=== PATIENT | male | born 1970 | race Caucasian/White ===

== ENCOUNTER 2023-07-15 11:29 | Emergency (ER) | payer OTHER, SELFPAY ==
[2023-07-15 12:07] VITALS: BP 130/80; PULSE 68; RESP 18; TEMP 36.4; O2SAT 98
--- NOTE | 2023-07-15 12:24 | ED.SKABFB ---
HPI - Skin/Abscess/Foreign Bdy General Chief complaint: Skin/Abscess/Foreign Body Stated complaint: cyst under lt great toe Time Seen by Provider: 07/15/23 12:20 Source: patient and RN notes reviewed Mode of arrival: ambulatory Limitations: no limitations History of Present Illness HPI narrative: Patient presents today complaining of a sore area underneath his left great toe. States 1 week ago it started out looking like a pimple and was popped by a family member. States he had been improving, but last night he felt it as he was walking and wanted to come in today for evaluation. States it is somewhat sore. Denies stepping on anything that would cause a foreign body. Related Data Allergies Allergy/AdvReac Type Severity Reaction Status Date / Time No Known Allergies Allergy Mild Verified 07/15/23 12:12 Review of Systems Review of Systems: CONSTITUTIONAL: Denies body aches, fever, chills, or sweats. EYES: Denies visual changes, redness, or discharge. ENT: Denies rhinorrhea, congestion, sore throat, or otalgia. CARDIOVASCULAR: Denies chest pain, palpitations, or edema. RESPIRATORY: Denies cough or dyspnea. GASTROINTESTINAL: Denies abdominal pain, nausea, vomiting, or diarrhea. GENITOURINARY: Denies dysuria or hematuria. SKIN: + sore to left foot MUSCULOSKELETAL: Denies back pain, joint pain, or myalgia. NEUROLOGIC: Denies headache, numbness, tingling, or weakness. PSYCH: Denies depression or anxiety. PMFSH Comments At time of signature, I have reviewed and agree with nursing past medical, surgical, social and family history unless otherwise noted. Please see nursing chart for further information. There is no relevant family history pertinent to the presenting complaint Exam Narrative: GENERAL: Well-appearing, well-nourished, and in no acute distress. HEAD: Normocephalic, atraumatic. EYES: EOMI. No redness or drainage. Conjunctivae normal. ENT: Mucous membranes pink and moist. NECK: Normal AROM. CHEST: No respiratory distress. EXTREMITIES: Normal range of motion. No edema. SKIN: Warm, dry, no rash. Capillary refill normal. Normal skin turgor. 3 mm pustule to the plantar surface of the proximal phalanx of the left 1st toe with moderate surrounding erythema. Tender to palpation. NEURO: No focal deficits. Alert and oriented x3. Gait steady. PSYCH: Normal affect. No signs of depression or anxiety. Course Course Level of Care: Express Care Visit Vital Signs Vital signs: Vital Signs Temperature 97.6 F 07/15/23 12:07 Pulse Rate 68 07/15/23 12:07 Respiratory Rate 18 07/15/23 12:07 Blood Pressure 130/80 07/15/23 12:07 Pulse Oximetry 98 07/15/23 12:07 Oxygen Delivery Room Air 07/15/23 12:07 Temperature 97.6 F 07/15/23 12:07 Pulse Rate 68 07/15/23 12:07 Respiratory Rate 18 07/15/23 12:07 Blood Pressure 130/80 07/15/23 12:07 Pulse Oximetry 98 07/15/23 12:07 Oxygen Delivery Room Air 07/15/23 12:07 Reviewed Procedures Abscess I/D foot: Date of Incision: 07/15/23 Time of Incision: 12:30 Side (if applicable): left Sedation/analgesia: none Local Anesthetic: none Technique: other (18g needle tip) Amount of fluid expressed (mL): 0 (scant) Irrigation: No I&D Results: Pus Abcess I&D Additional Comments: dressed with bandaid MDM - Skin/Abscess/Foreign Bdy MDM Narrative Medical decision making narrative: abscess was opened and drained fully. Patient was placed on Keflex for the surrounding cellulitis. Care instructions given. Differential Diagnosis Differential diagnosis: Likely abscess of skin or subcutaneous tissue and cellulitis Critical Care Time Critical Care Time Critical Care Time: No Discharge Plan Discharge Clinical Impression: Abscess of great toe of left foot Patient Disposition: Home, Self-Care Condition: Stable Instructions: Antibiotic Form, Abscess Incision a
== END 2023-07-15 12:40 | disposition home or self-care (01) ==
PROVIDERS: Emergency Provider Nurse Practitioner
DX: L02.612 Cutaneous abscess of left foot (principal)
CPT/HCPCS: 10060; 99213; G0463

== ENCOUNTER 2023-10-10 18:32 | Emergency (ER) | payer OTHER, SELFPAY ==
--- NOTE | 2023-10-10 18:38 | ED.URI ---
HPI - URI/Sore Throat General Chief Complaint: Upper Respiratory Infection Stated Complaint: Sob Time Seen by Provider: 10/10/23 18:38 Source: patient Mode of arrival: ambulatory Limitations: no limitations History of Present Illness HPI Narrative: Jeff is a 56-year-old male patient presenting to the clinic today with complaints of shortness of breath, left-sided chest discomfort, left arm pain, and right-sided jaw pain. He reports he started having cough and congestion today that is what prompted him to the clinic and his other symptoms started around 2 months ago. Pain is worse on exertion MD elicited complaint: sore throat and nasal congestion Related Data Home Medications Medication Instructions Recorded Confirmed No Home Medications 10/10/23 10/10/23 Allergies Allergy/AdvReac Type Severity Reaction Status Date / Time No Known Allergies Allergy Mild Verified 10/10/23 18:56 Review of Systems Review of Systems: Pertinent positives per HPI. Patient denies any fever, chills, rash, headache, visual changes, dizziness, cough, chest pain, palpitations, nausea, vomiting, diarrhea, constipation, abdominal pain, or any urinary issues. PMFSH Comments At the time of my signature, I reviewed and agree with the nursing past medical, surgical, social, and family history. There is no relevant family history pertinent to the patient complaint. Exam Narrative: General: Well-developed, well nourished, in no apparent distress Head: Normocephalic, atraumatic Eyes: Pupils equally round and reactive to light bilaterally, EOM intact, sclera and conjunctive clear, no discharge, lids normal Ears: TMs intact and clear, ear canals clear, no drainage, grossly hearing normal. Nose: Nares patent, clear nasal discharge, no inflammation, no sinus tenderness. Mouth: Oral pharynx without lesions or masses, good dentition, MMM. Neck: Supple, trachea midline, no enlargement of anterior or posterior cervical nodes, no thyroid masses or goiter palpable. Cardio: Regular rate and rhythm, s1 and s2 normal, no murmur appreciated. Resp: Clear to auscultation bilaterally, no rhonchi, rales, wheezing or rubs Course Course Emergency Course: Portions of this record may have been created with voice recognition software. Level of Care: Express Care Visit Vital Signs Vital signs: Vital signs reviewed Transfer Transfered to: [facility] Transportation: Other (Declined EMS) Transfer rationale: Chest pain, shortness of breath, left arm pain, right jaw pain Accepting physician: Dr. Alford Transfer comments: Private car-declined EMS- AMA signed MDM - URI/Sore Throat MDM Narrative Medical decision making narrative: At the time of visit patient is resting comfortably on the exam table. Patient appears to be nontoxic. Plan: EKG shows normal sinus rhythm with heart rate 61 beats per minute. No ST elevation or depression noted. No T-wave inversion. Plan: Recommend transfer to the emergency room for further evaluation. Patient would like to be transfer to [facility]. Patient is declining EMS and AMA was signed. Spoke with Dr. Alford at [facility] and she accepts patient for transfer. Differential Diagnosis Differential diagnosis: Likely upper respiratory infection, otitis media, sinusitis, viral infection, bronchitis, influenza, pharyngitis and other (COVID) ECG Data EKG #1: Attestation: I personally reviewed and interpreted this ECG as follows: ECG completion date: 10/10/23 ECG completion time: 18:56 Prior ECG tracings: not available for review Interpretation: EKG shows normal sinus rhythm with heart rate of 61 beats per minute without ST elevation or depression. No T-wave inversion. [place] interval is 153 milliseconds, QRS durations 94 milliseconds, QT-QTC is 365-369 milliseconds, P-R-T axis 35 6 49 Discharge Plan Discharge Clinical Impression: Shortness of breath, Chest pain, Arm pain, left,
[2023-10-10 18:40] VITALS: BP 144/83; PULSE 69; RESP 20; TEMP 36.7; O2SAT 97
--- NOTE | 2023-10-10 18:47 | ECG_ITS ---
Measurements Intervals [place] Rate: 61 P: 35 TX: 153 QRS: 6 QRSD: 94 T: 49 QT: 365 QTc: 370 Interpretive Statements SINUS RHYTHM MINIMAL Q WAVES- HIGH LATERAL LEADS BORDERLINE ECG NO PREVIOUS ECG AVAILABLE FOR COMPARISON Electronically Signed On 10-11-2023 6:32:53 XRAY TECH by Misael Duarte D.O.
== END 2023-10-10 19:04 | disposition short-term general hospital (02) ==
PROVIDERS: Emergency Provider Nurse Practitioner Family; PCP Physician Assistant
DX: R06.02 Shortness of breath (principal); R07.9 Chest pain, unspecified; M79.602 Pain in left arm; R68.84 Jaw pain
CPT/HCPCS: 93005; 99213; G0463

== ENCOUNTER 2023-10-10 19:17 | Inpatient (IN) | payer OTHER, SELFPAY ==
[2023-10-10] VITALS (25 sets, daily range): BP systolic 125–151; BP diastolic 78–95; PULSE 60–81; RESP 11–20; TEMP 36.6; O2SAT 95–100
--- NOTE | ~2023-10-10 | XR_ITS ---
EXAMINATION: XR chest 2V DATE: 10/10/2023 19:52 INDICATION: Chest pain TECHNIQUE: Frontal and lateral views of the chest are obtained COMPARISON: None available FINDINGS: The lungs are free of acute opacities. No pleural effusion or pneumothorax. The cardiomedia stinal silhouette is normal. There is mild thoracic spondylosis. IMPRESSION: 1. No acute cardiopulmonary abnormality. Reviewed, dictated and finalized at location [facility]
--- NOTE | 2023-10-10 19:32 | ECG_ITS ---
Measurements Intervals [place] Rate: 66 P: 20 FL: 153 QRS: 15 QRSD: 94 T: 51 QT: 365 QTc: 385 Interpretive Statements SINUS RHYTHM MINIMAL Q WAVES- HIGH LATERAL LEADS BASELINE ARTIFACT- I, II, III, AVR, AVL, AVF, V1, V3 BORDERLINE ECG NO PREVIOUS ECG AVAILABLE FOR COMPARISON Electronically Signed On 10-11-2023 6:34:23 EMERGENCY ROOM RN by Misael Duarte D.O.
[2023-10-10 19:52] LABS: Basophils Absolute Auto 0.1 K/mm3 (0.0-0.1); Basophils Percent Auto 0.6 % (0.2-1.2); Eosinophils Absolute Auto 0.3 K/mm3 (0-0.3); Eosinophils Percent Auto 3.2 % (0-4.4); Hemoglobin 14.9 g/dL (14.0-18.0); Immature Granulocyte Absolute 0.03 K/mm3 (0.00-0.031); Immature Granulocyte Percent A 0.4 % (0-0.5); Lymphocytes Absolute Auto 1.68 K/mm3 (0.9-3.2); Lymphocytes Percent Auto 21.6 % (18.3-44.2); Mean Corpuscular HGB Conc 33.1 g/dl (32-36); Mean Corpuscular Hemoglobin 28.3 pg (26-34); Mean Corpuscular Volume 85.6 fl (80-100); Mean Platelet Volume 10.1 fl (7.4-10.4); Monocytes Absolute Auto 0.8 K/mm3 (0.1-0.6); Neutrophils Percent Auto 64.2 % (45.5-73.1); Platelet Count Result 270 k/mm3 (150-375); Red Blood Count 5.26 M/mm3 (4.6-6.20); Red Cell Distribution Width 12.9 % (11.5-14.5); White Blood Count 7.8 K/mm3 (4.5-10.0)
[2023-10-10 20:01] LABS: Prothrombin Time 13.2 Seconds (11.1-14.7)
[2023-10-10 20:02] LABS: Partial Thromboplastin Time 30.3 SECONDS (22.3-36.8)
[2023-10-10 20:03] LABS: Alanine Aminotransferase 22 U/L (6-50); Albumin Level 3.9 g/dL (3.5-5.1); Alkaline Phosphatase 67 U/L (38-126); Anion Gap 6 mmol/L (8-16); Aspartate Amino Transferase 26 U/L (17-59); Bilirubin,Total 0.4 mg/dL (0.2-1.3); Blood Urea Nitrogen 12 mg/dL (9-20); Calcium 8.8 mg/dL (8.4-10.2); Carbon Dioxide 23 mmol/L (22-30); Chloride 108 mmol/L (98-107); Estimated CRCL calculation 73 ml/min; Estimated Glomerular Filt Rate > 60; Glucose 103 mg/dL (65-110); Lipase 182 U/L (23-300); Potassium 3.7 mmol/L (3.4-5.0); Sodium 137 mmol/L (137-145)
[2023-10-10 20:17] LABS: Troponin I 0.094 ng/mL (0.000-0.034)
--- NOTE | 2023-10-10 20:25 | ED.CHESTPAIN ---
HPI - Chest Pain General Chief Complaint: Chest Pain Stated Complaint: chest pain sent from urgent care Time Seen by Provider: 10/10/23 20:24 Source: patient, family () and other (provider report prior to arrival) Mode of arrival: ambulatory Limitations: no limitations History of Present Illness HPI narrative: Received report from Rajesh HALE at [place] prior to patient's arrival, at 18:58, by myself. Patient had presented with complaint of shortness of breath as well as left-sided chest pain on exertion radiating to the right jaw and associated with left arm pain with exertion. The symptoms have been going on for 2 months. He has also recently had cold symptoms. That initially called the urgent care and or advised to present to the emergency department based on all the symptoms but did continue to present to the urgent care instead. An EKG was performed with report of no ST segment elevations or depressions but some possibly peaked T-waves in V4 and V5. Patient declined EMS transport was becoming by private vehicle. Patient confirms the above history upon arrival. Denies lower extremity edema. Denies any past medical history and does not taking medications. No previous cardiac or respiratory diagnoses and has not seen a automation architect or undergone stress testing/cardiac catheterization. Nonsmoker, no previous diagnosis of diabetes mellitus or hypercholesterolemia. Denies a family history of myocardial infarction before the age of 65. Related Data Allergies Allergy/AdvReac Type Severity Reaction Status Date / Time No Known Allergies Allergy Verified 10/10/23 19:40 [facility] Past Medical History Medical History (Updated 10/10/23 @ 22:22 by Martita Alford MD) No significant past medical history Surgical History Surgical History (Updated 10/10/23 @ 22:23 by Martita Alford MD) History of total left knee replacement Social History Social History (Updated 10/10/23 @ 22:28 by Martita Alford MD) Smoking status: Never smoker Living arrangements: with family Additional living arrangements comments: [place] Occupation/Education: occupation Exam Narrative: GENERAL: Well-appearing, well-nourished, and in no acute distress. HEAD: Normocephalic, atraumatic. EYES: Non injected, non icteric ENT: Nares clear, no rhinorrhea or epistaxis. NECK: Supple. CHEST: Clear to auscultation. No respiratory distress. Speaking in full sentences. No wheezes, stridor, crackles. HEART: Regular rate and rhythm. Normal S1 and S2 without murmur. ABDOMEN: Soft, nondistended. EXTREMITIES: Normal range of motion. No bilateral lower extremity edema. SKIN: Warm, dry, no rash. NEURO: No focal deficits. Alert and oriented x3. Ambulates with steady gait. PSYCH: Normal mood and affect. Course Vital Signs Vital signs: Vital Signs Temperature 97.9 F 10/10/23 19:25 Pulse Rate 67 10/10/23 19:25 Respiratory Rate 14 10/10/23 19:25 Blood Pressure 146/87 H 10/10/23 19:25 Pulse Oximetry 97 10/10/23 19:25 Oxygen Delivery Room Air 10/10/23 19:25 Temperature 97.9 F 10/10/23 19:25 Pulse Rate 69 10/10/23 21:13 Respiratory Rate 16 10/10/23 21:13 Blood Pressure 125/85 10/10/23 21:13 Pulse Oximetry 99 10/10/23 21:37 Oxygen Delivery Room Air 10/10/23 21:37 MDM - Chest Pain MDM Narrative Medical decision making narrative: Patient presents to the ED from urgent care because of reported symptoms of chest pain with exertion radiating to jaw and arm as well as shortness of breath of 2 months duration. In the emergency department he is afebrile with vital signs notable for only mild hypertension. Troponin 0.094. HEART score is 3 however even with low HEART score, if troponin is positive, many experts recommend further workup and admission. Patient given aspirin. Discussed with Dr Duarte cardiology who recommends NPO and heparin and plan to cath in the morning. Patient discussed kate
[2023-10-10 20:30] LABS: Influenza A QL RT-PCR Negative (Negative); Influenza B QL RT-PCR Negative (Negative); RSV RNA, RT-PCR Negative (Negative); SARS-CoV-2 RNA PCR Negative (Negative)
[2023-10-10] MEDS: ASPIRIN 81 MG CHEWABLE TABLET 324 MG PO (21:03)
[2023-10-10] MEDS: Please add drug allergy info to patient profile. 1 EACH XX (21:04)
[2023-10-10 21:25] LABS: Basophils Absolute Auto 0.1 K/mm3 (0.0-0.1); Basophils Percent Auto 0.8 % (0.2-1.2); Eosinophils Absolute Auto 0.2 K/mm3 (0-0.3); Eosinophils Percent Auto 3.2 % (0-4.4); Hematocrit 44.5 % (42.0-52.0); Hemoglobin 15.1 g/dL (14.0-18.0); Immature Granulocyte Absolute 0.02 K/mm3 (0.00-0.031); Immature Granulocyte Percent A 0.3 % (0-0.5); Lymphocytes Absolute Auto 1.51 K/mm3 (0.9-3.2); Lymphocytes Percent Auto 21.3 % (18.3-44.2); Mean Corpuscular HGB Conc 33.9 g/dl (32-36); Mean Corpuscular Hemoglobin 28.8 pg (26-34); Mean Corpuscular Volume 84.8 fl (80-100); Mean Platelet Volume 10.3 fl (7.4-10.4); Monocytes Absolute Auto 0.7 K/mm3 (0.1-0.6); Monocytes Percent Auto 9.6 % (2.6-8.5); Neutrophils Absolute Auto 4.6 K/mm3 (1.3-6.7); Neutrophils Percent Auto 64.8 % (45.5-73.1); Platelet Count Result 271 k/mm3 (150-375); Red Blood Count 5.25 M/mm3 (4.6-6.20); White Blood Count 7.1 K/mm3 (4.5-10.0)
[2023-10-10] MEDS: HEPARIN SOD/D5W 100 UNITS/ML 25,000 UNITS/250 ML BAG 10 UNITS IV CONT (21:29)
[2023-10-10] MEDS: HEPARIN SODIUM 5,000 UNITS/ML VIAL 4000 UNITS IV PUSH (21:29)
[2023-10-10 21:31] LABS: Prothrombin Time 13.2 Seconds (11.1-14.7)
[2023-10-10 21:32] LABS: Partial Thromboplastin Time 30.4 SECONDS (22.3-36.8)
--- NOTE | 2023-10-10 22:38 | ECG_ITS ---
Measurements Intervals [place] Rate: 69 P: 42 [place]: 157 QRS: 19 QRSD: 94 T: 57 QT: 366 QTc: 393 Interpretive Statements SINUS RHYTHM MINIMAL Q WAVES- HIGH LATERAL LEADS BASELINE ARTIFACT- I, II, III, AVR, AVL, AVF, V1-V2 BORDERLINE ECG COMPARED TO ECG 10/10/2023 19:36:39 NO SIGNIFICANT CHANGES Electronically Signed On 10-11-2023 6:40:38 IMAGING SPECIALIST by Misael Duarte D.O.
[2023-10-10 23:11] LABS: Troponin I 0.103 ng/mL (0.000-0.034)
[2023-10-10] MEDS: LACTATED RINGERS 1,000 ML 125 ML IV CONT (23:12)
[2023-10-11] VITALS (30 sets, daily range): BP systolic 107–162; BP diastolic 64–94; PULSE 57–80; RESP 12–18; TEMP 36.4–37.3; O2SAT 94–100; BMI 29.2
--- NOTE | 2023-10-11 | ECHO_ITS ---
Patient Info Name: Jeff Mendoza Age: 52 years : 1970 Gender: Male Ht: 71 in Wt: 209 lbs BSA: 2.20 m2 HR: 66 bpm BP: 140 / 77 mmHg Heart Rhythm: Sinus Rhythm Technical Quality: Fair Exam Date: 10/11/2023 10:10 AM Exam Location: Echo Lab Patient Status: Inpatient Admit Date: 10/10/2023 Staff Ordering Physician: Misael Duarte DO Technical Mgr: Romi Chatman RDCS Attending Provider: Vandana Ogden DO Referring Physician: Gerald ADAME; Exam Type: CA echo dop color flow w con Study Info Indications - elevated troponin R07.9 - Chest pain, unspecified Complete two-dimensional, color flow and Doppler transthoracic echocardiogram is performed with contrast to opacify the left ventricle and to improve the deliniation of the left ventricle endocardial borders. Contrast/Agitated Saline Contrast/Ag. Saline: Definity Amount: 2.00 ml Administered By: Romi Chatman RDCS Existing IV Access: Yes IV Access Condition: patent with no signs of infiltration Summary 1. Definity contrast administered improved wall motion interpretation. 2. Left ventricular chamber dimension is normal. 3. Left ventricular systolic function is normal, estimated at 65-70%. 4. The left ventricular diastolic function is normal. 5. E/e' 9 is minimally elevated. 6. There is trace mitral valve regurgitation. 7. No pulmonary hypertension, estimated pulmonary arterial systolic pressure is 17 mmHg. Left Ventricle E/e' 9 is minimally elevated. Definity contrast administered improved wall motion interpretation. Left ventricular chamber dimension is normal. Left ventricular systolic function is normal, estimated at 65-70%. The left ventricular diastolic function is normal. Right Ventricle Right ventricular systolic function is normal and with normal TAPSE 2.2 cm. Right ventricular chamber dimension is normal. Left Atria Left atrial chamber dimension is normal. Right Atria Right atrial chamber dimension is normal. Aortic Valve The aortic valve is trileaflet. There is no aortic valve stenosis. There is no aortic valve regurgitation. Pulmonic Valve There is no pulmonic regurgitation. Mitral Valve There is no mitral valve stenosis. There is trace mitral valve regurgitation. Tricuspid Valve There is no tricuspid valve regurgitation. No pulmonary hypertension, estimated pulmonary arterial systolic pressure is 17 mmHg. Pericardium/Pleural There is no pericardial effusion. Inferior Vena Cava Normal inferior vena cava with >50% collapse upon inspiration consistent with normal right atrial pressure, 5 mmHg. Aorta The aortic root size at the sinus of Valsalva is normal. Left Ventricular Outflow Tract Name Value Normal LVOT 2D LVOT Diameter 2.01 cm LVOT Doppler LVOT Peak Gradient 5 mmHg LVOT Mean Gradient 3 mmHg LVOT VTI 22.72 cm LVOT VTI/AV VTI Ratio 1.05 LVOT Stroke Volume 71.87 ml LVOT CO 4.40 l/min LVOT CI 2.00 L/min/m2 Pulmonic Valve
--- NOTE | 2023-10-11 00:20 | ADMGEN ---
This patient, Jeff Mendoza, was admitted to IMU Room 213-01. Patient/family oriented to hospital policies and general routines including ID bracelet, bed and alarms, visiting hours, pain management, procedures, bathroom and other care routines, personal items, smoking policy, room service/diet, and visiting hours. Information on how to activate the Rapid Response Team has been discussed. Patient/Family are encouraged to report perceived risks to care and to ask questions if they do not understand what they are told or what they should do.
[2023-10-11 03:45] LABS: Basophils Absolute Auto 0.1 K/mm3 (0.0-0.1); Basophils Percent Auto 0.9 % (0.2-1.2); Eosinophils Absolute Auto 0.3 K/mm3 (0-0.3); Eosinophils Percent Auto 4.4 % (0-4.4); Hematocrit 43.2 % (42.0-52.0); Hemoglobin 14.6 g/dL (14.0-18.0); Immature Granulocyte Absolute 0.01 K/mm3 (0.00-0.031); Immature Granulocyte Percent A 0.2 % (0-0.5); Lymphocytes Absolute Auto 1.76 K/mm3 (0.9-3.2); Mean Corpuscular HGB Conc 33.8 g/dl (32-36); Mean Corpuscular Hemoglobin 28.9 pg (26-34); Mean Corpuscular Volume 85.5 fl (80-100); Mean Platelet Volume 10.3 fl (7.4-10.4); Monocytes Absolute Auto 0.6 K/mm3 (0.1-0.6); Monocytes Percent Auto 9.7 % (2.6-8.5); Neutrophils Absolute Auto 3.8 K/mm3 (1.3-6.7); Neutrophils Percent Auto 57.8 % (45.5-73.1); Platelet Count Result 259 k/mm3 (150-375); Red Blood Count 5.05 M/mm3 (4.6-6.20); Red Cell Distribution Width 13.2 % (11.5-14.5); White Blood Count 6.5 K/mm3 (4.5-10.0)
[2023-10-11 03:57] LABS: Partial Thromboplastin Time 69.6 SECONDS (22.3-36.8)
[2023-10-11 04:17] LABS: Troponin I 0.144 ng/mL (0.000-0.034)
--- NOTE | 2023-10-11 05:10 | PM.IMHP ---
H&P: HPI History of Present Illness Date/Time: 10/11/23 00:40 Chief Complaint: Chest pain Narrative: 52-year-old male previously healthy who presents the ER from urgent care with intermittent chest pain, dyspnea on exertion and left arm pain for 2 months. 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 He has been having intermittent left-sided chest pain that radiates to his left arm and lasts for brief time. It is 30 seconds to a couple of minutes and has resolved with rest. The symptoms have been occurring with increasing frequency over the last couple of weeks. They are not accompanied by any diaphoresis, palpitations, nausea or vomiting. However over the last 2 days he has developed upper respiratory symptoms with postnasal drip, nasal congestion and scratchy throat. And he has also had left-sided neck pain today when he had 1 of his episodes of chest discomfort. He states that the pain is aching in nature. Over the last couple of days he is also to develop some cough that is nonproductive and reports that he cannot lay down without being uncomfortable. He does not have a family history of significant heart disease he does not smoke. He denies a history of hyperlipidemia. In the urine the patient's troponins were noted to be elevated. He was started on heparin drip in given a full-dose aspirin. Review of Systems Review of Systems: 12 systems were reviewed with pertinent positives and negatives per HPI. Except as documented in the HPI, all other systems were reviewed and are negative. [facility] Past Medical History Medical History No significant past medical history Surgical History Surgical History (Updated 10/11/23 @ 05:22 by Vandana Ogden DO) History of right knee surgery Right knee reconstruction History of total left knee replacement Family History Family History (Updated 10/11/23 @ 05:25 by Vandana Ogden DO) Father , at 79 Congestive heart failure Mother Liver cancer, Onset Age: 63 Sibling Drug overdose Sibling Healthy adult Social History Social History (Updated 10/11/23 @ 05:26 by Vandana Ogden DO) Social History: Patient lives with his . He is a lifelong nonsmoker and does not have significant alcohol or drug use. 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 No Living arrangements: with family Additional living arrangements comments: [place] Occupation/Education: occupation Spiritual care concerns: No Meds Home Medications and Allergies Home Medications Medication Instructions Recorded Confirmed Type No Home Medications 10/11/23 10/11/23 History Allergies Allergy/AdvReac Type Severity Reaction Status Date / Time No Known Allergies Allergy Verified 10/10/23 19:40 Vital Signs Vital Signs - 24 hr 10/10/23 19:25 10/10/23 21:12 10/10/23 21:13 Temperature 97.9 F Pulse Rate 67 62 69 Respiratory Rate 14 16 Blood Pressure 146/87 H 125/85 Pulse Oximetry 97 99 Oxygen Delivery Room Air 10/10/23 21:37 10/10/23 23:37 10/10/23 20:29 Temperature Pulse Rate 65 67 Respiratory Rate 16 17 Blood Pressure 147/93 H 137/89 Pulse Oximetry 99 97 97 Oxygen Delivery Room Air 10/10/23 20:30 10/10/23 20:31 10/10/23 20:45 Temperature Pulse Rate 70 65 62 Respiratory Rate 16 14 15 Blood Pressure 125/85 Pulse Oximetry 97 96 98 Oxygen Delivery 10/10/23 21:02
[2023-10-11 07:37] LABS: Cholesterol 205 mg/dL (0-200); HDL Direct 54 mg/dL; Triglycerides 284 mg/dL (<150)
[2023-10-11] MEDS: LACTATED RINGERS 1,000 ML 125 ML IV CONT (07:45)
[2023-10-11 07:48] LABS: LDL Cholesterol Direct 131 mg/dL
--- NOTE | 2023-10-11 07:55 | PM.CNCAR ---
Assessment and Plan Assessment and plan (1) Non-ST elevation [place] (NSTEMI): Code(s): I21.4 - Non-ST elevation (NSTEMI) myocardial infarction Status: Acute Assessment and Plan: Troponin trending up at 0.144. EKG without ST changes. On aspirin and heparin drip. Start Atorvastatin 80 mg daily and Metoprolol Succinate 12.5 mg daily. Obtain echo. Risks/benefits/alternative to [facility] discuss with patient and he is agreeable to it[place] [facility] [place] [facility]. (2) Dyslipidemia: Code(s): E78.5 - Hyperlipidemia, unspecified Status: Acute Assessment and Plan: Advise to maintain a low saturated fat diet. History of Present Illness History of Present Illness Consult date/time: 10/11/23 07:55 Reason For Visit: NSTEMI Narrative: 52 yr old man presents to ER with chest pain. He has no cardiac history. Reports in last 2 months he noted exertional left chest ache radiating to left upper extremity associated with sob. It has become more frequent with walking up to 30 yards now. Denies orthopnea, PND, edema, dizziness, palpitations. Review of Systems Review of Systems: All systems reviewed & are unremarkable except as noted in HPI and below Constitutional: Constitutional: Reports as per HPI, Denies chills and Denies fever(s) Cardiovascular: Cardiovascular: Reports as per HPI, Reports chest pain and Denies irregular heart rhythm Respiratory: Respiratory: Reports as per HPI and Reports dyspnea Gastrointestinal: Gastrointestinal: Reports as per HPI and Denies abdominal pain Genitourinary: Genitourinary: Reports as per HPI and Denies dysuria Musculoskeletal: Musculoskeletal: Reports as per HPI Neurologic: Reports as per HPI, Denies dizziness and Denies syncope [facility] Past Medical History Medical History (Updated 10/11/23 @ 07:58 by Misael Duarte DO) No significant past medical history Surgical History Surgical History (Updated 10/11/23 @ 05:22 by Vandana Ogden DO) History of right knee surgery Right knee reconstruction History of total left knee replacement Family History Family History (Updated 10/11/23 @ 05:25 by Vandana Ogden DO) Father , at 79 Congestive heart failure Mother Liver cancer, Onset Age: 63 Sibling Drug overdose Sibling Healthy adult Social History Social History (Updated 10/11/23 @ 05:26 by Vandana Ogden DO) Social History: Patient lives with his . He is a lifelong nonsmoker and does not have significant alcohol or drug use. 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 No Living arrangements: with family Additional living arrangements comments: [place] Occupation/Education: occupation Spiritual care concerns: No Meds Home Medications and Allergies Home Medications Medication Instructions Recorded Confirmed Type No Home Medications 10/11/23 10/11/23 History Allergies Allergy/AdvReac Type Severity Reaction Status Date / Time No Known Allergies Allergy Verified 10/10/23 19:40 Vital Signs Vital Signs - 24 hr 10/10/23 19:25 10/10/23 21:12 10/10/23 21:13 Temperature 97.9 F Pulse Rate 67 62 69 Respiratory Rate 14 16 Blood Pressure 146/87 H 125/85 Pulse Oximetry 97 99 Oxygen Delivery Room Air 10/10/23 21:37 10/10/23 23:37 10/10/23 20:29 Temperature Pulse Rate 65 67 Respiratory Rate 16 17 Blood Pressure 147/93 H 137/89 Pulse Oximetry 99 97 97 Oxygen Delivery Room Air
--- NOTE | 2023-10-11 08:36 | WPDMODSED ---
Moderate Sedation Note-Pt Data Patient Data Diagnosis: Exertional/accelerating angina Present Complaint: Exertional chest pain Procedure to be performed/Plan: Left heart catheterization Allergies Allergy/AdvReac Type Severity Reaction Status Date / Time No Known Allergies Allergy Verified 10/10/23 19:40 Home Medications Medication Instructions Recorded Confirmed Type No Home Medications 10/11/23 10/11/23 History Current Medications: Active Medications Acetaminophen (Acetaminophen 325 Mg Tablet) 650 mg PO Q4H PRN PRN Reason: Mild Pain (1-3) or Fever Aspirin (Aspirin 81 Mg Enteric Tablet) 81 mg PO QAM [facility] Atorvastatin Calcium (Atorvastatin 40 Mg Tablet) 80 mg PO DAILY [facility] Heparin Sodium (Porcine) (Heparin Sodium 5,000 Units/Ml Vial) 4,000 units IV PUSH PRN PRN PRN Reason: aPTT less than 55 seconds Heparin Sodium (Porcine) (Heparin Sodium 5,000 Units/Ml Vial) 3,500 units IV PUSH PRN PRN PRN Reason: aPTT 55 - 70 seconds Heparin Sodium/Dextrose (Heparin Sodium/D5w 100 Units/Ml) 25,000 units in 250 mls @ 10 mls/hr IV CONT .Q24H [facility]; Protocol Last Admin: 10/10/23 21:29 Dose: 1,000 units/hr, 10 mls/hr Lactated Ringer's (Lr - Lactated Ringers Iv) 1,000 mls @ 125 mls/hr IV CONT .Q8H [facility] Last Admin: 10/10/23 23:12 Dose: 125 mls/hr Metoprolol Succinate (Metoprolol Succinate Ext Rel 12.5 Mg Tabcr) 12.5 mg PO QAM [facility] Ondansetron HCl (Ondansetron Inj 4 Mg/2 Ml Vial) 4 mg IV PUSH Q4H PRN PRN Reason: Nausea Perflutren Lipid Microsphere (Perflutren Lipid Microspheres 1.5 Ml Vial Diluted To 10 Ml Total Volume) 0 ml IV PUSH ONCE PRN; Protocol PRN Reason: adequate visualization Stop: 10/13/23 21:24 Sedation/Anesthesia: No previous sedation/anesthesia problems (including family history). [facility] Past Medical History Medical History (Updated 10/11/23 @ 07:58 by Misael Duarte DO) No significant past medical history Surgical History Surgical History (Updated 10/11/23 @ 05:22 by Vandana Ogden DO) History of right knee surgery Right knee reconstruction History of total left knee replacement Family History Family History (Updated 10/11/23 @ 05:25 by Vandana Ogden DO) Father , at 79 Congestive heart failure Mother Liver cancer, Onset Age: 63 Sibling Drug overdose Sibling Healthy adult Social History Social History (Updated 10/11/23 @ 05:26 by Vandana Ogden DO) Social History: Patient lives with his . He is a lifelong nonsmoker and does not have significant alcohol or drug use. 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 No Living arrangements: with family Additional living arrangements comments: [place] Occupation/Education: occupation Spiritual care concerns: No Mod Sed Physical Exam Physical Exam Pre Procedural Exam: Normal: Appearance, Nose, Neck, Throat, Airway, Lungs, Heart Size, Heart Rate, Heart Rhythm, Neuro Exam and Extremities Hours since solid foods: 12 Hours since liquid intake: 12 Mallampati Classification: class II Internal Medicine - PN: Obj Da Vital Signs Vital Signs: Vital Signs - 24 hr 10/10/23 19:25 10/10/23 21:12 10/10/23 21:13 Temperature 36.6 C Pulse Rate 67 62 69 Respiratory Rate 14 16 Blood Pressure 146/87 H 125/85 Pulse Oximetry 97 99 Oxygen Delivery Room Air 10/10/23 21:37 10/10/23 23:37 10/10/23 20:29 Temperature Pulse Rate 65 67 Respiratory Rate 16 17 Blood Pressure 147/93 H 137/89
[2023-10-11] MEDS: ATORVASTATIN 40 MG TABLET 80 MG PO (08:39)
[2023-10-11] MEDS: ASPIRIN 81 MG ENTERIC TABLET PO (08:39)
[2023-10-11] MEDS: METOPROLOL SUCCINATE EXT REL 12.5 MG TABCR PO (08:40)
--- NOTE | 2023-10-11 09:59 | PM.IMPN ---
Progress Note: A&P Assessment and Plan (1) Dyslipidemia: Code(s): E78.5 - Hyperlipidemia, unspecified Status: Acute Assessment and Plan: -patient denies any home medication use (2) Non-ST elevation [place] (NSTEMI): Code(s): I21.4 - Non-ST elevation (NSTEMI) myocardial infarction Status: Acute Assessment and Plan: -continue telemetry monitoring -elevated troponin consistent with NSTEMI -continue 81 mg aspirin every day Plan -patient scheduled for cardiac catheterization today Continue telemetry monitoring -may be able to discharge in the a.m. Subjective Date/time seen: 10/11/23 09:59 Interval history: Chest pain Narrative: 52-year-old male previously healthy who presents the ER from urgent care with intermittent chest pain, dyspnea on exertion and left arm pain for 2 months.? 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 He has been having intermittent left-sided chest pain that radiates to his left arm and lasts for brief time.? It is 30 seconds to a couple of minutes and has resolved with rest.? The symptoms have been occurring with increasing frequency over the last couple of weeks.? They are not accompanied by any diaphoresis, palpitations, nausea or vomiting.? However over the last 2 days he has developed upper respiratory symptoms with postnasal drip, nasal congestion and scratchy throat.? And he has also had left-sided neck pain today when he had 1 of his episodes of chest discomfort.? He states that the pain is aching in nature.? Over the last couple of days he is also to develop some cough that is nonproductive and reports that he cannot lay down without being uncomfortable.? He does not have a family history of significant heart disease he does not smoke.? He denies a history of hyperlipidemia.? In the urine the patient's troponins were noted to be elevated.? He was started on heparin drip in given a full-dose aspirin. Interval Hx: 10/10: Patient seen this morning prior to scheduled cardiac catheterization, he denies any chest pain, shortness a breath nausea vomiting at this time. Plan is to continue monitor patient's s/p: cardiac catheterization, plan for discharge in the a.m. Review of Systems Review of Systems: 12 systems were reviewed with pertinent positives and negatives per HPI. Except as documented in the HPI, all other systems were reviewed and are negative. Objective Data Vital Signs Vital Signs: Vital Signs - 24 hr 10/10/23 19:25 10/10/23 21:12 10/10/23 21:13 Temperature 97.9 F Pulse Rate 67 62 69 Respiratory Rate 14 16 Blood Pressure 146/87 H 125/85 Pulse Oximetry 97 99 Oxygen Delivery Room Air 10/10/23 21:37 10/10/23 23:37 10/10/23 20:29 Temperature Pulse Rate 65 67 Respiratory Rate 16 17 Blood Pressure 147/93 H 137/89 Pulse Oximetry 99 97 97 Oxygen Delivery Room Air 10/10/23 20:30 10/10/23 20:31 10/10/23 20:45 Temperature Pulse Rate 70 65 62 Respiratory Rate 16 14 15 Blood Pressure 125/85 Pulse Oximetry 97 96 98 Oxygen Delivery 10/10/23 21:02 10/10/23 21:15 10/10/23 21:17 Temperature Pulse Rate 63 69 60 Respiratory Rate 14 14 11 L Blood Pressure 151/95 H Pulse Oximetry 99 100 98 Oxygen Delivery 10/10/23 21:30 10/10/23 21:45 10/10/23 22:00 Temperature Pulse Rate 66 63 80 Respiratory Rate 20 15 14 Blood Pressure Pulse Oximetry 98 98 Oxygen Delivery 10/10/23 22:15 10/10/23 22:33 10/10/23 22:41 Temperature Pulse Rate 71 72 69 Respiratory Rate 16 16 17 Blood Pressure 147/88 H Pulse Oximetry 97 96 Oxygen Delivery 10/10/23 22:45 10/10/23 22:46 10/10/23 23:00 Temperature Pulse Rate 76 71 66 Respiratory Rate 15 16 12 Blood Pressure 142/91 H Pulse Oximetry 97 97 98 Oxygen Delivery 10/10/23 23:15 10/10/23 23:30 10/10/23 23:31 Temperature Pulse Rate 73 72 81 Respiratory Rate 14 13 18 Blood Pressure 147/93 H Pulse Oximetry 97 98 95 Oxygen Delivery
[2023-10-11 10:04] LABS: Partial Thromboplastin Time 53.6 SECONDS (22.3-36.8)
[2023-10-11] MEDS: HEPARIN SODIUM 5,000 UNITS/ML VIAL 4000 UNITS IV PUSH (10:15)
[2023-10-11] MEDS: PERFLUTREN LIPID MICROSPHERES 1.5 ML VIAL DILUTED TO 10 ML TOTAL VOLUME IV PUSH (10:33)
--- NOTE | 2023-10-11 12:16 | IVDEFINITY ---
Prior to administration of IV Definity the patient was educated on the risks and benefits of the imaging enhancing agent including potential adverse side effects. The patient verbalized understanding. Allergies were verified. No exclusion criteria were identified and at least one of the following inclusion criteria were met: 1) physician request, 2) patient technically difficult to image (per the [place] [employer]chocardi[employer] guidelines of two or more segments not discernable within the apical view), or 3) questionable left ventricular function. ?
--- NOTE | 2023-10-11 13:49 | ECG_ITS ---
Measurements Intervals [place] Rate: 58 P: 65 IA: 146 QRS: 25 QRSD: 94 T: 2 QT: 386 QTc: 381 Interpretive Statements SINUS BRADYCARDIA HIGH LATERAL ST ELEVATION- CONSIDER ACUTE INFARCT WITH RECIPROCAL ST DEPRESSION IN INFERIOR LEADS BASELINE ARTIFACT- II, III, AVF ABNORMAL ECG COMPARED TO ECG 10/10/2023 22:44:21 SINUS BRADYCARDIA NOW PRESENT ST (T WAVE) DEVIATION NOW PRESENT Electronically Signed On 10-11-2023 15:15:22 RETARDER OPERATOR by Misael Duarte D.O.
--- NOTE | 2023-10-11 13:53 | WPDCARDPROC ---
Cardiac Cath Procedure Note Date of procedure:: 10/11/23 Performing physician:: Marbin Hernandez MD Indication:: new onset exertional angina, acute coronary syndrome Brief clinical history:: this is a 52-year-old man not previously known to have coronary disease who entered the hospital with a 2 month history of exertional chest pain typical of angina. His pain accelerated any presented to the hospital last evening. There has been a very small troponin rise. Electrocardiogram is benign. In this setting angiography has been recommended. Procedure Procedure performed:: Left ventriculogram coronary angiogram PCI(NAVIN) to the proximal LAD Sedation/Medication given:: fentanyl 50 mg Versed 2 mg case start time 1:00 p.m. case end time 1:43 p.m. sedation provided by Jeannette Salcedo RN, trained observer Access site:: right femoral artery Estimated blood loss:: 30 cc Procedure note:: patient was brought to the cardiac catheterization lab in the postabsorptive state where the right femoral triangle was prepared and draped in the usual fashion. Anesthesia was given with 1% lidocaine infiltrated locally. Using the modified Seldinger technique the femoral artery was punctured and a 5 Irish vascular sheath was placed. After this left heart catheterization was carried out. A 5 Irish angled pigtail catheter was used to measure less than hemodynamics and to inject the left ventriculogram in the BAKER projection. After this standard 5 Irish FL4 catheter was used to engage the left coronary artery in multiple projections and then a 5 Irish JR4 catheter to engage and inject the right coronary artery. The cineangiograms were then reviewed and PCI of proximal LAD was recommended and carried out as detailed below. Prior to PCI 5 Irish sheath was exchanged over a guidewire for 6 Irish sheath. The patient received 600 mg of p.o. clopidogrel as a loading dose and was anticoagulated with bolus and infusion bivalirudin. Following completion of intervention is described below the sheath was sutured into position he was taken to the holding area in stable condition there were no signs of groin hematoma at the conclusion of the case. Findings:: Hemodynamics: Central aortic pressure is 1 16 over 66 left ventricle 116/0 end-diastolic 8 there is no gradient on pullback across the aortic valve. Left ventricle: The LV is normal in size all segments contract vigorously the global ejection fraction I visually estimated at 70%. The left main coronary artery is widely patent the left anterior descending is a large caliber artery extending down to the apex. There is a high-grade stenosis of 90-95% in the proximal LAD at the origin of the proximal diagonal branch which is a small to medium-sized vessel that bifurcates. There is JUAN 3 flow in the LAD. The circumflex is a moderate to large caliber vessel giving rise to the marginal branches the circumflex system is smooth and angiographically free of disease. The circumflex is dominant to the posterior wall providing the posterolateral branches and the left PDA the right coronary artery is small and non dominant. It gives rise to 2 right ventricular branches and is angiographically free of disease. Intervention: The left main coronary artery was engaged using a 6 Irish CLS 3.5 guiding catheter. I used a 0.014 BMW coronary guidewire to wire the LAD and easily advanced the wire into the apical, distal portion of the LAD. The lesion was then pre-dilated using a 3.5 x 20 mm Panterra balloon under nominal pressure for 30 seconds. Following this the vessel was widely patent. The target lesion was then stented using a 3.5 x 22 mm Opendisc stent. Following stent deployment at 10 atmospheres there was a small area of under expansion where the original high-grade lesion was. For that reason I post dilated this area with 3.75 x 12 mm noncompliant balloon at 14 atmospheres. Follow
--- NOTE | 2023-10-11 14:00 | SUR.PHASEII ---
Angiomax drip complete at 1403
[2023-10-11] MEDS: MORPHINE SULFATE (*CRX) 2 MG/ML INJ IV PUSH (14:28)
--- NOTE | 2023-10-11 15:26 | SUR.PHASEII ---
stent card given to while in chest pain center. copy placed on chart
[2023-10-11] MEDS: HYDROcodone/acetaminophen (*CRX) 5-325 MG TABLET 1 TAB PO (17:06)
[2023-10-11] MEDS: SODIUM CHLORIDE 0.9% IV 1,000 ML 125 ML IV CONT (17:30)
[2023-10-12] VITALS (8 sets, daily range): BP systolic 136–143; BP diastolic 86–87; PULSE 64–80; RESP 14–16; TEMP 36.4–37; O2SAT 94–98
[2023-10-12] MEDS: HYDROcodone/acetaminophen (*CRX) 5-325 MG TABLET 1 TAB PO (00:23)
--- NOTE | 2023-10-12 05:11 | ECG_ITS ---
Measurements Intervals [place] Rate: 72 P: 52 [place]: 150 QRS: 55 QRSD: 95 T: 58 QT: 357 QTc: 391 Interpretive Statements SINUS RHYTHM HIGH LATERAL INFARCT, AGE INDETERMINATE ABNORMAL ECG COMPARED TO ECG 10/11/2023 14:04:25 SINUS RHYTHM NOW PRESENT Electronically Signed On 10-12-2023 9:09:17 INVENTORY MANAGEMENT SPECIALIST by Misael Duarte D.O.
--- NOTE | 2023-10-12 08:44 | PM.PNCARD ---
Progress Note: A&P Assessment and Plan (1) Non-ST elevation [place] (NSTEMI): Code(s): I21.4 - Non-ST elevation (NSTEMI) myocardial infarction Status: Acute Assessment and Plan: Troponin trending up at 0.144. EKG without ST changes. 10/11/23 Echo: 65-70%, trace MR. 10/11/[address] [facility] [address] Hernandez: 90-95% prox LAD stenosis at origin of 1st Diag. PCI with NAVIN to prox LAD with good results but jailed and occluded small-medium size Diag. On Aspirin, Clopidogrel, Atorvastatin, Metoprolol and Losartan. May D/C home from cardiology standpoint and f/u with me in 1 week. Will discuss returning to work then and start phase II cardiac rehab then. (2) Dyslipidemia: Code(s): E78.5 - Hyperlipidemia, unspecified Status: Acute Assessment and Plan: On Atorvastatin. Advise to maintain a low saturated fat diet. Subjective Date/time seen: 10/12/23 08:44 Interval history: Since stenting has mild 2/10 left sided chest pressure that is improving. Right groin access site without hematoma/tenderness. No sob. Exam Const: General: cooperative, healthy appearing and comfortable Orientation/consciousness: oriented to person, oriented to place and oriented to time Resp: Auscultation: clear to auscultation bilaterally, no crackles, no rales, no rhonchi and no wheezes Cardio: Rate: regular rate Rhythm: regular rhythm Heart sounds: no murmurs Peripheral pulses: dorsalis pedis present Neuro: General: oriented to person, oriented to place and oriented to time Extrem: Right lower extremity: no edema Left lower extremity: no edema Objective Data Vital Signs Vital Signs: Vital Signs - 24 hr 10/11/23 10:00 10/11/23 12:00 10/11/23 12:00 Temperature 99.1 F Pulse Rate 71 70 Respiratory Rate 16 Blood Pressure 124/82 Pulse Oximetry 96 Oxygen Delivery Room Air 10/11/23 14:00 10/11/23 14:15 10/11/23 14:30 Temperature Pulse Rate 72 61 72 Respiratory Rate 12 13 12 Blood Pressure 149/91 H 162/94 H 147/85 H Pulse Oximetry 99 100 99 Oxygen Delivery Room Air Room Air Room Air 10/11/23 14:45 10/11/23 15:00 10/11/23 15:30 Temperature Pulse Rate 57 L 57 L 63 Respiratory Rate 13 13 14 Blood Pressure 138/90 141/79 H 123/81 Pulse Oximetry 97 95 Oxygen Delivery Room Air Room Air Room Air 10/11/23 16:10 10/11/23 16:15 10/11/23 16:38 Temperature Pulse Rate 69 68 65 Respiratory Rate 16 13 12 Blood Pressure 117/64 107/73 132/83 Pulse Oximetry 97 95 98 Oxygen Delivery Room Air Room Air Room Air 10/11/23 16:20 10/11/23 16:25 10/11/23 16:30 Temperature Pulse Rate 59 L 65 60 Respiratory Rate 14 14 17 Blood Pressure 116/84 123/74 123/79 Pulse Oximetry 94 95 94 Oxygen Delivery Room Air Room Air Room Air 10/11/23 16:35 10/11/23 16:45 10/11/23 17:00 Temperature Pulse Rate 66 62 71 Respiratory Rate 14 14 15 Blood Pressure 130/85 139/94 H 140/90 Pulse Oximetry 97 97 96 Oxygen Delivery Room Air Room Air Room Air 10/11/23 17:15 10/11/23 17:32 10/11/23 17:30 Temperature Pulse Rate 67 66 Respiratory Rate 14 16 Blood Pressure 134/90 135/82 Pulse Oximetry 98 98 Oxygen Delivery Room Air Room Air Room Air 10/11/23 18:00 10/11/23 18:00 10/11/23 18:40 Temperature Pulse Rate 64 75 77 Respiratory Rate 15 14 Blood Pressure 132/92 H 132/84 Pulse Oximetry 97 95 Oxygen Delivery 10/11/23 20:00 10/12/23 00:00 10/11/23 20:00 Temperature 98.1 F 97.5 F L Pulse Rate 62 67 67 Respiratory Rate 14 15 15 Blood Pressure 126/79 143/87 H Pulse Oximetry 95 98 98 Oxygen Delivery Room Air 10/12/23 00:00 10/11/23 20:00 10/11/23 22:00 Temperature Pulse Rate 67 69 70 Respiratory Rate 15 Blood Pressure Pulse Oximetry 98 Oxygen Delivery Room Air 10/12/23 00:00 10/12/23 02:00 10/12/23 04:00 Temperature Pulse Rate 65 64 64 Respiratory Rate Blood Pressure Pulse Oximetry Oxygen Delivery 10/12/23 04:00 10/12/23 04:00 10/12/23
--- NOTE | 2023-10-12 09:08 | PM.DS ---
DS: Admitting Diagnosis Discharge Date 10/12/2023 Admitting Diagnosis NSTEMI DS: Discharge Diagnosis Discharge Diagnosis (1) Dyslipidemia: Code(s): E78.5 - Hyperlipidemia, unspecified Status: Acute (2) Non-ST elevation [place] (NSTEMI): Code(s): I21.4 - Non-ST elevation (NSTEMI) myocardial infarction Status: Acute Plan May D/C home from cardiology standpoint and f/u in 1 week. Cardiology will discuss returning to work then and start phase II cardiac rehab then. DS: Summary Hospital Course Reason for hospitalization: 52-year-old male previously healthy who presented the ER from urgent care with intermittent chest pain, dyspnea on exertion and left arm pain for 2 months.? 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 He has been having intermittent left-sided chest pain that radiates to his left arm and lasts for brief time.? It is 30 seconds to a couple of minutes and has resolved with rest.? The symptoms have been occurring with increasing frequency over the last couple of weeks.? They are not accompanied by any diaphoresis, palpitations, nausea or vomiting.? However over the last 2 days he has developed upper respiratory symptoms with postnasal drip, nasal congestion and scratchy throat.? And he has also had left-sided neck pain today when he had 1 of his episodes of chest discomfort.? He states that the pain is aching in nature.? Over the last couple of days he is also to develop some cough that is nonproductive and reports that he cannot lay down without being uncomfortable.? He does not have a family history of significant heart disease he does not smoke.? He denies a history of hyperlipidemia.? In the urine the patient's troponins were noted to be elevated.? He was started on heparin drip in given a full-dose aspirin. Interval Hx: 10/10:??Patient seen this morning prior to scheduled cardiac catheterization, he denies any chest pain, shortness a breath nausea vomiting at this time.? Plan is to continue monitor patient's s/p: cardiac catheterization, plan for discharge in the a.m. 10/11: Patient seen this morning, he is lying in bed, in no acute distress he denies any ongoing chest pain. He reports after his cardiac catheterization he did have some ongoing chest pain and pressure that finally resolved. He denies any SOB, eager for discharge today reports he will follow up with [facility] as directed. Labs were reviewed which are unremarkable at this time. Status at Discharge Functional status at discharge: independent ambulation Overall status at discharge: patient is back to baseline Time Spent with Patient Time attestation: Total time spent providing and/or coordinating discharge services: Time spent: Less than 30 minutes Exam Narrative: General: A well-developed, nontoxic-appearing gentlemen, sitting up in bed. HEENT: PERRL, EOMI. Oral mucosa moist. Neck: Supple. No midline cervical tenderness. Respiratory: Respirations are non- labored and lungs are clear to auscultation bilaterally. Cardiovascular: Regular rate and rhythm with S1-S2. Gastrointestinal: Abdomen is soft, non-tender, and non-distended with positive bowel sounds. Skin: Warm and dry. No rash or lesions on limited exam. Extremities: No cyanosis, clubbing, or edema. Radial and pedal pulses intact. Neurological: Alert and oriented. Cranial nerves 2-12 are grossly intact. No gross focal deficits to casual conversation. Psychiatric: Pleasant and cooperative with normal mood and affect. Judgment and insight intact. DS: Data Data Completed and Pending Completed studies during hospitalization: Patient: Jeff Mendoza : 1970 MR#: [id number] Age: 52 Acct:[id number] Loc: [facility]? ? 213-01 ADM Date: 10/10/23Attending Dr: Vandana Ogden D.O. Ordering Physician: Misael Duarte DO Date of Service: 10/11/23 Procedure(s): CA echo dop color f
[2023-10-12] MEDS: ATORVASTATIN 40 MG TABLET 80 MG PO (09:13)
[2023-10-12] MEDS: CLOPIDOGREL BISULFATE 75 MG TABLET PO (09:14)
[2023-10-12] MEDS: ASPIRIN 81 MG CHEWABLE TABLET PO (09:14)
[2023-10-12] MEDS: LOSARTAN POTASSIUM 25 MG TABLET PO (09:14)
[2023-10-12] MEDS: METOPROLOL SUCCINATE EXT REL 25 MG TABCR PO (09:14)
== END 2023-10-12 11:00 | disposition home or self-care (01) | DRG 322 ==
LOC: ANHED 22:37 → ANHIMU 22:47
PROVIDERS: Emergency Medicine; Specialist; Admitting Provider Internal Medicine; Emergency Provider Student in an Organized Health Care Education/Training Program; PCP Physician Assistant; Visit Provider Nurse Practitioner
PROC: 4A023N7 Measurement of Cardiac Sampling and Pressure, Left Heart, Percutaneous Approach (ICD-10-PCS; CPT 93452; principal; 2023-10-11 13:00)
PROC: 027034Z Dilation of Coronary Artery, One Artery with Drug-eluting Intraluminal Device, Percutaneous Approach (ICD-10-PCS; 2023-10-11 13:00)
DX: I21.4 Non-ST elevation (NSTEMI) myocardial infarction (principal); I25.10 Atherosclerotic heart disease of native coronary artery without angina pectoris; E78.5 Hyperlipidemia, unspecified; Z20.822 Contact with and (suspected) exposure to COVID-19; Z96.652 Presence of left artificial knee joint
CPT/HCPCS: 36415; 71046; 80053; 80061; 83690; 84484; 85025; 85610; 85730; 87637; 93005; 93458; 96361; 96374; 99285; A9270; C1725; C1769; C1874; C1887; C1894; C8929; C9600; G0378; J0461; J0583; J1644; J2250; J2270; J3010; J7030; J7040; J7120; Q9957

== ENCOUNTER 2023-10-27 15:09 | Observation (INO) | payer OTHER, SELFPAY ==
[2023-10-27] VITALS (21 sets, daily range): BP systolic 112–151; BP diastolic 70–86; PULSE 59–80; RESP 13–20; TEMP 36.2; O2SAT 93–100
--- NOTE | ~2023-10-27 | XR_ITS ---
EXAMINATION: XR chest 2V Exam Date/Time: 10/27/2023 15:42 CDT HISTORY: SOB, CHEST PAIN FOR 2 WKS. STENT 2 WKS AGO Comparison: 10/10/2023. RESULT: Lines, tubes, and devices: Coronary stent. Lungs and pleura: Clear. Cardiomediastinal silhouette: Stable. Other: No acute osseous or upper abdominal finding. IMPRESSION: No acute cardiopulmonary process. Reviewed, dictated and finalized at location K.
--- NOTE | 2023-10-27 15:10 | ECG_ITS ---
Measurements Intervals [place] Rate: 70 P: 51 IN: 130 QRS: 61 QRSD: 101 T: 95 QT: 385 QTc: 418 Interpretive Statements SINUS RHYTHM CANNOT RULE OUT SEPTAL INFARCT, AGE INDETERMINATE HIGH LATERAL INFARCT, AGE INDETERMINATE BASELINE ARTIFACT- I, II, AVR, AVL, AVF ABNORMAL ECG COMPARED TO ECG 10/12/2023 08:21:48 NO SIGNIFICANT CHANGES Electronically Signed On 10-27-2023 19:33:14 CDT by Misael Duarte D.O.
[2023-10-27] MEDS: ASPIRIN 81 MG CHEWABLE TABLET 324 MG PO (15:35)
[2023-10-27 15:44] LABS: Basophils Absolute Auto 0.1 K/mm3 (0.0-0.1); Basophils Percent Auto 0.8 % (0.2-1.2); Eosinophils Absolute Auto 0.3 K/mm3 (0-0.3); Eosinophils Percent Auto 3.5 % (0-4.4); Hematocrit 43.3 % (42.0-52.0); Hemoglobin 14.4 g/dL (14.0-18.0); Immature Granulocyte Absolute 0.02 K/mm3 (0.00-0.031); Immature Granulocyte Percent A 0.3 % (0-0.5); Lymphocytes Absolute Auto 1.88 K/mm3 (0.9-3.2); Lymphocytes Percent Auto 23.6 % (18.3-44.2); Mean Corpuscular HGB Conc 33.3 g/dl (32-36); Mean Corpuscular Hemoglobin 28.5 pg (26-34); Mean Corpuscular Volume 85.7 fl (80-100); Monocytes Absolute Auto 0.7 K/mm3 (0.1-0.6); Monocytes Percent Auto 8.6 % (2.6-8.5); Neutrophils Absolute Auto 5.1 K/mm3 (1.3-6.7); Neutrophils Percent Auto 63.2 % (45.5-73.1); Platelet Count Result 316 k/mm3 (150-375); Red Blood Count 5.05 M/mm3 (4.6-6.20); Red Cell Distribution Width 12.7 % (11.5-14.5)
--- NOTE | 2023-10-27 15:50 | ED.CHESTPAIN ---
HPI - Chest Pain General Chief Complaint: Chest Pain Stated Complaint: Chest Pain Time Seen by Provider: 10/27/23 15:24 History of Present Illness HPI narrative: Patient is a 52-year-old male who presents ER with chest pain. Intermittent over the last 5 days. It can be sharp and achy in last couple of seconds. No association with exertion. Is not associated with eating or drinking. No runny nose or sore throat or cough. No difficulty breathing. He reports that he had a cardiac catheterization with this tinnitus LAD, they placed a stent which then occluded a smaller vessel but they felt that no additional intervention should be performed at that time. Patient reports he has had persistent fatigue since discharge. He is following with Dr. Duarte. Related Data Allergies Allergy/AdvReac Type Severity Reaction Status Date / Time No Known Allergies Allergy Verified 10/27/23 15:36 Review of Systems Review of Systems: All systems reviewed & are unremarkable except as noted in HPI and below Constitutional: Constitutional: Reports no additional constitutional complaints ENT: Reports system reviewed and no additional complaints, except as documented Cardiovascular: Cardiovascular: Reports chest pain, Denies rapid heart rate, Denies radiating jaw, neck or arm pain and Denies slow heart rate Respiratory: Respiratory: Reports no additional respiratory complaints Gastrointestinal: Gastrointestinal: Reports no additional gastrointestinal complaints Musculoskeletal: Musculoskeletal: Reports no additional musculoskeletal complaints [facility] Past Medical History Medical History No significant past medical history Surgical History Surgical History History of right knee surgery Right knee reconstruction History of total left knee replacement Family History Family History Father , at 79 Congestive heart failure Mother Liver cancer, Onset Age: 63 Sibling Drug overdose Sibling Healthy adult Social History Social History Social History: Patient lives with his . He is a lifelong nonsmoker and does not have significant alcohol or drug use. 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 No Living arrangements: with family Additional living arrangements comments: , [place] Occupation/Education: occupation Spiritual care concerns: No Exam Narrative: GENERAL: Well-appearing, well-nourished, and in no acute distress. HEAD: Normocephalic, atraumatic. EYES: PERRL and EOMI. ENT: Mucous membranes moist. CHEST: Clear to auscultation. No respiratory distress. HEART: Regular rate and rhythm. Normal peripheral pulses. ABDOMEN: Soft, nontender, nondistended. EXTREMITIES: Normal range of motion. No edema. SKIN: Warm, dry, no rash. NEURO: Alert and oriented x3. PSYCH: Normal mood and affect. Course Course Emergency Course: Discussed case with patient's primary case sealer. Recommends observation. No anticoagulation at this time. Trend troponins. Patient pain free. Vital Signs Vital signs: Vital Signs Temperature 97.2 F L 10/27/23 15:15 Pulse Rate 78 10/27/23 15:15 Respiratory Rate 16 10/27/23 15:15 Blood Pressure 132/78 10/27/23 15:15 Pulse Oximetry 10
[2023-10-27 15:53] LABS: Prothrombin Time 14.1 Seconds (11.1-14.7)
[2023-10-27 15:54] LABS: Partial Thromboplastin Time 32.5 Seconds (22.3-36.8)
[2023-10-27 15:55] LABS: Alanine Aminotransferase 25 U/L (6-50); Albumin Level 4.1 g/dL (3.5-5.1); Alkaline Phosphatase 69 U/L (38-126); Anion Gap 7 mmol/L (8-16); Aspartate Amino Transferase 31 U/L (17-59); Bilirubin,Total 0.7 mg/dL (0.2-1.3); Blood Urea Nitrogen 12 mg/dL (9-20); Calcium 8.8 mg/dL (8.4-10.2); Carbon Dioxide 24 mmol/L (22-30); Chloride 110 mmol/L (98-107); Estimated CRCL calculation 73 ml/min; Estimated Glomerular Filt Rate > 60; Glucose 107 mg/dL (65-110); Lipase 216 U/L (23-300); Potassium 3.5 mmol/L (3.4-5.0); Sodium 141 mmol/L (137-145)
[2023-10-27 16:19] LABS: Troponin I 0.037 ng/mL (0.000-0.034)
--- NOTE | 2023-10-27 17:50 | ECG_ITS ---
Measurements Intervals [place] Rate: 62 P: 3 NM: 165 QRS: -1 QRSD: 101 T: -40 QT: 409 QTc: 416 Interpretive Statements SINUS RHYTHM CANNOT RULE OUT SEPTAL INFARCT, AGE INDETERMINATE INFERIOR INFARCT, AGE INDETERMINATE BASELINE ARTIFACT- AVR ABNORMAL ECG COMPARED TO ECG 10/27/2023 18:30:21 INFERIOR INFARCT, AGE INDETERMINATE NOW PRESENT Electronically Signed On 10-28-2023 6:33:00 CDT by Misael Duarte D.O.
[2023-10-27 19:10] LABS: Troponin I 0.037 ng/mL (0.000-0.034)
--- NOTE | 2023-10-27 19:12 | PC.NURSE ---
Assumed care of pt at this time.
--- NOTE | 2023-10-27 19:24 | PM.CNCAR ---
Assessment and Plan Assessment and plan (1) Chest pain: Code(s): R07.9 - Chest pain, unspecified Status: Acute Assessment and Plan: Very slight elevation and flat Troponin .037 then same 3 hours later. Probably residual from prior NSTEMI 2 weeks ago. Check troponin at 6 hours. Obtain limited echo in AM. (2) CAD (coronary artery disease): Code(s): I25.10 - Atherosclerotic heart disease of [place] coronary artery without angina pectoris Status: Acute Assessment and Plan: On dual antiplatelets, Atorvastatin, Metoprolol and Losartan. (3) Dyslipidemia: Code(s): E78.5 - Hyperlipidemia, unspecified Status: Acute Assessment and Plan: On Atorvastatin. History of Present Illness History of Present Illness Consult date/time: 10/27/23 19:24 Reason For Visit: Chest Pain Narrative: 52 yr old man who is my regular cardiology patient presents to ER with chest pain. He has a history of CAD, dyslipidemia. Reports that in last 2 days he noted resting aching chest pain localized to a spot on his chest lasting 2 seconds. It occurred several times each day. He also reports feeling fatigued since discharge from hospital 2 weeks ago after NSTEMI. States occasionally he feels he has to take a deep breath while at rest. He was hospitalized on 10/11/23 for NSTEMI. Denies orthopnea, PND, edema, dizziness, palpitations. Previously, reports in last 2 months he noted exertional left chest ache radiating to left upper extremity associated with sob. It has become more frequent with walking up to 30 yards now. Cardiovascular Procedures [employer]:: 10/11/[address] [facility] [address] Hernandez: 90-95% prox LAD stenosis at origin of 1st Diag. PCI with NAVIN to prox LAD with good results but jailed and occluded small-medium size Diag. Echo/MUGA:: 10/11/23 Echo: 65-70%, trace MR. Electrophysiology:: 10/11/23 EKG: Sinus rhythm, high lateral STEMI. 10/10/23 EKG: Sinus rhythm. Review of Systems Review of Systems: All systems reviewed & are unremarkable except as noted in HPI and below Constitutional: Constitutional: Reports as per HPI, Denies chills, Reports fatigue and Denies fever(s) Cardiovascular: Cardiovascular: Reports as per HPI, Reports chest pain, Denies irregular heart rhythm and Reports dyspnea Respiratory: Respiratory: Reports as per HPI and Reports dyspnea Gastrointestinal: Gastrointestinal: Reports as per HPI and Denies abdominal pain Genitourinary: Genitourinary: Reports as per HPI and Denies dysuria Musculoskeletal: Musculoskeletal: Reports as per HPI Neurologic: Reports as per HPI, Denies dizziness and Denies syncope [facility] Past Medical History Medical History No significant past medical history Surgical History Surgical History History of right knee surgery Right knee reconstruction History of total left knee replacement Family History Family History Father , at 79 Congestive heart failure Mother Liver cancer, Onset Age: 63 Sibling Drug overdose Sibling Healthy adult Social History Social History Social History: Patient lives with his . He is a lifelong nonsmoker and does not have significant alcohol or drug use. 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
--- NOTE | 2023-10-27 21:24 | PM.IMHP ---
H&P: HPI History of Present Illness Date/Time: 10/27/23 21:24 Chief Complaint: Chest Pain Narrative: 52 y/o M presents here with chest pain with PMH of NSTEMI, CAD, and dyslipidemia. Recent hospitalization on 10/10/2023 and discharged on 10/12/2023 for NSTEMI. Patient initially presented to the urgent care on . Reported that he had been experiencing intermittent left-sided chest pain that radiated to his left arm, lasting 30 seconds, and resolving with rest for approximately the last 2 months. Did have some associated shortness of breath. Symptoms had been increasing and now occurring with walking approximately 30 yd. Initial troponin at that time had been 0.094. Given aspirin and started on heparin gtt with plan for cardiac catheterization in the morning. EKG showed sinus rhythm on . EKG on 10/10 showed Sinus rhythm, high lateral STEMI. Cardiac catheterization done on 10/10 which showed 90-95% prox LAD stenosis at origin of 1st Diag. PCI with NAVIN to prox LAD with good results but jailed and occluded small-medium size Diag. Echo on 10/10 showed 65-70%, trace MR. Patient was started on atorvastatin, Plavix, losartan, aspirin 81, and metoprolol. Patient had follow-up with Gerald RAMÍREZ on 10/21 where he reported the fatigue, but did not report any chest pain. Returns today with chest pain that is left sided, described as aching or sharp, intermittent, and occurring at rest over the last 5 days. Occasionally will have to take a deep breath in order to catch his breath. Continues to have fatigue, but it is unchanged from when he was discharged. Patient reports approximately 4-5 short episodes of chest discomfort since arrival. Sought care because of the increasing frequency that began today. Initial VS at presentation: 97.2 F, HR 78, RR 16, 132/78, 100% on RA. ED workup showed: No leukocytosis or anemia, creatinine 1.1, no other significant electrolyte derangements, initial troponin 0.037. CXR showed no acute cardiopulmonary process. EKG showed sinus rhythm, cannot rule out septal infarct, high lateral infarct, baseline artifact. When compared to prior on 10/12/2023 there are no significant changes. Review of Systems Review of Systems: All systems reviewed & are unremarkable except as noted in HPI and below PENDING SALE TO [facility] Past Medical History Medical History CAD (coronary artery disease) Dyslipidemia Non-ST elevation [place] (NSTEMI) Surgical History Surgical History History of right knee surgery Right knee reconstruction History of total left knee replacement Family History Family History Father , at 79 Congestive heart failure Mother Liver cancer, Onset Age: 63 Sibling Drug overdose Sibling Healthy adult Social History Social History Social History: Patient lives with his . He is a lifelong nonsmoker and does not have significant alcohol or drug use. 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 No Living arrangements: with family Additional living arrangements comments: Re[place] Occupation/Education: occupation Spiritual care concerns: No Meds Home Medications and Allergies Home Medications Medication Instructions Recorded Confirmed Type aspirin 81 mg chewable tablet 81 mg PO
[2023-10-27 22:25] LABS: Troponin I 0.033 ng/mL (0.000-0.034)
[2023-10-28] VITALS (15 sets, daily range): BP systolic 92–123; BP diastolic 59–80; PULSE 51–62; RESP 10–18; TEMP 36.6–36.8; O2SAT 95–99
--- NOTE | 2023-10-28 | ECHO_ITS ---
Patient Info Name: Jeff Mendoza Age: 52 years : 1970 Gender: Male Ht: 71 in Wt: 205 lbs BSA: 2.18 m2 HR: 56 bpm BP: 104 / 67 mmHg Technical Quality: Good Exam Date: 10/28/2023 8:28 AM Exam Location: Echo Lab Patient Status: Outpatient Admit Date: 10/27/2023 Staff Ordering Physician: Misael Duarte DO Prototype Sewer: Attending Provider: Martin John MD Referring Physician: Gerald ADAME; Exam Type: CA echo limited w contrast Study Info Indications R07.9 - Chest pain, unspecified Limited two-dimensional transthoracic echocardiogram is performed with contrast. Contrast/Agitated Saline Contrast/Ag. Saline: Definity Amount: 1.00 ml Existing IV Access: Yes IV Access Condition: patent with no signs of infiltration Summary 1. Limited echocardiogram to assess for wall motion abnormality. 2. Definity contrast administered improved wall motion interpretation. 3. Left ventricular chamber dimension is normal. 4. Left ventricular systolic function is normal, estimated at 65-70%. 5. The left ventricular diastolic function is indeterminate as it was not assessed.. Left Ventricle Left ventricular chamber dimension is normal. Left ventricular systolic function is normal, estimated at 65-70%. The left ventricular diastolic function is indeterminate as it was not assessed.. Limited echocardiogram to assess for wall motion abnormality. Definity contrast administered improved wall motion interpretation. Ventricles Name Value Normal LV Dimensions 2D/MM IVS Diastolic Thickness (2D) 0.9 cm 0.6-1.0 LVID Diastole (2D) 4.2 cm 4.2-5.8 LVIW Diastolic Thickness (2D) 0.8 cm 0.6-1.0 LVID Systole (2D) 2.5 cm 2.5-4.0 LV Mass (2D Cubed) 115.56 g 88.00-224.00 LV Mass Index (2D Cubed) 53 g/m2 49-115 Relative Wall Thickness (2D) 0.40 LV Fractional Shortening/Ejection Fraction 2D/MM LV Fractional Shortening (2D) 40 % 25-43 LV EF (2D Teicholz) 71 % 52-72 LV Diastolic Volume (4C MOD) 49 ml LV EF (4C MOD) 65 % LV Diastolic Volume (2C MOD) 64 ml LV EF (2C MOD) 62 % LV Diastolic Volume (BP MOD) 58 ml 62-150 LV Diastolic Volume Index (BP MOD) 27 ml/m2 34-74 LV Systolic Volume (BP MOD) 20 ml 21-61 LV Systolic Volume Index (BP MOD) 9 ml/m2 11-31 LV EF (BP MOD) 65 % 52-72 LV Diastolic Length (4C) 6.9 cm LV Systolic Length (4C) 6.1 cm LV Stroke Volume (4C MOD) 32 ml Report Signatures
--- NOTE | 2023-10-28 | ECG_ITS ---
Measurements Intervals [place] Rate: 51 P: 36 ID: 170 QRS: 56 QRSD: 98 T: 101 QT: 422 QTc: 390 Interpretive Statements SINUS BRADYCARDIA CANNOT RULE OUT SEPTAL INFARCT, AGE INDETERMINATE HIGH LATERAL INFARCT, AGE INDETERMINATE ABNORMAL ECG COMPARED TO ECG 10/28/2023 01:53:35 NO SIGNIFICANT CHANGES Electronically Signed On 10-28-2023 6:42:37 CDT by Misael Duarte D.O.
[2023-10-28] MEDS: LACTATED RINGERS 1,000 ML 100 ML IV CONT (00:49)
[2023-10-28] MEDS: NITROGLYCERIN OINTMENT 1 INCH DOSE 0.5 INCH TRANSDERM (02:10)
--- NOTE | 2023-10-28 03:42 | PC.NURSE ---
Nitro patch removed at this time due to pts low BP. Pt rates chest pain 0/10. Hospitalist Alin notified.
[2023-10-28 04:55] LABS: Basophils Absolute Auto 0.1 K/mm3 (0.0-0.1); Eosinophils Absolute Auto 0.3 K/mm3 (0-0.3); Eosinophils Percent Auto 4.7 % (0-4.4); Hemoglobin 13.5 g/dL (14.0-18.0); Immature Granulocyte Absolute 0.01 K/mm3 (0.00-0.031); Immature Granulocyte Percent A 0.2 % (0-0.5); Lymphocytes Absolute Auto 1.81 K/mm3 (0.9-3.2); Lymphocytes Percent Auto 30.3 % (18.3-44.2); Mean Corpuscular HGB Conc 32.1 g/dl (32-36); Mean Corpuscular Hemoglobin 28.6 pg (26-34); Mean Platelet Volume 11.1 fl (7.4-10.4); Monocytes Absolute Auto 0.6 K/mm3 (0.1-0.6); Monocytes Percent Auto 9.4 % (2.6-8.5); Neutrophils Absolute Auto 3.3 K/mm3 (1.3-6.7); Neutrophils Percent Auto 54.4 % (45.5-73.1); Platelet Count Result 267 k/mm3 (150-375); Red Blood Count 4.72 M/mm3 (4.6-6.20); Red Cell Distribution Width 12.6 % (11.5-14.5)
--- NOTE | 2023-10-28 05:00 | ECG_ITS ---
Measurements Intervals [place] Rate: 55 P: 45 [place]: 136 QRS: 61 QRSD: 98 T: 101 QT: 412 QTc: 394 Interpretive Statements SINUS BRADYCARDIA CANNOT RULE OUT SEPTAL INFARCT, AGE INDETERMINATE HIGH LATERAL INFARCT, AGE INDETERMINATE ABNORMAL ECG COMPARED TO ECG 10/27/2023 23:12:50 SINUS BRADYCARDIA NOW PRESENT Electronically Signed On 10-28-2023 6:36:32 CDT by Misael Duarte D.O.
[2023-10-28 05:10] LABS: Alanine Aminotransferase 23 U/L (6-50); Albumin Level 3.5 g/dL (3.5-5.1); Alkaline Phosphatase 72 U/L (38-126); Anion Gap 2 mmol/L (8-16); Aspartate Amino Transferase 26 U/L (17-59); Bilirubin,Total 0.5 mg/dL (0.2-1.3); Blood Urea Nitrogen 13 mg/dL (9-20); Calcium 8.3 mg/dL (8.4-10.2); Carbon Dioxide 22 mmol/L (22-30); Chloride 113 mmol/L (98-107); Estimated CRCL calculation 89 ml/min; Estimated Glomerular Filt Rate > 60; Glucose 101 mg/dL (65-110); Potassium 3.9 mmol/L (3.4-5.0); Sodium 137 mmol/L (137-145)
--- NOTE | 2023-10-28 07:45 | PM.PNCARD ---
Progress Note: A&P Assessment and Plan (1) Chest pain: Code(s): R07.9 - Chest pain, unspecified Status: Acute Assessment and Plan: Very slight elevation that trended down .037, .033, .030. Probably residual from prior NSTEMI 2 weeks ago Obtain limited echo today. If OK, may d/c home from cardiology standpoint and keep regular f/u appointment. (2) CAD (coronary artery disease): Code(s): I25.10 - Atherosclerotic heart disease of [place] coronary artery without angina pectoris Status: Inactive Assessment and Plan: On dual antiplatelets, Atorvastatin, Metoprolol and Losartan. Stop Losartan due to low normal BP. (3) Dyslipidemia: Code(s): E78.5 - Hyperlipidemia, unspecified Status: Inactive Assessment and Plan: On Atorvastatin. Subjective Date/time seen: 10/28/23 07:45 Interval history: He has intermittent resting focal chest pain lasting a couple of seconds. No SOB. Exam Const: General: cooperative, healthy appearing and comfortable Orientation/consciousness: oriented to person, oriented to place and oriented to time Resp: Auscultation: clear to auscultation bilaterally, no crackles, no rales, no rhonchi and no wheezes Cardio: Rate: regular rate Rhythm: regular rhythm Heart sounds: no murmurs Peripheral pulses: dorsalis pedis present Neuro: General: oriented to person, oriented to place and oriented to time Extrem: Right lower extremity: no edema Left lower extremity: no edema Objective Data Vital Signs Vital Signs: Vital Signs - 24 hr 10/27/23 15:15 10/27/23 15:28 10/27/23 15:28 Temperature 97.2 F L Pulse Rate 78 80 Respiratory Rate 16 Blood Pressure 132/78 Pulse Oximetry 100 99 Oxygen Delivery Room Air Room Air 10/27/23 15:36 10/27/23 18:55 10/27/23 15:57 Temperature Pulse Rate 77 73 70 Respiratory Rate 20 16 16 Blood Pressure 151/86 H 130/78 Pulse Oximetry 98 96 95 Oxygen Delivery 10/27/23 16:00 10/27/23 16:01 10/27/23 16:15 Temperature Pulse Rate 74 76 71 Respiratory Rate 17 16 20 Blood Pressure 134/79 Pulse Oximetry 93 93 Oxygen Delivery 10/27/23 16:48 10/27/23 17:00 10/27/23 17:01 Temperature Pulse Rate 71 69 69 Respiratory Rate 20 16 16 Blood Pressure 132/74 Pulse Oximetry 96 94 Oxygen Delivery 10/27/23 17:15 10/27/23 17:39 10/27/23 18:03 Temperature Pulse Rate 68 65 67 Respiratory Rate 16 16 13 Blood Pressure Pulse Oximetry 97 97 Oxygen Delivery 10/27/23 18:15 10/27/23 18:16 10/27/23 18:31 Temperature Pulse Rate 68 68 70 Respiratory Rate 16 17 20 Blood Pressure 126/78 Pulse Oximetry 98 96 Oxygen Delivery 10/27/23 18:51 10/27/23 20:20 10/27/23 21:51 Temperature Pulse Rate 74 71 72 Respiratory Rate 18 18 16 Blood Pressure 125/84 112/70 Pulse Oximetry 97 95 97 Oxygen Delivery 10/27/23 23:52 10/28/23 03:07 10/28/23 03:42 Temperature Pulse Rate 59 L 51 L 58 L Respiratory Rate 13 12 15 Blood Pressure 114/74 99/71 L 92/59 L Pulse Oximetry 95 95 95 Oxygen Delivery 10/28/23 04:03 10/28/23 06:19 10/28/23 07:25 Temperature Pulse Rate 53 L 61 55 L Respiratory Rate 14 12 10 L Blood Pressure 103/73 104/67 107/75 Pulse Oximetry 98 99 98 Oxygen Delivery Meds/Results Medications: Active Medications Generic Name Dose Route Start Last Admin Trade Name Freq PRN Reason Stop Dose Admin Acetaminophen 650 mg 10/27/23 18:23 Acetaminophen 325 Mg Tablet PO Q4H PRN Mild Pain (1-3) or Fever Hydrocodone Bitart/Acetaminophen 1 tab 10/27/23 18:23 Hydrocodone/Acetaminophen (*Crx) 5-325 Mg Tablet PO Q4H PRN Pain Rated 4-6 Aspirin 81 mg 10/28/23 08:00 Aspirin 81 Mg Chewable Tablet PO DAILY@0800 [facility] Atorvastatin Calcium 80 mg 10/28/23 09:00 Atorvastatin 40 Mg Tablet PO DAILY [facility] Clopidogrel Bisulfate 75 mg 10/28/23 09:00 Clopidogrel Bisulfate 75 Mg Tablet P
[2023-10-28] MEDS: ATORVASTATIN 40 MG TABLET 80 MG PO (09:32)
[2023-10-28] MEDS: CLOPIDOGREL BISULFATE 75 MG TABLET PO (09:33)
[2023-10-28] MEDS: METOPROLOL SUCCINATE EXT REL 12.5 MG TABCR PO (09:34)
[2023-10-28] MEDS: ASPIRIN 81 MG CHEWABLE TABLET PO (09:35)
--- NOTE | 2023-10-28 09:41 | PC.NURSE ---
Meal tray ordered for pt
[2023-10-28] MEDS: PERFLUTREN LIPID MICROSPHERES 1.5 ML VIAL DILUTED TO 10 ML TOTAL VOLUME IV PUSH (10:40)
--- NOTE | 2023-10-28 11:15 | PC.NURSE ---
Report given to Roselyn DALEY, all questions answered
--- NOTE | 2023-10-28 11:28 | IVDEFINITY ---
Prior to administration of IV Definity the patient was educated on the risks and benefits of the imaging enhancing agent including potential adverse side effects. The patient verbalized understanding. Allergies were verified. No exclusion criteria were identified and at least one of the following inclusion criteria were met: 1) physician request, 2) patient technically difficult to image (per the [place] [employer] guidelines of two or more segments not discernable within the apical view), or 3) questionable left ventricular function. ?
--- NOTE | 2023-10-28 14:43 | PM.DS ---
DS: Admitting Diagnosis Discharge Date 10/28/23 Admitting Diagnosis Chest pain DS: Discharge Diagnosis Discharge Diagnosis (1) Chest pain: Code(s): R07.9 - Chest pain, unspecified Status: Acute DS: Summary Hospital Course Reason for hospitalization: 52yo male with chest pain. Please see H&P for details. Hospital Course: Patient was hemodynamically stable on admission. EKG showing normal sinus rhythm possible lateral infarct but no change from prior. No significant change on repeat EKG. Troponin:? 0.037 -> 0.037 -> 0.033. Aspirin was given emergency room. Nitropaste was started. He became chest pain-free. Cardiology was consulted. Patient had recent left heart catheterization on 10/11/2023 and these results were reviewed. Chest x-ray was clear. Echocardiogram showed normal LV chamber dimension. Systolic LV function was normal with EF of 65-70%. Diastolic function was indeterminate. Cardiology felt patient could be discharged home safely. Patient overall did well and was able be discharged on 10/28/2023. Status at Discharge Cognitive/behavioral status at discharge: stable Time Spent with Patient Time attestation: Total time spent providing and/or coordinating discharge services: 35 minutes Time spent: Greater than 30 minutes Exam Narrative: AF 98.2 122/73 55 16 98% ra Gen - NARD Chest - CTA bilaterally, nml RR CV - RRR S1/S2 Abd - Soft, NT/ND, Positive BS Ext - No pedal edema Neuro - Alert and oriented. Nonfocal exam. Psych - Nml mood and affect Skin - Warm and dry DS: Data Data Completed and Pending Labs on day of discharge: Labs from last 24 hours 10/28/23 10/27/23 10/27/23 04:50 21:56 18:37 WBC 6.0 RBC 4.72 Hgb 13.5 L Hct 42.0 MCV 89.0 MCH 28.6 MCHC 32.1 RDW 12.6 Plt Count 267 MPV 11.1 H Immature Gran % (Auto) 0.2 Neut % (Auto) 54.4 Lymph % (Auto) 30.3 [place] % (Auto) 9.4 H Eos % (Auto) 4.7 H Baso % (Auto) 1.0 Lymph # (Auto) 1.81 [place] # (Auto) 0.6 Eos # (Auto) 0.3 Baso # (Auto) 0.1 Abs Immat Gran (auto) 0.01 Absolute Neuts (auto) 3.3 Absolute Nucleated RBC 0.000 Nucleated RBC % 0.0 PT INR APTT Sodium 137 Potassium 3.9 Chloride 113 H Carbon Dioxide 22 Anion Gap 2 L BUN 13 Creatinine 0.90 Estim Creat Clear Calc 89 Estimated GFR > 60 Glucose 101 Calcium 8.3 L Total Bilirubin 0.5 AST 26 ALT 23 Alkaline Phosphatase 72 Troponin I 0.030 0.033 0.037 H* Total Protein 6.0 L Albumin 3.5 Lipase 10/27/23 15:38 WBC 8.0 RBC 5.05 Hgb 14.4 Hct 43.3 MCV 85.7 MCH 28.5 MCHC 33.3 RDW 12.7 Plt Count 316 MPV 11.0 H Immature Gran % (Auto) 0.3 Neut % (Auto) 63.2 Lymph % (Auto) 23.6 [place] % (Auto) 8.6 H Eos % (Auto) 3.5 Baso % (Auto) 0.8 Lymph # (Auto) 1.88 [place] # (Auto) 0.7 H Eos # (Auto) 0.3 Baso # (Auto) 0.1 Abs Immat Gran (auto) 0.02 Absolute Neuts (auto) 5.1 Absolute Nucleated RBC 0.000 Nucleated RBC % 0.0 PT 14.1 INR 1.0 APTT 32.5 Sodium 141 Potassium 3.5 Chloride 110 H Carbon Dioxide 24 Anion Gap 7 L BUN 12 Creatinine 1.10 Estim Creat Clear Calc 73 Estimated GFR > 60 Glucose 107 Calcium 8.8 Total Bilirubin 0.7 AST 31 ALT 25 Alkaline Phosphatase 69 Troponin I 0.037 H* Total Protein 7.0 Albumin 4.1 Lipase 216 Discharge Plan Discharge Attending physician on discharge: Moisés Lopez Consulting providers: Misael Duarte Discharging Clinician: Moisés Lopez Anticipated Discharge Date/Time: 10/28/23 14:49 Patient Disposition: Home, Self-Care Activity: as tolerated Diet: heart healthy Discharge Instructions: Contact your doctor or call 911 and come to the Emergency Room if you have recurrent chest pain, lightheadedness with standing or other worrisome symptoms. Avoid NSAIDs (ibuprofen, naproxen, Aleve). Tyl
== END 2023-10-28 15:33 | disposition home or self-care (01) ==
LOC: ANHED 18:18 → ANHIMU 10-28 14:51
PROVIDERS: Student in an Organized Health Care Education/Training Program; Admitting Provider Family Medicine; Emergency Provider Emergency Medicine; PCP Physician Assistant; Visit Provider Internal Medicine
DX: R07.9 Chest pain, unspecified (principal); I25.10 Atherosclerotic heart disease of native coronary artery without angina pectoris; Z95.5 Presence of coronary angioplasty implant and graft; I25.2 Old myocardial infarction; I49.5 Sick sinus syndrome; R94.31 Abnormal electrocardiogram [ECG] [EKG]; E78.5 Hyperlipidemia, unspecified; R53.83 Other fatigue; Z96.652 Presence of left artificial knee joint; Z79.82 Long term (current) use of aspirin; Z79.01 Long term (current) use of anticoagulants; Z79.899 Other long term (current) drug therapy
CPT/HCPCS: 36415; 71046; 80053; 83690; 84484; 85025; 85610; 85730; 93005; 93308; 96361; 96374; 99285; A9270; C8924; G0378; J7120; Q9957

== ENCOUNTER 2024-01-30 07:15 | Outpatient (RCR) | payer OTHER, SELFPAY ==
[2023-11-05 15:34] VITALS: PULSE 76
== END 2024-01-30 23:59 | disposition home or self-care (01) ==
LOC: ANHCPREHAB 07:15
PROVIDERS: PCP Physician Assistant; Visit Provider Internal Medicine Cardiovascular Disease
DX: Z95.5 Presence of coronary angioplasty implant and graft (principal)
CPT/HCPCS: 93798

== ENCOUNTER 2024-02-21 13:34 | Emergency (ER) | payer OTHER, SELFPAY ==
--- NOTE | ~2024-02-21 | XR_ITS ---
EXAMINATION: XR chest 2V DATE: 02/21/2024 14:05 INDICATION: Chest pain. TECHNIQUE: Frontal and lateral views of the chest were obtained. COMPARISON: None. FINDINGS: There is no pneumonia, pleural effusion, or pneumothorax. The heart size is normal. IMPRESSION: 1. No acute cardiopulmonary disease. Reviewed, dictated and finalized at location E.
--- NOTE | 2024-02-21 13:35 | ECG_ITS ---
Test Date: 2024-02-21 17:57:28 Measurements Intervals [place] Rate: 59 P: 29 CO: 161 QRS: 15 QRSD: 92 T: 81 QT: 394 QTc: 393 Interpretive Statements SINUS BRADYCARDIA CANNOT R/O SEPTAL INFARCT, AGE INDETERMINATE HIGH LATERAL INFARCT, AGE INDETERMINATE BASELINE ARTIFACT- I, II, AVR, AVL ABNORMAL ECG No previous ECG available for comparison Electronically Signed On 02-21-2024 19:27:54 CDT by Misael Duarte D.O.
[2024-02-21 13:54] VITALS: BP 164/74; PULSE 72; RESP 16; TEMP 36.7; O2SAT 97
[2024-02-21 14:04] LABS: Basophils Absolute Auto 0.1 K/mm3 (0.0-0.1); Basophils Percent Auto 0.9 % (0.2-1.2); Eosinophils Absolute Auto 0.3 K/mm3 (0-0.3); Eosinophils Percent Auto 3.4 % (0-4.4); Hematocrit 42.6 % (42.0-52.0); Hemoglobin 14.3 g/dL (14.0-18.0); Immature Granulocyte Absolute 0.03 K/mm3 (0.00-0.031); Immature Granulocyte Percent A 0.4 % (0-0.5); Lymphocytes Absolute Auto 2.25 K/mm3 (0.9-3.2); Lymphocytes Percent Auto 27.6 % (18.3-44.2); Mean Corpuscular HGB Conc 33.6 g/dl (32-36); Mean Corpuscular Hemoglobin 28.9 pg (26-34); Mean Corpuscular Volume 86.2 fl (80-100); Mean Platelet Volume 10.6 fl (7.4-10.4); Monocytes Absolute Auto 0.6 K/mm3 (0.1-0.6); Monocytes Percent Auto 7.6 % (2.6-8.5); Neutrophils Absolute Auto 4.9 K/mm3 (1.3-6.7); Neutrophils Percent Auto 60.1 % (45.5-73.1); Platelet Count Result 265 k/mm3 (150-375); Red Blood Count 4.94 M/mm3 (4.6-6.20); Red Cell Distribution Width 12.7 % (11.5-14.5); White Blood Count 8.1 K/mm3 (4.5-10.0)
[2024-02-21 14:12] LABS: INR 1.1
[2024-02-21 14:13] LABS: Partial Thromboplastin Time 31.4 Seconds (22.3-36.8)
[2024-02-21 14:17] LABS: Alanine Aminotransferase 20 U/L (6-50); Albumin Level 4.2 g/dL (3.5-5.1); Alkaline Phosphatase 77 U/L (38-126); Anion Gap 11 mmol/L (4-12); Aspartate Amino Transferase 25 U/L (17-59); Bilirubin,Total 0.6 mg/dL (0.2-1.3); Blood Urea Nitrogen 15 mg/dL (9-20); Calcium 8.7 mg/dL (8.4-10.2); Carbon Dioxide 22 mmol/L (22-30); Chloride 108 mmol/L (98-107); Estimated CRCL calculation 67 ml/min; Estimated Glomerular Filt Rate > 60; Glucose 128 mg/dL (65-110); Lipase 163 U/L (23-300); Potassium 3.6 mmol/L (3.4-5.0); Sodium 141 mmol/L (137-145)
[2024-02-21 14:28] LABS: Troponin I < 0.012 ng/mL (0.000-0.034)
--- NOTE | 2024-02-21 16:28 | ED.GENADULT ---
HPI - General Adult General Chief complaint: Chest Pain <Rachael Redman APRN - Last Filed: 02/21/24 16:32> Stated complaint: chest pain <Rachael Redman APRN - Last Filed: 02/21/24 16:32> Time Seen by Provider: 02/21/24 16:28 <Rachael Redman ELECTRIC TRUCKER - Last Filed: 02/21/24 16:32> Focused HPI: Jeff Mendoza is a 53 y/o male who presents with complaints of cough/ chest congestion for about a week, mild off and on chest pain. He states that he started to have worsening chest pain last night so he left work. He states that he had a heart attack September and had one stent placed here. He states the pain he has been having is similar to his previous chest pain He also mentions he started to have diarrhea today. GENERAL: Well-appearing, well-nourished, and in no acute distress. HEAD: Normocephalic, atraumatic. CHEST: Clear to auscultation. ?No respiratory distress. HEART: Regular rate and rhythm.? NEURO: ?Alert and oriented x3. Patient screened in triage and initial orders placed.? ?Additional care and disposition to be based upon?diagnostic testing and treatment. <Rachael Redman, ELECTRIC TRUCKER - Last Filed: 02/21/24 16:32> History of Present Illness HPI narrative: 53-year-old male with history of CAD presenting with congestion, diarrhea, chest pain. States that for the last couple of weeks he has had nasal and chest congestion that he has attributed to a cold. States that he has been having intermittent mild left-sided chest pain for the last 2 weeks as well. States that it comes and goes without any pattern. Today he had an episode of diarrhea so he became concerned and came in for evaluation. He denies any abdominal pain, nausea or vomiting, dysuria. He denies shortness of breath, fevers, palpitations, lightheadedness. No leg swelling. Currently states that he feels well. <Dayana Estrada MD - Last Filed: 03/02/24 12:59> Related Data Allergies/adverse reactions: Allergies Allergy/AdvReac Type Severity Reaction Status Date / Time No Known Allergies Allergy Verified 03/01/24 10:33 <Rachael Redman ELECTRIC TRUCKER - Last Filed: 02/21/24 16:32> Review of Systems Review of Systems: All systems reviewed & are unremarkable except as noted in HPI and below <Dayana Estrada MD - Last Filed: 03/02/24 12:59> [facility] Past Medical History Medical History: Medical History CAD (coronary artery disease) Dyslipidemia Non-ST elevation [place] (NSTEMI) <Rachael Redman ELECTRIC TRUCKER - Last Filed: 02/21/24 16:32> Surgical History Surgical History: Surgical History History of right knee surgery Right knee reconstruction History of total left knee replacement <Rachael Redman - Last Filed: 02/21/24 16:32> Family History Family History: Family History Father , at 79 Congestive heart failure High cholesterol Hypertension Bone cancer Mother Liver cancer, Onset Age: 63 High cholesterol Hypertension Sibling Drug overdose High cholesterol Hypertension Sibling Healthy adult <Rachael Redman ELECTRIC TRUCKER - Last Filed: 02/21/24 16:32> Social History Social History: Social History Social History: Patient lives with his . He is a lifelong nonsmoker and does not have significant alcohol or drug use. 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 code Surrogate decision maker: Smoking status: Never smoker Alcohol intake: never Substance use: never Do You Feel Safe in your Home?: Yes Lack of Transportation: No Lack of Food: Never True Current Housing: I Have Housing Concerned About Future Housing: No Difficulty Paying Gas/Electric Bills: No Difficulty Paying for Meds: No Currently Unemployed: No Education: Ba
[2024-02-21 18:32] LABS: Troponin I < 0.012 ng/mL (0.000-0.034)
[2024-02-21 18:46] VITALS: O2SAT 98
[2024-02-21 18:47] VITALS: PULSE 62
[2024-02-21 18:48] VITALS: BP 133/82; PULSE 61; RESP 14; O2SAT 97
--- NOTE | 2024-02-25 13:52 | PCCARD ---
EKG CHARTED BEING DONE ATE 1345. ONLY EKG IN [facility] WAS DONE AT 1757.
== END 2024-02-21 19:53 | disposition home or self-care (01) ==
PROVIDERS: Emergency Provider Emergency Medicine; PCP Physician Assistant
DX: R07.89 Other chest pain (principal); R19.7 Diarrhea, unspecified; I25.2 Old myocardial infarction; Z95.5 Presence of coronary angioplasty implant and graft; R00.1 Bradycardia, unspecified
CPT/HCPCS: 36415; 71046; 80053; 83690; 84484; 85025; 85610; 85730; 93005; 99284

== ENCOUNTER 2024-03-01 10:28 | Emergency (ER) | payer OTHER, SELFPAY ==
[2024-03-01 10:35] VITALS: BP 120/86; PULSE 75; RESP 18; TEMP 36.6; O2SAT 96
--- NOTE | 2024-03-01 10:55 | ED.URI ---
HPI - URI/Sore Throat General Chief Complaint: Upper Respiratory Infection Stated Complaint: Chest Congestion Source: patient Mode of arrival: ambulatory Limitations: no limitations History of Present Illness HPI Narrative: 53-year-old male presents to [facility] with complaints of 2 week history of productive cough of clear colored phlegm, chest congestion, body aches and sinus pressure. Patient reports he was evaluated in the emergency room approximately 10-14 days ago due to chest pain and congestion and was diagnosed with a viral illness at that time. Patient reports that he has been taking [id number] Zyrtec, NyQuil and Mucinex with minimal relief. Patient is nonsmoker. Patient denies sick contacts. Patient denies recent travel. Patient denies fever, chills, nausea vomiting or diarrhea. MD elicited complaint: cough Onset (ago): week(s) (2) Able to tolerate fluids by mouth: Yes Exacerbating factors: nothing Relieving factors: nothing Treatments prior to arrival: cold medicine Related Data Allergies Allergy/AdvReac Type Severity Reaction Status Date / Time No Known Allergies Allergy Verified 03/01/24 10:33 Review of Systems Constitutional: Constitutional: Denies chills, Denies fatigue, Denies fever(s) and Denies weakness ENT: Denies dizziness, Denies epistaxis, Denies nasal congestion and Denies sore throat Comments: Sinus pressure Respiratory: Respiratory: Reports chest congestion, Reports cough, Denies dyspnea and Denies wheezing Gastrointestinal: Gastrointestinal: Denies diarrhea, Denies nausea and Denies vomiting Musculoskeletal: Musculoskeletal: Denies arthralgias, Denies joint swelling and Denies muscle cramps Integumentary/Breasts: Skin/Breast: Denies rash Neurologic: Denies vertigo, Denies dizziness and Denies syncope [facility] Past Medical History Medical History CAD (coronary artery disease) Dyslipidemia Non-ST elevation [place] (NSTEMI) Surgical History Surgical History History of right knee surgery Right knee reconstruction History of total left knee replacement Family History Family History Father , at 79 Congestive heart failure High cholesterol Hypertension Bone cancer Mother Liver cancer, Onset Age: 63 High cholesterol Hypertension Sibling Drug overdose High cholesterol Hypertension Sibling Healthy adult Social History Social History Social History: Patient lives with his . He is a lifelong nonsmoker and does not have significant alcohol or drug use. 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 No Living arrangements: with family Additional living arrangements comments: Re[place] Occupation/Education: occupation Spiritual care concerns: No Comments At time of signature, I agree with nursing past medical, surgical, social and family history. There is no relevant family history pertinent to the presenting complaint. Exam Const: General: healthy appearing and no acute distress Nutritional Appearance: well nourished Orientation/consciousness: patient oriented x3 Limitations: no limitations HENMT: Head: normal to inspection Ears: external ears normal and TM's normal bilaterally Face/Nose/Sinus: Normal external nose pre
== END 2024-03-01 11:01 | disposition home or self-care (01) ==
PROVIDERS: Emergency Provider Nurse Practitioner Family; PCP Physician Assistant
DX: J06.9 Acute upper respiratory infection, unspecified (principal); I25.10 Atherosclerotic heart disease of native coronary artery without angina pectoris; E78.5 Hyperlipidemia, unspecified; I25.2 Old myocardial infarction; Z96.652 Presence of left artificial knee joint
CPT/HCPCS: 99213; G0463

== ENCOUNTER 2024-08-13 18:02 | Emergency (ER) | payer OTHER, SELFPAY ==
--- NOTE | ~2024-08-13 | XR_ITS ---
XR chest 2V Ordering provider: Martita Alford MD History: 53 years Male with . CP; HX STENT A YEAR AGO . Comparison: February 21, 2024 FINDINGS: MEDIASTINUM: The cardiac silhouette is not enlarged. LUNGS: No infiltrates, effusions or pneumothorax. OTHER: No free air under the diaphragm. IMPRESSION: No acute cardiopulmonary pathology. Reviewed, dictated and finalized at location A. RITHM DESIGN ENGINEER
[2024-08-13 18:34] VITALS: BP 163/87; PULSE 94; RESP 18; TEMP 36.3; O2SAT 97
--- NOTE | 2024-08-13 18:40 | ECG_ITS ---
Test Date: 2024-08-13 18:42:25 Measurements Intervals [place] Rate: 90 P: 39 [place]: 124 QRS: 4 QRSD: 99 T: 72 QT: 344 QTc: 422 Interpretive Statements SINUS RHYTHM SEPTAL MYOCARDIAL INFARCTION , PROBABLY OLD [40+ ms Q WAVE IN V1/V2] PROBABLE LATERAL MYOCARDIAL INFARCTION , OF INDETERMINATE AGE [35 ms Q WAVE IN I/aVL/V5/V6] No previous ECG available for comparison Electronically Signed On 08-17-2024 14:48:25 TELEVISION SCHEDULE COORDINATOR by Mitchell Steinberg M.D.
[2024-08-13 19:00] LABS: Alanine Aminotransferase 22 U/L (6-50); Albumin Level 4.3 g/dL (3.5-5.1); Alkaline Phosphatase 70 U/L (38-126); Anion Gap 5 mmol/L (4-12); Aspartate Amino Transferase 24 U/L (17-59); Bilirubin,Total 0.4 mg/dL (0.2-1.3); Blood Urea Nitrogen 18 mg/dL (9-20); Carbon Dioxide 23 mmol/L (22-30); Chloride 110 mmol/L (98-107); Estimated CRCL calculation 62 ml/min; Estimated Glomerular Filt Rate 58; Glucose 103 mg/dL (65-110); Lipase 183 U/L (23-300); Potassium 3.6 mmol/L (3.4-5.0); Sodium 138 mmol/L (137-145)
[2024-08-13 19:06] LABS: Basophils Percent Auto 0.5 % (0.2-1.2); Eosinophils Absolute Auto 0.2 K/mm3 (0-0.3); Eosinophils Percent Auto 3.1 % (0-4.4); Hematocrit 42.9 % (42.0-52.0); Hemoglobin 14.5 g/dL (14.0-18.0); Immature Granulocyte Absolute 0.02 K/mm3 (0.00-0.031); Immature Granulocyte Percent A 0.3 % (0-0.5); Lymphocytes Absolute Auto 1.78 K/mm3 (0.9-3.2); Lymphocytes Percent Auto 23.8 % (18.3-44.2); Mean Corpuscular HGB Conc 33.8 g/dl (32-36); Mean Corpuscular Hemoglobin 29.2 pg (26-34); Mean Corpuscular Volume 86.3 fl (80-100); Mean Platelet Volume 10.5 fl (7.4-10.4); Monocytes Absolute Auto 0.6 K/mm3 (0.1-0.6); Monocytes Percent Auto 7.7 % (2.6-8.5); Neutrophils Absolute Auto 4.8 K/mm3 (1.3-6.7); Neutrophils Percent Auto 64.6 % (45.5-73.1); Platelet Count Result 278 k/mm3 (150-375); Prothrombin Time 13.5 Seconds (11.1-14.7); Red Blood Count 4.97 M/mm3 (4.6-6.20); Red Cell Distribution Width 12.6 % (11.5-14.5); White Blood Count 7.5 K/mm3 (4.5-10.0)
[2024-08-13 19:12] LABS: Troponin I < 0.012 ng/mL (0.000-0.034)
[2024-08-13 19:14] LABS: Partial Thromboplastin Time 27.3 Seconds (22.3-36.8)
[2024-08-13 23:45] VITALS: BP 150/82; PULSE 72; RESP 16; O2SAT 98
--- OUTSIDE RECORDS SUMMARY | 2024-08-21 02:54 | XMS_ITS | Encounter Summary ---
Author Organization [facility] Address [address] [place] [address] Phone Care Team Providers Care Concession Supervisor Name Role Phone Candice Kendrick Primary Care Pr ovider Reason for Visit * Reason Comments Post-op * Consultation (Routine) - Closed Specialty Diagnoses / Procedures Referred By Safia funes Referred To Contact Orthopedic Surgery Diagnoses Left knee pain, unspecified chronicity Candice Kendrick PA Phone: tel: fax: [facility] (All Locations) Referral ID Status Reason Start Date Expiration Date V isits Requested Visits Authorized [id number] Closed Specialty Services Required 12/19/2022 01/18/2024 1 1 Encounter Details Date Type Department Care Team (Late st Contact Info) Description 12/24/2022 3:30 PM CDT Office Visit [facility] Orthopaedic Surgery [address] [place] [address] Medical Office Building [address] [place] [id number] Rai Stone MD [address] [facility] [address] [place] [address] Left knee pain, unspecified chronicity Social History Tobacco Use Types Packs/Day Years Used Date Smoking Tobacco: Never Smokeless Tobacco: Never OASIS D0700: Social Isolation Answer Da te Recorded Frequency of experiencing loneliness or isolatio n Never 10/13/2022 AUDIT-C Answer Date Recorded Q1: How often do you have a drink containing alc ohol? 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 POST- OPERATIVE PATIENT VISIT Arthroplasty Left Total Knee - Depuy - Left 10/12/2022 INTERIM HISTORY: Jeff Mendoza III is status post left primary knee replacement. Patient seen today for routine follow up and is doing well. He has some soreness with PT and at nighttime but otherwise his pain is well controlled. He has been going to physical therapy 3 times per week. PHYSICAL EXAM: LEFT KNEE: Pain: minimal with activity Incision: healing with no signs of infection, induration, or drainage Range of Motion: appropriate pain level with gentle range of motion assessment, and measures approximately 0 to 115 degrees of flexion Pulses Intact: Yes Dependent Edema: No Neurological Status Intact: Yes REVIEW OF XRAYS/STUDIES: No new radiographs performed today. DX: Jeff Mendoza III is a 52 y.o. male status post left primary knee replacement and is making appropriate progress at this time TREATMENT PLAN: 1. The patient has been full weight bearing. 2. Encourage patient to continue to work on range of motion and quadriceps strengthening with physical therapy. 3. Prescribed prednisone 5 mg q.day for 30 days. 4. Patient can return to work on 01/07/2023. FOLLOW UP: Return to clinic in 1 year for routine follow-up with left knee x-rays Chari Powell MD Department of Orthopaedic Surgery, PGY-4 [facility] [place] ATTENDING ATTESTATION I was present for the critical portion of the history, physical examination and participated in theradiographic review and medical decision making on this patient. I agree with the findings in the report of the above resident/fellow dictating using Fluency Direct software. Rai Stone MD documented in this encounter Plan of Treatment Not on file documented as of this encounter Visit Diagnoses Diagnosis Left knee pain, unspecified chronicity documented in this encounter Orders Outpatient Referral Count Last Ordered Date Fir st Ordered Date AMB REFERRAL TO ORTHOPEDIC SURGERY 1 2022 documented in this encounter Care Teams Concession Supervisor Relationship Specialty Start Date End Date Candice Kendrick PA PCP - General Physician Laboratory Sampler 03/13/22 documented as of this encounter
--- OUTSIDE RECORDS SUMMARY | 2024-08-21 02:54 | XMS_ITS | Encounter Summary ---
Author Organization [facility] Address [address] [place] [address] Care Team Providers Care Hematologist Name Role Phone Candice Kendrick Primary Care Pr ovider Encounter Details Date Type Department Care Team (Late st Contact Info) Description 10/16/2023 Orders Only [facility] Cardiology [address] [place] [address] Marbin Hernandez MD [address] [place] [address] Social History Tobacco Use Types Packs/Day Years [...] of Binge Drinking Not on file 10/2022 Personal Safety Answer Date Recorded Getting School Help Needed Denies 10/09 Sex and Gender Information Value Date Recorded Sex Assigned at Not on file Legal 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 Gender Identity Not on file Sexual Orientation Not on file documented as of this encounter Plan of Treatment Not on file documented as of this encounter Procedures Procedure Name Priority Date/Time Associated Diagnosis Comments CARDIOLOGY DOCUMENT SCAN Routine 024 11:09 AM SODA DRIER FEEDER documented in this encounter Results * Cardiology Document Scan (10/11/2023 11:09 AM SODA DRIER FEEDER) Anatomical Region Laterality Modality Other us Marbin Hernandez MD [facility] Final Result documented in this encounter Visit Diagnoses Not on filedocumented in this encounter Care Teams Hematologist Relationship Specialty Start Date End Date Candice Kendrick PA PCP - General Physician Movement Assembly Final Inspector 03/13/22 documented as of this encounter
--- OUTSIDE RECORDS SUMMARY | 2024-08-21 02:54 | XMS_ITS | Clinical Summary ---
Author Organization [email or web address] Address [address] [place] [address] Care Team Providers Care Hand Leather Trimmer Name Role Phone Unavailable Primary Care Provider Unavailabl e Source Comments [facility],non-owned Affiliates and Associated Physician Practices is amultiple site organization consisting of ambulatory clinics and hospital sitesin [place], [place], [place] and [place]. This disclosure is being madepursuant to the Care Everywhere program and may not contain all information available regarding this patient. Last updated 18.[email or web address] Allergies No known active allergies Medications * Be aware that medications may not be up to date on this document. Alwaysverify current medications with the patient. Medication Sig Dispensed Refills Start Date End Date Status HYDROcodone-acetaminop hen (NORCO) 5-325 MG tablet Take 1 Tab by mouth every 4 hours as needed for Pain 15 Tab 09/27/2016 Active cyclobenzaprine (FLEXERIL) 10 MG tablet Take 1 Tab by mouth 3 times daily as needed for Muscle Spasms 15 Tab 09/27/2016 Active Social History Tobacco Use Types Packs/Day Years Used Date Smoking Tobacco: Never Assessed Sex and Gender Information Value Date Recorded Sex Assigned at Not on file Gender Identity Not on file Sexual Orientation Not on file Last Filed Vital Signs Vital Sign Reading Time Taken Comments Blood Pressure 129/90 09/27/2016 12:38 PM BOAT BUILDER AND REPAIRER Pulse 89 09/27/2016 4:22 PM BOAT BUILDER AND REPAIRER Temperature 36.6 ??C (97.8 ??F) 09/27/2016 12:[address] Respiratory Rate 16 09/27/2016 4:22 PM BOAT BUILDER AND REPAIRER Oxygen Saturation 100% 09/27/2016 4:22 PM BOAT BUILDER AND REPAIRER Inhaled Oxygen Concentration - - Weight 81.6 kg (180 lb) 09/27/2016 12:38 PM BOAT BUILDER AND REPAIRER Height 180.3 cm (5' 11 ) 09/27/2016 12:38 PM BOAT BUILDER AND REPAIRER Body Mass Index 25.1 09/27/2016 12:38 PM BOAT BUILDER AND REPAIRER Plan of Treatment Health Maintenance Due Date Last Done Comments COLOGUARD (AGES 45-75) - COL ON CA SCREENING 1969 COLON MONITORING 1969 COLONOSCOPY - COLON CA SCREENING 1969 CT COLONOGRAPHY - COLON CA SCREENING 1969 Colorectal Cancer Screening 1969 FIT - COLON CA SCREENING 1969 FLEX SIG - COLON CA SCREENING 1969 LIPID TESTING 1969 HIV SCREENING 1984 HEPATITIS C SCREENING 10/27/1987 DTAP/TDAP/TD VACCINES (1 - Tdap) 1988 HEPATITIS B VACCINE (1 of 3 - 19+ 3-dose series) 1988 ZOSTER VACCINE (1 of 2) 11/01/2019 COVID-19 VACCINE (1 - 2023-2 5 season) 2024 INFLUENZA VACCINE (#1) 2024 DEPRESSION SCREENING 08/12/2024 HIB VACCINE Aged Out No longer eligi ble based on patient's age to complete this topic HPV VACCINE Aged Out No longer eligi ble based on patient's age to complete this topic MENINGOCOCCAL VACCINE Aged Out No brenda nydia eligible based on patient's age to complete this topic PNEUMOCOCCAL VACCINE Aged Out No long er eligible based on patient's age to complete this topic Guarantor Name Account Type Relation to Patient Date of Phone Billing Address [id number] Workers Comp Employer [id number] [place] [address] Jeff Mendoza Personal/Family Self 1970 [address] [place] [address]
--- OUTSIDE RECORDS SUMMARY | 2024-08-21 02:54 | XMS_ITS | Patient Health Summary ---
Author Organization [facility] Address [address] [place] [address] Care Team Providers Care Food And Beverage Coordinator Name Role Phone Unavailable Primary Care Provider Unavailabl e Note from [facility],non-owned Affiliates and Associated Physician Practices is amultiple site organization consisting of ambulatory clinics and hospital sitesin [place], [place], [place] and [place]. This disclosure is being madepursuant to the Care Everywhere program and may not contain all information available regarding this patient. Last updated 18.[facility] Allergies No known active allergies Medications * Be aware that medications may not be up to date on this document. Alwaysverify current medications with the patient. * HYDROcodone-acetaminophen (NORCO) 5-325 MG tablet(Started 09/27/2016) Take 1 Tab by mouth every 4 hours as needed for Pain * cyclobenzaprine (FLEXERIL) 10 MG tablet(Started 09/27/2016) Take 1 Tab by mouth 3 times daily as needed for Muscle Spasms Social History Tobacco Use Types Packs/Day Years Used Date Smoking Tobacco: Never Assessed Sex and Gender Information Value Date Recorded Sex Assigned at Not on file Gender Identity Not on file Sexual Orientation Not on file Last Filed Vital Signs Vital Sign Reading Time Taken Comments Blood Pressure 129/90 09/27/2016 12:38 PM ELECTRICAL SYSTEMS ENGINEER Pulse 89 09/27/2016 4:22 PM ELECTRICAL SYSTEMS ENGINEER Temperature 36.6 ??C (97.8 ??F) 09/27/2016 12:[address] Respiratory Rate 16 09/27/2016 4:22 PM ELECTRICAL SYSTEMS ENGINEER Oxygen Saturation 100% 09/27/2016 4:22 PM ELECTRICAL SYSTEMS ENGINEER Inhaled Oxygen Concentration - - Weight 81.6 kg (180 lb) 09/27/2016 12:38 PM ELECTRICAL SYSTEMS ENGINEER Height 180.3 cm (5' 11 ) 09/27/2016 12:38 PM ELECTRICAL SYSTEMS ENGINEER Body Mass Index 25.1 09/27/2016 12:38 PM ELECTRICAL SYSTEMS ENGINEER Procedures * XR KNEE LEFT 4VW OR MORE(Performed 09/27/2016) Performed for Fall from other slipping, tripping, or stumbling * XR HIP RIGHT 2VW OR MORE(Performed 09/27/2016) Performed for Fall from other slipping, tripping, or stumbling Results * XR KNEE 4+ VW LEFT (09/27/2016 3:30 PM ELECTRICAL SYSTEMS ENGINEER) Anatomical Region Laterality Modality Lower Extremity Radiographic Isi ging 09/27/2016 3:34 PM ELECTRICAL SYSTEMS ENGINEER Narrative 09/27/2016 3:37 PM ELECTRICAL SYSTEMS ENGINEER 2 views right hip 4 views left knee INDICATION: Right hip pain and left knee pain. FINDINGS: Right hip: There is no evidence of acute fracture or bony malalignment. There is no degenerative disease. There is slight convexity to the lateral femoral head neck junction. This finding can be seen in femoral acetabular impingement. Left knee: There is a small joint effusion. There is a small intra-articular body noted posteriorly. There is mild marginal osteophytosis in all 3 compartments with preservation of the joint spaces. There is no evidence of acute fracture. Procedure Note Elizabeth Rivas MD - 09/27/2016 2 views right hip 4 views left knee INDICATION: Right hip pain and left knee pain. FINDINGS: Right hip: There is no evidence of acute fracture or bony malalignment. There is no degenerative disease. There is slight convexity to the lateral femoral head neck junction. This finding can be seen in femoral acetabular impingement. Left knee: There is a small joint effusion. There is a small intra-articular body noted posteriorly. There is mild marginal osteophytosis in all 3 compartments with preservation of the joint spaces. There is no evidence of acute fracture. Jose C Quiroz MD DIAGNOSTIC IMAGING O [facility]DER[facility] * XR HIP 2+ VW RIGHT (09/27/2016 3:29 PM ELECTRICAL SYSTEMS ENGINEER) Anatomical Region Laterality Modality Pelvis, Lower Extremity Radiogra phic Imaging 09/27/2016 3:34 PM ELECTRICAL SYSTEMS ENGINEER Narrative 09/27/2016 3:37 PM ELECTRICAL SYSTEMS ENGINEER 2 views right hip 4 views left knee INDICATION: Right hip pain and left knee pain. FINDINGS: Right hip: There is no evidence of acute fracture or bony malalignment. There is no degenerative disease. There is slight convexity to the lateral femoral head neck junction. This finding can be seen in femoral acetabular impingement. Left knee: There is a small joint effusion. There is a small intra-articular body noted posteriorly. There is mild marginal osteophytosis in all 3 compartments with preservation of the joint spaces. There is no evidence of acute fracture. Procedure Note Elizabeth Rivas MD - 09/27/2016 2 views right hip 4 views left knee INDICATION: Right hip pain and left knee pain. FINDINGS: Right hip: There is no evidence of acute fracture or bony malalignment. There is no degenerative disease. There is slight convexity to the lateral femoral head neck junction. This finding can be seen in femoral acetabular impingement. Left knee: There is a small joint effusion. There is a small intra-articular body noted posteriorly. There is mild marginal osteophytosis in all 3 compartments with preservation of the joint spaces. There is no evidence of acute fracture. Jose C Quiroz MD DIAGNOSTIC IMAGING [facility]
--- OUTSIDE RECORDS SUMMARY | 2024-08-21 02:54 | XMS_ITS | Continuity of Care Document ---
Author Organization [facility] Address [address] [place] [address] Phone Care Team Providers Care Automobile Carpets Molder Name Role Phone Rai Taylor MD Unavailable Unavailable Allergies, Adverse Reactions, Alerts Substance Reaction Status Criticality No Known Allergies Resolved No Inform ation Procedures Procedure Date Office/outpatient visit,[facility] 2016 Supplemental Report Depo Medrol 80 MG inj Asp/Injection, Major Joint W/ Ultrasound Office/outpatient visit,[facility] 2016 Disability Form MRI lower extrm joint, w/o contrast X-ray exam knee, 4+ views Office consultation, moderate-high Advance Directives Directive Yes / No Effective Date File Name No Information Encounters Encounter Description Practice Location Reason(s) For Visit Diagnoses Date Provider Providers Copied on Encounter Office/outpat ient visit,[facility], [address] [place] [address], [id number], [place] tel:[phone] [facility] left knee pain (chief complaint) Unilateral primary osteoarthriti s, left knee 7 Claudia Atwood. [address] [place] [address], [place] [address], [place], [place], [id number] , [place]. tel: [phone] Office/outpat ient visit,est, [facility], [address] [place] [address], [id number], [place] tel:[phone] [facility] left knee pain (chief complaint) Unilateral primary osteoarthriti s, left knee Oct-0 7 Claudia Atwood. [address], [address], [place], [place], [id number] , [place]. [phone] [facility], [address], [place], [id number], [place] tel:[phone] [facility] No Information 7 Claudia Atwood. [address], [address], [place], [place], [id number] , [place]. tel:[phone] [facility], [address], [id number], [place] tel:[phone] [facility] Pain in left knee Feb-2 2 7 [facility]. [address] [facility], [address], [place], [place], [id number] , [place]. [phone] Referring Provider: Rai Estrada, [address] [facility] [facility] [address], [place], [address] . tel:[phone] Office consultation, moderate-high [facility], [address] [facility] [facility] [address], [place], [place], [id number], [place] tel:[phone] [facility] left knee pain (chief complaint) Pain in left knee Feb-2 7 Claudia Atwood. [address] [facility] [facility] [address], [place], [place], [id number] , [place]. tel:[phone] Family History Family Member Type Diagnosis Age At Onset Problem (finding) Family history of hyper tension Problem (finding) Family history of Diabe padmaja mellitus Problem (finding) Family history of Cance r, unknown Payers Payer name Insurance type Covered alliance party ID Authoriza tion(s) No Information Social History Type Description Quantity Date Captured Comments Alcohol Use Details Unknown Caffeine Use Details Unknown Tobacco Use Status No Information Smoking Status No Information Sex Male Chief Complaint And Reason For Visit From encounter dated '11/07/2016 08:50'. left knee pain (chief complaint). Description: He presents with pain on the left side. The problem is better. He has been working full duties without issues. He notes the knee is back to baseline, with occasional aching at the end of the day. He has had icing, NSAIDs, injection, PT guided rehab. Reason For Referral Reason For Referral No Information Plan Of Treatment Date Type Action Status Referral Ordered: MRI lower extrm joint, w/o contrast LT knee Appointment date/timeframe: 10/03/2016 ordered Referral Ordered: X-ray exam knee, 4+ views LT knee ordered History Of Present Illness Encounter Date Complaint History Of Prese nt Illness left knee pain He presents with pain on the left side. The problem is better. He has been working full duties without issues. He notes the knee is back to baseline, with occasional aching at the end of the day. He has had icing, NSAIDs, injection, PT guided rehab. left knee pain He presents with pain on the left side. The problem is better. Currently the patient states that the symptoms are moderate. The patient is experiencing pain in the following location: medial knee on the left side. The patient has had a previous MRI and this showed medial chondrosis and no new tears. left knee pain Mr Mendoza is a 45 year old male who complains of left knee pain. He presents with pain on the left side. He states that the symptoms have been chronic non-traumatic. He indicates the injury occurred at work. He is on Worker's Comp. Perris states that the symptoms began as the result of twisting. 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 He reports that this is a typical duty he performs while at work. He notes the immediate onset of medially based pain that he notes was 10/10 and associated swelling. He was then taken to the [facility] where x-rays were reported to be negative for fracture. He was placed on crutches and taken off work. The symptoms occur constantly with intermittent worsening. The problem is unchanged. Currently the patient states that the symptoms are moderate-severe. The pain is described as stabbing, throbbing and sharp. The symptoms occur with activity. The patient is experiencing pain in the following location: medial on the left side. He rates his best pain as 3/10. He rates his worst pain as 10/10. He rates his current pain as 8/10. The pain does not radiate. The symptoms are aggravated by squatting, standing, walking, daily activities, movement and sleeping in any position. Jeff states that the symptoms are relieved by ice, rest, OTC medicines and pain medicine. In addition to left knee pain the patient is also experiencing difficulty bending, night pain, decreased mobility, difficulty going to sleep and instability. Pertinent negatives include chills, erythema, fever, tingling and locking. The patient has had a previous x-ray and these were by report of the worker negative, but not available for my review. Prior NSAIDs include unspecified NSAIDS. He has had no previous treatment. Patient has had arthroscopic surgery. This was due to a meniscus tear in 1992. There were no previous episodes. He experienced no previous injury. He has not returned to work. He denies prior knee symptoms or issues in the last 10 years that he can recall. Functional Status Date Functional Assessmen t No Information Instructions Date Instruction Additional Infor milagro We discussed that ba sed on the clinical information today including history, physical exam, and radiographic images as appropriate, in addition to the expected time to recovery for the injury, that it is my finding beyond a reasonable degree of medical certainty that the worker has reached maximum medical improvement with regard to the reported work injury. No further medical or surgical care will be indicated, and we discussed there are no expected permanent sequela. We discussed in detail that he does have pre-existing chondrosis/osteoarthritis in the knee, and any future symptoms would be related to the pre-existing disease and need to be treated under his private or government insurance. The worker is released to full duties, no restrictions. If a final rating is desired or required, this will be provided upon request. Questions answered, verbalized understanding. Final work status completed. Related to Unilateral primary osteoarthritis, left knee The patient would li ke to proceed with an injection into the involved knee today. He will start physical therapy 3 times per week for 3 weeks. He will discontinue the crutches. I would like to see him back in 4 weeks and likely return him to full activities at that time. We discussed that any residual symptoms 4-6 weeks out would be attributed to the pre-existing disease and no longer attributable to the exacerbation. The patient will follow up on an as needed basis. Questions answered, verbalized understanding. Related to Unilateral primary osteoarthritis, left knee Given the worker's s ymptoms of join line pain, locking/catching, and physical exam findings of joint line pain, effusion, Mamie's test findings, I am concerned they may have a meniscus tear. To reach a definitive diagnosis and evaluate for any other intra-articular pathology we have elected to proceed with an MRI of the involved knee. This will be scheduled and I will see the worker back in the office with results once they are available. Once the results are available we will discuss further treatment options as indicated which could include arthroscopic meniscus repair vs. partial meniscectomy vs non-operative treatment as indicated. In the interim work restrictions if applicable will be as stated in the work status form. They will ice, elevate, and use over the counter Tylenol and/or Aleve as needed. Questions answered, verbalized understanding. Related to Pain in left knee Assessments Type Assessment Date assessment Unilateral primary osteoarthriti s, left knee impression Left knee OA exacerb ation related to a reported work injury (DOI 09/27/16). Patient Care Teams Name Effective Dates (start - stop) Status Members No Information
--- OUTSIDE RECORDS SUMMARY | 2024-08-21 02:54 | XMS_ITS | Referral Summary ---
Author Organization [facility] Address [address] [place] [address] Care Team Providers Care Energy And Conservation Technician Name Role Phone Unavailable Primary Care Provider Unavailabl e Source Comments [facility],non-owned Affiliates and Associated Physician Practices is amultiple site organization consisting of ambulatory clinics and hospital sitesin [place], [place], [place] and [place]. This disclosure is being madepursuant to the Care Everywhere program and may not contain all information available regarding this patient. 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
--- OUTSIDE RECORDS SUMMARY | 2024-08-21 02:54 | XMS_ITS | Clinical Summary ---
Author Organization [facility] Address [address] [place] [address] Care Team Providers Care Director Of Program Management Name Role Phone Candice Kendrick Primary Care Pr ovider Allergies No known active allergies Medications pregabalin (LYRICA) 75 mg capsule Take 1 capsule (75 mg total) by mouth 2 (two) times a day for 14 days 28 capsule 10/12/2022 Active acetaminophen (TYLENOL) 500 mg tablet Take 2 tablets (1,000 mg total) by mouth every 8 (eight) hours 90 tablet 1 10/12/2022 Active aspirin 81 mg enteric coated tabletIndicatio ns:prevention of thrombosis Take 1 tablet (81 mg total) by mouth 2 (two) times a day 60 tablet 10/12/2022 Active meloxicam (MOBIC) 15 mg tablet Take 1 tablet (15 mg total) by mouth daily 30 tablet 10/12/2022 Active senna-docusate (Senna-S) 8.6-50 mg Take 2 tablets by mouth 2 (two) times a day 80 tablet 1 10/12/2022 Active traMADoL (ULTRAM) 50 mg tabletIndicatio ns:Postoperativ e pain Take 1 tablet (50 mg total) by mouth every 8 (eight) hours as needed for pain (1st line) 42 tablet 12/07/2022 Active oxyCODONE (ROXICODONE) 5 mg immediate release tabletIndicatio ns:Pain Take 1 tablet (5 mg total) by mouth every 4 (four) hours as needed for pain for up to 30 doses 30 tablet 12/26/2022 Active Active Problems Problem Noted Date Diagnosed Date Arthritis of left knee 10/12/2022 Primary osteoarthritis of left knee 08/01/2022 Overview (08/01/2022): Added automatically from request for surgery [id number] 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 Complete tear of anterior cruciate ligament of k nee 04/12/2010 Surgical History Surgery Date Site/Laterality Comments ARTHROSCOPIC REPAIR ACL Right Family History Medical History Relation Name Comments Anesthesia problems Neg Hx Social History Tobacco Use Types Packs/Day Years Used Date Smoking Tobacco: Never Smokeless Tobacco: Never Tobacco Cessation:Counseling Given: Not Answered OASIS D0700: Social Isolation Answer Da te [...] on file Legal 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 Gender Identity Not on file Sexual Orientation Not on file Obstetrics History Last Filed Vital Signs Vital Sign Reading Time Taken Comments Blood Pressure 140/80 10/26/2022 12:00 AM CDT Pulse 67 10/26/2022 12:00 AM CDT Temperature 36.5 ??C (97.7 ??F) 10/26/2022 12:00 AM C DT Respiratory Rate 18 10/26/2022 12:00 AM CDT Oxygen Saturation 98% 10/26/2022 12:00 AM CDT Inhaled Oxygen Concentration - - Weight 90.9 kg (200 lb 8 oz) 10/13/2022 2:52 PM MEDICAL FEE CLERK Height 180.3 cm (5' 11 ) 10/13/2022 2:52 PM MEDICAL FEE CLERK Body Mass Index 27.96 10/13/2022 2:52 PM MEDICAL FEE CLERK Plan of Treatment Health Maintenance Due Date Last Done Comments Colon Cancer Screening-Colonoscopy 1970 Depression Screening 1970 Hepatitis C Screening 1970 Prostate Cancer Screening-PSA 1970 DTaP/Tdap/Td Vaccine (1 - Tdap) 1980 Hepatitis B Screening 11/01/1987 Regular Well Visit/Exam 18-64 11/01/1987 Zoster Vaccine (1 of 2) 11/01/2019 Influenza Vaccine (#1) 2024 Pneumococcal vaccine <65 Aged Out No longer eligible based on patient's age to complete this topic Medical Devices Implanted Type Area Corrugator Operator Device Identifier Shelf Expiration Date Model / Serial / Lot [employer] Attune Cruciate Retain Cementless Knee Left 8 Component Femoral [id number] - Sna - [id number] Implanted:Qty: 1 on 10/12/2022 by Rai Stone MD at [facility] Other - see comments Left: Knee [employer] [id number] 07/11/2032 [id number] / NA / [id number] Description:Implant Pause Pe rformed [employer] Attune Fb Tib Base Sz 7 Por [id number] - Sna - [id number] Implanted:Qty: 1 on 10/12/2022 by Rai Stone MD at [facility] Other - see comments Left: Knee [employer] 07/11/2032 [id number] / NA / [id number] Description:Implant Pause Pe rformed [employer] Insert Tibial Knee Fixed Lm Posterior Stabilized Attune 10mm Size 8 Polyethylene [id number] - Sna - [id number] Implanted:Qty: 1 on 10/12/2022 by Rai Stone MD at [facility] Other - see comments Left: Knee [employer] [id number] 06/11/2029 [id number] / NA / [id number] Description:Implant Pause Pe rformed Scew Right: Knee [facility] PLUS CIGNA OPEN ACCESS CIGNA CIGNA Care Teams Director Of Program Management Relationship Specialty Start Date End Date Candice Kendrick PA PCP - General Physician Imaging Tech 03/13/22
--- OUTSIDE RECORDS SUMMARY | 2024-08-21 02:54 | XMS_ITS | Encounter Summary ---
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 Denies head injury, but c/o left knee pain and right hip pain. Outside Salesperson denies need to call for drug test. Encounter Details Date Type Department Care Team (Late st Contact Info) Description 09/27/2016 1:08 PM WHEEL ALIGNMENT MECHANIC - 09/27/2016 4:23 PM WHEEL ALIGNMENT MECHANIC Emergency ER at [address] [address] Knee effusion, left; Hip strain, right, initial encounter Discharge Disposition: Home or Self Care Social History Tobacco Use Types Packs/Day Years Used Date Smoking Tobacco: Never Assessed Sex and Gender Information Value Date Recorded Sex Assigned at Not on file Gender Identity Not on file Sexual Orientation Not on file documented as of this encounter Last Filed Vital Signs Vital Sign Reading Time Taken Comments Blood Pressure 129/90 09/27/2016 12:38 PM WHEEL ALIGNMENT MECHANIC Pulse 89 09/27/2016 4:22 PM WHEEL ALIGNMENT MECHANIC Temperature 36.6 ??C (97.8 ??F) 09/27/2016 12:[address] Respiratory Rate 16 09/27/2016 4:22 PM WHEEL ALIGNMENT MECHANIC Oxygen Saturation 100% 09/27/2016 4:22 PM WHEEL ALIGNMENT MECHANIC Inhaled Oxygen Concentration - - Weight 81.6 kg (180 lb) 09/27/2016 12:38 PM WHEEL ALIGNMENT MECHANIC Height 180.3 cm (5' 11 ) 09/27/2016 12:38 PM WHEEL ALIGNMENT MECHANIC Body Mass Index 25.1 09/27/2016 12:38 PM WHEEL ALIGNMENT MECHANIC documented in this encounter Discharge Instructions * Discharge Instructions* Elsi Quezada PA-C - 09/27/2016 3:54 PM WHEEL ALIGNMENT MECHANIC Images from the original note were not included. Cryotherapy Cryotherapy means treatment with cold. Ice or gel packs can be used to reduce both pain and swelling. Ice is the most helpful within the first 24 to 48 hours after an injury or flare-up from overusing a muscle or joint. Sprains, strains, spasms, burning pain, shooting pain, and aches can all be eased with ice. Ice can also be used when recovering from surgery. Ice is effective, has very few side effects, and is safe for most people to use. PRECAUTIONS Ice is not a safe treatment option for people with: ?? Raynaud phenomenon. This is a condition affecting small blood vessels in the extremities. Exposure to cold may cause your problems to return. ?? Cold hypersensitivity. There are many forms of cold hypersensitivity, including: ?? Cold urticaria. Red, itchy hives appear on the skin when the tissues begin to warm after being iced. ?? Cold erythema. This is a red, itchy rash caused by exposure to cold. ?? Cold hemoglobinuria. Red blood cells break down when the tissues begin to warm after being iced.The hemoglobin that carry oxygen are passed into the urine because they cannot combine with blood proteins fast enough. ?? Numbness or altered sensitivity in the area being iced. If you have any of the following conditions, do not use ice until you have discussed cryotherapy with your caregiver: ?? Heart conditions, such as arrhythmia, angina, or chronic heart disease. ?? High blood pressure. ?? Healing wounds or open skin in the area being iced. ?? Current infections. ?? Rheumatoid arthritis. ?? Poor circulation. ?? Diabetes. Ice slows the blood flow in the region it is applied. This is beneficial when trying to stop inflamed tissues from spreading irritating chemicals to surrounding tissues. However, if you expose your skin to cold temperatures for too long or without the proper protection, you can damage your skin or nerves. Watch for signs of skin damage due to cold. HOME CARE INSTRUCTIONS Follow these tips to use ice and cold packs safely. ?? Place a dry or damp towel between the ice and skin. A damp towel will cool the skin more quickly, so you may need to shorten the time that the ice is used. ?? For a more rapid response, add gentle compression to the ice. ?? Ice for no more than 10 to 20 minutes at a time. The bonier the area you are icing, the less time it will take to get the benefits of ice. ?? Check your skin after 5 minutes to make sure there are no signs of a poor response to cold or skin damage. ?? Rest 20 minutes or more between uses. ?? Once your skin is numb, you can end your treatment. You can test numbness by very lightly touching your skin. The touch should be so light that you do not see the skin dimple from the pressure of your fingertip. When using ice, most people will feel these normal sensations in this order: cold, burning, aching, and numbness. ?? Do not use ice on someone who cannot communicate their responses to pain, such as small childrenor people with dementia. HOW TO MAKE AN ICE PACK Ice packs are the most common way to use ice therapy. Other methods include ice massage, ice baths,and cryosprays. Muscle creams that cause a cold, tingly feeling do not offer the same benefits thatice offers and should not be used as a substitute unless recommended by your caregiver. To make an ice pack, do one of the following: ?? Place crushed ice or a bag of frozen vegetables in a sealable plastic bag. Squeeze out the excess air. Place this bag inside another plastic bag. Slide the bag into a pillowcase or place a damp towel between your skin and the bag. ?? Mix 3 parts water with 1 part rubbing alcohol. Freeze the mixture in a sealable plastic bag. When you remove the mixture from the freezer, it will be slushy. Squeeze out the excess air. Place thisbag inside another plastic bag. Slide the bag into a pillowcase or place a damp towel between your skin and the bag. SEEK MEDICAL CARE IF: ?? You develop white spots on your skin. This may give the skin a blotchy (mottled) appearance. ?? Your skin turns blue or pale. ?? Your skin becomes waxy or hard. ?? Your swelling gets worse. MAKE SURE YOU: ?? Understand these instructions. ?? Will watch your condition. ?? Will get help right away if you are not doing well or get worse. Document Released: 03/24/2012 Document Revised: 12/13/2014 Document Reviewed: 03/24/2012 ExitCare?? Patient Information ??2015 [employer]. This information is not intended to replace advice given to you by your health care provider. Make sure you discuss any questions you have with your health care provider. Knee Effusion The medical term for having fluid in your knee is effusion. This is often due to an internal derangement of the knee. This means something is wrong inside the knee. Some of the causes of fluid in theknee may be torn cartilage, a torn ligament, or bleeding into the joint from an injury. Your knee is likely more difficult to bend and move. This is often because there is increased pain and pressurein the joint. The time it takes for recovery from a knee effusion depends on different factors, including: ?? Type of injury. ?? Your age. ?? Physical and medical conditions. ?? Rehabilitation Strategies. How long you will be away from your normal activities will depend on what kind of knee problem you have and how much damage is present. Your knee has two types of cartilage. Articular cartilage covers the bone ends and lets your knee bend and move smoothly. Two menisci, thick pads of cartilage thatform a rim inside the joint, help absorb shock and stabilize your knee. Ligaments bind the bones together and support your knee joint. Muscles move the joint, help support your knee, and take stress off the joint itself. CAUSES Often an effusion in the knee is caused by an injury to one of the menisci. This is often a tear inthe cartilage. Recovery after a meniscus injury depends on how much meniscus is damaged and whetheryou have damaged other knee tissue. Small tears may heal on their own with conservative treatment. Conservative means rest, limited weight bearing activity and muscle strengthening exercises. Your recovery may take up to 6 weeks. TREATMENT Larger tears may require surgery. Meniscus injuries may be treated during arthroscopy. Arthroscopy is a procedure in which your surgeon uses a small telescope like instrument to look in your knee. Your caregiver can make a more accurate diagnosis (learning what is wrong) by performing an arthroscopic procedure. If your injury is on the inner margin of the meniscus, your surgeon may trim the meniscus back to asmooth rim. In other cases your surgeon will try to repair a damaged meniscus with stitches (sutures). This may make rehabilitation take longer, but may provide better fpc result by helping your knee keep its shock absorption capabilities. Ligaments which are completely torn usually require surgery for repair. HOME CARE INSTRUCTIONS ?? Use crutches as instructed. ?? If a brace is applied, use as directed. ?? Once you are home, an ice pack applied to your swollen knee may help with discomfort and help decrease swelling. ?? Keep your knee raised (elevated) when you are not up and around or on crutches. ?? Only take [id number] or prescription medicines for pain, discomfort, or fever as directed by your caregiver. ?? Your caregivers will help with instructions for rehabilitation of your knee. This often includesstrengthening exercises. ?? You may resume a normal diet and activities as directed. SEEK MEDICAL CARE IF: ?? There is increased swelling in your knee. ?? You notice redness, swelling, or increasing pain in your knee. ?? An unexplained oral temperature above 102?? F (38.9?? C) develops. SEEK IMMEDIATE MEDICAL CARE IF: ?? You develop a rash. ?? You have difficulty breathing. ?? You have any allergic reactions from medications you may have been given. ?? There is severe pain with any motion of the knee. MAKE SURE YOU: ?? Understand these instructions. ?? Will watch your condition. ?? Will get help right away if you are not doing well or get worse. Document Released: 10/18/2004 Document Revised: 10/20/2012 Document Reviewed: 12/22/2008 ExitCare?? Patient Information ??2015 [place] [facility]. This information is not intended to replace advice given to you by your health care provider. Make sure you discuss any questions you have with your health care provider. Muscle Strain A muscle strain is an injury that occurs when a muscle is stretched beyond its normal length. Usually a small number of muscle fibers are torn when this happens. Muscle strain is rated in degrees. First-degree strains have the least amount of muscle fiber tearing and pain. Second-degree and third-degree strains have increasingly more tearing and pain. Usually, recovery from muscle strain takes 1-2 weeks. Complete healing takes 5-6 weeks. CAUSES Muscle strain happens when a sudden, violent force placed on a muscle stretches it too far. This may occur with lifting, sports, or a fall. RISK FACTORS Muscle strain is especially common in athletes. SIGNS AND SYMPTOMS At the site of the muscle strain, there may be: ?? Pain. ?? Bruising. ?? Swelling. ?? Difficulty using the muscle due to pain or lack of normal function. DIAGNOSIS Your health care provider will perform a physical exam and ask about your medical history. TREATMENT Often, the best treatment for a muscle strain is resting, icing, and applying cold compresses to the injured area. ?? HOME CARE INSTRUCTIONS ?? Use the LLANOS method of treatment to promote muscle healing during the first 2-3 days after yourinjury. The LLANOS method involves: ?? Protecting the muscle from being injured again. ?? Restricting your activity and resting the injured body part. ?? Icing your injury. To do this, put ice in a plastic bag. Place a towel between your skin and thebag. Then, apply the ice and leave it on from 15-20 minutes each hour. After the third day, switch to moist heat packs. ?? Apply compression to the injured area with a splint or elastic bandage. Be careful not to wrap it too tightly. This may interfere with blood circulation or increase swelling. ?? Elevate the injured body part above the level of your heart as often as you can. ?? Only take rnza-qlx-[id number] or prescription medicines for pain, discomfort, or fever as directed by your health care provider. ?? Warming up prior to exercise helps to prevent future muscle strains. SEEK MEDICAL CARE IF: ?? You have increasing pain or swelling in the injured area. ?? You have numbness, tingling, or a significant loss of strength in the injured area. MAKE SURE YOU: ?? Understand these instructions. ?? Will watch your condition. ?? Will get help right away if you are not doing well or get worse. Document Released: 07/29/2006 Document Revised: 05/19/2014 Document Reviewed: 02/25/2014 ExitCare?? Patient Information ??2015 [place] [facility]. This information is not intended to replace advice given to you by your health care provider. Make sure you discuss any questions you have with your health care provider. Knee Pain The knee is the complex joint between your thigh and your lower leg. It is made up of bones, tendons, ligaments, and cartilage. The bones that make up the knee are: ?? The femur in the thigh. ?? The tibia and fibula in the lower leg. ?? The patella or kneecap riding in the groove on the lower femur. CAUSES Knee pain is a common complaint with many causes. A few of these causes are: ?? Injury, such as: ?? A ruptured ligament or tendon injury. ?? Torn cartilage. ?? Medical conditions, such as: ?? Gout ?? Arthritis ?? Infections ?? Overuse, over training, or overdoing a physical activity. Knee pain can be minor or severe. Knee pain can accompany debilitating injury. Minor knee problems often respond well to self-care measures or get well on their own. More serious injuries may need medical intervention or even surgery. SYMPTOMS The knee is complex. Symptoms of knee problems can vary widely. Some of the problems are: ?? Pain with movement and weight bearing. ?? Swelling and tenderness. ?? Buckling of the knee. ?? Inability to straighten or extend your knee. ?? Your knee locks and you cannot straighten it. ?? Warmth and redness with pain and fever. ?? Deformity or dislocation of the kneecap. DIAGNOSIS Determining what is wrong may be very straight forward such as when there is an injury. It can alsobe challenging because of the complexity of the knee. Tests to make a diagnosis may include: ?? Your caregiver taking a history and doing a physical exam. ?? Routine X-rays can be used to rule out other problems. X-rays will not reveal a cartilage tear. Some injuries of the knee can be diagnosed by: ?? Arthroscopy a surgical technique by which a small video camera is inserted through tiny incisions on the sides of the knee. This procedure is used to examine and repair internal knee joint problems. Tiny instruments can be used during arthroscopy to repair the torn knee cartilage (meniscus). ?? Arthrography is a radiology technique. A contrast liquid is directly injected into the knee joint. Internal structures of the knee joint then become visible on X-ray film. ?? An MRI scan is a non X-ray radiology procedure in which magnetic causey and a computer produce two- or three-dimensional images of the inside of the knee. Cartilage tears are often visible using an MRI scanner. MRI scans have largely replaced arthrography in diagnosing cartilage tears of the knee. ?? Blood work. ?? Examination of the fluid that helps to lubricate the knee joint (synovial fluid). This is done by taking a sample out using a needle and a syringe. TREATMENT The treatment of knee problems depends on the cause. Some of these treatments are: ?? Depending on the injury, proper casting, splinting, surgery, or physical therapy care will be needed. ?? Give yourself adequate recovery time. Do not overuse your joints. If you begin to get sore during workout routines, back off. Slow down or do fewer repetitions. ?? For repetitive activities such as cycling or running, maintain your strength and nutrition. ?? Alternate muscle groups. For example, if you are a weight comb capper, work the upper body on one dayand the lower body the next. ?? Either tight or weak muscles do not give the proper support for your knee. Tight or weak musclesdo not absorb the stress placed on the knee joint. Keep the muscles surrounding the knee strong. ?? Take care of mechanical problems. ?? If you have flat feet, orthotics or special shoes may help. See your caregiver if you need help. ?? Arch supports, sometimes with wedges on the inner or outer aspect of the heel, can help. These can shift pressure away from the side of the knee most bothered by osteoarthritis. ?? A brace called an dairy hand brace also may be used to help ease the pressure on the most arthritic side of the knee. ?? If your caregiver has prescribed crutches, braces, wraps or ice, use as directed. The acronym for this is LLANOS. This means protection, rest, ice, compression, and elevation. ?? Nonsteroidal anti-inflammatory drugs (NSAIDs), can help relieve pain. But if taken immediately after an injury, they may actually increase swelling. Take NSAIDs with food in your stomach. Stop them if you develop stomach problems. Do not take these if you have a history of ulcers, stomach pain, or bleeding from the bowel. Do not take without your caregiver's approval if you have problems with fluid retention, heart failure, or kidney problems. ?? For ongoing knee problems, physical therapy may be helpful. ?? Glucosamine and chondroitin are [id number] dietary supplements. Both may help relieve the pain of osteoarthritis in the knee. These medicines are different from the usual anti-inflammatory drugs. Glucosamine may decrease the rate of cartilage destruction. ?? Injections of a corticosteroid drug into your knee joint may help reduce the symptoms of an arthritis flare-up. They may provide pain relief that lasts a few months. You may have to wait a few months between injections. The injections do have a small increased risk of infection, water retention,and elevated blood sugar levels. ?? Hyaluronic acid injected into damaged joints may ease pain and provide lubrication. These injections may work by reducing inflammation. A series of shots may give relief for as long as 6 months. ?? Topical painkillers. Applying certain ointments to your skin may help relieve the pain and stiffness of osteoarthritis. Ask your pharmacist for suggestions. Many over the-counter products are approved for temporary relief of arthritis pain. ?? In some countries, doctors often prescribe topical NSAIDs for relief of chronic conditions such as arthritis and tendinitis. A review of treatment with NSAID creams found that they worked as well as oral medications but without the serious side effects. PREVENTION ?? Maintain a healthy weight. Extra pounds put more strain on your joints. ?? Get strong, stay limber. Weak muscles are a common cause of knee injuries. Stretching is important. Include flexibility exercises in your workouts. ?? Be smart about exercise. If you have osteoarthritis, chronic knee pain or recurring injuries, you may need to change the way you exercise. This does not mean you have to stop being active. If yourknees ache after jogging or playing basketball, consider switching to swimming, water aerobics, or other low-impact activities, at least for a few days a week. Sometimes limiting high-impact activities will provide relief. ?? Make sure your shoes fit well. Choose footwear that is right for your sport. ?? Protect your knees. Use the proper gear for knee-sensitive activities. Use kneepads when playingvolleyball or laying carpet. Buckle your seat belt every time you drive. Most shattered kneecaps occur in car accidents. ?? Rest when you are tired. SEEK MEDICAL CARE IF: You have knee pain that is continual and does not seem to be getting better. SEEK IMMEDIATE MEDICAL CARE IF: Your knee joint feels hot to the touch and you have a high fever. MAKE SURE YOU: ?? Understand these instructions. ?? Will watch your condition. ?? Will get help right away if you are not doing well or get worse. Document Released: 05/25/2008 Document Revised: 10/20/2012 Document Reviewed: 05/25/2008 ExitCare?? Patient Information ??2014 [employer]. This information is not intended to replace advice given to you by your health care provider. Make sure you discuss any questions you have with your health care provider. L ALIGNMENT MECHANIC documented in this encounter Medications at Time of Discharge Medication Sig Dispensed Refills Start Date End Date cyclobenzaprine (FLEXERIL) 10 MG tablet Take 1 Tab by mouth 3 times daily as needed for Muscle Spasms 15 Tab 09/27/2016 HYDROcodone-acetaminophen (NORCO) 5-325 MG tablet Take 1 Tab by mouth every 4 hours as needed for Pain 15 Tab 09/27/2016 documented as of this encounter ED Notes * Cahta Calvo RN - 09/27/2016 4:23 PM CST Pt discharged home. Pt has no lines or drains. Pt VSS. Pt given discharge teaching and paperwork. Pt able to ambulate with crutches. Pt home with son. L ALIGNMENT MECHANIC * Chata Calvo RN - 09/27/2016 1:19 PM CST Pt presents to the ED with c/o fall at work. 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 Pt states his foot got caught in between some pallets at work and he fell backwards. Pt denies hitting head or LOC. Pt c/o L knee pain and R hip pain. Pt states he has had an arthroscopy in that knee 20 years ago, otherwise no hx of injury to that knee in the past. Pt in no acute distress at this time. Will continue to monitor patient. L ALIGNMENT MECHANIC * Elsi Quezada PA-C - 09/27/2016 1:19 PM CST Provider contact with the patient: 09/27/2016 13:19 Jeff Mendoza [id number] [facility] History Chief Complaint Patient presents with ??? 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 Denies head injury, but c/o left knee pain and right hip pain. Outside Salesperson denies need to call for drug test. HPI 45-year-old male with no documented past medical history presents to the emergency department after a fall at work. Patient notes that he had his foot stuck between pallets and fell backwards. Denies any head injury or loss of consciousness. Patient reports left knee and right hip pain. Patientbelieves he twisted his Left knee when he fell as well as believes that he pulled his right hip. Patient notes that his pain at rest as a 5/10, with movement a 10/10. Patient is able to bear weight however it causes extreme pain. No popping sensation noted. No previous injury or surgery of bilateral lower extremities. Patient's feed inspection supervisor at work advised him to go to the emergency department and h e would NOT need to have a drug test performed. PCP: None on file No past medical history on file. No past surgical history on file. No family history on file. History Social History ??? Marital status: Spouse name: N/A ??? Number of children: N/A ??? Years of education: N/A Occupational History ??? Not on file. Social History Main Topics ??? Smoking status: Not on file ??? Smokeless tobacco: Not on file ??? Alcohol use: Not on file ??? Drug use: Not on file ??? Sexual activity: Not on file Other Topics Concern ??? Not on file Social History Narrative No Known Allergies Review of Systems Review of Systems Constitutional: Negative for chills, fever and malaise/fatigue. HENT: Negative for sore throat. Respiratory: Negative for cough and shortness of breath. Cardiovascular: Negative for chest pain. Gastrointestinal: Negative for abdominal pain, diarrhea, nausea and vomiting. Genitourinary: Negative for dysuria and hematuria. Musculoskeletal: Negative for back pain and neck pain. Left knee and right hip pain. Skin: Negative for itching and rash. Neurological: Negative for dizziness, tingling, sensory change and loss of consciousness. Physical Exam BP 129/90 Pulse 86 Temp 97.8 ??F Resp 16 Ht 1.803 m (5' 11 ) Wt 81.6 kg (180 lb) SpO2 100% BMI 25.1kg/m2 Physical Exam Constitutional: He is oriented to person, place, and time. He appears well- developed and well-nourished. No distress. HENT: Head: Normocephalic and atraumatic. Nose: Nose normal. Mouth/Throat: Oropharynx is clear and moist. Eyes: Conjunctivae are normal. Neck: Normal range of motion. Neck supple. No C-spine tenderness or step-off. Cardiovascular: Normal rate, regular rhythm and normal heart sounds. Pulmonary/Chest: Effort normal and breath sounds normal. Musculoskeletal: No thoracic spine or lumbar spine tenderness. Right hip: Moderate tenderness to palpation over the iliac crest and posterior right lateral lumbartenderness to palpation with muscle spasm. No ecchymosis or edema. Skin intact. Left knee: No obvious deformity. Small joint effusion noted. No tenderness to palpation in the popliteal joint. Moderate the superior medial tenderness to palpation. No reproducible pain of joint line. Negative anterior-posterior drawer test. Positive valgus stress test. Negative varus stress test.2+ DP pulse. Light touch sensation intact. No ecchymosis noted. No erythema. Skin intact. No tenderness to palpation of tibial tuberosity. No pain exacerbated distal to the knee. Neurological: He is alert and oriented to person, place, and time. Skin: Skin is warm and dry. Psychiatric: He has a normal mood and affect. His behavior is normal. Judgment and thought content normal. Nursing note and vitals reviewed. Medications Current Outpatient Prescriptions Medication Sig Dispense Refill ??? HYDROcodone-acetaminophen (NORCO) 5-325 MG tablet Take 1 Tab by mouth every 4 hours as needed for Pain 15 Tab 0 ??? cyclobenzaprine (FLEXERIL) 10 MG tablet Take 1 Tab by mouth 3 times daily as needed for Muscle Spasms 15 Tab 0 Procedures Procedures ECG Interpretation ECG Interpretation Lab/SPO2 Interpretation No results found for this visit on 09/27/16. XR HIP 2+ VW RIGHT Final Result 2 views right hip 4 views left [...] There is no evidence of acute fracture. XR KNEE 4+ VW LEFT Final Result 2 views right hip 4 views left [...] There is no evidence of acute fracture. Progress Notes Initial plan: Right hip and left knee x-rays. Pain control with muscle relaxer and pain medication. 1622: I re-evaluated the patient???s medical condition, comfort, and provided a care update. Pain improving. 5/10 with movement, 0/10 at rest Avtar wrap applied to left knee with crutch training given by nursing staff. I had a formal disposition interview with the patient/family to discuss the ED visit and disposition plan. Pt advised to follow up with .... Pt advised to return for worsening or new symptoms. Pt is stable for discharge at this time. ED Course ED Course There is no data filed. Medical Decision Making I have reviewed the: Nursing Notes, Vitals. I have interpreted the following results: X-Ray, Oxygen Saturation. Orders Placed This Encounter ??? XR HIP 2+ VW RIGHT ??? XR KNEE 4+ VW LEFT ??? diazePAM (VALIUM) injection 5 mg ??? HYDROcodone-acetaminophen (NORCO) 10-325 MG tablet 1 Tab ??? DISCONTD: diazePAM (VALIUM) injection ADS Med ??? HYDROcodone-acetaminophen (NORCO) 5-325 MG tablet ??? cyclobenzaprine (FLEXERIL) 10 MG tablet Clinical Impression Final diagnoses: Fall from other slipping, tripping, or stumbling Knee effusion, left Hip strain, right, initial encounter L ALIGNMENT MECHANIC documented in this encounter Plan of Treatment Not on file documented as of this encounter Procedures Procedure Name Priority Date/Time Associated Diagnosis Comments XR KNEE LEFT 4VW OR MORE STAT 09/27/2016 3:30 PM WHEEL ALIGNMENT MECHANIC Fall from other slipping, tripping, or stumbling XR HIP RIGHT 2VW OR MORE STAT 09/27/2016 3:29 PM WHEEL ALIGNMENT MECHANIC Fall from other slipping, tripping, or stumbling documented in this encounter Results * XR KNEE 4+ VW LEFT (09/27/2016 3:30 PM WHEEL ALIGNMENT MECHANIC) Anatomical Region Laterality Modality Lower Extremity Radiographic Isi ging 09/27/2016 3:34 PM WHEEL ALIGNMENT MECHANIC Narrative 09/27/2016 3:37 PM WHEEL ALIGNMENT MECHANIC 2 views right hip 4 views left [...] HIP 2+ VW RIGHT (09/27/2016 3:29 PM WHEEL ALIGNMENT MECHANIC) Anatomical Region Laterality Modality Pelvis, Lower Extremity Radiogra phic Imaging 09/27/2016 3:34 PM WHEEL ALIGNMENT MECHANIC Narrative 09/27/2016 3:37 PM WHEEL ALIGNMENT MECHANIC 2 views right hip 4 views left [...] C Quiroz MD DIAGNOSTIC IMAGING O RDERABLES documented in this encounter Visit Diagnoses Diagnosis Fall from other slipping, tripping, or stumbling Knee effusion, left Effusion of lower leg joint Hip strain, right, initial encounter documented in this encounter Administered Medications Inactive Administered Medications - up to 3 most recent administrations Medication Order MAR Action Action Date Dose Rate Site diazePAM (VALIUM) injection 5 mg 5 mg, Intramuscular, NOW, 1 dose, On Ghada 09/27/16 at 1400 $ Given 09/27/2016 2:04 PM WHEEL ALIGNMENT MECHANIC 5 mg Left Deltoid HYDROcodone-acetaminophen (NORCO) 10-325 MG tablet 1 Tab 1 tablet, Oral, NOW, 1 dose, On Ghada 09/27/16 at 1400 $ Given 09/27/2016 2:04 PM WHEEL ALIGNMENT MECHANIC 1 tablet documented in this encounter Active and Recently Administered Medications Times are shown in WHEEL ALIGNMENT MECHANIC. Scheduled Medication Order 09/25/2016 09/26/2016 09/27/2016 diazePAM (VALIUM) injection 5 mg (COMPLETED) 5 mg, Intramuscular, NOW, 1 dose, On Ghada 09/27/16 at 1400 1404 ($ Given - Prov ider: Chata Calvo RN) HYDROcodone-acetaminophen (NORCO) 10-325 MG tablet 1 Tab (COMPLETED) 1 tablet, Oral, NOW, 1 dose, On Ghada 09/27/16 at 1400 1404 ($ Given - Prov ider: Chata Calvo RN) documented in this encounter
--- OUTSIDE RECORDS SUMMARY | 2024-08-21 02:54 | XMS_ITS | Encounter Summary ---
Author Organization [facility] Address [address] [place] [address] Phone Care Team Providers Care Exterior Interior Specialist Name Role Phone KatynicolasaCandice Primary Care Pr ovider Encounter Details Date Type Department Care Team (Late st Contact Info) Description 12/24/2022 Orders Only [facility] Orthopaedic Surgery [address] [facility] [address] [place] [phone] Rai Stone MD [address] [facility] [address] [place] [address] Social History Tobacco Use Types Packs/Day Years [...] on file 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 Gender Identity Not on file Sexual Orientation Not on file documented as of this encounter Ordered Prescriptions Prescription Sig Dispense Quantity Refills Last Filled Start Date End Date predniSONE (DELTASONE) 5 mg tablet Take 1 tablet (5 mg) by mouth daily 30 tablet 12/24/2022 01/23/2023 documented in this encounter Plan of Treatment Not on file documented as of this encounter Visit Diagnoses Not on filedocumented in this encounter Care Teams Exterior Interior Specialist Relationship Specialty Start Date End Date Candice Kendrick PA PCP - General Physician Risk Officer 03/13/22 documented as of this encounter
--- OUTSIDE RECORDS SUMMARY | 2024-08-21 02:54 | XMS_ITS | Referral Summary ---
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 Gender Identity Not on file Sexual Orientation [...] (200 lb 8 oz) 10/13/2022 2:52 PM DIRECTOR OF RETENTION Height 180.3 cm (5' 11 ) 10/13/2022 2:52 PM DIRECTOR OF RETENTION Body Mass Index 27.96 10/13/2022 2:52 PM DIRECTOR OF RETENTION Plan of Treatment Not on file Medical Devices Implanted Type Area Annual Greenhouse Manager Device Identifier Shelf Expiration Date Model / Serial / Lot [employer] Attune Cruciate Retain Cementless Knee Left 8 Component Femoral [id number] - Sna - [id number] Implanted:Qty: 1 on 10/12/2022 by Rai Stone MD at [facility] Other - see comments Left: Knee [employer] [id number] 07/11/2032 [id number] / NA / [id number] Description:Implant Pause Pe rformed [employer] Attune Fb Tib Base Sz 7 Por [id number] - Sna - [id number] Implanted:Qty: 1 on 10/12/2022 by Rai Stone MD at [facility] Other - see comments Left: Knee [employer] 07/11/2032 [id number] / NA / [id number] Description:Implant Pause Pe rformed [employer] Insert Tibial Knee Fixed Lm Posterior Stabilized Attune 10mm Size 8 Polyethylene [id number] - Sna - [id number] Implanted:Qty: 1 on 10/12/2022 by Rai Stone MD at [facility] Other - see comments Left: Knee [employer] [id number] 06/11/2029 [id number] / NA / [id number] Description:Implant Pause Pe rformed Scew Right: Knee Insurance [facility] CHOICE PLUS CIGNA OPEN ACCESS CIGNA CIGNA Care Teams 411 Directory Assistance Operator Relationship Specialty Start Date End Date Candice Kendrick PA PCP - General Physician Condominium Association Manager 03/13/22
--- OUTSIDE RECORDS SUMMARY | 2024-08-21 02:55 | XMS_ITS | Encounter Summary ---
Author Organization [facility] Address [address] [place] [address] Phone Care Team Providers Care Venetian Blind Mechanic Name Role Phone Candice Kendrick Primary Care Pr ovider Encounter Details Date Type Department Care Team (Late st Contact Info) Description 11/05/2022 Orders Only 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
--- OUTSIDE RECORDS SUMMARY | 2024-08-21 02:55 | XMS_ITS | Encounter Summary ---
Author Organization [facility] Address [address] [place] [address] Phone Care Team Providers Care Patent Lawyer Name Role Phone LiyahmaganCandice Primary Care Pr ovider Reason for Visit * Auth/Cert (Routine) Specialty Diagnoses / Procedures Referred By Contac t Referred To Contact Referral ID Status Reason Start Date Expiration Date Visits Re quested Visits Authorized [id number] 1 [phone] Encounter Details Date Type Department Care Team (Late st Contact Info) Description 10/24/2022 2:00 PM CDT Home Care Visit [facility] [address] [place] [phone] Jessica Hsu PTA PT HOME VISIT Social History Tobacco Use Types Packs/Day Years [...] on file 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 Gender Identity Not on file Sexual Orientation Not on file documented as of this encounter Last Filed Vital Signs Vital Sign Reading Time Taken Comments Blood Pressure 120/70 10/24/2022 2:53 PM CDT Pulse 72 10/24/2022 2:53 PM CDT Temperature 36 ??C (96.8 ??F) 10/24/2022 2:53 PM CDT Respiratory Rate 18 10/24/2022 2:53 PM CDT Oxygen Saturation 98% 10/24/2022 2:53 PM CDT Inhaled Oxygen Concentration - - Weight - - Height - - Body Mass Index - - documented in this encounter Miscellaneous Notes * Home Health Plan for Next Visit - Jessica Hsu PTA - 10/24/2022 2:07 PM CDT Reason for today's visit to progress to steps on in and out of the home, ROM/strengthening left knee Discuss plan of care pt, present end of session Discharge planning next visit with progression into outpt 10/31 Plan for next visit reassessment and dc planned with Miriam pt has been instructed to cont with ice and elevation, takes pain meds as needed for pain pt has been instructed to perform hep 2 times a day 3 times if able to cont with walker at this time, has no cane pt is agreeable with dc next visit documented in this encounter Plan of Treatment Not on file documented as of this encounter Visit Diagnoses Not on filedocumented in this encounter Home Health Visit - Care Plan Visit Details Visit Type -PT Home Visit Discipline -Physical Therapy Problems Problem Description Start Date Status Goals Interventions Homebound Status Disciplines: Skilled Disciplines Patient's homebound status 10/14/2022 Active 1 goal linked to scheduled/docume nted intervention 1 goal intervention scheduled/documen rozina in this visit Monitor patient's vital signs every home health visit Disciplines: SN, PT, OT, EXPLOSIVES ENGINEER, VEHICLE REFINISHER, Skilled Disciplines Monitor patient's vital signs every home health visit. 10/14/2022 Active 1 goal linked to scheduled/docume nted intervention 1 goal intervention scheduled/documen rozina in this visit Infection Prevention Disciplines: Skilled Disciplines Infection Prevention 10/14/2022 Active 1 goal linked to scheduled/docume nted intervention 2 goal interventions scheduled/documen rozina in this visit Safety concerns Disciplines: Skilled Disciplines Alteration in safety 10/14/2022 Active 1 goal linked to scheduled/docume nted intervention 2 goal interventions scheduled/documen rozina in this visit DVT Prevention and Management Disciplines: Skilled Disciplines Management of anticoagulation therapy 10/14/2022 Active 1 goal linked to scheduled/docume nted intervention 1 goal intervention scheduled/documen rozina in this visit Pain Disciplines: Core Disciplines Alteration in comfort 10/14/2022 Active 1 goal linked to scheduled/docume nted intervention 1 goal intervention scheduled/documen rozina in this visit Wound Education and Management Disciplines: Core Disciplines Knowledge deficit related to wound management and risk of infection. 10/14/2022 Active 1 goal linked to scheduled/docume nted intervention 1 goal intervention scheduled/documen rozina in this visit Wound Care Disciplines: Core Disciplines Wound #1 left kneecare needed 10/14/2022 Active 1 goal linked to scheduled/docume nted intervention 1 goal intervention scheduled/documen rozina in this visit PT Orthopedic-Tota l Joint Replacement Disciplines: Physical Therapy Total Joint Replacement of Left TKA 10/17/2022 Active - 4 problem interventions scheduled/documen rozina in this visit Goals Goal Associated Problem Outcome Goal Met? Visit Notes Patient receives care at the most appropriate care setting Description: Patient receives care at the most appropriate care setting. Homebound Status No Measure vital signs during every home health visit during episode of care Description: Home security systems installer to measure vital signs during every home health visit during episode of care. Monitor patient's vital signs every home health visit No Verbalize signs of infection Description: Patient/caregiver will demonstrate knowledge of infection prevention strategies by verbalizing signs and symptoms of infection. Infection Prevention No Demonstrate use of safety precautions Description: Patient/caregiver maintains safe home environment as evidenced by remaining free from injury and demonstrates use of safety precautions. Safety concerns No Demonstrate knowledge of anticoagulant therapy Description: Patient/caregiver will verbalize understanding of anticoagulation therapy including adverse signs and symptoms to notify physician or contact EMS. DVT Prevention and Management No Report that pain has been reduced or controlled Description: Patient/caregiver/family will verbalize satisfaction with the patients level of pain and symptom control. Pain No Knowledgeable of Wound Management Description: Patient/caregiver will be knowledgeable on management of wound and when to seek medical attention as evidenced by progressive wound healing and patient/caregiver ability to verbalize signs and symptoms to report to physician or Home Health Agency. Patient will remain free of infection and able to recognize signs of infection as long as alteration in skin integrity exists or until patient is discharged from home health services. Wound Education and Management No Progression towards healing Description: Wound #1 left knee show progression towards healing Wound Care No Interventions Intervention Associated Problem/Goal Status Variance Visit Notes Homebound Status Description: Patient is homebound due to recent surgery, pain, unsteady gait, risk for falls Problem:Homebound Status Goal:Patient receives care at the most appropriate care setting Completed Patient is homebound due to recent surgery, pain, unsteady gait, risk for falls multiple steps to enter and exit the home, presence of wound Monitor Vital Signs Description: Monitor blood pressure, pulse, oxygen saturation, respirations Problem:Monitor patient's vital signs every home health visit Goal:Measure vital signs during every home health visit during episode of care Completed Educate Patient on Infection Prevention Description: Instruct patient on signs and symptoms of infection IE: fever, odor, change in color, increased amount of drainage, purulent drainage, warmth. Problem:Infection Prevention Goal:Verbalize signs of infection Scheduled Educate Family on Infection Prevention Description: Instructed family on signs and symptoms of infection IE: fever, odor, change in color, increased amount of drainage, purulent drainage, warmth. Problem:Infection Prevention Goal:Verbalize signs of infection Scheduled Instruct Fall Prevention Description: Instruct patient/caregiver in methods to prevent falls Problem:Safety concerns Goal:Demonstrate use of safety precautions Completed instructed to use cane at all times Assess safety Description: Assess patient safety Problem:Safety concerns Goal:Demonstrate use of safety precautions Completed Instruct on the prevention of deep vein thrombosis Description: Instruct patient/caregiver on signs and symptoms, preventative measures related to DVT, and provide ongoing home support based on patient needs Problem:DVT Prevention and Management Goal:Demonstrate knowledge of anticoagulant therapy Scheduled Instruct on pain management techniques Description: Instruct in pharmacologic and nonpharmacologic pain management techniques. Problem:Pain Goal:Report that pain has been reduced or controlled Completed takes pain meds as prescribed Educate on Wound Care Management Description: Instruct patient/caregiver on wound management including: ordered wound care, utilizing clean technique, appropriate hand hygiene, and disposal of dressings. Instruct patient/caregiver on nutrition and hydration needs for altered skin integrity, signs and symptoms of infection and/or wound deterioration to report to home health agency and or physician. Problem:Wound Education and Management Goal:Knowledgeable of Wound Management Completed Instruct patient/caregiver on wound management including: ordered wound care, utilizing clean technique, appropriate hand hygiene, and disposal of dressings. Instruct patient/caregiver on nutrition and hydration needs for altered skin integrity, signs and symptoms of infection and/or wound deterioration to report to home health agency and or physician. Perform dressing change Description: Perform dressing change: wound #1 left knee. may remove outer dressing at first snv visit. leave prineo dressing intact for 21 days. then pt may remove. apply vasoline to edges and slowly peel off. wrap leg with anneliese wrap for 6 weeks. discharge orders Problem:Wound Care Goal:Progression towards healing Scheduled Home Exercise Program (HEP) Description: Instruct patient/caregiver and perform HEP. Problem:PT Orthopedic-Total Joint Replacement Completed pt has written hep to follow did issue standing hep to perform 2-3 times a day Gait/Stair Training Description: Instruct patient/caregiver and perform gait/stair training. Problem:PT Orthopedic-Total Joint Replacement Completed gait with wheeled walker WBAT on the left over level surface with cues to focus on knee flexion during swing thru and knee extension with heelstrike cues to decrease pressure on arms with gait activities up and down step in home to front door and then down deck and several more steps using handrail pt does not yet have a cane and unable to instruct pt on gait with cane however does report occasional buckling of left knee and may not yet be ready Bed Mobility/Transfer Training Description: Instruct patient/caregiver and perform bed mobility/transfer training. Problem:PT Orthopedic-Total Joint Replacement Completed sit to from stand from couch depending on ues to push himself up and to try to keep the left knee flexed with sit to from stand pt does scoot to floor to perform supine exercises on his own and able to use ues to push himself back onto couch Therapeutic Exercise Description: Perform therapeutic exercise, progressing as tolerated. Problem:PT Orthopedic-Total Joint Replacement Completed while the pt was supine progressed to 15 reps of strengthening/rom including anklepumping, quad sets and saqs with cues to hold for 5 seconds each, hip abd/add and slr with cues to engage quad before completing, heelslides x 10 reps actively and 5 reps using gait belt to stretch holding 5 seconds while seated performs knee flexion from couch performs heelslides and then sitting on higher kitchen chair allows to stretch with gravily able to get to 80 degrees with slight over pressure then instructed pt on standing heel toe raises, hip abd/add x 10 reps, hamstring curls x 5 reps, and then alternating hip flexion with knee flexion upt instructed to cont with hep 2 -3 times a day documented in this encounter Care Teams Patent Lawyer Relationship Specialty Start Date End Date Candice Kendrick PA PCP - General Physician Graduate Recruiter 03/13/22 documented as of this encounter
--- OUTSIDE RECORDS SUMMARY | 2024-08-21 02:55 | XMS_ITS | Encounter Summary ---
Author Organization [facility] Address [address] [place] [address] Phone Care Team Providers Care Manager Benefit Name Role Phone LiyahmaganCandice Primary Care Pr ovider Reason for Visit * Reason Comments Pain * Auth/Cert (Routine) Specialty Diagnoses / Procedures Referred By Contsiobhan t Referred To Contact Referral ID Status Reason Start Date Expiration Date Visits Re quested Visits Authorized [id number] [id number] Encounter Details Date Type Department Care Team (Latest Contact Info) Description 10/13/2022 1:00 PM SHINGLE CATCHER Home Care Visit [facility] Home Health [address] [place] [address] Kayley Corbin RN SN NON OASIS START OF CARE Social History Tobacco Use Types Packs/Day Years [...] on file Legal Sex Male 3:05 AM SHINGLE CATCHER Gender Identity Not on file Sexual Orientation Not on file documented as of this encounter Last Filed Vital Signs Vital Sign Reading Time Taken Comments Blood Pressure 110/74 10/13/2022 2:52 PM SHINGLE CATCHER Pulse 74 10/13/2022 2:52 PM SHINGLE CATCHER Temperature 36.1 ??C (97 ??F) 10/13/2022 2:52 PM SHINGLE CATCHER Respiratory Rate 18 10/13/2022 2:52 PM SHINGLE CATCHER Oxygen Saturation 96% 10/13/2022 2:52 PM SHINGLE CATCHER Inhaled Oxygen Concentration - - Weight 90.9 kg (200 lb 8 oz) 10/13/2022 2:52 PM SHINGLE CATCHER Height 180.3 cm (5' 11 ) 10/13/2022 2:52 PM SHINGLE CATCHER Body Mass Index 27.96 10/13/2022 2:52 PM SHINGLE CATCHER documented in this encounter Plan of Treatment Not on file documented as of this encounter Visit Diagnoses Not on filedocumented in this encounter Home Health Visit - Care Plan Visit Details Visit Type -SN Non-OASIS Sta rt of Care Discipline -Nursing Home Problems Problem Description Start Date Status Goals Interventions Homebound Status Disciplines: Skilled Disciplines Patient's homebound status 10/14/2022 Active 1 goal linked to scheduled/docume nted intervention 1 goal intervention scheduled/documen rozina in this visit Medications Disciplines: Nursing Home Management of home medications 10/14/2022 Active 1 goal linked to scheduled/docume nted intervention 2 goal interventions scheduled/documen rozina in this visit Monitor patient's vital signs every home health visit Disciplines: SN, PT, OT, POUNCER MACHINE, GUT CARRIER, Skilled Disciplines Monitor patient's vital signs every [...] goal intervention scheduled/documen rozina in this visit DVT Prevention [...] goal intervention scheduled/documen rozina in this visit Goals Goal Associated Problem Outcome Goal Met? Visit Notes Patient receives care at the most appropriate care setting Description: Patient receives care at the most appropriate care setting. Homebound Status No Understand and follow medication therapy Description: Patient/caregiver will understand and follow prescribed medication therapy as evidence by having up to date medication list in home & ability to verbalize purpose, schedule, and side effects by the end of the episode of care Medications No Measure vital signs during every home health visit during episode of care Description: Home gas systems worker to measure vital signs during every home [...] of pain and symptom control. Pain No Progression towards healing Description: Wound #1 left knee show progression towards healing Wound Care No Interventions Intervention Associated Problem/Goal Status Variance Visit Notes Homebound Status Description: Patient is homebound due to recent surgery, pain, unsteady gait, risk for falls Problem:Homebound Status Goal:Patient receives care at the most appropriate care setting Completed see below Instruct medications Description: Instruct patient/caregiver in medication administration, purpose, dosages, preparation, scheduling, side effects, food/drug interactions, storage, drug allergies, and potential complications. Problem:Medications Goal:Understand and follow medication therapy Completed all medication reviewed with pt. instructed on reason for use, dosage and possible side effects . understanding expressed Instruct on high risk medications Description: Instruct patient/caregiver on high-risk/high-alert medications, including: anti-convulsant, anti-retroviral, anti-coagulant, chemotherapeutic, hypo-glycemic, immunosuppressant, insulin, and opioid. Problem:Medications Goal:Understand and follow medication therapy Completed instructed on tramadol and oxycodone. instructed on reason for use, dosage and possible side effects. understanding expressed. Monitor Vital Signs Description: Monitor blood pressure, pulse, oxygen saturation, respirations Problem:Monitor patient's vital signs every home health visit Goal:Measure vital signs during every home health visit during episode of care Completed Aspects of Care Description: Instruct patient/caregiver on universal precautions and home infection control measures Problem:Infection Prevention Goal:Verbalize signs of infection Completed instructed on surgical limitations. understanding expressed Educate Patient on Infection Prevention Description: Instruct patient on signs and symptoms of infection IE: fever, odor, change in color, increased amount of drainage, purulent drainage, warmth. Problem:Infection Prevention Goal:Verbalize signs of infection Completed instructed pt on s/s of infection that need to be reported to the dr including redness, new open or red areas, increase in pain, foul odor , drainage that is yellow or green, or fever. understanding expressed by pt. Instruct Fall Prevention Description: Instruct patient/caregiver in methods to prevent falls Problem:Safety concerns Goal:Demonstrate use of safety precautions Completed instructed to use walker when up to help steady gait and prevent falls. understanding expressed Instruct on the prevention of deep vein thrombosis Description: Instruct patient/caregiver on signs and symptoms, preventative measures related to DVT, and provide ongoing home support based on patient needs Problem:DVT Prevention and Management Goal:Demonstrate knowledge of anticoagulant therapy Completed instructed on s/s of dvt that need to be reported to the dr including redness, warmth, pain or tenderness, or swelling. understanding expressed. Instruct on pain management techniques Description: Instruct in pharmacologic and nonpharmacologic pain management techniques. Problem:Pain Goal:Report that pain has been reduced or controlled Completed instructed to report if pain is not relieved to an acceptable level. understanding expressed Perform dressing change Description: Perform dressing change: wound #1 left knee. may remove outer dressing at first snv visit. leave prineo dressing intact for 21 days. then pt may remove. apply vasoline to edges and slowly peel off. wrap leg with anneliese wrap for 6 weeks. discharge orders Problem:Wound Care Goal:Progression towards healing Completed prineo dressing intact. no s/s of infection noted. pt instructed on proper removal in 21 days. understanding expressed. documented in this encounter Care Teams Manager Benefit Relationship Specialty Start Date End Date Canidce Kendrick PA PCP - General Physician Certified Hand Therapist 03/13/22 documented as of this encounter
--- OUTSIDE RECORDS SUMMARY | 2024-08-21 02:55 | XMS_ITS | Encounter Summary ---
Author Organization [facility] Address [address] [place] [address] Phone Care Team Providers Care Teacher Learning Disabled Name Role Phone LiyahmaganCandice Primary Care Pr ovider Reason for Visit * Auth/Cert (Routine) Specialty Diagnoses / Procedures Referred By Contac t Referred To Contact Referral ID Status Reason Start Date Expiration Date Visits Re quested Visits Authorized [id number] Encounter Details Date Type Department Care Team (Latest Contact Info) Description 10/17/2022 2:30 PM FORESTRY INSTRUCTOR Home Care Visit [facility] [address] [place] [id number] Chau Capone, PT PT INITIAL EVALUATION Social History Tobacco Use Types Packs/Day Years [...] on file Legal Sex Male 3:05 AM 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 Gender Identity Not on file Sexual Orientation Not on file documented as of this encounter Last Filed Vital Signs Vital Sign Reading Time Taken Comments Blood Pressure 120/64 10/17/2022 2:53 PM FORESTRY INSTRUCTOR Pulse 84 10/17/2022 2:53 PM FORESTRY INSTRUCTOR Temperature 36.2 ??C (97.1 ??F) 10/17/2022 2:53 PM CS T Respiratory Rate 18 10/17/2022 2:53 PM FORESTRY INSTRUCTOR Oxygen Saturation 96% 10/17/2022 2:53 PM FORESTRY INSTRUCTOR Inhaled Oxygen Concentration - - Weight - - Height - - Body Mass Index - - documented in this encounter Miscellaneous Notes * Home Health Plan for Next Visit - Chau Capone, PT - 10/17/2022 2:23 PM FORESTRY INSTRUCTOR Reason for today's visit PT evaluation Discuss plan of care with patient Discharge planning: outpatient services 10/29/22 Plan for next visit cont to work on, ROM, quad strength, transfers, ambulation balance/coordination, endurance and safety awarness with AD equipment management in order to reduce risk of falling STRY INSTRUCTOR documented in this encounter Plan of Treatment Not on file documented as of this encounter Visit Diagnoses Not on filedocumented in this encounter Home Health Visit - Care Plan Visit Details Visit Type -PT Initial Evalu ation Discipline -Physical Therapy Problems Problem Description Start Date Status Goals Interventions Homebound Status Disciplines: Skilled Disciplines Patient's homebound status 10/14/2022 Active 1 goal linked to scheduled/docume nted intervention 1 goal intervention scheduled/documen rozina in this visit Monitor patient's vital signs every home health visit Disciplines: SN, PT, OT, DROP WORKER, BOILING TUB OPERATOR, Skilled Disciplines Monitor patient's vital signs every [...] visit during episode of care Description: Home financial intern to measure vital signs during every home [...] surgery, pain, unsteady gait, risk for falls Monitor Vital Signs Description: Monitor blood pressure, pulse, oxygen saturation, respirations Problem:Monitor patient's vital signs every home health visit Goal:Measure vital signs during every home health visit during episode of care Completed Monitor blood pressure, pulse, oxygen saturation, respirations Educate Patient on Infection Prevention Description: Instruct patient on signs and symptoms of infection IE: fever, odor, change in color, increased amount of drainage, purulent drainage, warmth. Problem:Infection Prevention Goal:Verbalize signs of infection Completed Instruct patient on signs and symptoms of infection IE: fever, odor, change in color, increased amount of drainage, purulent drainage, warmth. Educate Family on Infection Prevention Description: Instructed family on signs and symptoms of infection IE: fever, odor, change in color, increased amount of drainage, purulent drainage, warmth. Problem:Infection Prevention Goal:Verbalize signs of infection Completed Instructed family on signs and symptoms of infection IE: fever, odor, change in color, increased amount of drainage, purulent drainage, warmth. Instruct Fall Prevention Description: Instruct patient/caregiver in methods to prevent falls Problem:Safety concerns Goal:Demonstrate use of safety precautions Completed Instruct patient/caregiver in methods to prevent falls Assess safety Description: Assess patient safety Problem:Safety concerns Goal:Demonstrate use of safety precautions Completed Instruct on the prevention of deep vein thrombosis Description: Instruct patient/caregiver on signs and symptoms, preventative measures related to DVT, and provide ongoing home support based on patient needs Problem:DVT Prevention and Management Goal:Demonstrate knowledge of anticoagulant therapy Completed Instruct patient/caregiver on signs and symptoms, preventative measures related to DVT, and provide ongoing home support based on patient needs Instruct on pain management techniques Description: Instruct in pharmacologic and nonpharmacologic pain management techniques. Problem:Pain Goal:Report that pain has been reduced or controlled Completed Instruct in pharmacologic and nonpharmacologic pain management techniques. Educate on Wound Care Management Description: Instruct [...] orders Problem:Wound Care Goal:Progression towards healing Completed No need for dressing change. Nursing staff removed dressing last appointment Perform dressing change: wound #1 left knee. may remove outer dressing at first snv visit. leave prineo dressing intact for 21 days. then pt may remove. apply vasoline to edges and slowly peel off. wrap leg with anneliese wrap for 6 weeks. discharge orders documented in this encounter Care Teams Teacher Learning Disabled Relationship Specialty Start Date End Date Candice Kendrick PA PCP - General Physician Cashier Greeter 03/13/22 documented as of this encounter
--- OUTSIDE RECORDS SUMMARY | 2024-08-21 02:55 | XMS_ITS | Encounter Summary ---
Author Organization [facility] Address [address] [place] [address] Phone Care Team Providers Care Performance Test Consultant Name Role Phone Candice Kendrick Primary Care Pr ovider Encounter Details Date Type Department Care Team (Late st Contact Info) Description 10/30/2022 Orders Only [facility] Orthopaedic Surgery [address] [facility] [address] [place] [phone] Rai Stone MD [address] [facility] [address] [place] [address] Chronic pain of left knee (Primary Dx) Social History Tobacco Use Types Packs/Day Years [...] on file 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
--- OUTSIDE RECORDS SUMMARY | 2024-08-21 02:55 | XMS_ITS | Encounter Summary ---
Author Organization [facility] Address [address] [place] [address] Phone Care Team Providers Care Ticketer Name Role Phone Candice Kendrick Primary Care Pr ovider Reason for Visit * Auth/Cert (Routine) Specialty Diagnoses / Procedures Referred By Contsiobhan t Referred To Contact Referral ID Status Reason Start Date Expiration Date Visits Re quested Visits Authorized [id number] [phone] Encounter Details Date Type Department Care Team (Late st Contact Info) Description 10/17/2022 Home Care Visit [facility] Home Health [address] [place] [address] [address] [place] [phone] Miriam Chawla, PT CARE CONFERENCE Social History Tobacco Use Types Packs/Day Years [...] file 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
--- OUTSIDE RECORDS SUMMARY | 2024-08-21 02:55 | XMS_ITS | Encounter Summary ---
Author Organization [facility] Healthcare Address [address] [place] [address] Care Team Providers Care Aircraft Hydraulic Equipment Mechanic Name Role Phone Candice Kendrick Primary Care Pr ovider Reason for Referral * Diagnostic Imaging (Routine) - Closed Specialty Diagnoses / Procedures Referred By Contac t Referred To Contact Diagnoses Aftercare following left knee joint replacement surgery Procedures XR Knee Left 4 or More Views Rai Stone MD [address] [place] [address] Phone: tel: fax: [facility] [address] [place] [phone] Phone: tel: Referral ID Status Reason Start Date Expiration Date Visits Re quested Visits Authorized [id number] Closed 11/08/2022 12/08/2023 1 1 Reason for Visit * Diagnostic Imaging (Routine) - Closed Specialty Diagnoses / Procedures Referred By Contac t Referred To Contact Diagnoses Aftercare following left knee joint replacement surgery Procedures XR Knee Left 4 or More Views Rai Stone MD [address] [place] [address] Phone: tel: fax: [facility] [address] [place] [phone] Phone: tel: Referral ID Status Reason Start Date Expiration Date Visits Re quested Visits Authorized [id number] Closed 11/08/2022 12/08/2023 1 1 Encounter Details Date Type Department Care Team (Latest Contact Info) Description 11/12/2022 7:53 AM CDT - 11/12/2022 11:59 PM CDT Hospital Encounter [id number] [address] 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 SERVICE SPECIALIST Gender Identity Not on file Sexual Orientation Not on file documented as of this encounter Medications at Time of Discharge acetaminophen (TYLENOL) 500 mg tablet Take 2 tablets (1,000 mg total) by mouth every 8 (eight) hours 90 tablet 1 10/12/2022 aspirin 81 mg enteric coated tabletIndications :prevention of thrombosis Take 1 tablet (81 mg total) by mouth 2 (two) times a day 60 tablet 10/12/2022 meloxicam (MOBIC) 15 mg tablet Take 1 tablet (15 mg total) by mouth daily 30 tablet 10/12/2022 senna-docusate (Senna-S) 8.6-50 mg Take 2 tablets by mouth 2 (two) times a day 80 tablet 1 10/12/2022 oxyCODONE (ROXICODONE) 5 mg immediate release tabletIndications :Pain Take 1 tablet (5 mg total) by mouth every 4 (four) hours as needed for pain for up to 30 doses 30 tablet 11/05/2022 11/15/2022 traMADoL (ULTRAM) 50 mg tablet Take 1 tablet (50 mg total) by mouth every 8 (eight) hours as needed for pain (1st line) 42 tablet 10/12/2022 11/19/2022 documented as of this encounter Discharge Disposition Disposition Code Departure Means Destination Discharge to home or self care documented in this encounter Plan of Treatment Not on file documented as of this encounter Procedures Procedure Name Priority Date/Time Associated Diagnosis Comments XR KNEE LEFT 4 OR MORE VIEWS Schedule Routine, Read Routine (OP Routine) 11/12/2022 8:12 AM CDT Aftercare following left knee joint replacement surgery documented in this encounter Results * XR Knee Left 4 or More Views (11/12/2022 8:12 AM CDT) Anatomical Region Laterality Modality Lower Extremities, Knee Left Computed Radiography 11/12/2022 8:16 AM CDT Impressions 11/12/2022 8:16 AM CDT 1. ??Unchanged 2 component left knee arthroplasty in near-anatomic position 2. ??Mild bilateral varus mechanical axis Electronically signed by: Galo Bradley MD, PHD Narrative 11/12/2022 8:16 AM CDT EXAMINATION: Left knee 4+ views HISTORY: ??Left knee osteoarthritis FINDINGS: 6 radiographs including standing, digital frontal and lateral radiographs of both lower extremities are compared to prior knee radiographs from 10/12/2022. ??The 2 component left knee arthroplasty appears unchanged and in near-anatomic position without periprosthetic fracture or component migration. ??There is resolution of the intra-articular and deep soft tissue gas and improved soft tissue swelling with no knee joint effusion. ??Right anterior cruciate ligament reconstruction changes are noted with mild medial compartment predominant tricompartmental osteoarthritis. ??There is mild bilateral varus mechanical axis with no significant leg length discrepancy. Procedure Note Galo Bradley MD PhD - 11/12/2022 EXAMINATION: Left knee 4+ views HISTORY: Left knee osteoarthritis FINDINGS: 6 radiographs including standing, digital frontal and lateral radiographs of both lower extremities are compared to prior knee radiographs from 10/12/2022. The 2 component left knee arthroplasty appears unchanged and in near-anatomic position without periprosthetic fracture or component migration. There is resolution of the intra-articular and deep soft tissue gas and improved soft tissue swelling with no knee joint effusion. Right anterior cruciate ligament reconstruction changes are noted with mild medial compartment predominant tricompartmental osteoarthritis. There is mild bilateral varus mechanical axis with no significant leg length discrepancy. IMPRESSION: 1. Unchanged 2 component left knee arthroplasty in near-anatomic position 2. Mild bilateral varus mechanical axis Electronically signed by: Galo Bradley MD, PHD Rai Stone MD IMG XR PROCEDURES Final R esult documented in this encounter Visit Diagnoses Diagnosis Aftercare following left knee joint replacement surgery documented in this encounter Care Teams Aircraft Hydraulic Equipment Mechanic Relationship Specialty Start Date End Date Candice Kendrick PA PCP - General Physician Scorekeeper 03/13/22 documented as of this encounter
--- OUTSIDE RECORDS SUMMARY | 2024-08-21 02:55 | XMS_ITS | Encounter Summary ---
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 Role Phone Candice Kendrick Primary Care Pr ovider Reason for Visit * Auth/Cert Specialty Diagnoses / Procedures Referred By Contac t Referred To Contact Diagnoses Primary osteoarthritis of left knee Primary osteoarthritis of left knee [M17.12] Procedures MA ARTHRP KNE CONDYLE&PLATU MEDIAL&LAT COMPARTMENTS ARTHROPLASTY LEFT TOTAL KNEE - DEPUY Referral ID Status Reason Start Date Expiration Date Visits Re quested Visits Authorized [id number] 1 1 Encounter Details Date Type Department Care Team (Late st Contact Info) Description 10/12/2022 7:28 AM UNDERWRITING CLERK Anesthesia Event [facility] Operating Room [address] [place] [address] Axel Suggs MD [address] [place] [address] Chata Ojeda NP [address] [place] [address] Anesthesia Record Procedure Summary Procedure Name Responsible Anesthesiologist Anesthesia Start Time Anesthesia Stop Time ARTHROPLASTY LEFT TOTAL KNEE - DEPUY (Left: Knee) Axel Suggs MD 10/12/22 0728 10/12/22 0907 Events Date Time Event Comment 10/12/2022 0538 In Preop 0705 0715 Time out - Regional 0716 Start Supplemental O2 0717 Face Time 0718 An Block Induction The patie nt was reevaluated immediately before moderate or deep sedation and before anesthesia induction. 0721 Spinal Placed 0723 Block Placed 0728 An Start 0733 In Room 0733 AN Equip Check 0735 An Start Data 0737 An Induction The patient was reevaluated immediately before moderate or deep sedation use and before anesthesia induction. 0738 Anesthesia Ready 0746 Incision Start 0746 Proc Start 0859 Proc Fin 0902 an stop data 0902 Out of Room 0907 Handoff to RN I completed my handoff to the receiving nurse during which we: 1. Patient identified 2. Responsible provider identified 3. Pertinent medical history reviewed 4. Procedure type and surgical course discussed 5. Intraoperative anesthetic management and any significant issues discussed 6. Expectations and concerns for postop period discussed 7. Questions solicited from receiving nurse 8. Patient disposition at the time of handoff: PACU 0907 An Stop Meds Name Total ceFAZolin (ANCEF) 1 gram/10 mL in steril e water (premix) 2,000 mg 2,000 mg famotidine (PEPCID) injection 20 mg 0 mg lidocaine PF (XYLOCAINE) 10 mg/mL (1 %) preservative free injection 2-10 mg 0 mL scopolamine patch 72 hour 1 patch 0 patc h sodium chloride 0.9% flush 0.5-20 mL 0 m L ceFAZolin (ANCEF) 3,000 mg i n sodium chloride 0.9% 3,000 mL irrigation solution 0 mg dexAMETHasone (DECADRON) 4 mg/mL injecti on 8 mg 8 mg ketorolac (TORADOL) 30 mg/mL (1 mL) inje ction 15 mg 30 mg tranexamic acid (CYKLOKAPRON ) 1,000 mg/100 mL (10 mg/mL) in sodium chloride (premix) 1,000 mg 1,000 mg tranexamic acid (CYKLOKAPRON ) 1,000 mg/100 mL (10 mg/mL) in sodium chloride (premix) 1,000 mg 1,000 mg bupivacaine 0.5 % PF 35 mL Dexamethasone Perineural 6 mg fentaNYL PF 100 mcg midazolam 2 mg/2 mL 4 mg Lidocaine IV 1% 50 mg Propofol Bolus 30 mg Propofol Infusion 366.99 mg Spinal Mepivacaine 1.5% PF 4 mL ondansetron PF 4 mg HYDROmorphone 2 mg/mL 0.5 mg Lactated Ringer's (LR) infusion 1,500 mL * Agents Name O2 N2O Air * Blood No blood administrations on file. Lines, Drains, and Airways Type Details Placement Removal Peripheral IV Placement Date: 10/12/22; Placement Time: 06; Catheter Size: 20 G; Orientation: Anterior, Distal, Left; Location: Forearm; Site Prep: Chlorhexidine; Technique: Anatomical landmarks; Inserted by: Wisam; Insertion Attempts: 1; Patient Tolerance: Tolerated well; Removal Date: 10/12/22; Removal Time: 1200; Removal Reason: Discharge 10/12/22 0635 by Annabelle Cazares RN 10/12/22 1200 by Chari Waller, THUY RETIRED Surgical Site 10/12/22; 0848; Le ft; Leg; 07/14/24 (Retired LDA, Removed/Completed by [employer] with LDA Utility); 1213 (Retired LDA, Removed/Completed by [employer] with LDA Utility) 10/12/22 0848 by Roseline Ocampo RN 07/14/24 1213 by Discharge Provider, Automatic documented in this encounter Social History Tobacco Use Types Packs/Day Years [...] on file Legal Sex Male 3:05 AM UNDERWRITING CLERK Gender Identity Not on file Sexual Orientation Not on file documented as of this encounter OR Notes * Anesthesia Postprocedure Evaluation - Axel Suggs MD - 10/12/2022 11:06 AM CST Patient: Jeff Mendoza III Procedure Summary Date: 10/12/22 Room / Location: [facility] OPERATING ROOM 12 / [facility] OPERATING ROOM Anesthesia Start: 727 Anesthesia Stop: 906 Procedure: ARTHROPLASTY LEFT TOTAL KNEE - DEPUY (Left: Knee) Diagnosis: Primary osteoarthritis of left knee (Primary osteoarthritis of left knee [M17.12]) Surgeons: Rai Stone MD Responsible Provider: Axel Suggs MD Anesthesia Type: regional for postop pain per surgeon request, PNB - single shot, spinal, regional as primary anesthetic ASA Status: 1 Anesthesia Type: regional for postop pain per surgeon request, PNB - single shot, spinal, regional as primary anesthetic Last vitals BP 122/79 Pulse 76 Temp (!) 35.7 ??C (96.3 ??F) Resp 27 SpO2 96% Anesthesia Post Evaluation Patient location during evaluation: PACU Patient participation: complete - patient participated Level of consciousness: fully awake Pain score: 0 Pain management: adequate Airway patency: adequate Evidence of recall: no Cardiovascular status: hemodynamically stable and acceptable Respiratory status: acceptable and room air Hydration status: acceptable Pt is: normothermic Nausea/Vomiting status: none No notable events documented. RWRITING CLERK * Anesthesia Procedure Notes - Axel Suggs MD - 10/12/2022 7:31 AM CSTAssociated Order(s): Peripheral Block Peripheral Block Patient location during procedure: pre-op holding Reason for block: post-op pain management per surgeon request Ultrasound image in chart or stored: yes Block type: single shot Laterality: left Other block type: Vastus Intermedius Nerve Block Procedure prep: Preprocedure checklist: patient identified, procedure contraindications assessed, site marked, procedure consent, surgical consent, IV checked, risks, benefits and alternatives discussed, monitors and equipment checked and timeout performed Patient position: supine Procedure performed while patient: sedate with meaningful contact Monitoring: oximetry Supplemental O2: nasal cannula Prep solution: chlorhexidine/alcohol Peripheral nerve block: Technique: ultrasound guided Needle type: short-bevel Needle gauge: 21 G Needle length: 80 mm Injection assessment: injection made incrementally with constant monitoring, local visualized surrounding nerve on ultrasound, negative aspiration for heme, no paresthesias noted, normal resistance to injection and see flowsheet for medication details Assessment: Block success: full evaluation pending Events: patient tolerated procedure well with no complications RWRITING CLERK RWRITING CLERK * Anesthesia Procedure Notes - Axel Suggs MD - 10/12/2022 7:31 AM CSTAssociated Order(s): Peripheral Block Peripheral Block Patient location during procedure: pre-op holding Reason for block: post-op pain management per surgeon request Ultrasound image in chart or stored: yes Block type: single shot Laterality: left Other block type: Genicular Nerve Block ( Superior Medial, Superior Lateral, Inferior Medial) Procedure prep: Preprocedure checklist: patient identified, procedure contraindications assessed, site marked, procedure consent, surgical consent, IV checked, risks, benefits and alternatives discussed, monitors and equipment checked and timeout performed Patient position: supine Procedure performed while patient: sedate with meaningful contact Monitoring: oximetry Supplemental O2: nasal cannula Prep solution: chlorhexidine/alcohol Peripheral nerve block: Technique: ultrasound guided Needle type: short-bevel Needle gauge: 21 G Needle length: 80 mm Injection assessment: injection made incrementally with constant monitoring, local visualized surrounding nerve on ultrasound, negative aspiration for heme, no paresthesias noted, normal resistance to injection and see flowsheet for medication details Assessment: Block success: full evaluation pending Events: patient tolerated procedure well with no complications RWRITING CLERK RWRITING CLERK * Anesthesia Procedure Notes - Axel Suggs MD - 10/12/2022 7:31 AM CSTAssociated Order(s): Peripheral Block Peripheral Block Patient location during procedure: pre-op holding Reason for block: post-op pain management per surgeon request Ultrasound image in chart or stored: yes Block type: single shot Laterality: left Block type: IPACK Procedure prep: Preprocedure checklist: patient identified, procedure contraindications assessed, site marked, procedure consent, surgical consent, IV checked, risks, benefits and alternatives discussed, monitors and equipment checked and timeout performed Patient position: supine Procedure performed while patient: sedate with meaningful contact Monitoring: oximetry Supplemental O2: nasal cannula Prep solution: chlorhexidine/alcohol Peripheral nerve block: Technique: ultrasound guided Needle type: short-bevel and echogenic Needle gauge: 21 G Needle length: 80 mm Injection assessment: injection made incrementally with constant monitoring, local visualized surrounding nerve on ultrasound, negative aspiration for heme, no paresthesias noted, normal resistance to injection and see flowsheet for medication details Assessment: Block success: full evaluation pending Events: patient tolerated procedure well with no complications RWRITING CLERK RWRITING CLERK * Anesthesia Procedure Notes - Axel Suggs MD - 10/12/2022 7:31 AM CSTAssociated Order(s): Peripheral Block Peripheral Block Patient location during procedure: pre-op holding Reason for block: post-op pain management per surgeon request Ultrasound image in chart or stored: yes Block type: single shot Laterality: left Block type: saphenous nerve block - subsartorial approach Procedure prep: Preprocedure checklist: patient identified, procedure contraindications assessed, site marked, procedure consent, surgical consent, IV checked, risks, benefits and alternatives discussed, monitors and equipment checked and timeout performed Patient position: supine Procedure performed while patient: sedate with meaningful contact Monitoring: oximetry Supplemental O2: nasal cannula Prep solution: chlorhexidine/alcohol Peripheral nerve block: Technique: ultrasound guided Needle type: short-bevel and echogenic Needle gauge: 21 G Needle length: 80 mm Injection assessment: injection made incrementally with constant monitoring, local visualized surrounding nerve on ultrasound, negative aspiration for heme, no paresthesias noted, normal resistance to injection and see flowsheet for medication details Assessment: Block success: full evaluation pending Events: patient tolerated procedure well with no complications RWRITING CLERK RWRITING CLERK * Anesthesia Procedure Notes - Axel Suggs MD - 10/12/2022 7:30 AM CSTAssociated Order(s): Spinal Block Spinal Block Patient location: pre-op holding Reason for block: primary anesthetic Procedure prep: Preprocedure checklist: patient identified, procedure contraindications assessed, site marked, procedure consent, surgical consent, IV checked, risks, benefits and alternatives discussed, monitors and equipment checked and timeout performed Patient position: sitting Procedure performed while patient: sedate with meaningful contact Monitoring: oximetry and blood pressure Supplemental O2: nasal cannula Prep solution: chlorhexadine/alcohol PPE: sterile gloves, provider hat/mask and sterile drape Skin infiltrated with lidocaine 1%: yes Spinal: Approach: midline Introducer used: yes Location: L2-3 Spinal injection: CSF demonstrated, no aspiration of heme and no paresthesias noted Number of attempts: 1 Spinal Needle: Needle type: Maribell Brad (Maribell Brad) Needle gauge: 24 G Needle length: 9 cm Assessment: Events: patient tolerated procedure well with no complications RWRITING CLERK * Anesthesia Preprocedure Evaluation - Axel Suggs MD - 09/19/2022 8:43 AM CST Images from the original note were not included. [facility] Preoperative Assessment and Planning Preoperative Evaluation Record Evaluation type/location: [facility] Planned procedure site: [facility] OR Date: 09/19/22 Anesthesia Evaluation Jeff Mendoza III is a 51 y.o. male Procedure(s): ARTHROPLASTY LEFT TOTAL KNEE - DEPUY Pre-Op Diagnosis Codes: * Primary osteoarthritis of left knee [M17.12] HISTORY HPI Jeff Mendoza III is a 51 y.o. male who is being evaluated prior to undergoing ARTHROPLASTY LEFT TOTAL KNEE - DEPUY (Left: Knee) under spinal anesthesia. PMH includes OA. Past Medical History Information obtained from: patient and chart. Neurological Pertinent negatives: seizures; neuromuscular disease; CVA/stroke; TIA; CEA; ICA stenosis; dementia/mild cognitive impairment and carotid artery stent Cardiovascular Pertinent negatives: hypertension ; CAD ; SC ; CABG ; valvular heart disease; valve replacement; atrial fibrillation; arrhythmia; pacemaker/ICD; PVD; DVT/PE; negative for CHF; drug-eluting stent(s); bare metal stent(s) and coronary angioplasty Respiratory Pertinent negatives: COPD; asthma; sleep apnea (ADDIE); pulmonary hypertension; no O2 use outside thehospital and non-smoker Hepatic / Heme Pertinent negatives: liver disease; history of anemia; history of thrombocytopenia and history of Sal positive Gastrointestinal Pertinent negatives: GERD and hiatal hernia Renal / Pertinent negatives: renal disease; dialysis and nephrolithiasis Musculoskeletal/Pain + Chronic pain (left knee pain - surgical etiology) + Osteoarthritis Pertinent negatives: chronic opioid use and previous treatment for opioid use disorder Endocrine / Other Pertinent negatives: diabetes mellitus; thyroid disease; obesity (BMI >30); cancer history; rheumatological disease and transplanted organ Comments: Denies UTI/dental infection symptoms today Functional Capacity Functional capacity: 4-6 METs Comments: Patient is able to walk 2-4 city blocks and up 2 flights of stairs without shortness of breath or chest pain. Review of Systems + chronic pain (left knee pain - surgical etiology) + vision loss (reading glasses) Pertinent negatives: productive cough; wheezing; SOB; recent cold/flu; fever; chest pain; palpitations; orthopnea; pedal edema; PND; Sickle Cell disease/trait; previous transfusion; transfusion reaction; melena/hematochezia; easy bruising; bleeding problems; syncope; dizziness; muscle weakness; numb ness/tingling; hard of hearing; heartburn; nausea; dysphagia; diarrhea; dentures/partials; chipped/loose teeth; abdominal pain; diaphoresis and no unexpected weight change PAT Summary and Plans Cardiac risk classification of planned procedure: intermediate cardiac risk. Preoperative assessment status: lab tests ordered. Additional comments: Jeff Mendoza III is a 51 y.o. male who is being evaluated prior to undergoing an intermediate cardiac risk surgery. Revised Cardiac Risk Index factors are (none) for a total RCRI of 0 out of 6. Functional capacity is 4-6 METs. Obstructive sleep apnea (ADDIE) screening status is STOP-Bang=2 suggesting low risk for ADDIE Blood bank needs for day of procedure: Type and Screen only Pending labs/tests include: CBC CMP T&S Vitamin D Preoperative evaluation performed by Chata Ojeda NP on 09/19/22 at 8:44 AM.. Follow up note Labs reviewed and are without significant findings. Surgeon's office reviews laboratory results independently, including final results of surgeon ordered labs. CPAP process complete. Follow-up completed by: Chiquis Trujillo NP on 09/20/22 at 11:37 AM Patient Active Problem List Diagnosis ??? Osteochondritis dissecans ??? 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 Primary osteoarthritis of left knee History reviewed. No pertinent past medical history. Past Surgical History: Procedure Laterality Date ??? ARTHROSCOPIC REPAIR ACL Right No Known Allergies Med List Status: Nurse Complete Set By: Yoli Petty RN at 09/19/2022 8:47 AM Taking? Last Dose Start Date End Date Provider ibuprofen 200 mg tab/cap Past Week -- -- Provider, MD Yrn -- -- -- -- Current Outpatient Medications: ??? ibuprofen 200 mg tab/cap Social History Tobacco Use Smoking Status Never Smokeless Tobacco Never Alcohol Use: Unknown ??? Frequency of Alcohol Consumption: Not on file ??? Average Number of Drinks: Patient does not drink ??? Frequency of Binge Drinking: Not on file Substance and Sexual Activity Drug Use Never Family History Problem Relation Age of Onset ??? Anesthesia problems Neg Hx PAT Physical Exam Airway Exam: Mallampati: II Cervical ROM: FROM TM distance: 3 Upper lip bite test class: 1 Cardiovascular Exam: Rate: regular Rhythm: regular Negative for Murmur No extra heart sounds appreciated Negative for peripheral edema Pulmonary Exam: LCTA, bilat EENT Exam: trachea midline Dental Exam: Appears intact Skin Exam: Skin is warm. Capillary refill is < 3 seconds. Turgor is normal. Abdominal exam: Abdomen is soft. Bowel sounds are present. Current state: Patient's current state is cooperative and interactive. Vitals: 09/19/22 0835 09/19/22 0845 BP: 138/89 122/87 Pulse: 86 SpO2: 96% PT: No results found for requested labs within last 720 hours. INR: No results found for requested labs within last 720 hours. APTT: No results found for requested labs within last 720 hours. Hgb A1C: No results found for requested labs within last 720 hours. CBC RBC: No results found for requested labs within last 720 hours. RDW: No results found for requested labs within last 720 hours. MCHC: No results found for requested labs within last 720 hours. MCH: No results found for requested labs within last 720 hours. MCV: No results found for requested labs within last 720 hours. Hct: No results found for requested labs within last 720 hours. Hgb: No results found for requested labs within last 720 hours. WBC: No results found for requested labs within last 720 hours. MPV: No results found for requested labs within last 720 hours. Platelets: No results found for requested labs within last 720 hours. RDW CV: No results found for requested labs within last 720 hours. RDW Sd: No results found for requested labs within last 720 hours. BMP Glucose: No results found for requested labs within last 720 hours. Calcium: No results found for requested labs within last 720 hours. Sodium: No results found for requested labs within last 720 hours. Potassium: No results found for requested labs within last 720 hours. CO2: No results found for requested labs within last 720 hours. Chloride: No results found for requested labs within last 720 hours. BUN: No results found for requested labs within last 720 hours. Creatinine: No results found for requested labs within last 720 hours. STOP-Bang Total Score: 2 Jacqueline index score: 100 DOS Physical Exam Medical history, medications, and allergies reviewed. Attestation: This PAT evaluation Airway Exam: Mallampati: II Cervical ROM: FROM Cardiovascular Exam: Rate: regular Rhythm: regular Pulmonary Exam: LCTA, bilat Anesthesia Plan ASA 1 My patient is approved for the Anesthesia Controlled Medication protocol when under care of a MILLWR[employer] APPRENTICE Planned anesthesia: Regional for postop pain per surgeon request, PNB - single shot, spinal and regional as primary anesthetic Lower extremity: IPACK and saphenous nerve block - subsartorial approach Comments: Possible Genicular and Vastus Intermedius blocks Informed Consent: Anesthesia plan and risks discussed with patient. Plan and Consent Comments: Risks of spinal anesthesia discussed including infection, bleeding, nerve injury/paralysis, backache, PDPH as well as ineffective/patchy spinal effect (with potential conversion to general anesthesia); risks of PNB also discussed including infection, bleeding, transient/permanent nerve damage Consent and Attending signature: I and/or my designee have discussed the anesthesia plan, benefits, possible alternatives, parental presence at time of induction (if indicated), and clinically relevant risks that may include dental injury, unintentional awareness, and/or other complications. The patient and/or parent/legal guardian understand, and agree to proceed. All questions answered. RWRITING CLERK RWRITING CLERK RWRITING CLERK documented in this encounter Miscellaneous Notes * Addendum Note - Axel Suggs MD - 10/18/2022 12:31 PM CST Addendum created 10/18/22 1231 by Axel Suggs MD Clinical Note Signed, Intraprocedure Blocks edited, SmartForm saved RWRITING CLERK documented in this encounter Plan of Treatment Not on file documented as of this encounter Procedures Procedure Name Priority Date/Time Associated Diagnosis Comments MA AN PROCEDURE PLACEHOLDER Routine 10/12/2022 7:31 AM UNDERWRITING CLERK MA AN PROCEDURE PLACEHOLDER Routine 10/12/2022 7:31 AM UNDERWRITING CLERK MA AN PROCEDURE PLACEHOLDER Routine 10/12/2022 7:31 AM UNDERWRITING CLERK MA AN PROCEDURE PLACEHOLDER Routine 10/12/2022 7:31 AM UNDERWRITING CLERK MA AN PROCEDURE PLACEHOLDER Routine 10/12/2022 7:30 AM UNDERWRITING CLERK documented in this encounter Results * MA AN PROCEDURE PLACEHOLDER (10/12/2022 7:31 AM UNDERWRITING CLERK) Narrative Axel Suggs MD - 10/12/2022 7:31 AM UNDERWRITING CLERK Axel Suggs MD ? 10/18/2022 12:31 PM Peripheral Block Patient location during procedure: pre-op holding Reason for block: post-op pain management per surgeon request Ultrasound image in chart or stored: yes Block type: single shot Laterality: left Other block type: Vastus Intermedius Nerve Block Procedure prep: Preprocedure checklist: patient identified, procedure contraindications assessed, site marked, procedure consent, surgical consent, IV checked, risks, benefits and alternatives discussed, monitors and equipment checked and timeout performed Patient position: supine Procedure performed while patient: sedate with meaningful contact Monitoring: oximetry Supplemental O2: nasal cannula Prep solution: chlorhexidine/alcohol Peripheral nerve block: Technique: ultrasound guided Needle type: short-bevel Needle gauge: 21 G Needle length: 80 mm Injection assessment: injection made incrementally with constant monitoring, local visualized surrounding nerve on ultrasound, negative aspiration for heme, no paresthesias noted, normal resistance to injection and see flowsheet for medication details Assessment: Block success: full evaluation pending Events: patient tolerated procedure well with no complications Result [facility] Axel Suggs MD ANESTHESIA ORDERABLES Ed ited Result - Final * MA AN PROCEDURE PLACEHOLDER (10/12/2022 7:31 AM UNDERWRITING CLERK) Axel Painting MD - 10/12/2022 7:31 AM UNDERWRITING CLERK Axel Suggs MD ? 10/18/2022 12:31 PM Peripheral Block Patient location during procedure: pre-op holding Reason for block: post-op pain management per surgeon request Ultrasound image in chart or stored: yes Block type: single shot Laterality: left Other block type: Genicular Nerve Block ( Superior Medial, Superior Lateral, Inferior Medial) Procedure prep: Preprocedure checklist: patient identified, procedure contraindications assessed, site marked, procedure consent, surgical consent, IV checked, risks, benefits and alternatives discussed, monitors and equipment checked and timeout performed Patient position: supine Procedure performed while patient: sedate with meaningful contact Monitoring: oximetry Supplemental O2: nasal cannula Prep solution: chlorhexidine/alcohol Peripheral nerve block: Technique: ultrasound guided Needle type: short-bevel Needle gauge: 21 G Needle length: 80 mm Injection assessment: injection made incrementally with constant monitoring, local visualized surrounding nerve on ultrasound, negative aspiration for heme, no paresthesias noted, normal resistance to injection and see flowsheet for medication details Assessment: Block success: full evaluation pending Events: patient tolerated procedure well with no complications Result [facility] Axel Suggs MD ANESTHESIA ORDERABLES Ed ited Result - Final * MA AN PROCEDURE PLACEHOLDER (10/12/2022 7:31 AM UNDERWRITING CLERK) Narrative Axel Suggs MD - 10/12/2022 7:31 AM UNDERWRITING CLERK Axel Suggs MD ? 10/18/2022 12:31 PM Peripheral Block Patient location during procedure: pre-op holding Reason for block: post-op pain management per surgeon request Ultrasound image in chart or stored: yes Block type: single shot Laterality: left Block type: IPACK Procedure prep: Preprocedure checklist: patient identified, procedure contraindications assessed, site marked, procedure consent, surgical consent, IV checked, risks, benefits and alternatives discussed, monitors and equipment checked and timeout performed Patient position: supine Procedure performed while patient: sedate with meaningful contact Monitoring: oximetry Supplemental O2: nasal cannula Prep solution: chlorhexidine/alcohol Peripheral nerve block: Technique: ultrasound guided Needle type: short-bevel and echogenic Needle gauge: 21 G Needle length: 80 mm Injection assessment: injection made incrementally with constant monitoring, local visualized surrounding nerve on ultrasound, negative aspiration for heme, no paresthesias noted, normal resistance to injection and see flowsheet for medication details Assessment: Block success: full evaluation pending Events: patient tolerated procedure well with no complications Result [facility] Axel Suggs MD ANESTHESIA ORDERABLES Ed ited Result - Final * MA AN PROCEDURE PLACEHOLDER (10/12/2022 7:31 AM UNDERWRITING CLERK) Narrative Axel Suggs MD - 10/12/2022 7:31 AM UNDERWRITING CLERK Axel Suggs MD ? 10/18/2022 12:31 PM Peripheral Block Patient location during procedure: pre-op holding Reason for block: post-op pain management per surgeon request Ultrasound image in chart or stored: yes Block type: single shot Laterality: left Block type: saphenous nerve block - subsartorial approach Procedure prep: Preprocedure checklist: patient identified, procedure contraindications assessed, site marked, procedure consent, surgical consent, IV checked, risks, benefits and alternatives discussed, monitors and equipment checked and timeout performed Patient position: supine Procedure performed while patient: sedate with meaningful contact Monitoring: oximetry Supplemental O2: nasal cannula Prep solution: chlorhexidine/alcohol Peripheral nerve block: Technique: ultrasound guided Needle type: short-bevel and echogenic Needle gauge: 21 G Needle length: 80 mm Injection assessment: injection made incrementally with constant monitoring, local visualized surrounding nerve on ultrasound, negative aspiration for heme, no paresthesias noted, normal resistance to injection and see flowsheet for medication details Assessment: Block success: full evaluation pending Events: patient tolerated procedure well with no complications Axel Suggs MD ANESTHESIA ORDERABLES Ed ited Result - Final * MA AN PROCEDURE PLACEHOLDER (10/12/2022 7:30 AM UNDERWRITING CLERK) Narrative Axel Suggs MD - 10/12/2022 7:30 AM UNDERWRITING CLERK Axel Suggs MD ? 10/12/2022 ??7:31 AM Spinal Block Patient location: pre-op holding Reason for block: primary anesthetic Procedure prep: Preprocedure checklist: patient identified, procedure contraindications assessed, site marked, procedure consent, surgical consent, IV checked, risks, benefits and alternatives discussed, monitors and equipment checked and timeout performed Patient position: sitting Procedure performed while patient: sedate with meaningful contact Monitoring: oximetry and blood pressure Supplemental O2: nasal cannula Prep solution: chlorhexadine/alcohol PPE: sterile gloves, provider hat/mask and sterile drape Skin infiltrated with lidocaine 1%: yes Spinal: Approach: midline Introducer used: yes Location: L2-3 Spinal injection: CSF demonstrated, no aspiration of heme and no paresthesias noted Number of attempts: 1 Spinal Needle: Needle type: Maribell Brad (Maribell Brad) Needle gauge: 24 G Needle length: 9 cm Assessment: Events: patient tolerated procedure well with no complications Axel Suggs MD ANESTHESIA ORDERABLES Fi nal Result documented in this encounter Visit Diagnoses Not on filedocumented in this encounter Administered Medications Inactive Administered Medications - up to 3 most recent administrations Medication Order MAR Action Action Date Dose Rate Site bupivacaine (MARCAINE) 0.5 % (5 mg/mL) preservative free injection perineural, As needed, Starting on Sat10/12/22 at 0723, Anesthesia Intra-op Given 10/12/2022 7:23 AM UNDERWRITING CLERK 35 mL ceFAZolin (ANCEF) 1 gram/10 mL in sterile water (premix) 2,000 mg 2,000 mg, intravenous, at 400 mL/hr, Administer over 3 Minutes, Once, On Sat10/12/22 at 0700, For 1 dose, Pre-Op, Administer within 60 minutes of incision., Indications: Prophylaxis, SurgicalIndications:Prophylaxis, Surgical Given 10/12/2022 7:33 AM UNDERWRITING CLERK 2,000 mg dexAMETHasone (DECADRON) 4 mg/mL injection 8 mg 8 mg, intravenous, Administer over 2 Minutes, Once, On Sat10/12/22 at 0715, For 1 dose, Intra-Op, Intra-op administration. - Use 1/2 dose (4mg) for non-insulin dependent diabetics - DO NOT order for insulin dependent diabetics, Indications: Pain Treatment AdjunctIndications:Pain Treatment Adjunct Given 10/12/2022 8:45 AM UNDERWRITING CLERK 8 mg dexAMETHasone (DECADRON) preservative free solution perineural, Administer over 2 Minutes, As needed, Starting on Sat10/12/22 at 0723, Anesthesia Intra-op Given 10/12/2022 7:23 AM UNDERWRITING CLERK 6 mg fentaNYL (SUBLIMAZE) preservative free injection intravenous, As needed, Starting on Sat10/12/22 at 0718, Anesthesia Intra-op Given 10/12/2022 7:18 AM UNDERWRITING CLERK 100 mcg HYDROmorphone (DILAUDID) injection intravenous, Administer over 2 Minutes, As needed, Starting on Sat10/12/22 at 0903, Anesthesia Intra-op Given 10/12/2022 9:03 AM UNDERWRITING CLERK 0.5 mg ketorolac (TORADOL) 30 mg/mL (1 mL) injection 15 mg 15 mg, intravenous, Once, On Sat10/12/22 at 0715, For 1 dose, Intra-Op, INTRA-OP Give at time of skin closure, Indications: Postoperatvie Pain ManagementIndications:Postoperat vie Pain Management Given 10/12/2022 8:49 AM UNDERWRITING CLERK 30 mg Lactated Ringer's (LR) infusion 30 mL/hr, intravenous, Continuous, Starting on Sat10/12/22 at 0700, For 4 hours, Pre-Op, Use a 500 ml bag for End Stage Renal Disease Patients. Discontinue if fluid still running once patient arrives to floor. New Bag 10/12/2022 8:22 AM UNDERWRITING CLERK Rate/Dose Verify 10/12/2022 7:28 AM UNDERWRITING CLERK 30 mL/h r New Bag 10/12/2022 6:37 AM UNDERWRITING CLERK 30 mL/hr 30 mL/hr lidocaine (XYLOCAINE) 10 mg/mL (1 %) injection intravenous, As needed, Starting on Sat10/12/22 at 0737, Anesthesia Intra-op, Indications: Administration of Local AnesthesiaIndications:Administ ration of Local Anesthesia Given 10/12/2022 7:37 AM UNDERWRITING CLERK 50 mg mepivacaine (CARBOCAINE) 15 mg/mL (1.5 %) preservative free injection intrathecal, As needed, Starting on Sat10/12/22 at 0721, Anesthesia Intra-op Given 10/12/2022 7:21 AM UNDERWRITING CLERK 4 mL midazolam (VERSED) 1 mg/mL injection intravenous, As needed, Starting on Sat10/12/22 at 0718, Anesthesia Intra-op Given 10/12/2022 7:18 AM UNDERWRITING CLERK 4 mg ondansetron (ZOFRAN) injection intravenous, Administer over 2 Minutes, As needed, Starting on Sat10/12/22 at 0737, Anesthesia Intra-op Given 10/12/2022 7:37 AM UNDERWRITING CLERK 4 mg propofoL (DIPRIVAN) 10 mg/mL IV intravenous, As needed, Starting on Sat10/12/22 at 0737, Anesthesia Intra-op Given 10/12/2022 7:37 AM UNDERWRITING CLERK 30 mg propofoL (DIPRIVAN) 10 mg/mL IV intravenous, Continuous PRN, Starting on Sat10/12/22 at 0737, Anesthesia Intra-op New Bag 10/12/2022 7:37 AM UNDERWRITING CLERK 50 mcg/kg/min 28.23 mL/hr tranexamic acid (CYKLOKAPRON) 1,000 mg/100 mL (10 mg/mL) in sodium chloride (premix) 1,000 mg 1,000 mg, intravenous, at 400 mL/hr, Administer over 15 Minutes, Once, On Sat10/12/22 at 0715, For 1 dose, Intra-Op, INTRA-OP Infuse over 10 minutes prior to skin incision, Indications: Reduction of Perioperative Blood LossIndications:Reduction of Perioperative Blood Loss Given 10/12/2022 7:28 AM UNDERWRITING CLERK 1,000 mg tranexamic acid (CYKLOKAPRON) 1,000 mg/100 mL (10 mg/mL) in sodium chloride (premix) 1,000 mg 1,000 mg, intravenous, at 400 mL/hr, Administer over 15 Minutes, Once, On Sat10/12/22 at 0715, For 1 dose, Intra-Op, INTRA-OP Infuse over 10 minutes at the start of wound closure., Indications: Reduction of Perioperative Blood LossIndications:Reduction of Perioperative Blood Loss Given 10/12/2022 8:45 AM UNDERWRITING CLERK 1,000 mg documented in this encounter 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
--- OUTSIDE RECORDS SUMMARY | 2024-08-21 02:55 | XMS_ITS | Encounter Summary ---
Author Organization [facility] Address [address] [place] [address] Phone Care Team Providers Care Cash Accounting Clerk Name Role Phone Candice Kendrick Primary Care Pr ovider Encounter Details Date Type Department Care Team (Late st Contact Info) Description 09/24/2022 Documentation Research [facility] Orthopaedic Surgery [address] [place] [address] Medical Office Building [address] [place] [address] Zoie Alva RN Social History Tobacco Use Types Packs/Day Years Used Date Smoking Tobacco: Never Smokeless Tobacco: Never AUDIT-C Answer Date Recorded Frequency of Alcohol Consumption Not on file 09/19/2022 Q2: How many drinks containi ng alcohol do you have on a typical day when you are drinking? 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 INUOUS PICKLING LINE PICKLER documented in this encounter Plan of Treatment Not on file documented as of this encounter Visit Diagnoses Not on filedocumented in this encounter Care Teams Cash Accounting Clerk Relationship Specialty Start Date End Date Candice Kendrick PA PCP - General Physician Paper Roller 03/13/22 documented as of this encounter
--- OUTSIDE RECORDS SUMMARY | 2024-08-21 02:55 | XMS_ITS | Encounter Summary ---
Author Organization [facility] Care Team Providers Care Vp Strategy Name Role Phone Unavailable Primary Care Provider Unavailabl e Encounter Details Date Type Department Care Team (Latest Contact Info) Description 03/03/2010 6:19 AM CDT - 03/03/2010 4:00 PM T Hospital Encounter [facility] [place] [id number] [place] [address] Other specified complications; Other and unspecified derangement of medial meniscus; Other specified surgical operation and procedure causing abnormal patient reaction or later complication Social History Tobacco Use Types Packs/Day Years Used Date Smoking Tobacco: Never Assessed Sex and Gender Information Value Date Recorded Sex Assigned at Not on file 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
--- OUTSIDE RECORDS SUMMARY | 2024-08-21 02:55 | XMS_ITS | Encounter Summary ---
Author Organization [facility] Address [address] [place] [address] Phone Care Team Providers Care Operations Specialist Name Role Phone KatynicolasaCandice Primary Care Pr ovider Reason for Referral * Diagnostic Imaging (Routine) - Closed Specialty Diagnoses / Procedures Referred By Contac t Referred To Contact Diagnoses Chronic pain of left knee Procedures XR Knee Left 3 Views Rai Stone MD [address] [facility] [address] [place] [address] Phone: tel: fax: [address] [phone] Referral ID Status Reason Start Date Expiration Date Visits Re quested Visits Authorized [id number] Closed 07/23/2022 08/22/2023 1 1 SLAGMAN Reason for Visit * Reason Comments Pain * Consultation (Routine) - Closed Specialty Diagnoses / Procedures Referred By Contac t Referred To Contact Orthopedic Surgery Diagnoses Primary osteoarthritis of left knee Geovanni Shrestha MD [address] [place] [id number] Phone: tel: fax: Rai Stone MD Phone: tel: fax: Referral ID Status Reason Start Date Expiration Date V isits Requested Visits Authorized [id number] Closed Specialty Services Required 03/12/2022 04/11/2023 1 1 Encounter Details Date Type Department Care Team (Latest Contact Info) Description 08/01/2022 8:30 AM PIT SLAGMAN Office Visit [facility] Orthopaedic Surgery [address] [facility] [address] [place] [address] Rai Stone MD [address] [facility] [address] [place] [address] Chronic pain of left knee (Primary Dx); Primary osteoarthritis of left knee; Prophylactic antibiotic Social History Tobacco Use Types Packs/Day Years Used Date Smoking Tobacco: Never Sex and Gender Information Value Date Recorded Sex Assigned at Not on file Legal Sex Male 3:05 AM PIT SLAGMAN Gender Identity Not on file Sexual Orientation Not on file documented as of this encounter Last Filed Vital Signs Vital Sign Reading Time Taken Comments Blood Pressure - - Pulse - - Temperature - - Respiratory Rate - - Oxygen Saturation - - Inhaled Oxygen Concentration - - Weight 93 kg (205 lb) 08/01/2022 8:47 AM PIT SLAGMAN Height 174.6 cm (5' 8.75 ) 08/01/2022 8:47 AM CS T Body Mass Index 30.49 08/01/2022 8:47 AM PIT SLAGMAN documented in this encounter Ordered Prescriptions Prescription Sig Dispense Quantity Refills Last Filled Start Date End Date mupirocin (BACTROBAN) 2 % ointmentIndication s:Prophylactic antibiotic Apply topically 2 (two) times a day for 5 days APPLY TO NOSTRILS TWICE A DAY FOR 5 DAYS PRIOR TO SURGERY. 22 g 08/01/2022 2 documented in this encounter Progress Notes * Zoie Alva RN - 08/01/2022 8:30 AM CST Patient Information Patient Name: Jeff Mendoza III Gender: male Date of : 1970 Age: 51 y.o. (home) Procedure: L TKA OR Date: 10-12-22 OR Location: [facility] Joint Bellperson Name: Telephone: PCP: Candice Kendrick PA When was you last visit: Pre-Op Scheduling Anesthesia: Spinal Preferred Blood Requirements: 0 units Consents: Surgery procedure consent obtained. Blood transfusion consent obtained. Preadmission Testing/Anesthesia H&P: Date: 09-19-22 Time: 830 Pre-Op Joint Class Scheduled for: Date: 09-26-22 Time: 14 PreHab Rx given to Patient: n/a Faxed to: Doppler: Date: Time: Pre-Op Meds/Anticoag: Instructed to stop primary prevention ASA/hormones/supplements 7 Days prior to surgery Instructed to stop NSAIDS 5 days prior to surgery Anticoagulation protocol discussed: yes aspirin Decolonization Instructions: yes Skin preparations guide Mupirocin Rx Prescription for Celebrex No N/A The patient was given a TKA teaching packet including surgery guidelines with instructions, DECOL protocol instructions, instructions to stop all NSAID's, Blood thinners and aspirin products one weekbefore surgery, as well as office contacts to call if they have any additional questions prior to their surgery date. Current Outpatient Medications: cyclobenzaprine (FLEXERIL) 10 mg tablet, Take 10 mg by mouth 3 (three) times a day as needed, Disp:, Rfl: diclofenac DR (VOLTAREN) 75 mg EC tablet, diclofenac sodium 75 mg tablet,delayed release TAKE 1 TABLET BY MOUTH TWICE DAILY, Disp: , Rfl: HYDROcodone-acetaminophen (NORCO) 5-325 mg per tablet, Take 1 tablet by mouth every 4 (four) hours as needed, Disp: , Rfl: miSOPROStoL (CYTOTEC) 200 mcg tablet, misoprostol 200 mcg tablet TAKE ONE TABLET BY MOUTH TWICE DAILY WITH DICLOFENAC, Disp: , Rfl: He has No Known Allergies. Risk Assessment ADDIE RISK: N/A STOP BANG Score: CMP(CO2): Sleep Study: CPAP/BIPAP: Bone Health screen - Vitamin D Level Ordered: Yes Oral Health: Healthy teeth Smoking History: No Family History of DVT/PE: N/A He reports that he has never smoked. He does not have any smokeless tobacco history on file. No alcohol history on file. Male: <4 (negative) Illegal Drug Use: Never Functional/Home Assessment satin finisher assistance: Live in available day/night In a: Home Home Accessibility: Stairs Home Environment: Entry Steps: Yes: Number of Steps: 2 Bedroom Location: Bathroom Location: What Medical Devices/Equipment used: Are you able to self-manage activities of daily living: ADL's: Bathing, Dressing, Self-feeding, Personal Hygiene, and Toilet Hygiene IADL's: Housework, Medications, Managing Money, Shopping, and Telephone Transportation: Self Pre-Op Ambulation: Independent Community distances Projected Post-Op Weight bearing: Full or WBAT Home Location: < 150 miles RAPT: What is your age group?: Gender: How far on average can you walk? (a block is 200 meters): Which gait aid do you use most? (more often than not): Do you use community supports? (home-help, meals on wheels, district nursing): Will you live with someone who can care for you after your operation?: RAPT Total Score: (If <9 send to [facility]'s floor care team for review) (If <6 Pre-Op SW Consult) CORBIN: Destination at discharge from acute care predicted by score: Scores <6 facility placement Scores 6-9 directly home after additional acute intervention Scores >9 directly home Patient's expectation of discharge destination is also a determinant. The prediction indicated by the score is discussed with the patient and the destination agreed to. Patient's preference: Home Agreed destination: Home with < 5 Home Health visits Social Work Referral: n/a Potential Rehab/SNF Candidate: n/a RRAT Infection Risk Factors: Is patient positive for MRSA colonization at CPAP?: Every Patient is decolonized per guideline. - Nasal Mupirocin (Bid x5 days pre-op) or povidone-iodine (DOS) and chlorhexidine gluconate (CHG) showers (QD x5 days prior to surgery & morning of surgery) and appropriate antibiotic coverage. - If these requirements are not met then HARD STOP until protocol implemented. Smoking (Tobacco Use): Current Smoker? Obesity: What is the patient's BMI? Cardiovascular Disease: Patient has a history of Coronary Artery Disease (CAD), stroke, Peripheral Vascular Disease or VTED, is 60 years of age or older and has at least 2 cardiac risk factors: Venous Thromboembolic Disease: Does the patient have a history of Pulmonary Embolus or Deep Vein Thrombosis? Does the patient have any of the following VTED risk factors: CVA, COPD, BMI>30, CAD, Stroke, PVD, or Activated Protein C Resistance? Neurocognitive, Psychological and Behavioral Problems (including alcohol and drug dependency): Does the patient have a history of alcohol abuse or chronic active narcotic dependency? Does the patient have any neurocognitive deficits such as traumatic brain injury (TBI)l active psychiatric illness, dementia, etc? Was the patient's last calculated PROMIS depression score greater than or equal to 60? Physical Deconditioning: Patient is nonambulatory or needs assistance with transfer status? Patient has comorbidities affecting physical function and ambulation? Diabetes: Is the patient diabetic? Last calculated Fasting Blood Glucose > 180 mg/dl? Last calculated Hgb A1c > 8? Is DM well controlled? RRAT Total Score: Recommendations for Preoperative Care/Optimization: < 2 Proceed with Scheduling Surgery. Zoie Alva RN SLAGMAN * Rai Stone MD - 08/01/2022 8:30 AM CST Images from the original note were not included. NEW KNEE PATIENT VISIT CHIEF COMPLAINT: left knee pain HISTORY OF PRESENT ILLNESS: Jeff Mendoza III is a 51 y.o. male with left knee pain. He has had pain for multiple years. It is located medially and superolaterally as well as anteriorly. 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 He takes meloxicam for pain. he has had cortisone or hyaluronate injection with limited help. He has had physical therapy or structured exercises in the past year. The problem is getting worse. and is interfering with normal ADL. He wants to be able to work without significant pain and play with his grandchildren. PAST MEDICAL HISTORY: History reviewed. No pertinent past medical history. None PAST SURGICAL HISTORY: History reviewed. No pertinent surgical history. MEDICATIONS: Current Outpatient Medications: cyclobenzaprine (FLEXERIL) 10 mg tablet, Take 10 mg by mouth 3 (three) times a day as needed, Disp:, Rfl: diclofenac DR (VOLTAREN) 75 mg EC tablet, diclofenac sodium 75 mg tablet,delayed release TAKE 1 TABLET BY MOUTH TWICE DAILY, Disp: , Rfl: HYDROcodone-acetaminophen (NORCO) 5-325 mg per tablet, Take 1 tablet by mouth every 4 (four) hours as needed, Disp: , Rfl: miSOPROStoL (CYTOTEC) 200 mcg tablet, misoprostol 200 mcg tablet TAKE ONE TABLET BY MOUTH TWICE DAILY WITH DICLOFENAC, Disp: , Rfl: mupirocin (BACTROBAN) 2 % ointment, Apply topically 2 (two) times a day for 5 days APPLY TO NOSTRILS TWICE A DAY FOR 5 DAYS PRIOR TO SURGERY., Disp: 22 g, Rfl: 0 ALLERGIES: No Known Allergies SOCIAL HISTORY: Social History Tobacco Use Smoking status: Never Smokeless tobacco: None Substance and Sexual Activity Drug use: None Sexual activity: None Alcohol Use: Not on file FAMILY HISTORY: History reviewed. No pertinent family history. REVIEW OF SYSTEMS: Negative except as noted in HPI PHYSICAL EXAM: Height: Height: 174.6 cm (5' 8.75 ) Weight: Weight: 93 kg (205 lb) BMI: Body mass index is 30.49 kg/m??. LEFT KNEE: Knee Pain is noted: Medially, anterolaterally Skin Status: normal and intact without cuts, bruises or abrasions Range of Motion: Start of flexion: 5 End of flexion: 100 Extension la Flexion Contracture: 5 M/L Instability: Stable A/P Instability: Stable Alignment: Varus Effusion: None Pulses Intact: intact to palpation distally Dependent Edema: None Neurological Status Intact: intact to light touch and gross motor Quadriceps Muscle Strength: 5/5 RADIOGRAPHS: Radiographs of the left knee reviewed and interpreted today. XRs demonstrate end stage OA, medial predominant, of the left knee. DIAGNOSES: Left knee osteoarthritis IMPRESSION: This patient has pain of the left knee which is impacting daily activities significantly. I reviewed the treatment options, including activity modification, weight loss, physical therapy, analgesic and anti-inflammatories, steroid injections, bracing, cooled radiofrequency, and finally knee replacem ent. I had a long discussion with the patient concerning operative treatment. The patient is a candidatefor left total knee replacement. Risks and benefits of surgery were discussed including but not limited to risk of , infection, issues of wound healing including chronic drainage that cannot be resolved, persistent and/or unexplained pain, thromboembolic incident, anesthetic complications, andpossible medical complications. Implant-related problems were also mentioned and can include early component loosening, instability, implant fracture or dislocation, or wear of the implant, which mayrequire revision surgery. The possibility of neurovascular injury including numbness, paralysis, orpossible amputation are also possible rare but known complications of surgery. Also discussed was the expected post-operative convalescence and rehabilitation which generally allows return to basic activity within 3 months, depending on individual factors, and return to peak performance usually by 12 to 18 months. Ultimate performance objectives and limitations were also discussed. All questions were answered. The patient expresses an understanding of our conversation and wishes to proceed with the recommended surgery. All questions were answered. PLAN: In review, the patient is good candidate for left knee arthroplasty at the patient's convenience. Preoperative risk assessment by Anesthesia at [facility]. Lion Jean-Baptiste M.D. Clinical Fellow, Department of Orthopaedic Surgery Division of Joint Preservation, Resurfacing, and Replacement ATTENDING ATTESTATION I was present for the critical portion of the history, physical examination and participated in theradiographic review and medical decision making on this patient. I agree with the findings in the report of the above resident/fellow dictating using Symptom.ly Direct software. Rai Stone MD SLAGMAN documented in this encounter Plan of Treatment Not on file documented as of this encounter Results * XR Knee Left 3 Views (08/01/2022 8:42 AM PIT SLAGMAN) Anatomical Region Laterality Modality Lower Extremities, Knee Left Computed Radiography 08/01/2022 8:46 AM PIT SLAGMAN Impressions 08/01/2022 8:46 AM PIT SLAGMAN 1. ??Moderate to severe medial compartment predominant tricompartmental left knee osteoarthritis. Electronically signed by: Steve Martinez M.D. Narrative 08/01/2022 8:46 AM PIT SLAGMAN EXAM: 1. ??XR KNEE LEFT 3 VIEWS HISTORY: Left knee pain COMPARISON: Radiograph 12/12/2009 FINDINGS: 3 views of the left knee including bilateral AP and tangential patellar views are submitted for interpretation. No acute fracture. ??Moderate to severe medial compartment predominant tricompartmental left knee osteoarthritis. ??There are intra-articular bodies present within the posterior joint. ??There is a small knee joint effusion. ??Vascular calcifications are present. ??Prior right knee anterior cruciate ligament reconstruction. Procedure Note Steve Martinez MD - 12/21/2022 EXAM: 1. XR KNEE LEFT 3 VIEWS HISTORY: Left knee pain COMPARISON: Radiograph 12/12/2009 FINDINGS: 3 views of the left knee including bilateral AP and tangential patellar views are submitted for interpretation. No acute fracture. Moderate to severe medial compartment predominant tricompartmental left knee osteoarthritis. There are intra-articular bodies present within the posterior joint. There is a small knee joint effusion. Vascular calcifications are present. Prior right knee anterior cruciate ligament reconstruction. IMPRESSION: 1. Moderate to severe medial compartment predominant tricompartmental left knee osteoarthritis. Electronically signed by: Steve Martinez M.D. Rai Stone MD IMG XR PROCEDURES Final R esult documented in this encounter Visit Diagnoses Diagnosis Chronic pain of left knee- Primary Primary osteoarthritis of left knee Prophylactic antibiotic Encounter for long-term (current) use of antibiotics Chronic pain of left knee documented in this encounter Historical Medications * This list may reflect changes made after this encounter. miSOPROStoL (CYTOTEC) 200 mcg tablet misoprostol 200 mcg tablet TAKE ONE TABLET BY MOUTH TWICE DAILY WITH DICLOFENAC 3 HYDROcodone-acet aminophen (NORCO) 5-325 mg per tablet Take 1 tablet by mouth every 4 (four) hours as needed 09/27/[address] (VOLTAREN) 75 mg EC tablet diclofenac sodium 75 mg tablet,delayed release TAKE 1 TABLET BY MOUTH TWICE DAILY 3 cyclobenzaprine (FLEXERIL) 10 mg tablet Take 10 mg by mouth 3 (three) times a day as needed 09/27/2016 3 added in this encounter Orders Outpatient Referral Count Last Ordered Date Fir st Ordered Date AMB REFERRAL TO ORTHOPEDIC RECON HIP/KNEE 1 08/01/2022 documented in this encounter Care Teams Operations Specialist Relationship Specialty Start Date End Date Candice Kendrick PA PCP - General Physician Senior Mortgage Underwriter 03/13/22 documented as of this encounter
--- OUTSIDE RECORDS SUMMARY | 2024-08-21 02:55 | XMS_ITS | Encounter Summary ---
Author Organization [facility] Address [address] [place] [address] Phone Care Team Providers Care Timber Packer Name Role Phone Candice Kendrick Primary Care Pr ovider Encounter Details Date Type Department Care Team (Late st Contact Info) Description 10/13/2022 Plan of Care Documentation [facility] [address] [address] [address] [place] [address] Social History Tobacco Use Types Packs/Day Years [...] on file Legal Sex Male 3:05 AM KAIAWHINA KOHANGA REO Gender Identity Not on file Sexual Orientation Not on file documented as of this encounter Miscellaneous Notes * Home Health Plan of Care - Brenda Oliveros RN - 10/29/2022 3:56 PM CDT Patient has Living Will: No Patient has Advance Directive: No Patient has Durable Power of Building Operator: No Code Status: Full Code * Home Health Plan of Care Certification Statement - Brenda Oliveros RN - 10/29/2022 3:56 PM CDT I certify/recertify that the above stated patient is homebound and has a need/continued need for intermittent prison, physical therapy and/or speech or occupational therapy services for their current diagnosis(es) as outlined in the plan of care. The patient is under my care, and I have aut horized services on this plan of care and will periodically review the plan. The patient had a [id number] encounter with Rai Stone MD on 10/12/2022 and the encounter was related to the primary reason for home health care. documented in this encounter Plan of Treatment Not on file documented as of this encounter Visit Diagnoses Not on filedocumented in this encounter Care Teams Timber Packer Relationship Specialty Start Date End Date Candice Kendrick PA PCP - General Physician Training Coordinator 03/13/22 documented as of this encounter
--- OUTSIDE RECORDS SUMMARY | 2024-08-21 02:55 | XMS_ITS | Encounter Summary ---
Author Organization [facility] Address [address] [place] [address] Phone Care Team Providers Care Bingo Attendant Name Role Phone Candice Kendrick Primary Care Pr ovider Encounter Details Date Type Department Care Team (Late st Contact Info) Description 10/12/2022 Telephone [facility] [address] [place] [address] Nkechi Nelson RN Social History Tobacco Use Types Packs/Day [...] on file Legal Sex Male 3:05 AM DIFFUSION FURNACE OPERATOR Gender Identity Not on file Sexual Orientation Not on file documented as of this encounter Miscellaneous Notes * Telephone Encounter - kNechi Nelson - 10/12/2022 11:10 AM DIFFUSION FURNACE OPERATOR Attempted to contact patient/spouse to discuss [facility] services for SN/PT: 11:08 a.m.-- Called patient at [phone]. No answer. LVM 11:07 a.m.--Called patient's spouse, Reena at [phone] No answer LVM. Awaiting Response USION FURNACE OPERATOR documented in this encounter Plan of Treatment Not on file documented as of this encounter Visit Diagnoses Not on filedocumented in this encounter Care Teams Bingo Attendant Relationship Specialty Start Date End Date Candice Kendrick PA PCP - General Physician Community Health Specialist 03/13/22 documented as of this encounter
--- OUTSIDE RECORDS SUMMARY | 2024-08-21 02:55 | XMS_ITS | Encounter Summary ---
Author Organization [facility] Healthcare Address [address] [place] [address] Care Team Providers Care Concrete Pavement Installer Name Role Phone Candice Kendrick Primary Care Pr ovider Encounter Details Date Type Department Care Team (Late st Contact Info) Description 09/19/2022 8:45 AM GLASS SAGGER Lab [facility] [id number] [place] [id number] Preoperative testing; Primary osteoarthritis of left knee Social History Tobacco Use Types Packs/Day Years [...] on file Legal Sex Male 3:05 AM GLASS SAGGER Gender Identity Not on file Sexual Orientation Not on file documented as of this encounter Plan of Treatment Not on file documented as of this encounter Procedures Procedure Name Priority Date/Time Associated Diagnosis Comments HC ANTIBODY SCREEN RBC Routine 09/19/2022 9:16 AM GLASS SAGGER Preoperative testing EGFR Routine 09/19/2022 9:16 AM GLASS SAGGER Primary osteoarthritis of left knee DIFFERENTIAL AUTO Routine 09/19/2022 9:1 6 AM GLASS SAGGER Preoperative testing CBC WITH AUTO DIFFERENTIAL Routine 09/19/2022 9:16 AM GLASS SAGGER Preoperative testing ABO/RH Routine 09/19/2022 9:16 AM GLASS SAGGER Preoperative testing VITAMIN D 25 HYDROXY Routine 09/19/2022 9:16 AM GLASS SAGGER Primary osteoarthritis of left knee ANTIBODY SCREEN Routine 09/19/2022 9:16 AM GLASS SAGGER Preoperative testing COMPREHENSIVE METABOLIC PANEL Routine 09/19/2022 9:16 AM GLASS SAGGER Primary osteoarthritis of left knee documented in this encounter Results * eGFR (09/19/2022 9:16 AM GLASS SAGGER) [facility] eGFR 74 mL/min/1. 73 m2 ERICA ROGERS Comment: Interpretive Data Reference Interval Normal ?>/= 90 mL/min/1.73m2 Mildly decreased* ? 60 - 89 mL/min/1.73m2 Mildly to moderately decreased ?45 - 59 mL/min/1.73m2 Moderately to severely decreased ??30 - 44 mL/min/1.73m2 Severely decreased ?15 - 29 mL/min/1.73m2 Kidney Failure ?< 15 ??mL/min/1.73m2 *Relative to young adult level Estimated glomerular filtration rate is determined by the 2020 CKD-EPI equation recommended by the National Kidney Foundation (A Unifying Approach to GFR Estimation: Recommendations of the NKF-ASK Task Force on Reassessing the Inclusion of Race in Diagnosing Kidney Disease, JASN 202). The CKD-EPI equation should not be used for patients with unstable renal function and has not been validated in children and those over 70. Current interpretive data was last reviewed 2021. Blood 09/19/2022 9:16 AM GLASS SAGGER 09/19/2022 10:10 AM GLASS SAGGER us Rai Stone MD LAB BLOOD ORDERABLES Flora gramajo Result [facility] [address] [facility]. [place] [address] * (ABNORMAL) Differential, auto (09/19/2022 9:16 AM GLASS SAGGER) Neutrophil abs 6.6(H) 1.7 - 6.5 K/cumm [facility] Imm gran abs 0.0 0.0 - 0.1 K/cumm [facility] Lymphocyte abs 2.5 0.8 - 3.3 K/cumm [facility] Monocyte abs 0.7 0.2 - 0.8 K/cumm [facility] Eosinophil abs 0.4 0.0 - 0.5 K/cumm [facility] Basophil abs 0.1 0.0 - 0.1 K/cumm [facility] Neutrophil pct 64.0 % [facility] Comment: Interpretive Data Percent cell count reference ranges are not reported, since discordance with absolute values may lead to misinterpretation of CBC data. Current Interpretive Data was last revised on 2017. Imm gran pct 0.3 % [facility] Comment: Interpretive Data Percent cell count reference ranges are not reported, since discordance with absolute values may lead to misinterpretation of CBC data. Current Interpretive Data was last revised on 2017. Lymphocyte pct 24.5 % [facility] Comment: Interpretive Data Percent cell count reference ranges are not reported, since discordance with absolute values may lead to misinterpretation of CBC data. Current Interpretive Data was last revised on 2017. Monocyte pct 7.0 % [facility] Comment: Interpretive Data Percent cell count reference ranges are not reported, since discordance with absolute values may lead to misinterpretation of CBC data. Current Interpretive Data was last revised on 2017. Eosinophil pct 3.6 % [facility] Comment: Interpretive Data Percent cell count reference ranges are not reported, since discordance with absolute values may lead to misinterpretation of CBC data. Current Interpretive Data was last revised on 2017. Basophil pct 0.6 % [facility] Comment: Interpretive Data Percent cell count reference ranges are not reported, since discordance with absolute values may lead to misinterpretation of CBC data. Current Interpretive Data was last revised on 2017. Blood 09/19/2022 9:16 AM GLASS SAGGER 09/19/2022 10:10 AM GLASS SAGGER Chata Ojeda NP LAB BLOOD ORDERABLES Flora l Result Performing Organization Address [facility] de Phone Number [facility] [address] [employer] [facility] [place] [address] * Antibody screen (09/19/2022 9:16 AM GLASS SAGGER) Sal, indirect, Gel Interpretation Negative ABSC [facility] Blood 09/19/2022 9:16 AM GLASS SAGGER 09/19/2022 10:08 AM GLASS SAGGER Narrative [facility] - 09/19/2022 10:57 AM GLASS SAGGER Has the patient had Daratumumab or Isatuximab in the past 6 months?->Unknown Is this test being ordered in advance for a procedure?->Yes Expected date of procedure:->10/12/22 Has the patient been transfused in the past 3 months?->No Chata Ojeda NP LAB BLOOD BANK TEST ORDER FRANKLYN Final Result Performing Organization Address [facility] de Phone Number [facility] [address] [employer] [facility] [place] [address] * ABO/Rh (09/19/2022 9:16 AM GLASS SAGGER) ABO/Rh O Negative [facility] Blood 09/19/2022 9:16 AM GLASS SAGGER 09/19/2022 10:08 AM GLASS SAGGER Narrative [facility] - 09/19/2022 10:57 AM GLASS SAGGER Has the patient had Daratumumab or Isatuximab in the past 6 months?->Unknown Is this test being ordered in advance for a procedure?->Yes Expected date of procedure:->10/12/22 Has the patient been transfused in the past 3 months?->No us Chata Ojeda NP LAB BLOOD BANK TEST ORDER FRANKLYN Final Result Performing Organization Address [facility] Co de Phone Number ERICA SORIACH [phone] [place] [employer] [facility] [employer] [place], [place] [id number] * (ABNORMAL) Vitamin D 25 hydroxy (09/19/2022 9:16 AM GLASS SAGGER) Pathologist [facility] Vitamin D 25-OH 9(L) 30 - 80 ng/mL [facility] Blood 09/19/2022 9:16 AM GLASS SAGGER 09/19/2022 10:10 AM GLASS SAGGER Rai Stone MD LAB BLOOD ORDERABLES Flora l Result Performing Organization Address [facility] de Phone Number [facility] [address] [employer] [place] [address] * (ABNORMAL) Comprehensive metabolic panel (09/19/2022 9:16 AM GLASS SAGGER) Sodium 142 135 - 145 mmol/L [facility] Potassium, pl 4.0 3.3 - 4.9 mmol/L [facility] Chloride 106 97 - 110 mmol/L [facility] CO2 23 22 - 32 mmol/L [facility] Anion gap 13 2 - 15 mmol/L [facility] BUN 12 8 - 25 mg/dL [facility] Creatinine 1.19 0.80 - 1.30 mg/dL [facility] Glucose 96 70 - 199 mg/dL [facility] Comment: Interpretive Data Fasting glucose >/= 126 mg/dl is diagnostic for diabetes. ?? Fasting is defined as no caloric intake for at least 8 hours. Fasting glucose between 100 mg/dl to 125 mg/dl is diagnostic of prediabetes. In a patient with classic symptoms of hyperglycemia or hyperglycemic crisis, a random glucose >/= 200 mg/dl is diagnostic for diabetes. In the absence of unequivocal hyperglycemia, results should be confirmed by repeat testing. The classification and Diagnosis of Diabetes Diabetes Care 2021; 46: S19-S40. Current interpretive data was last revised 2022. Calcium 8.9 8.5 - 10.3 mg/dL [facility] Bilirubin, total 0.3 0.1 - 1.2 mg/dL [facility] Protein, pl 5.7(L) 6.5 - 8.5 g/dL [facility] Albumin 3.7 3.5 - 5.0 g/dL [facility] Alk phos 54 40 - 130 Units/L [facility] ALT 21 7 - 55 Units/L [facility] AST 24 10 - 50 Units/L [facility] Comment:Hemolyzed; result ma y be falsely elevated. Blood 09/19/2022 9:16 AM GLASS SAGGER 09/19/2022 10:10 AM GLASS SAGGER us Rai Stone MD LAB BLOOD ORDERABLES Flora gramajo Result [facility] [address] [facility]. [place] [address] * (ABNORMAL) CBC with auto differential (09/19/2022 9:16 AM GLASS SAGGER) WBC 10.3(H) 3.8 - 9.9 K/cumm [facility] Hgb 15.6 13.0 - 17.5 g/dL [facility] Hct 46.5 38.9 - 50.3 % [facility] Plt 331 150 - 400 K/cumm [facility] MPV 10.4 9.1 - 12.3 fL [facility] RBC 5.53 4.30 - 5.80 M/cumm [facility] MCV 84.1 81.3 - 96.4 fL [facility] MCH 28.2 27.1 - 33.3 pg [facility] MCHC 33.5 32.3 - 35.7 g/dL [facility] RDW CV 12.9 11.1 - 14.9 % [facility] RDW SD 39.3 35.7 - 48.1 fL [facility] NRBC abs 0.00 0.00 - 0.01 K/cumm [facility] Blood 09/19/2022 9:16 AM GLASS SAGGER 09/19/2022 10:10 AM GLASS SAGGER us Chata Ojeda BOILER HOUSE OPERATOR LAB BLOOD ORDERABLES Flora l Result [facility] [address] [facility] [place] [address] documented in this encounter Visit Diagnoses Diagnosis Preoperative testing Unspecified pre-operative examination Primary osteoarthritis of left knee documented in this encounter Care Teams Concrete Pavement Installer Relationship Specialty Start Date End Date Candice Kendrick PA PCP - General Physician Veterinary Radiologist 03/13/22 documented as of this encounter
--- OUTSIDE RECORDS SUMMARY | 2024-08-21 02:55 | XMS_ITS | Encounter Summary ---
Author Organization [facility] Address [address] [place] [address] Phone Care Team Providers Care Railroad Operator Name Role Phone Candice Kendrick Primary Care Pr ovider Encounter Details Date Type Department Care Team (Late st Contact Info) Description 09/12/2022 Documentation [facility] [address] [place] [address] Medical Office Building [address] [place] [phone] Zoie Alva, RN Social History Tobacco Use Types Packs/Day Years Used Date Smoking Tobacco: Never Sex and Gender Information Value Date Recorded Sex Assigned at Not on file Legal Sex Male 3:05 AM KISS SETTER HAND Gender Identity Not on file Sexual Orientation Not on file documented as of this encounter Progress Notes * Zoie Alva RN - 09/12/2022 11:56 AM CST Patient's FMLA faxed and sent back to employer and copy sent to scanning. SETTER HAND documented in this encounter Plan of Treatment Not on file documented as of this encounter Visit Diagnoses Not on filedocumented in this encounter Care Teams Railroad Operator Relationship Specialty Start Date End Date Candice Kendrick PA PCP - General Physician Pattern Attendant 03/13/22 documented as of this encounter
--- OUTSIDE RECORDS SUMMARY | 2024-08-21 02:55 | XMS_ITS | Encounter Summary ---
Author Organization [facility] es Address [address] [place] [address] Phone Care Team Providers Care Daycare Teacher Name Role Phone Candice Kendrick Primary Care Pr ovider Reason for Visit * Auth/Cert (Routine) Specialty Diagnoses / Procedures Referred By Contsiobhan t Referred To Contact Referral ID Status Reason Start Date Expiration Date Visits Re quested Visits Authorized [id number] [id number] Encounter Details Date Type Department Care Team (Late st Contact Info) Description 10/17/2022 Home Care Visit [facility] Home Health - [place] [address] [address] [place] [address] Lesly Luna, RN TELEPHONE ENCOUNTER Social History Tobacco Use Types Packs/Day Years [...] on file Legal Sex Male 3:05 AM GAS MAIN AND LINE FITTER Gender Identity Not on file Sexual Orientation Not on file documented as of this encounter Plan of Treatment Not on file documented as of this encounter Visit Diagnoses Not on filedocumented in this encounter Care Teams Daycare Teacher Relationship Specialty Start Date End Date Candice Kendrick PA PCP - General Physician Pump House Operator 03/13/22 documented as of this encounter
--- OUTSIDE RECORDS SUMMARY | 2024-08-21 02:55 | XMS_ITS | Encounter Summary ---
Author Organization [facility] Healthcare Address [address] [place] [address] Care Team Providers Care Profile Grinder Technician Name Role Phone Candice Kendrick Primary Care Pr ovider Reason for Visit * Auth/Cert Specialty Diagnoses / Procedures Referred By Ferminac t Referred To Contact Diagnoses Primary osteoarthritis of left knee Primary osteoarthritis of left knee [M17.12] Procedures [facility] ARTHRP KNE CONDYLE&PLATU MEDIAL&LAT COMPARTMENTS ARTHROPLASTY LEFT TOTAL KNEE - DEPUY Referral ID Status Reason Start Date Expiration Date Visits Re quested Visits Authorized [id number] 1 1 Encounter Details Date Type Department Care Team (Latest Contact Info) Description 10/12/2022 5:07 AM GLOBAL POSITION SYSTEM TECHNICIAN - 10/12/2022 12:07 PM GLOBAL POSITION SYSTEM TECHNICIAN Hospital Encounter [facility] Operating Room [address] [place] [address] Rai Stone MD [address] [facility] [address] [place] [address] Primary osteoarthritis of left knee (Primary Dx) Discharge Disposition: Discharge to home, home health skilled care Social History Tobacco Use Types Packs/Day [...] on file Legal Sex Male 3:05 AM GLOBAL POSITION SYSTEM TECHNICIAN Gender Identity Not on file Sexual Orientation Not on file documented as of this encounter Last Filed Vital Signs Vital Sign Reading Time Taken Comments Blood Pressure 122/79 10/12/2022 10:20 AM GLOBAL POSITION SYSTEM TECHNICIAN Pulse 74 10/12/2022 11:00 AM GLOBAL POSITION SYSTEM TECHNICIAN Temperature 36 ??C (96.8 ??F) 10/12/2022 11:00 AM GLOBAL POSITION SYSTEM TECHNICIAN Respiratory Rate 17 10/12/2022 11:00 AM GLOBAL POSITION SYSTEM TECHNICIAN Oxygen Saturation 98% 10/12/2022 11:00 AM GLOBAL POSITION SYSTEM TECHNICIAN Inhaled Oxygen Concentration - - Weight 94.1 kg (207 lb 6.4 oz) 10/12/2022 5:39 A M GLOBAL POSITION SYSTEM TECHNICIAN Height 180.3 cm (5' 11 ) 10/12/2022 5:39 AM GLOBAL POSITION SYSTEM TECHNICIAN Body Mass Index 28.93 10/12/2022 5:39 AM GLOBAL POSITION SYSTEM TECHNICIAN documented in this encounter Discharge Summaries * Melyssa Moody, SOFI - 10/12/2022 9:31 AM CST Inpatient Discharge Summary Admitting Provider: Rai Stone MD Discharge Provider: Rai Stone MD Primary Care Physician at Discharge: Candice Kendrick PA [phone] Admission Date: 10/12/2022 Discharge Date: 10/12/2022 Primary Discharge Diagnosis: Primary osteoarthritis of left knee Secondary Discharge Diagnosis: Principal Problem: Primary osteoarthritis of left knee Active Problems: Arthritis of left knee Resolved Problems: No resolved hospital problems. DETAILS OF HOSPITAL STAY Date of Admission: 10/12/2022 Date of Discharge: 10/12/2022 Procedure Performed: Left Total Knee Arthroplasty Chief Complaint: Left knee pain History of Present Illness: The patient is a 51 y.o. year old male cared for by Dr. Rai Stone. The risks, benefits, alternatives and complications of a left total knee arthroplasty was discussed with the patient at length prior to surgery. The patient elected to proceed with a surgical intervention given the significant influence on their quality of life. Informed consent was obtained prior to surgery. Physical Exam: On the day of discharge, the patient was afebrile with stable vital signs. Examination of the left lower extremity revealed the patient was neurovascularly intact. Incision was clean, dry and intact.Pain was adequately maintained on oral opiates. Hospital Course: The patient was admitted on 10/12/2022 and underwent a left total knee arthroplasty. The patient tolerated the procedure well and was taken in stable condition to the postoperative recovery room then transferred to the orthopedic floor in stable condition. The patient progressed well and was able to be weaned off IV opiates. The patient participated with physical and occupational therapy and was deemed stable for discharge. He was maintained on Aspirin for deep venous thrombosis prophylaxis. Pain was adequately maintained on oral opiates. The patient was discharged in stable condition to home with home health care on 10/12/2022. Discharge Medications: Your medication list START taking these medications Instructions Last Dose Given Next Dose Due acetaminophen 500 mg tablet Commonly known as: TYLENOL 1,000 mg, oral, Every 8 hours scheduled aspirin 81 mg enteric coated tablet 81 mg, oral, 2 times daily meloxicam 15 mg tablet Commonly known as: MOBIC 15 mg, oral, Daily oxyCODONE 5 mg immediate release tablet Commonly known as: ROXICODONE 5 mg, oral, Every 4 hours PRN pregabalin 75 mg capsule Commonly known as: LYRICA 75 mg, oral, 2 times daily senna-docusate 8.6-50 mg Commonly known as: Senna-S 2 tablets, oral, 2 times daily traMADoL 50 mg tablet Commonly known as: ULTRAM 50 mg, oral, Every 8 hours PRN STOP taking these medications ibuprofen 200 mg tab/cap Commonly known as: ADVIL,MOTRIN Where to Get Your Medications These medications were sent to [id number] - [place], [place] - [address] [place] [facility] [address], [place] [address] acetaminophen 500 mg tablet aspirin 81 mg enteric coated tablet meloxicam 15 mg tablet oxyCODONE 5 mg immediate release tablet pregabalin 75 mg capsule senna-docusate 8.6-50 mg traMADoL 50 mg tablet Discharge Activity: Weight bearing: Weight bearing as tolerated left lower extremity Assistive Devices: Walker or crutches for all walking DVT prophylaxis: Aspirin 81mg twice daily for 30 days Discharge Diet: Resume previous diet Follow-up: Condition on Discharge: Stable Cosigned by Rai Stone MD at 10/12/2022 4:56 PM GLOBAL POSITION SYSTEM TECHNICIAN AL POSITION SYSTEM TECHNICIAN AL POSITION SYSTEM TECHNICIAN documented in this encounter Discharge Instructions * Discharge Instructions* Lena Matt RN - 10/12/2022 9:31 AM GLOBAL POSITION SYSTEM TECHNICIAN Images from the original note were not included. You have received anesthesia, therefore, for the next 24 hours and/or while taking narcotic pain medication; -Do NOT drive a vehicle -Do NOT drink alcohol -Do NOT make important personal or business decisions or sign legal documents. Examples of narcotic pain medication include Percocet, Oxycontin, [place], Hydrocodone, and Oxycodone. FAQs (frequently asked questions) about Surgical Site Infections What is a Surgical Site Infection (SSI)? A surgical site infection is and infection that occurs after surgery in the part of the body where the surgery took place. Most patients who have surgery do not develop an infection. However, infections develop in about 1 to 3 out of every 100 patients who have surgery. Some of the common symptoms fo a surgical site infection are: Redness and pain around the area where you had surgery Drainage of cloudy fluid from your surgical wound Fever Can SSIs be treated? Yes. Most surgical site infections can be treated with antibiotics. The antibiotic given to you depends on the bacteria (germs) causing the infection. Sometimes patients with SSIs causing the infection. Sometimes patients with SSIs also need another surgery to treat the infection. What are some of the things that hospitals are doing to prevent SSIs? To prevent SSIs, doctors, nurses, and other healthcare providers: Clean their hands and arms up to their elbows with an antiseptic agent just before the surgery. Clean their hands with soap and water or an alcohol-based hand rub before and after caring for eachpatient. May remove some of your hair immediately before your surgery using electric clippers if the hair isin the same area where the procedure will occur. They should not shave you with a razor. Wear special hair covers, masks, gowns, and gloves during surgery to keep the surgery area clean. Give you antibiotics before your surgery starts. In most cases, you should get antibiotics within 60 minutes before the surgery starts and the antibiotics should be stopped within 24 hours after surgery. Clean the skin at the site of your surgery with a special soap that kills germs. What can I do to help prevent SSIs? Before your surgery: Tell your doctor about other medical problems you may have. Health problems such as allergies, diabetes, and obesity could affect your surgery and your treatment. Quit smoking. Patients who smoke get more infections. Talk to your doctor about how you can quit before your surgery. Do not shave near where you will have surgery. Shaving with a razor can irritate your skin and makeit easier to develop an infection. At the time of your surgery: Speak up if someone tries to shave you with a razor before surgery. Ask why you need to be shaved and talk with your surgeon if you have any concerns. Ask if you will get antibiotics before surgery. After your surgery: Make sure that your healthcare providers clean their hands before examining you, either with soap and water or an alcohol-based hand rub. If you do not see you providers clean their hands, please ask them to do so. Family and friends who visit you should not touch the surgical wound or dressings. Family and friends should clean their hands with soap and water or an alcohol- based hand rub beforeand after visiting You. If you do not see them clean their hands, ask them to clean their hands. What do I need to do when I go home from the hospital? Before you go home, your doctor or nurse should explain everything you need to know about taking care of your wound. Make sure you understand how to care for your wound before you leave the hospital. Always clean your hands before and after caring for your wound. Before you go home, make sure you know who to contact if you have questions or problems after you get home. If you have any symptoms of an infection, such as a redness and pain at the surgery site, drainage,or fever, call your doctor immediately. If you have additional questions, please ask your doctor or nurse. Safety Tips for Preventing Falls at Home Falls happen at home for many reasons. Here are several things that are known to add to your risk of falling: Poor vision or hearing History of falls Use of an assistive device, such as a cane or walker Poor nutrition Certain medications Multiple medications Being older than 65 years of age Conditions in the home, such as slippery floors, loose rugs, cords on the floor If you answer ???yes?? to any of the following questions, please consider discussing your risk of falling with your primary care practitioner: Have you fallen in the last year? Do you feel unsteady when standing or walking? Do you have a fear of falling? If your primary care practitioner recommends physical therapy, we are available to assist: [facility] STAR: [facility] [phone] [place] [phone] [facility] [phone] How are some things that you can do that will lower your risk for falls at home: Arrange furniture to prevent tripping or bumping into it. Keep a light on in the bedroom & bathroom to help you see at night. Have your doctor or pharmacist review your medications. Remove things that you can trip over like phone cords, rugs & footstools. Wear sturdy non-skid slippers or shoes with flat or low heels Use handrails when going up & down stairs. Take one step at a time. Begin a regular exercise program When getting up, sit on the edge of the bed/chair for a few minutes before standing. Sit & stand up slowly. Avoid tilting your head back. Watch out for sidewalks & curbs that are not even. Replace worn walker, cane & crutch tips. Disclaimer: This material provides general information only. It should not be used in place of the advice, instructions, or treatment given by your doctor or other health care transport nurse. AL POSITION SYSTEM TECHNICIAN AL POSITION SYSTEM TECHNICIAN * Discharge Instr - Other Orders* Sachi Morrissey RN - 10/12/2022 12:07 PM GLOBAL POSITION SYSTEM TECHNICIAN HOME CARE PROVIDER: [facility] WILL PROVIDE RN & PT SERVICES UPON DISCHARGE. PT CAN CALL [phone] FOR ANY HOME CARE QUESTIONS OR CONCERNS. THE HOME CARE PROVIDER WILL CALL YOU WITHIN 48 HOURS OF HOSPITAL DISCHARGE. FIRST HOME VISIT ON 10/14 AL POSITION SYSTEM TECHNICIAN documented in this encounter Medications at Time [...] total) by mouth daily 30 tablet 10/12/2022 pregabalin (LYRICA) 75 mg capsule Take 1 capsule (75 mg total) by mouth 2 (two) times a day for 14 days 28 capsule 10/12/2022 senna-docusate (Senna-S) 8.6-50 mg Take 2 tablets by mouth 2 (two) times a day 80 tablet 1 10/12/2022 oxyCODONE (ROXICODONE) 5 mg immediate release tabletIndications :Pain Take 1 tablet (5 mg total) by mouth every 4 (four) hours as needed for pain for up to 30 doses 30 tablet 10/12/2022 10/18/2022 traMADoL (ULTRAM) 50 mg tablet Take 1 tablet (50 mg total) by mouth every 8 (eight) hours as needed for pain (1st line) 42 tablet 10/12/2022 11/19/2022 documented as of this encounter Ordered Prescriptions Prescription Sig Dispense Quantity Refills Last Filled Start Date End Date senna-docusate (Senna-S) 8.6-50 mg Take 2 tablets by mouth 2 (two) times a day 80 tablet 1 10/12/2022 meloxicam (MOBIC) 15 mg tablet Take 1 tablet (15 mg total) by mouth daily 30 tablet 10/12/2022 aspirin 81 mg enteric coated tabletIndications: prevention of thrombosis Take 1 tablet (81 mg total) by mouth 2 (two) times a day 60 tablet 10/12/2022 acetaminophen (TYLENOL) 500 mg tablet Take 2 tablets (1,000 mg total) by mouth every 8 (eight) hours 90 tablet 1 10/12/2022 pregabalin (LYRICA) 75 mg capsule Take 1 capsule (75 mg total) by mouth 2 (two) times a day for 14 days 28 capsule 10/12/2022 oxyCODONE (ROXICODONE) 5 mg immediate release tabletIndications: Pain Take 1 tablet (5 mg total) by mouth every 4 (four) hours as needed for pain for up to 30 doses 30 tablet 10/12/2022 3 traMADoL (ULTRAM) 50 mg tablet Take 1 tablet (50 mg total) by mouth every 8 (eight) hours as needed for pain (1st line) 42 tablet 10/12/2022 3 documented in this encounter Discharge Disposition Disposition Code Departure Means Destination Comment s Discharge to home, home health skilled care Whe elchair documented in this encounter Progress Notes * Sachi Morrissey RN - 10/12/2022 12:07 PM CST 10/13/22 1026 Discharge Summary Chart reviewed For Medical Necessity Does patient have a planned readmission to hospital planned? No Discharge Disposition Private residence Equipment/Provider Needs Home Provider Services Needs Identified Home Care Agency Information Home Care Agency Type #1: Physical Therapy;Retirement Home Care Agency Name [facility] Home Care Agency Home Care Agency Contact Spoken to OSBALDO Discharge Additional Assistance Does the patient need discharge transport arranged? No Post Discharge Care Provider Post Discharge Care Plan Next level of care provider has access to complete EMR AL POSITION SYSTEM TECHNICIAN documented in this encounter H&P Notes * Rai Stone MD - 10/12/2022 6:31 AM CST I have reviewed the H&P, examined the patient, and endorse the findings as written. Plan of Care : Based on the above findings, I consider Jeff J Ratka III to be an acceptable riskfor : Procedure(s): ARTHROPLASTY LEFT TOTAL KNEE - DEPUY AL POSITION SYSTEM TECHNICIAN Source Note - Chiquis Trujillo NP - 09/19/2022 8:43 AM GLOBAL POSITION SYSTEM TECHNICIAN Images from the original note were not included. [facility] Preoperative Assessment and Planning Preoperative Evaluation Record Evaluation type/location: [facility] Planned procedure site: [facility] OR Date: 09/19/22 Anesthesia Evaluation Jeff Mendoza [...] Cardiovascular Pertinent negatives: hypertension ; CAD ; [place] ; CABG ; valvular heart disease; valve [...] 200 mg tab/cap Past Week -- -- ProviderYrn MD -- -- -- -- Current Outpatient Medications: [...] Total Score: 2 Jacqueline index score: 100 AL POSITION SYSTEM TECHNICIAN AL POSITION SYSTEM TECHNICIAN documented in this encounter Consult Notes * Deepa Woo, PT - 10/12/2022 10:55 AM CST [facility] Physical Therapy Initial Evaluation Patient Name: Jeff Mendoza III Date of Service: 10/12/2022 Date of : 1970 Age: 51 y.o. male Room: [facility] OR/- Admit Date: 10/12/2022 Attending Provider: No att. providers found Primary Diagnosis: Primary osteoarthritis of left knee Subjective HPI: Jeff Mendoza III is a 51 y.o. male s/p left total knee arthroplasty on 10/[address] Stone.Patient is agreeable to physical therapy evaluation. History reviewed. No pertinent past medical history. Past Surgical History: Procedure Laterality Date ARTHROSCOPIC REPAIR ACL Right Precautions: fall risk Weightbearing Status: Weightbearing as tolerated (WBAT) on left Lower Extremity Physical Therapy Goal: Patient would like to return home. Patient Comment: Patient is supine in bed upon arrival of physical therapist. Patient's is present bedside. Prior Living Environment and Level of Function: Type of Home: Split level Lives With: and Children Stairs to Enter: 6 Railings: 1 Stairs Inside: 8+8 Railings: 1 Comments: Patient's will be able to assist him post-operatively. 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 Pain Assessment: Pre-evaluation pain: Post-evaluation pain: Location: Left knee Pain intervention: Cold applied, Ambulation, Exercise, Physical therapy, and RN notified Cognition: Overall Cognitive Status: WFL to complete therapy related tasks Lower Extremity Assessment: left knee ROM: 3o-80o Bed Mobility: Patient performs supine to and from edge of bed with supervision/touching assistance. Cues given for sequencing. Transfers: Patient performs sit to and from stand with wheeled walker and supervision/touching assistance. Cues given for upper extremity placement. Gait: Patient ambulates x 50 feet with wheeled walker and supervision/touching assistance. Patient ambulates with decreased sandra, decreased step length, and cues for proper use of wheeled walker Stairs: Patient negotiates 2 stairs with 1 hand railing and supervision/touching assistance. Touching assistance given for safety. Patient given cues for lower extremity sequencing. Gait belt was used for all out of bed mobility. Therapeutic Exercise: Ankle Pumps 1x10 Quad Sets 1x10 Straight Leg Raise 1x10 Short-Arc Quads 1x10 Heel Slides 1x10 Long-Arc Quads 1x10 Comments: Per [facility] TKA protocol. Balance Static Sitting Balance Support: feet supported Surface: bed Grade: Normal (able to maintain steady balance without support against all challenges) Dynamic Sitting Balance Support: feet supported Surface: bed Grade: Normal (accepts maximal challenges, can shift weight easily out of base of support in all directions, no loss of balance, no external support) Static Standing Balance Support: bilateral upper extremities with wheeled walker Grade: Fair (maintains balance with limited postural sway, no challenges, with support) Dynamic Standing Balance Support: bilateral upper extremities with wheeled walker Grade: Fair (maintains balance, no challenges, with support) Assessment Physical Therapy Diagnosis: Impaired joint mobility, motor function, muscle performance, and range of motion associated with joint arthroplasty Prognosis: Good Response to today???s treatment: Good Completed patient handoff and notified RN of patient???s location and functional status upon completion of session. Patient tolerates physical therapy evaluation well. Patient performs all mobility training necessary to safely discharge home. Patient is supine in bed with call light in reach upon end of session. Patient's clinical presentation is stable and the patient's clinical course is expected to progress in a typical manner. Education: Patient and family has been educated on the role of physical therapy, safety, precautions, mobility training, stairs, and home exercise program. Education completed via explanation, teach back, demonstration, and handout . Patient and family verbalized understanding and demonstrated understanding. Handouts Issued: [facility] TKA HEP Patient at high risk for: Injury at home as patient has not returned to prior level of function Care Plan Goals established: 10/12/22 Goals to be completed by: 10/14/2022 The patient will perform bed mobility including supine to/from sit with supervision/touching assistance in order to safely return home by the above completion date. Comments: Completed The patient will perform sit to/from stand transfers using wheeled walker and supervision/touching assistance in order to safely return home by the above completion date. Comments: Completed The patient will ambulate 50 feet using wheeled walker and supervision/touching assistance in orderto safely return home by the above completion date. Comments: Completed The patient will ascend/descend 2 stairs with 1 handrail and partial/moderate assistance in order to safely return home by the above completion date. Comments: Completed The patient will perform HEP appropriately per protocol with assistance from joint golf coach as needed in order to increase strength/increase endurance by the above completion date. Comments: Completed Plan Physical therapy frequency: One time visit (Discharge from this service) If this is the last note, consider this the discharge summary Physical Therapy interventions: Recommended equipment to safely discharge: Wheeled walker Recommended method of transportation at discharge: Personal vehicle with family Referrals Recommended: None Patient okay to discharge: Yes Discharge Recommendation: Home with family, Home with intermittent assist, Home Health PT Discharge destination and transportation depends not only upon the therapists??? recommendations, but also on insurance authorization, bed availability, acceptance to the facility, medical diagnosis,and any other specialized needs. Case Management and/or Social Work will work with the patient and their interdisciplinary team to determine the most appropriate discharge disposition. Deepa Woo, PT AL POSITION SYSTEM TECHNICIAN documented in this encounter Miscellaneous Notes * Perioperative Nursing Note - Lena Matt RN - 10/12/2022 11:50 AM CST AVS and discharge instructions given to pt and Reena at bedside. All questions answered. AL POSITION SYSTEM TECHNICIAN * Perioperative Nursing Note - Lena Matt RN - 10/12/2022 11:29 AM CST Pt working with PT. AL POSITION SYSTEM TECHNICIAN * Op Note - Rai Stone MD - 10/12/2022 7:46 AM CST Operative Report SURGEON: Rai Stone MD SURGICAL TEAM: Surgeon(s) and Role: * Rai Stone MD - Primary * Lion Jean-Baptiste MD - Fellow DATE OF SURGERY : 10/12/2022 PREOPERATIVE DIAGNOSIS: Pre-op Diagnosis * Primary osteoarthritis of left knee [M17.12] POSTOPERATIVE DIAGNOSIS: Post-op Diagnosis * Primary osteoarthritis of left knee [M17.12] PROCEDURE: Procedure(s): ARTHROPLASTY LEFT TOTAL KNEE - DEPUY (Left) ANESTHESIA: Spinal IMPLANTS: Implant Name Type Inv. Item Serial No. Dinkey Operator Slag Lot No. [id number] No. Used Action [employer] ATTUNE CRUCIATE RETAIN CEMENTLESS KNEE LEFT 8 COMPONENT FEMORAL [id number] - SNA - [id number] Other - see comments [employer] Attune Cruciate Retain Cementless KneeLeft 8 Component Femoral [id number] NA [employer] [id number] Left 1 Implanted [employer] ATTUNE FB TIB BASE SZ 7 POR [id number] - SNA - [id number] Other - see comments [employer] Attune Fb Tib Base Sz 7 Por [id number] NA [employer] [id number] Left 1 Implanted [employer] INSERT TIBIAL KNEE FIXED LM POSTERIOR STABILIZED ATTUNE 10MM SIZE 8 POLYETHYLENE [id number] - SNA - [id number] Other - see comments [employer] [employer] Insert Tibial Knee Fixed Lm Posterior Stabilized Attune 10mm Size 8 Polyethylene [id number] NA [employer] [id number] Left 1 Implanted OPERATIVE DETAILS Estimated Blood Loss: 150 mL Urine output : No ballard Intraoperative Fluids: 1900 mls Blood/Blood Products Transfused: None Incision / arthrotomy type - Anterior mid-line incision with mid-vastus split arthrotomy Specimens: None PROCEDURE: INDICATIONS FOR PROCEDURE: This patient presents today with endstage disease of the knee. The patient was seen in my outpatient clinic. The patient has failed conservative non-operative treatment. The patient presents for total knee replacement. We have discussed risks, complications, and benefits of the procedure. All questions have been answered preoperatively. PROCEDURE: The patient was brought to the operating room and placed on the operating room table in the supine position. After anesthesia was established, the patient was positioned supine with a bump underneaththe ipsilateral hip. All bony prominences and peripheral nerves were padded. The patient was given p rophylactic antibiotics prior to incision. Surgical timeout was taken to confirm the operative side. The involved lower extremity was prepped and draped in usual sterile fashion. I used a straight midline incision carried through the subcutaneous tissue to the underlying extensor mechanism. An arthrotomy was performed. A lateral facetectomy cut was performed on the patella. The proximal tibia anddistal femur were exposed. An intramedullary guide was utilized for the distal femoral cut in the routine fashion. The distal femur was sized with the sizing guide. I then prepared to make the remaining femoral cuts and the rotation was based off the epicondylar axis and Magnus's line. The 4-in-1 cutting guide placed, secured to the femur and the femoral cuts were completed. On the tibial sideI used the extra-medullary instrumentation to cut approximately 2-3 mm from the more diseased side.I then excised the medial and lateral menisci. The posterior osteophytes were removed from the posterior aspect of the femur. The trial implants were placed and the knee examined and the final soft tissue balancing was performed. The knee had excellent range of motion in flexion and extension. The knee had good patellar tracking. The knee was stable and balanced with varus/valgus stress in extension, mid-flexion and full-flexion. It also had good stability with anterior and posterior drawer test ing. I was pleased with the reconstruction. The trial implants were removed. All bone surfaces wereirrigated copiously with lavage. The final implants were impacted into position. The knee was reduced and I re-checked to make sure the knee had excellent range of motion and stability. The wound wasirrigated. The arthrotomy closed with #1 Vicryl interrupted stiches and then the arthrotomy was oversewn with Stratafix symmetric barbed suture. Deep dermal tissues were closed with Stratafix symmetric barbed suture and then the subcutaneous tissue was closed with bi-directional 3-0 Monocryl barbedsuture. The skin was cleansed and the final dressing applied. The patient tolerated the procedure well. There were no complications. The patient was delivered to the recovery room in good condition. Sponge and needle counts were correct. I, Dr. Stone, was present for all critical portions of the case including surgical exposure, assessment of bone cuts, trialing of the implants, final implantation of prothesis, final trialing after the prosthesis was in place, and initiation of deep wound closure. Dr. Lion Jean-Baptiste was immediately available for all noncritical portions of the procedure. Fellow financial services assistant There was no qualified orthopedic resident available to assist in the procedure. Therefore, the skilled assistance of Lion Jean-Baptiste, who is a fellow in joint preservation and reconstruction surgery, was medically necessary for the performance of this case as there was no qualified orthopedic resident available. His activities included helping me with the surgical exposure, placement and maintenance of retractors, manipulation of the leg so that I could perform the critical portions of the procedure, and helped with wound closure. No Resident involved on case Complications: None Condition on Discharge from the operating room was: Stable Rai Stone MD Date: 10/12/2022 Time: 9:33 AM POSTOPERATIVE PAIN MANAGEMENT REQUEST I have requested that regional anesthesia for pain management be performed by a qualified health care provider from the Anesthesiology department for postoperative pain management. Based upon the degree of postoperative pain that is expected from this procedure, the skills and experience of a qualified health care provider from the Anesthesiology department are required. This expertise in pain management will improve pain relief and aid in decreasing analgesic side effects. AL POSITION SYSTEM TECHNICIAN documented in this encounter Plan of Treatment Not on file documented as of this encounter Procedures Procedure Name Priority Date/Time Associated Diagnosis Comments XR KNEE LEFT 1 OR 2 VIEWS ED Urgent/IP Urgent 10/12/2022 9:37 AM GLOBAL POSITION SYSTEM TECHNICIAN ARTHROPLASTY TOTAL KNEE - DEPUY 10/12/2022 7:33 AM GLOBAL POSITION SYSTEM TECHNICIAN Primary osteoarthritis of left knee ABO/RH STAT 10/12/2022 6:35 AM GLOBAL POSITION SYSTEM TECHNICIAN ANTIBODY SCREEN STAT 10/12/2022 6:35 AM GLOBAL POSITION SYSTEM TECHNICIAN HC ANTIBODY SCREEN RBC STAT 10/12/2022 6:35 AM GLOBAL POSITION SYSTEM TECHNICIAN documented in this encounter Results * XR Knee Left 1 or 2 View (10/12/2022 9:37 AM GLOBAL POSITION SYSTEM TECHNICIAN) Anatomical Region Laterality Modality Lower Extremities, Knee Left Computed Radiography 10/12/2022 9:38 AM GLOBAL POSITION SYSTEM TECHNICIAN Impressions 10/12/2022 9:38 AM GLOBAL POSITION SYSTEM TECHNICIAN 1. New two component left knee arthroplasty for osteoarthritis. Electronically signed by: Sid Guardado M.D. Narrative 10/12/2022 9:38 AM GLOBAL POSITION SYSTEM TECHNICIAN EXAMINATION: XR KNEE LEFT 1 OR 2 VIEWS HISTORY: Left knee osteoarthritis COMPARISON: 08/01/2022 FINDINGS: Two view examination of the left knee is performed. There is a new two component left knee arthroplasty in expected position. There is postoperative soft tissue gas and swelling. No fracture is present. There are unchanged posterior loose bodies. Procedure Note Sid Guardado MD - 10/12/2022 EXAMINATION: XR KNEE LEFT 1 OR 2 VIEWS HISTORY: Left knee osteoarthritis COMPARISON: 08/01/2022 FINDINGS: Two view examination of the left knee is performed. There is a new two component left knee arthroplasty in expected position. There is postoperative soft tissue gas and swelling. No fracture is present. There are unchanged posterior loose bodies. IMPRESSION: 1. New two component left knee arthroplasty for osteoarthritis. Electronically signed by: Sid Guardado M.D. us Lion Jean-Baptiste MD IMG XR PROCEDURES Final Res ult * Antibody screen (10/12/2022 6:35 AM GLOBAL POSITION SYSTEM TECHNICIAN) Sal, indirect, Gel Interpretation Negative ABSC ERICA ROGERS Blood 10/12/2022 6:35 AM GLOBAL POSITION SYSTEM TECHNICIAN 10/12/2022 6:42 AM GLOBAL POSITION SYSTEM TECHNICIAN Narrative ERICA ANNACH - 10/12/2022 7:36 AM GLOBAL POSITION SYSTEM TECHNICIAN Has the patient had Daratumumab or Isatuximab in the past 6 months?->Unknown us Chata Ojeda NP LAB BLOOD BANK TEST ORDER FRANKLYN Final Result [facility] [id number] [facility]. [email or web address] [address] * ABO/Rh (10/12/2022 6:35 AM GLOBAL POSITION SYSTEM TECHNICIAN) ABO/Rh O Negative ERICA SHOSHANACH Blood 10/12/2022 6:35 AM GLOBAL POSITION SYSTEM TECHNICIAN 10/12/2022 6:42 AM GLOBAL POSITION SYSTEM TECHNICIAN Narrative ERICA ROGERS - 10/12/2022 7:36 AM GLOBAL POSITION SYSTEM TECHNICIAN Has the patient had Daratumumab or Isatuximab in the past 6 months?->Unknown us Chata Ojeda NP LAB BLOOD BANK TEST ORDER FRANKLYN Final Result ERICA ANNACH [id number] [facility] [place] [address] documented in this encounter Visit Diagnoses Diagnosis Primary osteoarthritis of left knee- Primary Primary osteoarthritis of left knee Arthritis of left knee documented in this encounter Admitting Diagnoses Diagnosis Primary osteoarthritis of left knee Arthritis of left knee documented in this encounter Administered Medications Inactive Administered Medications - up to 3 most recent administrations Medication Order MAR Action Action Date Dose Rate Site acetaminophen (TYLENOL) tablet 1,000 mg 1,000 mg, oral, Once, On Sat10/12/22 at 0700, For 1 dose, Pre-Op, Indications: PainIndications:Pain Given 10/12/2022 6:32 AM GLOBAL POSITION SYSTEM TECHNICIAN 1,000 mg HYDROcodone-acetaminophen (NORCO) 5-325 mg per tablet 1 tablet 1 tablet, oral, Every 20 min PRN, 3rd line for pain, breakthrough pain, May use as 1st line pain medication if pain not extremely severe and patient able to tolerate PO meds. If unable to tolerate PO meds or outpatient complaining of extremely severe pain, start with Fentanyl and follow with Oral meds., Starting on Sat10/12/22 at 0901, For 2 doses, Phase I, May administer TWO pills together if pain moderate to severe and patient able to tolerate PO meds, after consulting with Anesthesiologist., Indications: PainIndications:Pain Given 10/12/2022 9:43 AM GLOBAL POSITION SYSTEM TECHNICIAN 1 tablet Lactated Ringer's (LR) bolus 1,000 mL 1,000 mL, intravenous, Once, On Sat10/12/22 at 0700, For 1 dose, Pre-Op New Bag 10/12/2022 6:36 AM GLOBAL POSITION SYSTEM TECHNICIAN 1,000 mL Lactated Ringer's (LR) bolus 500 mL 500 mL, intravenous, As needed, for hypotension. May give additional 500 ml bolus for continued hypotension. Document all fluids in Epic and on POUR protocol hand-off., Starting on Sat10/12/22 at 0902, Phase I New Bag 10/12/2022 9:12 AM GLOBAL POSITION SYSTEM TECHNICIAN 500 mL Lactated Ringer's (LR) infusion 30 mL/hr, intravenous, Continuous, Starting on Sat10/12/22 at 0700, For 4 hours, Pre-Op, Use a 500 ml bag for End Stage Renal Disease Patients. Discontinue if fluid still running once patient arrives to floor. New Bag 10/12/2022 8:22 AM GLOBAL POSITION SYSTEM TECHNICIAN Rate/Dose Verify 10/12/2022 7:28 AM GLOBAL POSITION SYSTEM TECHNICIAN 30 mL/h r New Bag 10/12/2022 6:37 AM GLOBAL POSITION SYSTEM TECHNICIAN 30 mL/hr 30 mL/hr Lactated Ringer's (LR) infusion 125 mL/hr, intravenous, Continuous, Starting on Sat10/12/22 at 0945, For 4 hours, Phase I, Discontinue upon discharge from PACU to the floor. New Bag 10/12/2022 9:46 AM GLOBAL POSITION SYSTEM TECHNICIAN 125 mL/hr 125 mL/hr meloxicam (MOBIC) tablet 15 mg 15 mg, oral, Once, On Sat10/12/22 at 0700, For 1 dose, Pre-Op, Indications: PainIndications:Pain Given 10/12/2022 6:32 AM GLOBAL POSITION SYSTEM TECHNICIAN 15 mg documented in this encounter Discontinued Medications Medication Sig Discontinue Reason Start Date End Da te ibuprofen (ADVIL,MOTRIN) 200 mg tab/cap Take 400 mg by mouth as needed for pain Stop Taking at Discharge 10/12/2022 documented as of this encounter Active and Recently Administered Medications Times are shown in GLOBAL POSITION SYSTEM TECHNICIAN. Scheduled Medication Order 10/10/2022 10/11/2022 10/12/2022 acetaminophen (TYLENOL) tablet 1,000 mg (COMPLETED) 1,000 mg, oral, Once, On Sat10/12/22 at 0700, For 1 dose, Pre-Op, Indications: Pain 0632 (Given - Provid er: Annabelle Cazares RN) ceFAZolin (ANCEF) 1 gram/10 mL in sterile water (premix) 2,000 mg (COMPLETED) 2,000 mg, intravenous, at 400 mL/hr, Administer over 3 Minutes, Once, On Sat10/12/22 at 0700, For 1 dose, Pre-Op, Administer within 60 minutes of incision., Indications: Prophylaxis, Surgical 0733 (Given - Provid er: Re Vela CRNA) ceFAZolin (ANCEF) 3,000 mg in sodium chloride 0.9% 3,000 mL irrigation solution (COMPLETED) 3,000 mg, irrigation, Once, On Sat10/12/22 at 0715, For 1 dose, Intra-Op, Have ready for intra-op administration. 0752 (Given - Provid er: Lion Jean-Baptiste MD)0959 (Canceled Entry - Provider: Lena Matt RN) dexAMETHasone (DECADRON) 4 mg/mL injection 8 mg (COMPLETED) 8 mg, intravenous, Administer over 2 Minutes, Once, On Sat10/12/22 at 0715, For 1 dose, Intra-Op, Intra-op administration. - Use 1/2 dose (4mg) for non-insulin dependent diabetics - DO NOT order for insulin dependent diabetics, Indications: Pain Treatment Adjunct 0845 (Given - Provid er: Re Vela CRNA) ketorolac (TORADOL) 30 mg/mL (1 mL) injection 15 mg (COMPLETED) 15 mg, intravenous, Once, On Sat10/12/22 at 0715, For 1 dose, Intra-Op, INTRA-OP Give at time of skin closure, Indications: Postoperatvie Pain Management 0849 (Given - Provid er: Re Vela CRNA) Lactated Ringer's (LR) bolus 1,000 mL (COMPLETED) 1,000 mL, intravenous, Once, On Sat10/12/22 at 0700, For 1 dose, Pre-Op 0636 (New Bag - Prov ider: Annabelle Cazares RN - Comment: warm) meloxicam (MOBIC) tablet 15 mg (COMPLETED) 15 mg, oral, Once, On Sat10/12/22 at 0700, For 1 dose, Pre-Op, Indications: Pain 0632 (Given - Provid er: Annabelle Cazares RN) tranexamic acid (CYKLOKAPRON) 1,000 mg/100 mL (10 mg/mL) in sodium chloride (premix) 1,000 mg (COMPLETED)(Linked Group 1) 1,000 mg, intravenous, at 400 mL/hr, Administer over 15 Minutes, Once, On Sat10/12/22 at 0715, For 1 dose, Intra-Op, INTRA-OP Infuse over 10 minutes prior to skin incision, Indications: Reduction of Perioperative Blood Loss 0728 (Given - Provid er: Re Vela CRNA) tranexamic acid (CYKLOKAPRON) 1,000 mg/100 mL (10 mg/mL) in sodium chloride (premix) 1,000 mg (COMPLETED)(Linked Group 1) 1,000 mg, intravenous, at 400 mL/hr, Administer over 15 Minutes, Once, On Sat10/12/22 at 0715, For 1 dose, Intra-Op, INTRA-OP Infuse over 10 minutes at the start of wound closure., Indications: Reduction of Perioperative Blood Loss 0845 (Given - Provid er: Re Vela CRNA) Continuous Medication Order 10/10/2022 10/11/2022 10/12/2022 Lactated Ringer's (LR) infusion (CANCELED) 30 mL/hr, intravenous, Continuous, Starting on Sat10/12/22 at 0700, For 4 hours, Pre-Op, Use a 500 ml bag for End Stage Renal Disease Patients. Discontinue if fluid still running once patient arrives to floor. 0637 (New Bag - Prov ider: Annabelle Cazares RN - Comment: warm)0728 (Rate/Dose Verify - Provider: Re Vela CRNA)0821 (Paused - Provider: Re Vela CRNA - Comment: Switch to gravity)0822 (New Bag - Provider: Re Vela CRNA)0904 (Stopped - Provider: Lena Matt RN)0907 (Anesthesia Volume Adjustment - Provider: Re Vela CRNA) Lactated Ringer's (LR) infusion 125 mL/hr, intravenous, Continuous, Starting on Sat10/12/22 at 0945, For 4 hours, Phase I, Discontinue upon discharge from PACU to the floor. 0904 (Continued from OR - Provider: Lena Matt RN)0946 (New Bag - Provider: Lena Matt RN)0959 (Canceled Entry - Provider: Lena Matt RN)1608 (Due: Stopped) PRN Medication Order 10/10/2022 10/11/2022 10/12/2022 acetaminophen (TYLENOL) tablet 500 mg 500 mg, oral, Every 6 hours PRN, headaches, other, Breakthrough Pain and Supplement to other pain meds, Starting on Sat10/12/22 at 0901, For 2 doses, Phase I, When able to tolerate PO after consulting with Anesthesiologist. Do not administer if patient has already received Acetaminophen-containing medications in PACU., Indications: Pain bupivacaine 0.25%-EPINEPHrine 1:200,000 PF 60 mL and ketorolac 30 mg solution (CANCELED) As needed, Starting on Sat10/12/22 at 0751, Intra-Op 0751 (Given - Provid er: Lion Jean-Baptiste MD) diphenhydrAMINE (BENADRYL) injection 12.5 mg 12.5 mg, intravenous, Administer over 1 Minutes, Every 5 min PRN, itching, other, For Nausea, administer 25 mg IV., Starting on Sat10/12/22 at 0901, For 4 doses, Phase I, Max cumulative dose 50 mg., Indications: Itching fentaNYL (SUBLIMAZE) preservative free injection 25 mcg 25 mcg, intravenous, Every 5 min PRN, 2nd line for pain, Use Fentanyl as 1st line medication for extremely severe pain for outpatients, and follow with oral pain medication., Starting on Sat10/12/22 at 0901, For 4 doses, Phase I, Use as 1st line for outpatients, dose not to exceed 100 mics. If pain still extremely severe after 100 mics of Fentanyl, may proceed to Dilaudid after consulting with Anesthesiologist. If patient able to tolerate PO meds and pain improved after Fentanyl, proceed to Oral pain medication., Indications: Pain hydrALAZINE (APRESOLINE) injection 5 mg 5 mg, intravenous, Administer over 2 Minutes, Every 5 min PRN, high blood pressure, Starting on Sat10/12/22 at 0901, Phase I, Max cumulative dose 20 mg. Dose if systolic BP greater than 180 AND heart rate less than 70., Indications: hypertension HYDROcodone-acetaminophen (NORCO) 5-325 mg per tablet 1 tablet 1 tablet, oral, Every 20 min PRN, 3rd line for pain, breakthrough pain, May use as 1st line pain medication if pain not extremely severe and patient able to tolerate PO meds. If unable to tolerate PO meds or outpatient complaining of extremely severe pain, start with Fentanyl and follow with Oral meds., Starting on Sat10/12/22 at 0901, For 2 doses, Phase I, May administer TWO pills together if pain moderate to severe and patient able to tolerate PO meds, after consulting with Anesthesiologist., Indications: Pain 0943 (Given - Provid er: Lena Matt RN) HYDROmorphone (DILAUDID) injection 0.2 mg 0.2 mg, intravenous, Administer over 2 Minutes, Every 5 min PRN, 1st line for pain, Use as 1st line pain med for inpatients or for patients with extremely severe pain., Starting on Sat10/12/22 at 0901, Phase I, Use as first line pain medication for inpatients. May use as first line medication for outpatients with extremely severe pain, history of opioid tolerance, or history of Chronic Pain with opioid tolerance, after consulting with Anesthesiologist. Inform anesthesiologist when dose reaches 2 mg for inpatients or 1 mg for outpatients., Indications: Chronic Pain with Opioid Tolerance, Pain, Severe Pain with Opioid Tolerance labetaloL (NORMODYNE,TRANDATE) injection 5 mg 5 mg, intravenous, Every 5 min PRN, high blood pressure, Starting on Sat10/12/22 at 0901, For 4 doses, Phase I, Max cumulative dose 20 mg. Dose if systolic blood pressure greater than 180 AND HR greater than 70. Lactated Ringer's (LR) bolus 500 mL 500 mL, intravenous, As needed, for hypotension. May give additional 500 ml bolus for continued hypotension. Document all fluids in Epic and on POUR protocol hand-off., Starting on Sat10/12/22 at 0902, Phase I 911 (New Bag - Prov ider: Lena Matt RN) meperidine (DEMEROL) preservative free injection 12.5 mg 12.5 mg, intravenous, Administer over 5 Minutes, Every 10 min PRN, shivering, Starting on Sat10/12/22 at 0901, For 2 doses, Phase I, Max cumulative dose 25 mg., Indications: Shivering naloxone (NARCAN) 0.4 mg/mL injection 0.04-0.4 mg 0.04-0.4 mg, intravenous, Once as needed, other, excessive sedation/respiratory depression, Starting on Sat10/12/22 at 0901, For 1 dose, Phase I, Dilute 0.4 mg with 9 mL NS (final concentration 0.04 mg/mL). For respiratory depression (respiratory rate less than 6), administer 0.4 mg IVP over 30 seconds. For excessive sedation administer 0.04 mg (1 mL) every 1 minute until desired level of alertness. Consult with Anesthesiologist before administration. Administer 40 mics at a time. For IV, administer over 30 seconds., Indications: Opioid Toxicity ondansetron (ZOFRAN) injection 4 mg 4 mg, intravenous, Administer over 2 Minutes, Once as needed, nausea, vomiting, Starting on Sat10/12/22 at 0901, For 1 dose, Phase I, Proceed to prochlorperazine if ondansetron has been given within the last 6 hours. prochlorperazine (COMPAZINE) injection 5 mg 5 mg, intravenous, Administer over 2 Minutes, Once as needed, nausea, vomiting, Starting on Sat10/12/22 at 0901, For 2 doses, Phase I, If nausea/vomiting not relieved by ondansetron within 30 minutes or if ondansetron has been given within the last 6 hours. May repeat in 15 minutes of nausea not relieved. Linked Groups Order Group 1: tranexamic acid (CYKLOKAPRON) 1,000 mg/100 mL (10 mg/mL) in sodium chloride (premix) 1,000 mg (COMPLETED)Jump to med 1,000 mg, intravenous, at 400 mL/hr, Administer over 15 Minutes, Once, On Sat10/12/22 at 0715, For 1 dose, Intra-Op, INTRA-OP Infuse over 10 minutes prior to skin incision, Indications: Reduction of Perioperative Blood Loss And tranexamic acid (CYKLOKAPRON) 1,000 mg/100 mL (10 mg/mL) in sodium chloride (premix) 1,000 mg (COMPLETED)Jump to med 1,000 mg, intravenous, at 400 mL/hr, Administer over 15 Minutes, Once, On Sat10/12/22 at 0715, For 1 dose, Intra-Op, INTRA-OP Infuse over 10 minutes at the start of wound closure., Indications: Reduction of Perioperative Blood Loss documented in this encounter Orders Medications Ordered That Ye ht Not Have Been Administered Count Last Ordered Date First Ordered Date acetaminophen (TYLENOL) tablet 500 mg 1 10/2022 bupivacaine 0.25%-EPINEPHrin e 1:200,000 PF 60 mL and ketorolac 30 mg solution 1 10/12/2022 ceFAZolin (ANCEF) 1 gram/10 mL in sterile water (premix) 2,000 mg 1 10/12/2022 ceFAZolin (ANCEF) 3,000 mg i n sodium chloride 0.9% 3,000 mL irrigation solution 1 10/12/2022 dexAMETHasone (DECADRON) 4 m g/mL injection 8 mg 1 10/12/2022 diphenhydrAMINE (BENADRYL) i njection 12.5 mg 1 10/12/2022 famotidine (PEPCID) injection 20 mg 1 10/12 fentaNYL (SUBLIMAZE) preserv ative free injection 25 mcg 1 10/12/2022 hydrALAZINE (APRESOLINE) injection 5 mg 1 0 10/12/2022 HYDROmorphone (DILAUDID) injection 0.2 mg 1 10/12/2022 ketorolac (TORADOL) 30 mg/mL (1 mL) injection 15 mg 1 10/12/2022 labetaloL (NORMODYNE,TRANDAT E) injection 5 mg 1 10/12/2022 lidocaine PF (XYLOCAINE) 10 mg/mL (1 %) preservative free injection 2-10 mg 1 10/12/2022 meperidine (DEMEROL) preserv ative free injection 12.5 mg 1 10/12/2022 naloxone (NARCAN) 0.4 mg/mL injection 0.04-0.4 mg 1 10/12/2022 ondansetron (ZOFRAN) injection 4 mg 1 10/12 prochlorperazine (COMPAZINE) injection 5 mg 1 10/12/2022 scopolamine patch 72 hour 1 patch 1 023 sodium chloride 0.9% flush 0.5-20 mL 1 10/2022 tranexamic acid (CYKLOKAPRON ) 1,000 mg/100 mL (10 mg/mL) in sodium chloride (premix) 1,000 mg 2 10/12/2022 General Supply Count Last Ordered Date First Or dered Date WALKER 1 10/12/2022 Diet Count Last Ordered Date First Orde red Date ADULT DISCHARGE DIET 1 10/12/2022 Nursing Count Last Ordered Date First Orde red Date DISCHARGE ACTIVITY 1 10/12/2022 DISCHARGE CALL PROVIDER 11 10/12/2022 DISCHARGE DRESSING 1 10/12/2022 DISCHARGE INSTRUCTIONS 2 10/12/2022 WEIGHT BEARING STATUS 1 10/12/2022 Admission Count Last Ordered Date First Orde red Date INITIATE OUTPATIENT IN A BED 1 10/12/2022 Discharge Count Last Ordered Date First Orde red Date DISCHARGE PATIENT 1 10/12/2022 documented in this encounter Care Teams Profile Grinder Technician Relationship Specialty Start Date End Date Candice Kendrick PA PCP - General Physician Director Speech 03/13/22 documented as of this encounter
--- OUTSIDE RECORDS SUMMARY | 2024-08-21 02:55 | XMS_ITS | Encounter Summary ---
Author Organization [facility] Home Care Servic es Address [address] [place] [address] Phone Care Team Providers Care Women Specialist Name Role Phone Candice Kendrick Primary Care Pr ovider Encounter Details Date Type Department Care Team (Late st Contact Info) Description 10/12/2022 Telephone Psychiatric [address] [place] [address] Nkechi Nelson RN Social History [...] on file Legal Sex Male 3:05 AM HEALTH COMMISSIONER Gender Identity Not on file Sexual Orientation Not on file documented as of this encounter Miscellaneous Notes * Telephone Encounter - Nkechi Nelson - 10/12/2022 4:06 PM CST 4:04 p.m.--- Patient's spouse, Braeden returned my call to review HH services, and answer any questions patient/spouse may have regarding HH care. Patient agrees to SN/PT services and to projected SOC date within 48 hours of expected discharge date of 10/12/2022. Dr. Rai Stone agrees to follow for HH orders. Reena was notified that soil field technician will be reaching out via their own cell phones to set up an appointment. Reena verbalized understanding. TH COMMISSIONER documented in this encounter Plan of Treatment Not on file documented as of this encounter Visit Diagnoses Not on filedocumented in this encounter Care Teams Women Specialist Relationship Specialty Start Date End Date Candice Kendrick PA PCP - General Physician Inverform Machine Operator 03/13/22 documented as of this encounter
--- OUTSIDE RECORDS SUMMARY | 2024-08-21 02:55 | XMS_ITS | Encounter Summary ---
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 [facility] Home Care Agency accepted patient with projected start of care within 48 hours of projected discharge on 10/12/22. Sachi TEMPLETON, notified. TH AND SAFETY COORDINATOR documented in this encounter Plan of Treatment Not on file documented as of this encounter Visit Diagnoses Not on filedocumented in this encounter Care Teams Carbon Setter Relationship Specialty Start Date End Date Candice Kendrick PA PCP - General Physician Wrapper Opener 03/13/22 documented as of this encounter
--- OUTSIDE RECORDS SUMMARY | 2024-08-21 02:55 | XMS_ITS | Encounter Summary ---
Author Organization [facility] Home Care Servic es Address [address] [place] [address] Phone Care Team Providers Care It Systems Analyst Consultant Name Role Phone Candice Kendrick Primary Care Pr ovider Reason for Visit * Auth/Cert (Routine) Specialty Diagnoses / Procedures Referred By Contac t Referred To Contact Referral ID Status Reason Start Date Expiration Date Visits Re quested Visits Authorized [id number] Encounter Details Date Type Department Care Team (Late st Contact Info) Description 10/13/2022 Home Care Visit [facility] Home Health - [address] [address] [address] [place] [address] Kayley Corbin, THUY SBAR-START OF CARE/RESUMPTION Social History Tobacco Use Types Packs/Day Years [...] on file 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
--- OUTSIDE RECORDS SUMMARY | 2024-08-21 02:55 | XMS_ITS | Encounter Summary ---
Author Organization [facility] Address [address] [place] [address] Care Team Providers Care Corporate Human Resources Manager Name Role Phone Candice Kendrick Primary Care Pr ovider Reason for Visit * Auth/Cert Specialty Diagnoses / Procedures Referred By Contac t Referred To Contact Diagnoses Primary osteoarthritis of left knee Primary osteoarthritis of left knee [M17.12] Procedures NV ARTHRP KNE CONDYLE&PLATU MEDIAL&LAT COMPARTMENTS ARTHROPLASTY LEFT TOTAL KNEE - DEPUY Referral ID Status Reason Start Date Expiration Date Visits Re quested Visits Authorized [id number] 1 1 Encounter Details Date Type Department Care Team (Late st Contact Info) Description 10/12/2022 7:45 AM SUPERVISOR BROADLOOM - 10/12/2022 9:40 AM SUPERVISOR BROADLOOM Surgery [facility] Operating Room [address] [place] [address] Rai Stone MD [address] [facility] [address] [place] [address] ARTHROPLASTY LEFT TOTAL KNEE - DEPUY Surgery Details Date/Time Status Location OR Service Patient Class Case Class Case Type Trauma Case? 10/12/2022 7:45 AM Posted [facility] OPERATING ROOM OR Orthopaedics Outpatient in Bed Elective Panel 1 Procedure LRB Anes Op Region Wound Class Comments ARTHROPLASTY LEFT TOTAL KNEE - DEPUY Left Spinal Kne e Class I - Clean Surgeon Surgeon Role Service Panel Rai Stone MD Primary Orthopaedics 1 Lion Jean-Baptiste MD Fellow Orthopaedics 1 documented in this encounter Social History Tobacco [...] on file Legal Sex Male 3:05 AM SUPERVISOR BROADLOOM Gender Identity Not on file Sexual Orientation Not on file documented as of this encounter Last Filed Vital Signs Vital Sign Reading Time Taken Comments Blood Pressure 109/56 10/12/2022 9:35 AM SUPERVISOR BROADLOOM Pulse 73 10/12/2022 9:35 AM SUPERVISOR BROADLOOM Temperature 35.9 ??C (96.6 ??F) 10/12/2022 9:35 AM CS T Respiratory Rate 12 10/12/2022 9:35 AM SUPERVISOR BROADLOOM Oxygen Saturation 93% 10/12/2022 9:35 AM SUPERVISOR BROADLOOM Inhaled Oxygen Concentration - - Weight 94.1 kg (207 lb 6.4 oz) 10/12/2022 5:39 A M SUPERVISOR BROADLOOM Height 180.3 cm (5' 11 ) 10/12/2022 5:39 AM SUPERVISOR BROADLOOM Body Mass Index 28.93 10/12/2022 5:39 AM SUPERVISOR BROADLOOM documented in this encounter Discharge Summaries * Melsysa Moody Lam, SOFI - 10/12/2022 9:31 AM CST Inpatient Discharge Summary Admitting Provider: Rai Stone MD Discharge Provider: Rai Stone MD Primary Care Physician at Discharge: Candice Kendrick PA [phone] Admission Date: 10/12/2022 Discharge Date: 10/12/2022 Primary [...] Your Medications These medications were sent to [id number] - [place], [place] - [address] [facility] [address], [facility] [phone] acetaminophen 500 mg tablet aspirin 81 mg [...] Rai Stone MD at 10/12/2022 4:56 PM SUPERVISOR BROADLOOM RVISOR BROADLOOM RVISOR BROADLOOM documented in this encounter Discharge Instructions * Discharge Instructions* Lena Matt RN - 10/12/2022 9:31 AM SUPERVISOR BROADLOOM Images from the original note were not included. You have received anesthesia, therefore, for the next 24 hours and/or while taking narcotic pain medication; -Do NOT drive a vehicle -Do NOT drink alcohol -Do NOT make important personal or business decisions or sign legal documents. Examples of narcotic pain medication include Percocet, Oxycontin, [place], Hydrocodone, and Oxycodone. FAQs (frequently asked questions) [...] physical therapy, we are available to assist: [facility] STAR: [facility] [phone] [place] [phone] [facility] [phone] How are some things that you can [...] given by your doctor or other health medicare interviewer. RVISOR BROADLOOM RVISOR BROADLOOM * Discharge Instr - Other Orders* Sachi Morrissey RN - 10/12/2022 12:07 PM SUPERVISOR BROADLOOM HOME CARE PROVIDER: [facility] WILL PROVIDE RN & PT SERVICES UPON DISCHARGE. PT CAN CALL [phone] FOR ANY HOME CARE QUESTIONS OR CONCERNS. THE HOME CARE PROVIDER WILL CALL YOU WITHIN 48 HOURS OF HOSPITAL DISCHARGE. FIRST HOME VISIT ON 10/14 RVISOR BROADLOOM documented in this encounter Medications at Time [...] Information Home Care Agency Type #1: Physical Therapy;Correction Home Care Agency Name [facility] Home Care Agency Home Care Agency Contact Spoken to OSBALDO Discharge Additional Assistance Does the patient need discharge transport arranged? No Post Discharge Care Provider Post Discharge Care Plan Next level of care provider has access to complete EMR RVISOR BROADLOOM documented in this encounter H&P Notes * Rai Stone MD - 10/12/2022 6:31 AM CST I have reviewed the H&P, examined the patient, and endorse the findings as written. Plan of Care : Based on the above findings, I consider Jeff Mendoza III to be an acceptable riskfor : Procedure(s): ARTHROPLASTY LEFT TOTAL KNEE - DEPUY RVISOR BROADLOOM Source Note - Chiquis Trujillo NP - 09/19/2022 8:43 AM SUPERVISOR BROADLOOM Images from the original note were not included. [facility] for Preoperative Assessment and Planning Preoperative Evaluation Record Evaluation type/location: CPAP [facility] Planned procedure site: [facility] OR Date: 09/19/22 Anesthesia Evaluation Jeff Mendoza [...] Cardiovascular Pertinent negatives: hypertension ; CAD ; ND ; CABG ; valvular heart disease; valve [...] Total Score: 2 Jacqueline index score: 100 RVISOR BROADLOOM RVISOR BROADLOOM documented in this encounter Consult Notes * Deepa Woo, PT - 10/12/2022 10:55 AM CST [facility] Physical Therapy Initial Evaluation Patient Name: Jeff Mendoza III Date of Service: 10/12/2022 Date of : 1970 Age: 51 y.o. 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 Pain Assessment: Pre-evaluation pain: 2 /10 Post-evaluation pain: 3 /10 Location: Left knee Pain intervention: Cold applied, [...] Slides 1x10 Long-Arc Quads 1x10 Comments: Per [facility] TKA protocol. Balance Static Sitting Balance Support: [...] verbalized understanding and demonstrated understanding. Handouts Issued: [facility] TKA HEP Patient at high risk for: [...] appropriately per protocol with assistance from joint ice skating coach as needed in order to increase [...] determine the most appropriate discharge disposition. Deepa Woo PT RVISOR BROADLOOM documented in this encounter Miscellaneous Notes * Perioperative Nursing Note - Lena Matt RN - 10/12/2022 11:50 AM CST AVS and discharge instructions given to pt and Reena at bedside. All questions answered. RVISOR BROADLOOM * Perioperative Nursing Note - Lena Matt RN - 10/12/2022 11:29 AM CST Pt working with PT. RVISOR BROADLOOM * Op Note - Rai Stone MD [...] Implant Name Type Inv. Item Serial No. Security Messenger Lot No. [id number] No. Used Action [employer] ATTUNE CRUCIATE RETAIN CEMENTLESS KNEE LEFT 8 COMPONENT FEMORAL [id number] - SNA - [id number] Other - see comments [employer] Attune Cruciate Retain Cementless KneeLeft 8 Component Femoral [id number] NA [employer] [id number] Left 1 Implanted [employer] ATTUNE FB TIB BASE SZ 7 POR [id number] - SNA - [id number] Other - see comments [employer] Attune Fb Tib Base Sz 7 Por [id number] NA [employer] [id number] Left 1 Implanted [employer] INSERT TIBIAL KNEE FIXED LM POSTERIOR STABILIZED ATTUNE 10MM SIZE 8 POLYETHYLENE [id number] - SNA - [id number] Other - see comments [employer] Insert Tibial Knee Fixed Lm Posterior Stabilized Attune 10mm Size 8 Polyethylene [id number] NA [employer] [id number] Left 1 Implanted OPERATIVE DETAILS Estimated Blood [...] was based off the epicondylar axis and [place]'s line. The 4-in-1 cutting guide placed, secured [...] all noncritical portions of the procedure. Fellow care team assistant There was no qualified orthopedic resident [...] and aid in decreasing analgesic side effects. RVISOR BROADLOOM documented in this encounter Plan of Treatment Not on file documented as of this encounter Procedures Procedure Name Priority Date/Time Associated Diagnosis Comments XR KNEE LEFT 1 OR 2 VIEWS ED Urgent/IP Urgent 10/12/2022 9:37 AM SUPERVISOR BROADLOOM ARTHROPLASTY TOTAL KNEE - DEPUY 10/12/2022 7:33 AM SUPERVISOR BROADLOOM Primary osteoarthritis of left knee ABO/RH STAT 10/12/2022 6:35 AM SUPERVISOR BROADLOOM ANTIBODY SCREEN STAT 10/12/2022 6:35 AM SUPERVISOR BROADLOOM HC ANTIBODY SCREEN RBC STAT 10/12/2022 6:35 AM SUPERVISOR BROADLOOM documented in this encounter Results * XR Knee Left 1 or 2 View (10/12/2022 9:37 AM SUPERVISOR BROADLOOM) Anatomical Region Laterality Modality Lower Extremities, Knee Left Computed Radiography 10/12/2022 9:38 AM SUPERVISOR BROADLOOM Impressions 10/12/2022 9:38 AM SUPERVISOR BROADLOOM 1. New two component left knee arthroplasty for osteoarthritis. Electronically signed by: Sid Guardado M.D. Narrative 10/12/2022 9:38 AM SUPERVISOR BROADLOOM EXAMINATION: XR KNEE LEFT 1 OR 2 [...] osteoarthritis. Electronically signed by: Sid Guardado M.D. Lion Jean-Baptiste MD IMG XR PROCEDURES Final Res ult * Antibody screen (10/12/2022 6:35 AM SUPERVISOR BROADLOOM) Sal, indirect, Gel Interpretation Negative ABSC ERICA ROGERS Blood 10/12/2022 6:35 AM SUPERVISOR BROADLOOM 10/12/2022 6:42 AM SUPERVISOR BROADLOOM Narrative [facility]ERNER [facility] - 10/12/2022 7:36 AM SUPERVISOR BROADLOOM Has the patient had Daratumumab or Isatuximab in the past 6 months?->Unknown Chata Ojeda HOME ECONOMICS EXPERT LAB BLOOD BANK TEST ORDER FRANKLYN Final Result Performing Organization Address City/[facility]/ZIP Co de Phone Number [facility] [address] [address] [facility] [place] [address] * ABO/Rh (10/12/2022 6:35 AM SUPERVISOR BROADLOOM) ABO/Rh O Negative ERICA ROGERS Blood 10/12/2022 6:35 AM SUPERVISOR BROADLOOM 10/12/2022 6:42 AM SUPERVISOR BROADLOOM Narrative EDDYJORDANA ESTELLASHELDON - 10/12/2022 7:36 AM SUPERVISOR BROADLOOM Has the patient had Daratumumab or Isatuximab in the past 6 months?->Unknown Chata Ojeda NP LAB BLOOD BANK TEST ORDER FRANKLYN Final Result Performing Organization Address [facility] Co de Phone Number [facility] [address] [address] [facility] [place] [address] documented in this encounter Visit Diagnoses Diagnosis Primary osteoarthritis of left knee- Primary Primary osteoarthritis of left knee Arthritis of left knee Primary osteoarthritis of left knee documented in [...] Pre-Op, Indications: PainIndications:Pain Given 10/12/2022 6:32 AM SUPERVISOR BROADLOOM 1,000 mg bupivacaine 0.25%-EPINEPHrine 1:200,000 PF 60 mL and ketorolac 30 mg solution As needed, Starting on Sat10/12/22 at 0751, Intra-Op Given 10/12/2022 7:51 AM SUPERVISOR BROADLOOM 61 mL Surgical Site ceFAZolin (ANCEF) 3,000 mg in sodium chloride 0.9% 3,000 mL irrigation solution 3,000 mg, irrigation, Once, On Sat10/12/22 at 0715, For 1 dose, Intra-Op, Have ready for intra-op administration. Given 10/12/2022 7:52 AM SUPERVISOR BROADLOOM 3,000 mg Surgical Site HYDROcodone-acetaminophen (NORCO) 5-325 mg per tablet 1 [...] Anesthesiologist., Indications: PainIndications:Pain Given 10/12/2022 9:43 AM SUPERVISOR BROADLOOM 1 tablet Lactated Ringer's (LR) bolus 1,000 mL 1,000 mL, intravenous, Once, On Sat10/12/22 at 0700, For 1 dose, Pre-Op New Bag 10/12/2022 6:36 AM SUPERVISOR BROADLOOM 1,000 mL Lactated Ringer's (LR) bolus 500 mL 500 mL, intravenous, As needed, for hypotension. May give additional 500 ml bolus for continued hypotension. Document all fluids in Epic and on POUR protocol hand-off., Starting on Sat10/12/22 at 0902, Phase I New Bag 10/12/2022 9:12 AM SUPERVISOR BROADLOOM 500 mL Lactated Ringer's (LR) infusion 30 mL/hr, intravenous, Continuous, Starting on Sat10/12/22 at 0700, For 4 hours, Pre-Op, Use a 500 ml bag for End Stage Renal Disease Patients. Discontinue if fluid still running once patient arrives to floor. New Bag 10/12/2022 8:22 AM SUPERVISOR BROADLOOM Rate/Dose Verify 10/12/2022 7:28 AM SUPERVISOR BROADLOOM 30 mL/h r New Bag 10/12/2022 6:37 AM SUPERVISOR BROADLOOM 30 mL/hr 30 mL/hr Lactated Ringer's (LR) infusion 125 mL/hr, intravenous, Continuous, Starting on Sat10/12/22 at 0945, For 4 hours, Phase I, Discontinue upon discharge from PACU to the floor. New Bag 10/12/2022 9:46 AM SUPERVISOR BROADLOOM 125 mL/hr 125 mL/hr meloxicam (MOBIC) tablet 15 mg 15 mg, oral, Once, On Sat10/12/22 at 0700, For 1 dose, Pre-Op, Indications: PainIndications:Pain Given 10/12/2022 6:32 AM SUPERVISOR BROADLOOM 15 mg documented in this encounter Discontinued Medications Medication Sig Discontinue Reason Start Date End Da te ibuprofen (ADVIL,MOTRIN) 200 mg tab/cap Take 400 mg by mouth as needed for pain Stop Taking at Discharge 10/12/2022 documented as of this encounter Active and Recently Administered Medications Times are shown in SUPERVISOR BROADLOOM. Scheduled Medication Order 10/10/2022 10/11/2022 10/12/2022 acetaminophen [...] 0637 (New Bag - Prov ider: Annabelle Cazares, THUY - Comment: warm)0728 (Rate/Dose Verify - Provider: [...] Starting on Sat10/12/22 at 0902, Phase I 09 (New Bag - Prov ider: Lena Matt [...] acetaminophen (TYLENOL) tablet 500 mg 1 10/2022 ceFAZolin (ANCEF) 1 gram/10 mL in sterile water (premix) 2,000 mg 1 10/12/2022 dexAMETHasone (DECADRON) 4 m g/mL [...] 10/12/2022 documented in this encounter Care Teams Corporate Human Resources Manager Relationship Specialty Start Date End Date Candice Kendrick PA PCP - General Physician Credit Risk Review Officer 03/13/22 documented as of this encounter
--- OUTSIDE RECORDS SUMMARY | 2024-08-21 02:55 | XMS_ITS | Encounter Summary ---
Author Organization [facility] Home Care Servic es Address [address] [place] [address] Phone Care Team Providers Care Fabrication Technician Name Role Phone LiyahmaganCandice Primary Care Pr ovider Reason for Visit * Reason Comments Post-op Knee * Auth/Cert (Routine) Specialty Diagnoses / Procedures Referred By Contac t Referred To Contact Referral ID Status Reason Start Date Expiration Date Visits Re quested Visits Authorized [id number] [phone] Encounter Details Date Type Department Care Team (Late st Contact Info) Description 10/22/2022 2:00 PM CDT Home Care Visit [facility] [address] [place] [address] Jessica Hsu PTA PT HOME VISIT Social [...] on file Legal 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 Male 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 CAM 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 Gender Identity Not on file Sexual Orientation Not on file documented as of this encounter Last Filed Vital Signs Vital Sign Reading Time Taken Comments Blood Pressure 122/78 10/22/2022 2:59 PM CDT Pulse 78 10/22/2022 2:59 PM CDT Temperature 35.2 ??C (95.4 ??F) 10/22/2022 2:59 PM CD T Respiratory Rate 18 10/22/2022 2:59 PM CDT Oxygen Saturation 98% 10/22/2022 2:59 PM CDT Inhaled Oxygen Concentration - - Weight - - Height - - Body Mass Index - - documented in this encounter Miscellaneous Notes * Home Health Plan for Next Visit - Jessica Hsu PTA - 10/22/2022 3:14 PM CDT Reason for today's visit to progress with knee extension and seated flexion Discuss plan of care with pt Discharge planning at end of week Plan for next visit to progress with standing exercises pt is agreeable with poc and aware that end of week will be dc and pt has appt for outpatient beginning next week documented in this encounter Plan of Treatment [...] home health visit Disciplines: SN, PT, OT, SUPERVISOR BACKFILLING, DRY PAN CHARGER, Skilled Disciplines Monitor patient's vital signs every [...] visit during episode of care Description: Home machine welt butter to measure vital signs during every home [...] recent surgery, pain, unsteady gait, risk for falls, presence of wound, has multiple steps in and out of the home Monitor Vital Signs Description: Monitor blood pressure, [...] of safety precautions Completed instructed to use the wheeled walker at all times Assess safety Description: Assess [...] pain has been reduced or controlled Completed pt takes pain meds as prescribed Educate on [...] perform HEP. Problem:PT Orthopedic-Total Joint Replacement Completed updated written hep to perform 2-3 times each day Gait/Stair Training Description: Instruct patient/caregiver and perform gait/stair training. Problem:PT Orthopedic-Total Joint Replacement Completed gait with wheeled walker WBAT on the left with cues on knee extension with heelstrike and knee flexion during swing thru pt tolerated 100 ft on level surfaces and then knee flexion during swing thru up and down steps using handrail correct sequencing Bed Mobility/Transfer Training Description: Instruct patient/caregiver and perform bed mobility/transfer training. Problem:PT Orthopedic-Total Joint Replacement Completed sit to from stand depending on ues to push himself up with cues to flex the left knee Therapeutic Exercise Description: Perform therapeutic exercise, progressing as tolerated. Problem:PT Orthopedic-Total Joint Replacement Completed while the pt was supine instructed on progressing from 10-12 reps of each of anklepumping, quad sets saqs holding 5 seconds each, slr with cues to engage quad before completing then heelslides actively x 10 reps and 5 reps using belt to stretch also with roll under heel to stretch knee extension as able to tolerate while seated in chair pt instructed on letting the leg flex at knee and then using the opposite leg to gently stretch into flexion and laqs holding 5 seconds of each pts hep was updated documented in this encounter Care Teams Fabrication Technician Relationship Specialty Start Date End Date Candice Kendrick PA PCP - General Physician Servicing Manager 03/13/22 documented as of this encounter
--- OUTSIDE RECORDS SUMMARY | 2024-08-21 02:55 | XMS_ITS | Encounter Summary ---
Author Organization [facility] Home Care Servic es Address [address] [place] [address] Phone Care Team Providers Care Reconciliation Manager Name Role Phone LiyahmaganCandice Primary Care Pr ovider Reason for Visit * Reason Comments Post-op Knee * Auth/Cert (Routine) Specialty Diagnoses / Procedures Referred By Contac t Referred To Contact Referral ID Status Reason Start Date Expiration Date Visits Re quested Visits Authorized [id number] Encounter Details Date Type Department Care Team (Late st Contact Info) Description 10/19/2022 2:30 PM WINDOW TRIMMER Home Care Visit [facility] [address] [place] [address] Jessica Hsu PTA PT HOME VISIT Social [...] on file Legal Sex Male 3:05 AM WINDOW TRIMMER Gender Identity Not on file Sexual Orientation Not on file documented as of this encounter Last Filed Vital Signs Vital Sign Reading Time Taken Comments Blood Pressure 138/88 10/19/2022 3:11 PM WINDOW TRIMMER Pulse 82 10/19/2022 3:11 PM WINDOW TRIMMER Temperature 36.8 ??C (98.3 ??F) 10/19/2022 3:11 PM CS T Respiratory Rate 18 10/19/2022 3:11 PM WINDOW TRIMMER Oxygen Saturation 96% 10/19/2022 3:11 PM WINDOW TRIMMER Inhaled Oxygen Concentration - - Weight - - Height - - Body Mass Index - - documented in this encounter Miscellaneous Notes * Home Health Plan for Next Visit - Jessica Hsu PTA - 10/19/2022 2:28 PM CST Reason for today's visit instruct hep, gait, stairs Discuss plan of care with pt Discharge planning at end of next week with dc and plans to progress to outpt on 10/29 Plan for next visit to progress with ROM/strengthening left knee pt is agreeable with poc pt sent message to RN at Dr. Woods office re rash on pts calf and back and that he may take benadryl documented in this encounter Plan of Treatment [...] health visit Disciplines: SN, PT, OT, SUPERVISOR PAPER COATING, SINGLE WIRE SAW OPERATOR, Skilled Disciplines Monitor patient's vital signs [...] visit during episode of care Description: Home eap clinician to measure vital signs during every home [...] unsteady gait, risk for falls, presence of open wound, Monitor Vital Signs Description: Monitor blood pressure, [...] concerns Goal:Demonstrate use of safety precautions Completed Assess safety Description: Assess patient safety Problem:Safety concerns Goal:Demonstrate use of safety precautions Scheduled Instruct on the prevention of deep vein [...] and Management Goal:Knowledgeable of Wound Management Completed Perform dressing change Description: Perform dressing change: [...] HEP. Problem:PT Orthopedic-Total Joint Replacement Completed updated pts written hep to perform 2-3 times a day Gait/Stair Training Description: Instruct patient/caregiver and perform gait/stair training. Problem:PT Orthopedic-Total Joint Replacement Completed gait with wheeled walker in the home WBAT on the left over level surfaces with cues to extend knee with heelstrike and then flex the left knee during heelstrike pt does depend heavily on arms of walker instructed up and down steps using handrail with correct sequencing Bed Mobility/Transfer Training Description: Instruct patient/caregiver and perform bed mobility/transfer training. Problem:PT Orthopedic-Total Joint Replacement Completed sit to from stand from chair depending on ues to push himself up pt performing exercises on floor and able to slide to floor from sofa and then push himself back into recliner using arms and right leg Therapeutic Exercise Description: Perform therapeutic exercise, progressing as tolerated. Problem:PT Orthopedic-Total Joint Replacement Completed while the pt was supine pt completed 10 reps of anklepumping, quad sets holding 5 seconds, saqs holding 5 seconds, heelslides using belt to gently stretch x 10 reps and 5 reps actively, then hip abd/add and slr with cues to engage quad before completing while sitting laqs x 10 reps holding 5 seconds and then today instructed the pt on knee flexion performed x 5 reps holding 5 seconds each cues to complete correctly documented in this encounter Care Teams Reconciliation Manager Relationship Specialty Start Date End Date Candice Kendrick PA PCP - General Physician Garbage Pick Up Worker 03/13/22 documented as of this encounter
--- OUTSIDE RECORDS SUMMARY | 2024-08-21 02:55 | XMS_ITS | Encounter Summary ---
Author Organization [facility] Healthcare Address [address] [place] [address] Care Team Providers Care Steam Box Operator Name Role Phone Candice Kendrick Primary Care Pr ovider Reason for Referral * Diagnostic Imaging (Routine) - Closed Specialty Diagnoses / Procedures Referred By Contac t Referred To Contact Diagnoses Chronic pain of left knee Procedures XR Knee Left 3 Views Rai Stone MD [address] [facility] [address] [place] [address] Phone: tel: fax: [place] [address] [place] [address] Referral ID Status Reason Start Date Expiration Date Visits Re quested Visits Authorized [id number] Closed 07/23/2022 08/22/2023 1 1 SPERSON Reason for Visit * Diagnostic Imaging (Routine) - Closed Specialty Diagnoses / Procedures Referred By Contac t Referred To Contact Diagnoses Chronic pain of left knee Procedures XR Knee Left 3 Views Rai Stone MD [address] [facility] [address] [place] [address] Phone: tel: fax: [place] [address] [place] [address] Referral ID Status Reason Start Date Expiration Date Visits Re quested Visits Authorized [id number] Closed 07/23/2022 08/22/2023 1 1 Encounter Details Date Type Department Care Team (Latest Contact Info) Description 08/01/2022 8:24 AM WARDSPERSON - 08/01/2022 11:59 PM WARDSPERSON Hospital Encounter [facility] [address] [facility] [address] [place] [id number] Chronic pain of left knee Discharge Disposition: Discharge to home or self care Social History Tobacco Use Types Packs/Day Years Used Date Smoking Tobacco: Never Sex and Gender Information Value Date Recorded Sex Assigned at Not on file Legal Sex Male 3:05 AM WARDSPERSON Gender Identity Not on file Sexual Orientation Not on file documented as of this encounter Medications at Time of Discharge acetaminophen (TYLENOL) 500 mg tablet Take 2 tablets (1,000 mg total) by mouth every 8 (eight) hours 90 tablet 1 10/12/2022 aspirin 81 mg enteric coated tabletIndication s:prevention of thrombosis Take 1 tablet (81 mg [...] times a day 80 tablet 1 10/12/2022 mupirocin (BACTROBAN) 2 % ointmentIndicati ons:Prophylactic antibiotic Apply topically 2 (two) times a day for 5 days APPLY TO NOSTRILS TWICE A DAY FOR 5 DAYS PRIOR TO SURGERY. 22 g 08/01/2022 2 cyclobenzaprine (FLEXERIL) 10 mg tablet Take 10 mg by mouth 3 (three) times a day as needed 09/27/[address] (VOLTAREN) 75 mg EC tablet diclofenac sodium 75 mg tablet,delayed release TAKE 1 TABLET BY MOUTH TWICE DAILY 3 HYDROcodone-acet aminophen (NORCO) 5-325 mg per tablet Take 1 tablet by mouth every 4 (four) hours as needed 09/27/2016 3 miSOPROStoL (CYTOTEC) 200 mcg tablet misoprostol 200 mcg tablet TAKE ONE TABLET BY MOUTH TWICE DAILY WITH DICLOFENAC 3 oxyCODONE (ROXICODONE) 5 mg immediate release tabletIndication s:Pain Take 1 tablet (5 mg total) by mouth every 4 (four) hours as needed for pain for up to 30 doses 30 tablet 10/12/2022 3 traMADoL (ULTRAM) 50 mg tablet Take 1 tablet (50 mg total) by mouth every 8 (eight) hours as needed for pain (1st line) 42 tablet 10/12/2022 3 documented as of this encounter Discharge Disposition Disposition Code Departure Means Destination Discharge to home or self care documented in this encounter Plan of Treatment Not on file documented as of this encounter Procedures Procedure Name Priority Date/Time Associated Diagnosis Comments XR KNEE LEFT 3 VIEWS Schedule Routine, Read Routine (OP Routine) 08/01/2022 8:42 AM WARDSPERSON Chronic pain of left knee documented in this encounter Results * XR Knee Left 3 Views (08/01/2022 8:42 AM WARDSPERSON) Anatomical Region Laterality Modality Lower Extremities, Knee Left Computed Radiography 08/01/2022 8:46 AM WARDSPERSON Impressions 08/01/2022 8:46 AM WARDSPERSON 1. ??Moderate to severe medial compartment predominant tricompartmental left knee osteoarthritis. Electronically signed by: Steve Martinez M.D. Narrative 08/01/2022 8:46 AM WARDSPERSON EXAM: 1. ??XR KNEE LEFT 3 VIEWS [...] reconstruction. Procedure Note Steve Martinez MD - 08/01/2022 EXAM: 1. XR KNEE LEFT 3 VIEWS [...] Visit Diagnoses Diagnosis Chronic pain of left knee documented in this encounter Care Teams Steam Box Operator Relationship Specialty Start Date End Date Candice Kendrick PA PCP - General Physician Supervisor Cutting And Sewing Room 03/13/22 documented as of this encounter
--- OUTSIDE RECORDS SUMMARY | 2024-08-21 02:55 | XMS_ITS | Encounter Summary ---
Author Organization [facility] Facility Care Team Providers Care Channel Marketing Manager Name Role Phone Unavailable Primary Care Provider Unavailabl e Encounter Details Date Type Department Care Team (Late st Contact Info) Description 03/06/2010 12:01 PM CDT - 03/06/2010 4:00 PM CDT Hospital Encounter [facility] [place] [address] [place] [address] Other orthopedic aftercare; Effusion of lower leg joint Social History Tobacco Use Types Packs/Day Years Used Date Smoking Tobacco: Never Assessed Sex and Gender Information Value Date Recorded Sex Assigned at Not on file Legal Sex Male 3:05 AM FIXER SUPERVISOR Gender Identity Not on file Sexual Orientation Not on file documented as of this encounter Plan of Treatment Not on file documented as of this encounter Visit Diagnoses Diagnosis Other orthopedic aftercare Effusion of lower leg joint documented in this encounter
--- OUTSIDE RECORDS SUMMARY | 2024-08-21 02:55 | XMS_ITS | Encounter Summary ---
Author Organization [facility] Home Care Servic es Address [address] [place] [address] Phone Care Team Providers Care Gravedigger Name Role Phone Candice Kendrick Primary Care Pr ovider Encounter Details Date Type Department Care Team (Late st Contact Info) Description 10/12/2022 Telephone [facility] [address] [place] [address] Nkechi Nelson RN Social History [...] on file Legal Sex Male 3:05 AM PANEL WIRER Gender Identity Not on file Sexual Orientation Not on file documented as of this encounter Miscellaneous Notes * Telephone Encounter - Nkechi Nelson - 10/12/2022 3:38 PM CST Attempted to contact patient/spouse a second time today to discuss [facility] services for SN/PT: 3:34 p.m.-- Called patient at [phone]. No answer. LVM 3:35 p.m.--Called patient's spouse, Reena, at [phone] No answer LVM and notified her that we will have to bump patient back on the schedule if we do not receive a return call today. Awaiting Response YOKASTA Lopez Notified that I have been unable to contact patient/spouse to complete the HH referral. L WIRER documented in this encounter Plan of Treatment Not on file documented as of this encounter Visit Diagnoses Not on filedocumented in this encounter Care Teams Gravedigger Relationship Specialty Start Date End Date Candice Kendrick PA PCP - General Physician Stroboscope Operator 03/13/22 documented as of this encounter
--- OUTSIDE RECORDS SUMMARY | 2024-08-21 02:55 | XMS_ITS | Encounter Summary ---
Author Organization [facility] Facility Care Team Providers Care Nuclear Licensing Engineer Name Role Phone Unavailable Primary Care Provider Unavailabl e Encounter Details Date Type Department Care Team (Latest Contact Info) Description 12/12/2009 12:00 PM CDT - 12/12/2009 4:00 PM CDT Hospital Encounter [facility] [place] [address] [facility] [address] [place] [address] Osteoarthrosis involving lower leg Social History Tobacco Use Types Packs/Day Years Used Date Smoking Tobacco: Never Assessed Sex and Gender Information Value Date Recorded Sex Assigned at Not on file Legal Sex Male 3:05 AM DEPOT AGENT Gender Identity Not on file Sexual Orientation Not on file documented as of this encounter Plan of Treatment Not on file documented as of this encounter Visit Diagnoses Diagnosis Osteoarthrosis involving lower leg documented in this encounter
--- OUTSIDE RECORDS SUMMARY | 2024-08-21 02:55 | XMS_ITS | Encounter Summary ---
Author Organization [facility] Address [address] [place] [address] Phone Care Team Providers Care Ornamenter Hand Name Role Phone Candice Kendrick Primary Care Pr ovider Reason for Referral * Diagnostic Imaging (Routine) - Closed Specialty Diagnoses / Procedures Referred By Safia funes Referred To Contact Diagnoses Aftercare following left knee joint replacement surgery Procedures XR Knee Left 4 or More Views Rai Stone MD [address] [facility] [address] [place] [address] Phone: tel: fax: [facility] Radiology [address] [place] [address] [place] [phone] Phone: tel: Referral ID Status Reason Start Date Expiration Date Visits Re quested Visits Authorized [id number] Closed 11/08/2022 12/08/2023 1 1 Reason for Visit * Reason Comments Post-op Encounter Details Date Type Department Care Team (Late st Contact Info) Description 11/12/2022 8:40 AM CDT Office Visit [facility] Orthopaedic Surgery [address] [place] [address] Medical Office Building [address] [place] [id number] Rai Stone MD [address] [place] [address] Aftercare following left knee joint replacement surgery (Primary Dx) Social History Tobacco Use Types [...] on file Legal Sex Male 3:05 AM TANK TERMINAL GAUGER Gender Identity Not on file Sexual Orientation Not on file documented as of this encounter Progress Notes * Rai Stone MD - 11/12/2022 8:40 AM CDT POST- OPERATIVE PATIENT VISIT Arthroplasty Left Total Knee - Depuy - Left 10/12/2022 INTERIM HISTORY: Jeff Mendoza III is status post left primary knee replacement. Patient seen today for routine follow up and is doing well. PHYSICAL EXAM: LEFT KNEE: Pain: minimal with activity Incision: healing with no signs of infection, induration, or drainage Range of Motion: appropriate pain level with gentle range of motion assessment, and measures approximately 5 to 100 degrees of flexion Pulses Intact: Yes Dependent Edema: No Neurological Status Intact: Yes REVIEW OF XRAYS/STUDIES: Radiographs ordered and reviewed. Shows components are well positioned without any signs of loosening or failure. DX: Jeff Mendoza III is a 52 y.o. male status post left primary knee replacement and is making appropriate progress at this time TREATMENT PLAN: 1. The patient has been full weight bearing. 2. Encourage patient to continue to work on range of motion and quadriceps strengthening. FOLLOW UP: 6 weeks Rai Stone MD documented in this encounter [...] Diagnosis Aftercare following left knee joint replacement surgery- Primary Aftercare following left knee joint replacement surgery documented in this encounter Care Teams Ornamenter Hand Relationship Specialty Start Date End Date Candice Kendrick PA PCP - General Physician Tax Senior Associate 03/13/22 documented as of this encounter
--- OUTSIDE RECORDS SUMMARY | 2024-08-21 02:55 | XMS_ITS | Encounter Summary ---
Author Organization [facility] Home Care Servic es Address [address] [place] [address] Phone Care Team Providers Care Brake Repairer Railroad Name Role Phone Aroldo Candice LANDRY Primary Care Pr ovider Reason for Visit * Reason Comments Post-op Knee * Auth/Cert (Routine) Specialty Diagnoses / Procedures Referred By Contsiobhan t Referred To Contact Referral ID Status Reason Start Date Expiration Date Visits Re quested Visits Authorized [id number] Encounter Details Date Type Department Care Team (Latest Contact Info) Description 10/26/2022 8:30 AM CDT Home Care Visit [facility] [address] [place] [address] Miriam Chawla, PT PT NON OASIS DISCHARGE Social History Tobacco Use Types Packs/Day Years [...] on file Legal Sex Male 3:05 AM [employer]OR[employer] MEMBERSHIP ADVISORS Gender Identity Not on file Sexual Orientation [...] this encounter Miscellaneous Notes * Home Health Visit Narrative - Miriam Chawla, PT - 10/26/2022 8:38 AM CDT Patient to be d/c to home with HEP with instructions to extend walking distance as tolerated; continue increased protein intake and good hydration; continue HEP as directed and to increase reps to 20as tolerated; review of medications, pain management, and home safety; when/who to call with increased pain, increased swelling, wound drainage, or fever > 101 degrees; review of med list, follow up care including physician visit and referral to outpatient PT. Patient verbalized understanding and signed discharge instructions. documented in this encounter Plan of Treatment Not on file documented as of this encounter Visit Diagnoses Not on filedocumented in this encounter Home Health Visit - Care Plan Visit Details Visit Type -PT Non-OASIS Dis charge Discipline -Physical Therapy Problems Problem Description Start Date Status Goals Interventions Homebound Status Disciplines: Skilled Disciplines Patient's homebound status 10/14/2022 Active 1 goal linked to scheduled/docume nted intervention 1 goal intervention scheduled/documen rozina in this visit Monitor patient's vital signs every home health visit Disciplines: SN, PT, OT, HEALTHCARE APPLICATIONS ANALYST, COMPUTER SECURITY MANAGER, Skilled Disciplines Monitor patient's vital signs every [...] visit during episode of care Description: Home flame hardening machine operator to measure vital signs during every home [...] care at the most appropriate care setting Scheduled Monitor Vital Signs Description: Monitor blood pressure, pulse, oxygen saturation, respirations Problem:Monitor patient's vital signs every home health visit Goal:Measure vital signs during every home health visit during episode of care Scheduled Educate Patient on Infection Prevention Description: Instruct [...] concerns Goal:Demonstrate use of safety precautions Scheduled Assess safety Description: Assess patient safety Problem:Safety [...] that pain has been reduced or controlled Scheduled Educate on Wound Care Management Description: Instruct patient/caregiver on wound management including: ordered wound care, utilizing clean technique, appropriate hand hygiene, and disposal of dressings. Instruct patient/caregiver on nutrition and hydration needs for altered skin integrity, signs and symptoms of infection and/or wound deterioration to report to home health agency and or physician. Problem:Wound Education and Management Goal:Knowledgeable of Wound Management Scheduled Perform dressing change Description: Perform dressing change: wound #1 left knee. may remove outer dressing at first snv visit. leave prineo dressing intact for 21 days. then pt may remove. apply vasoline to edges and slowly peel off. wrap leg with anneliese wrap for 6 weeks. discharge orders Problem:Wound Care Goal:Progression towards healing Scheduled documented in this encounter Care Teams Brake Repairer Railroad Relationship Specialty Start Date End Date Candice Kendrick PA PCP - General Physician Aircraft Life Support Fitter 03/13/22 documented as of this encounter
--- OUTSIDE RECORDS SUMMARY | 2024-08-21 02:57 | XMS_ITS | Data Portability ---
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 dental appt UTD ,next week root canal and crown eye exam a few years ago [email or web address] Not available 12/05/2023 10:37:51 Plan of Treatment Reminders Order Date Submit Date Provider Last Modified By Organization Details Last Modified Time Details Appointments ANY 15 2024 08:00A M GRIS Mdcowell Not available Not available Not available ANNUAL 30 2024 08:00A M GRIS Mcdowell Not available Not available Not available Lab SARS CoV 2 RNA (COVID-19 ), QL, locks tender-PCR, respirato ry specimen - *Pt changed time from today to [facility] iver 1500 thur 04/14 020 [facility] (Lab), [address] [place], [address], 04/15/2020 17:07:58 PSA, serum or plasma 2023 024 [facility], [address], [address], 02/21/2024 15:32:41 TSH + free T4, serum 2023 024 [employer] [facility], [address] [address], [place], [address], 02/10/2024 09:27:12 CBC w/ auto diff 2023 024 [facility], [address] [address], [place], [address], 02/21/2024 15:32:55 CMP, serum or plasma 2023 024 [email or web address], [address] [address], [place], [address], 02/21/2024 15:33:32 HbA1c (hemoglob in A1c), blood 2023 024 [email or web address], [address] [address], [place], [address], 02/21/2024 15:33:08 lipid panel, serum 2023 024 [email or web address], [address] [address], [place], [address], 02/21/2024 15:33:45 Referral None recorded. Procedures None recorded. Surgeries None recorded. Imaging None recorded. Medication Orders montel[address] st 10 mg tablet 2023 [id number], [address], [place], [id number], 04/16/2024 09:15:40 Medrol (Grover) 4 mg tablets in a dose pack 2023 024 [id number], [address], [place], [id number], 04/16/2024 09:15:39 Patient TargetsNo targets recorded. Patient Instructions Encounter Date Encounter Id Patient Instructions Last Modified By Organization Details Last Modified Time 04/13/2020 [id number] Reviewed the following recommendations: -Stay home and separate from others as much as possible. -Monitor your symptoms and seek medical attention for trouble breathing, persistent chest pain, confusion, or bluish lips or face. -Wear a mask if you must be around other people. -Wash your hands often for 20 seconds with soap and water and clean high-touch surfaces daily -You may discontinue home isolation if your symptoms are improving and it has been 10 days since symptoms started. [email or web address] Not available 04/13/2020 13:51:36 Reason for Referral None Reported. Results Created Date Observation Date Name Description Value Unit Range Abnormal Flag Note LastModifiedBy Organization Detail LastModifiedTime 04/14/20 20 04/14/2020 SARS CoV 2 RNA (COVI D-19) , QL, locks tender-P CR, respi rator y speci men sars - cov - 2 PCR NEGATI VE mL Not Available [facility] (Lab) [address] [place], [address], 04/15/2020 17:07:58 04/14/2004/14/2020 SARS CoV 2 RNA (COVI D-19) , QL, locks tender-P CR, respi rator y speci men covidcom1 COMME NTS: This assay is desig elise to detec t the RdRp and N genes of SARS- CoV-2 using nucle ic acid ampli ficat ion. A negat saul resul t does not precl ude the possi bilit y of 2019- nCoV infec tion since the adequ acy of sampl e colle ction and/o r low viral burde n may resul t in the prese nce of viral nucle ic acids level s below the ly tical sensi tivit y of this test metho d. Not Available [facility] (Lab) [address] [facility], [place], [address], 04/15/2020 17:07:58 04/14/2004/14/2020 SARS CoV 2 RNA (COVI D-19) , QL, locks tender-P CR, respi rator y speci men covidcom2 Posit saul resul ts are indic ative of the prese nce of SARS- CoV-2 RNA and do not rule out bacte rial infec tion or co-in fecti on with other virus es. Not Available [facility] (Lab) [address], [place], [address], 04/15/2020 17:07:58 04/14/20 20 04/14/2020 SARS CoV 2 RNA (COVI D-19) , QL, locks tender-P CR, respi rator y speci men covidcom3 Test resul ts shoarron d be used along with other clini med obser vatio ns, patie nt histo ry, epide miolo gical infor matio n and labor atory data in makin g the diagn osis. Not Available [facility] (Lab) [address], [place], [address], 04/15/2020 17:07:58 04/14/20 20 04/14/2020 SARS CoV 2 RNA (COVI D-19) , QL, locks tender-P CR, respi rator y speci men covidcom4 This test has recei octaviano FDA Emerg ency Use Autho rizat ion and has been verif ied by [facility] . This test is only autho rized for the durat ion of the decla ratio n and the circu mstan christel that exist to justi fy the autho rizat ion of the emerg ency use of in vitro diagn ostic tests for the detec tion of SARS- CoV-2 virus and/o r diagn osis of COVID -19 infec tion under secti on 564 (b) (1) of the Act. 11 U.S.C . 360bb b-3 (b) (1), unles s the autho rizat ion is termi nated or revok ed soone r. Not Available [facility] (Lab) [address], [place], [address], 04/15/2020 17:07:58 04/14/20 20 04/14/2020 SARS CoV 2 RNA (COVI D-19) , QL, locks tender-P CR, respi rator y speci men covidcom5 [facility] is certi fied under CLIA- 88 as quali fied to perfo rm high compl exity testi ng. This testi ng [facility] [place] [address] (CLIA Licen se #[id number], CAP #[id number], AU-ID #[id number]). Not Available [facility] (Lab) [address] [place], [address], 04/15/2020 17:07:58 04/14/20 20 04/14/2020 SARS CoV 2 RNA (COVI D-19) , QL, locks tender-P CR, respi rator y speci men covidcom6 Facts heet for healt hcare provi ders: https ://[employer] .gov/ media /1368 56/do wnloa d Facts heet for patie nts: https ://[employer] .gov/ media /1362 57/do wnloa d Not Available [facility] (Lab) [address] [facility], [place], [address], 04/15/2020 17:07:58 10/29/19 24 10/27/2023 XR, chest , 2 view No observ ation record ed. [email or web address] [address], [place], [address], 11/21/2023 16:03:58 08/14/19 25 08/13/2024 XR, chest , 2 view No observ ation record ed. [email or web address] [address], [place], [address], 08/14/2024 10:03:23 Result Notes None recorded. Problems Name Problem SNOMED Code Status Onset Date Resolution Date Notes Provider Name and Address Organization Details Recorded Time Coronary atherosclerosi s 744578859 Active 2023 GRIS Mcdowell Attn: Hal ivan,[address] [facility], [place], [address], [facility] 4 22:49:25 History of myocardial infarction 369340379 Active 2023 GRIS Mcdowell Attn: Hal ivan,[address] [facility], [place], [address], [facility] 4 22:49:26 History of placement of stent for coronary artery disease 798250059 Active 2023 GRIS Mcdowell Attn: Hal ivan,[address] [facility], [place], [address], [place] [facility] 4 22:49:28 Hyperlipidemia 27376224 Active 2023 GRIS Mcdowell Attn: Hal g,[address] [facility], [place], [address], [facility] 4 22:49:29 Long-term drug therapy Active 2023 GRIS Mcdowell Attn: Hal ivan,[address] [facility], [place], [address], [facility] 22:49:31 Problem Notes None recorded. Procedures Surgical History None recorded. Imaging Results Imaging Date Name Status LastModified by Organiz ation Details LastModified Time 10/27/2023 XR, chest, 2 view completed [address] [place] [address], [address], 11/21/2023 16:03:58 08/13/2024 XR, chest, 2 view completed [address] [place] [address], [address], 08/14/2024 10:03:23 Procedure Notes None recorded. Medical Equipment None Reported. Allergies No known drug allergies Medications Name Sig Start Date Stop Date Status Note LastModified by Organization Details LastModified Time atorvastati n 40 mg tablet TAKE 1 TABLET BY MOUTH DAILY active Not Available Not Available No t Available azithromyci n 250 mg tablet 04/16 completed Not Available Not Available Not Available prednisone 5 mg tablet 12/04 completed Not Available Not Available Not Available clopidogrel 75 mg tablet Take 1 tablet every day by oral route. active Not Available Not Available No t Available tramadol 50 mg tablet TAKE 1 TABLET BY MOUTH EVERY 8 HOURS NEEDED PAIN 12/04 completed Not Available Not Available Not Available amoxicillin 500 mg tablet TAKE 1 TABLET BY MOUTH THREE TIMES DAILY UNTIL ALL TAKEN 04/16 completed Not Available Not Available Not Available benzonatate 100 mg capsule TAKE 1 CAPSULE BY MOUTH TWICE DAILY NEEDED FOR COUGH 04/16 completed Not Available Not Available Not Available cephalexin 500 mg capsule TAKE 1 CAPSULE BY MOUTH EVERY 6 HOURS FOR 7 DAYS 12/04 completed Not Available Not Available Not Available losartan 25 mg tablet TAKE 1/2 TABLET BY MOUTH DAILY 12/04 completed Not Available Not Available Not Available aspirin 81 mg chewable tablet CHEW AND SWALLOW 1 TABLET BY MOUTH DAILY AT 8 AM active Not Available Not Available No t Available montelukast 10 mg tablet TAKE 1 TABLET BY MOUTH EVERY DAY active Not Available Not Available No t Available metoprolol succinate ER 25 mg tablet,exte nded release 24 hr TAKE 1/2 TABLET BY MOUTH EVERY MORNING active Not Available Not Available No t Available methylpredn isolone 4 mg tablets in a dose pack FOLLOW PACKAGE DIRECTION S active Not Available Not Available No t Available oxycodone 5 mg tablet 12/04 completed Not Available Not Available Not Available metoprolol suc 100 mg-hydrochl orothiazide 12.5 mg tablet,ext. rel 24 hr Take 1 tablet every day by oral route. 12/04 completed Not Available Not Available Not Available Vitals Date Recorded Body height Body mass index (BMI) Body weight Respiratory rate Oxygen saturation Oxygen saturation in Arterial blood by Pulse oximetry Heart rate Systolic blood pressure Diastolic blood pressure Provider Name and Address Organization Details Last Updated DateTime 180.34 cm 28.5 kg/m2 51621.2 g 20 /min 97 % 97 % 62 /min 130 mm[Hg] 88 mm[Hg] Deisy Quigley MA [facility] 10:21:27 Date Recorded Systolic blood pressure Diastolic blood pressure Provider Name and Address Organization Details Last Updated DateTime 12/05/2023 118 mm[Hg] 80 mm[Hg] GRIS Mcdowell Attn: Accounting,[address] [facility], [place], [address], [facility] 12/05/2023 10:38:02 Date Recorded Body height Body mass index (BMI) Body weight Respiratory rate Oxygen saturation Oxygen saturation in Arterial blood by Pulse oximetry Heart rate Systolic blood pressure Diastolic blood pressure Provider Name and Address Organization Details Last Updated DateTime 180.34 cm 28.7 kg/m2 57620.0 3 g 20 /min 96 % 96 % 71 /min 138 mm[Hg] 80 mm[Hg] Deisy Quigley MA [facility] 4 09:02:02 Date Recorded Systolic blood pressure Diastolic blood pressure Provider Name and Address Organization Details Last Updated DateTime 04/16/2024 122 mm[Hg] 80 mm[Hg] GRIS Mcdowell Attn: Accounting[address] [place], [address], [facility] 04/16/2024 09:14:42 Social History Question Answer Notes LastModified by Organizat ion Details LastModified Time Tobacco Smoking Status Never Smoker Deisy Quigley MA null, [facility] 12/05/2023 10:18:47 Do You Have An Advance Directive? No Information n ot available 12/05/2023 What Is Your Level Of Alcohol Consumption? None Information not available 12/05/2023 Are You Blind Or Do You Have Difficulty Seeing? No Information n ot available 12/05/2023 What Is Your Level Of Caffeine Consumption? Moderate Information not available 12/05/2023 In The 14 Days Before Symptom Onset, Have You Had Close Contact With A Laboratory-confirm ed COVID-19 While That Case Was Ill? No Information n ot available 12/05/2023 In The 14 Days Before Symptom Onset, Have You Had Close Contact With A Person Who Is Under Investigation For COVID-19 While That Person Was Ill? No Information not available 12/05/2023 Have You Been To An Area Known To Be High Risk For COVID-19? No Information not available 12/05/2023 Are You Currently Employed? Yes Information not available 04/16/2024 Are You Deaf Or Do You Have Serious Difficulty Hearing? No Information not available 12/05/2023 What Type Of Diet Are You Following? REGULAR Information n ot available 12/05/2023 Are There Any Guns Present In Your Home? No Information not available 12/05/2023 What Was The Date Of Your Most Recent Tobacco Screening? 04/16/2024 Information not available 04/16/2024 Do You Use Your Seat Belt Or Car Seat Routinely? Yes Information not available 12/05/2023 Do You Have Smoke And Carbon Monoxide Detectors In Your Home? Yes Information not available 12/05/2023 Do You Feel Stressed (tense, Restless, Nervous, Or Anxious, Or Unable To Sleep At Night)? [id number] Information not available 12/05/2023 Do You Use Any Illicit Or Recreational Drugs? No Information not available 12/05/2023 Do You Use Sunscreen Routinely? No Information not available 04/16/2024 Has Tobacco Cessation Counseling Been Provided? No Information not available 12/05/2023 Do You Or Have You Ever Used Any Other Forms Of Tobacco Or Nicotine? No Information not available 12/05/2023 Sex: Male Functional Status Question Answer Note LastModified by Organization D etails LastModified Time Are you able to care for yourself? Yes Information not available 12/05/2023 What is your exercise level? Moderate Information not available 12/05/2023 Mental Status None recorded. Family History Relationship Description Onset Age of this Age Resolved Age Notes LastModified by Organization Details LastModified Time Mother Hypertensive disorder [email or web address] Not available 2023 10:51:36 Mother Hypercholest erolemia tcarterma Not available 2023 10:51:49 Father Hypertensive disorder tcarterma Not available 2023 10:51:36 Father Hypercholest erolemia tcarterma Not available 2023 10:51:49 Sister Hypertensive disorder tcarterma Not available 2023 10:51:36 Sister Hypercholest erolemia tcarterma Not available 2023 10:51:49 Brother Hypertensive disorder tcarterma Not available 2023 10:51:36 Brother Hyperchnirav king tcarterma Not available 2023 10:51:49 Medical History Condition Response Coronary Artery Disease Y Other N Atrial Fibrillation N High Blood Pressure N Thyroid Problems N Kidney or Bladder Problems N Depression N COPD N Blood Clots N GI Problems N Skin Problems N Anemia N Heart Attack (CT) N Diabetes N Anxiety Disorder N Muscle, Joint, or Bone Problems N Seizures/Epilepsy N Acid Reflux (GERD) N Cancer N Stroke N Allergies N Asthma N High Cholesterol N Hepatitis N Liver Disease N Headaches N Osteoporosis N Heart Failure N Past Encounters Encounter ID Performer Location Encounter Start Date Encounter Closed Date Diagnosis/Indication Diagnosis SNOMED-CT Code Diagnosis ICD10 Code Diagnosis Note [id number] Dayana New, [facility] DavidSeverino gonzalez [address] [place] [address] 04/13/2020 13:20:08 04/19/2020 15:33:21 Viral screening 811556657 Z11.59 [id number] GRIS Mcdowell [facility] [address] [place] [address] 12/05/2023 10:08:40 12/05/2023 12:56:15 Coronary atherosclerosis 510614995 I25.10 stable and asymptomat ic at this time. Following with Dr. Duarte at [facility] . Next appt in 4 months. Hyperlipidemia 61763075 E78.5 now on atorvastat in 40mg daily. fasting lipids due Long-term drug therapy 854507541 Z79.899 Routine CBC and CMP ordered History of myocardial infarction 743886306 I25.2 Oct 10, 2023 date of event. History of placement of stent for coronary artery disease 758715510 Z95.5 x1 stent in the LAD Screening for malignant neoplasm of prostate 018589572 Z12.5 annual PSA due Thyroid di sorder screening 964334822 Z13.29 routine thyroid panel ordered Diabetes m ellitus screening 972986042 Z13.1 a1c screening due Adult heal th examination 071287182 Z00.01 well exam completed [id number] GRIS Mcdowell [facility] [address] [place] [address] 04/16/2024 08:54:32 04/16/2024 09:19:09 Postviral cough 089892771 B94.8 Start Singulair 10 mg daily for allergies and potential reactive airway component to the allergens. Also start a Medrol Dosepak. If the cough continues after this patient is to notify provider. Health Concerns Section Related Observation LastModified by Organization Detai ls LastModified Time None Recorded Concern Status LastModified by Organization Details LastModified Time None Recorded Advance Directives Directive N: Payers Encounter Date Sequence Insurance Name Policy Number Policy Jones Covered Member ID Jones Member ID Guarantor Name 04/13/2020 1 *SELF PAY* Ch marcial Ratka 12/05/2023 1 [facility] [id number] Viola Ratka [id number] Jeff Ratka 04/16/2024 1 [facility] [id number] Viola Ratka [id number] 2 Viola Ratka Notes Date Note Type Note Provider Name and Address Organization Details Recorded Time 0 text/html Pt requesting COVID-19 testing. Pt c/o headaches x 1 week. Pt reports being in contact with his son whom recently tested positive. Denies PMH. RADHA Renee Attn: Accounting,[address] [facility], [place], [address], [facility] 04/13/2020 14:06:43 4 text/html Coronary Artery Disease F/UReported bypatient.Notes:Onset of chest pains early August, became more frequent. Then Sep, he feeling lousy, chest pains and left arm pain. Went to urgent care then went to ER. He was having M.I. Then next morning completed cardiac stent, 1 stent in LAD ( maker). Placed on med regimen. Dr. Duarte is group sales representative following him. Dr. Hernandez completed cath.HyperlipidemiaReported bypatient.Notes:pt is now on atorvastatin 40mg daily. GRIS Mcdowell Attn: Accounting,[address] [facility], [place], [address], [facility] 12/11/2023 22:50:43 4 text/html Coronary Artery Disease F/UReported bypatient.Notes:Onset of chest pains early August, became more frequent. Then Sep, he feeling lousy, chest pains and left arm pain. Went to urgent care then went to ER. He was having M.I. Then next morning completed cardiac stent, 1 stent in LAD ( maker). Placed on med regimen. Dr. Duarte is group sales representative following him. Dr. Hernandez completed cath.CoughReported bypatient.Notes:Patient reports his cough after recent viral infection has not entirely resolved. It is dry and infrequent but just persistent. He had gone to the urgent care and was given a Z-Grover at the start of at all. GRIS Mcdowell Attn: Accounting,[address] [place], [address], [facility] 04/19/2024 23:27:41
== END 2024-08-14 00:47 | disposition left against medical advice (07) ==
LOC: ANHED 08-14 00:27
PROVIDERS: Emergency Provider Student in an Organized Health Care Education/Training Program; PCP Physician Assistant
DX: R07.9 Chest pain, unspecified (principal)
CPT/HCPCS: 36415; 71046; 80053; 83690; 84484; 85025; 85610; 85730; 93005; 99199

== ENCOUNTER 2024-10-07 14:12 | Outpatient (CLI) | payer OTHER, SELFPAY ==
--- NOTE | ~2024-10-07 | XR_ITS ---
EXAMINATION: XR UGIAC wo kub DATE: 10/07/2024 14:47 INDICATION: Intermittent dysphagia. Right upper quadrant abdominal pain. TECHNIQUE: The patient drank thick barium, gas-producing crystals, and thin barium. Fluoroscopy of th e esophagus, stomach, and proximal small bowel was performed. Fluoroscopy exposure time was 0.7 minut es. The total number of images was 289. Total dose-area product was 2.263 Gy-cm^2. COMPARISON: None. FINDINGS: There is no mass or stricture of the esophagus. Esophageal motility is normal. There is no hiatal hernia. There was no gastroesophageal reflux with provocative maneuvers. The stomach and proxi mal small bowel show normal folding patterns. IMPRESSION: 1. Normal upper gastrointestinal series. Reviewed, dictated and finalized at location A. DESK TROUBLE LOCATOR
--- OUTSIDE RECORDS SUMMARY | 2024-10-07 16:15 | XMS_ITS | Data Portability ---
Author Organization [facility] MYLESArsenio Dwyer Address [address] [facility] [place] [address] Care Team Providers Care Plastic Welder Name Role Phone YANI BARBOSA Primary Care Provider Unavailab le Assessment Encounter Date Assessment Date Assessment LastModified by Organization Details LastModified Time 12/05/2023 12/05/2023 cologuard negative 2021. dental appt UTD ,next week root canal and crown eye exam a few years ago Not available 12/05/2023 10:37:51 Plan of Treatment Reminders Order Date Submit Date Provider Last Modified By Organization Details Last Modified Time Details Appointments ANY 15 2024 01:30P M GRIS Mcdowell Not available Not available Not available ANNUAL 30 2024 08:00A M GRIS Mcdowell Not available Not available Not available Lab PSA, serum or plasma 2023 024 [employer] [facility], [address], [address], 02/21/2024 15:32:41 TSH + free T4, serum 2023 024 GIAN [employer] [facility], [address], [address], 02/10/2024 09:27:12 CBC w/ auto diff 2023 024 [email or web address] [facility], [address], [address], 02/21/2024 15:32:55 CMP, serum or plasma 2023 024 [facility] [employer] [facility], [address], [address], 02/21/2024 15:33:32 HbA1c (hemoglob in A1c), blood 2023 024 [facility] [employer] [facility], [address] [facility] [address], [place], [address], 02/21/2024 15:33:08 lipid panel, serum 2023 024 [facility] [employer] [facility], [address], [address], 02/21/2024 15:33:45 SARS CoV 2 RNA (COVID-19 ), QL, rn admission-PCR, respirato ry specimen - *Pt changed time from today to [facility] iver 1500 thur 04/14 020 [facility] (Lab), [address] [place], [address], 04/15/2020 17:07:58 Referral None recorded. Procedures None recorded. Surgeries None recorded. Imaging RF, upper gastroint estinal tract, w/ contrast PO 2024 025 [email or web address] [facility], [address], [place], [address], 09/29/2024 14:28:17 Medication Orders pantopraz ole 40 mg tablet,de layed release 2024 025 [id number], [address], [place], [id number], 09/09/2024 09:32:[address] 10 mg tablet 2023 024 [email or web address] [facility] #29420, [address], [place], [id number], 09/09/2024 09:00:36 Medrol (Grover) 4 mg tablets in a dose pack 2023 025 [id number], [address] [facility], [place], [place], [id number], 09/09/2024 08:59:40 Patient TargetsNo targets recorded. Patient Instructions Encounter Date Encounter Id Patient Instructions Last Modified By Organization Details Last Modified Time 04/13/2020 [id number] Reviewed the following recommendations: -Stay home and [...] symptoms started. [email or web address] Not available 04/13/2020 13:51:36 09/09/2024 [id number] A healthy lifestyle: care instructions Not available 09/09/2024 09:32:38 Reason for Referral None Reported. Results Created Date Observation Date Name Description Value Unit Range Abnormal Flag Note LastModifiedBy Organization Detail LastModifiedTime 04/14/2004/14/2020 SARS CoV 2 RNA (COVI D-19) , QL, rn admission-P CR, respi rator y speci men sars - cov - 2 PCR NEGATI VE mL Not Available [facility] (Lab) [address] [place], [address], 04/15/2020 17:07:58 04/14/20 20 04/14/2020 SARS CoV 2 RNA (COVI D-19) , QL, rn admission-P CR, respi rator y speci men covidcom1 [...] of this test metho d. Not Available [facility] (Lab) [address] [facility], [place], [address], 04/15/2020 17:07:58 04/14/20 20 04/14/2020 SARS CoV 2 RNA (COVI D-19) , QL, rn admission-P CR, respi rator y speci men covidcom2 Posit saul resul ts are indic ative of the prese nce of SARS- CoV-2 RNA and do not rule out bacte rial infec tion or co-in fecti on with other virus es. Not Available [facility] (Lab) [address] [facility], [place], [address], 04/15/2020 17:07:58 04/14/2004/14/2020 SARS CoV 2 RNA (COVI D-19) , QL, rn admission-P CR, respi rator y speci men covidcom3 Test resul ts shoul d be used along with other clini med obser vatio ns, patie nt histo ry, epide miolo gical infor matio n and labor atory data in vincent g the diagn osis. Not Available [facility] (Lab) [address] [place], [address], 04/15/2020 17:07:58 04/14/2004/14/2020 SARS CoV 2 RNA (COVI D-19) , QL, rn admission-P CR, respi rator y speci men covidcom4 [...] b-3 (b) (1), unles s the autho rashad valverde is termi nated or revok ed soone r. Not Available [facility] (Lab) [address] [place], [address], 04/15/2020 17:07:58 04/14/20 20 04/14/2020 SARS CoV 2 RNA (COVI D-19) , QL, rn admission-P CR, respi rator y speci men covidcom5 [facility] is certi fied under CLIA- 88 as quali fied to perfo rm high compl exity testi ng. This testi ng was perfo rmed in the [facility] patricia [place] [address] (CLIA Licen se #[id number], CAP #[id number], AU-ID #[id number]). Not Available [facility] (Lab) [address], [place], [address], 04/15/2020 17:07:58 04/14/20 20 04/14/2020 SARS CoV 2 RNA (COVI D-19) , QL, rn admission-P CR, respi rator y speci men covidcom6 Facts heet for healt hcare provi ders: https ://ww w.fda .gov/ media /1362 56/do wnloa d Facts heet for patie nts: https ://ww w.fda .gov/ media /1362 57/do wnloa d Not Available [facility] (Lab) [address] [place], [address], 04/15/2020 17:07:58 03/20/20 22 03/20/2022 nonin vasiv e color ectal cance r DNA + occul t blood scree bhupinder, QL, stool fecal occult blood test negati ve Not Available Not Available 15:34:55 10/29/19 24 10/27/2023 XR, chest , 2 view No observ ation record ed. [email or web address] [facility] [address], [place], [address], 11/21/2023 16:03:58 08/14/19 25 08/13/2024 XR, chest , 2 view No observ ation record ed. [email or web address] [facility] [address] [facility] [address], [place], [address], 08/14/2024 10:03:23 10/07/19 25 10/07/2024 imagi ng/shalom agnos tic resul t No observ ation record ed. [place] [id number] [facility] [address], [place], [address], 10/07/2024 16:50:31 Result Notes None recorded. Problems Name Problem SNOMED Code Status Onset Date Resolution Date Notes Provider Name and Address Organization Details Recorded Time Coronary atherosclerosi s 849553758 Active 2023 GRIS Mcdowell Attn: Hal g,[address] [facility], [place], [address], [facility] - SI 4 22:49:25 History of myocardial infarction 561315889 Active 2023 GRIS Mcdowell Attn: Accountin g,[address] [facility], [place], [address], [facility] - SI 4 22:49:26 History of placement of stent for coronary artery disease 542819258 Active 2023 GRIS Mcdowell Attn: Accountin g,[address] [facility], [place], [address], [facility] - SIF 4 22:49:28 Hyperlipidemia 85173362 Active 2023 GRIS Mcdowell Attn: Nikolaiin g,[address] [facility], [place], [address], [facility] - SIF 4 22:49:29 Long-term drug therapy Active 2023 GRIS Mcdowell Attn: Hal ivan,[address] [facility], [place], [address], [facility] - SI 4 22:49:31 Body mass index 30+ - obesity 781317610 Active 2024 Deisy Quigley MA null, [place] - [place] 5 09:01:30 Problem Notes None recorded. Procedures Surgical History None recorded. Imaging Results Imaging Date Name Status LastModified by Organiz ation Details LastModified Time 10/27/2023 XR, chest, 2 view completed [email or web address] [place] [address], [address], 11/21/2023 16:03:58 08/13/2024 XR, chest, [facility] [place] [address] [address], [place], [address], 08/14/2024 10:03:23 10/07/2024 imaging/diag nostic result active [address] [place], [address], 10/07/2024 16:50:31 Procedure Notes None recorded. Medical Equipment None [...] completed Not Available Not Available Not Available pantoprazol e 40 mg tablet,linda yed release TAKE 1 TABLET BY MOUTH EVERY DAY IN THE MORNING active Not Available Not Available No t Available losartan 25 mg tablet TAKE 1/2 TABLET BY MOUTH DAILY 12/04 completed Not Available Not Available Not Available aspirin 81 mg chewable tablet CHEW AND SWALLOW 1 TABLET BY MOUTH DAILY AT 8 AM active Not Available Not Available No t Available montelukast 10 mg tablet Take 1 tablet every day by oral route for 30 days. active Not Available Not Available No t Available metoprolol succinate ER 25 mg tablet,exte nded release 24 hr TAKE 1/2 TABLET BY MOUTH EVERY MORNING active Not Available Not Available No t Available methylpredn isolone 4 mg tablets in a dose pack FOLLOW PACKAGE DIRECTION S 09/09 completed Not Available Not Available Not Available oxycodone 5 mg tablet 12/04 completed [...] and Address Organization Details Last Updated DateTime 4 180.34 cm 28.5 kg/m2 07154.2 g 20 /min 97 % 97 % 62 /min 130 mm[Hg] 88 mm[Hg] Deisy Quigley MA [facility] 4 10:21:27 Date Recorded Systolic blood pressure Diastolic blood pressure Provider Name and Address Organization Details Last Updated DateTime 12/05/2023 118 mm[Hg] 80 mm[Hg] GRIS Mcdowell Attn: Accounting,[address] [facility], [place], [address], [facility] 12/05/2023 10:38:02 Date Recorded Body height Body mass index (BMI) Body weight Respiratory rate Oxygen saturation Oxygen saturation in Arterial blood by Pulse oximetry Heart rate Systolic blood pressure Diastolic blood pressure Provider Name and Address Organization Details Last Updated DateTime 4 180.34 cm 28.7 kg/m2 85392.0 3 g 20 /min 96 % 96 % 71 /min 138 mm[Hg] 80 mm[Hg] Deisy Quigley MA [facility] 4 09:02:02 Date Recorded Systolic blood pressure Diastolic blood pressure Provider Name and Address Organization Details Last Updated DateTime 04/16/2024 122 mm[Hg] 80 mm[Hg] GRIS Mcdowell Attn: Accounting,[address] [place], [address], [facility] 04/16/2024 09:14:42 Date Recorded Body height Body mass index (BMI) Body weight Respiratory rate Oxygen saturation Oxygen saturation in Arterial blood by Pulse oximetry Heart rate Systolic blood pressure Diastolic blood pressure Provider Name and Address Organization Details Last Updated DateTime 5 180.34 cm 30.4 kg/m2 18935.1 4 g 20 /min 97 % 97 % 62 /min 122 mm[Hg] 82 mm[Hg] Deisy Quigley MA [facility] 5 09:03:02 Social History Question Answer Notes LastModified by Organizat ion Details LastModified Time Tobacco Smoking Status Never Smoker Deisy Quigley MA null, [facility] 12/05/2023 10:18:47 Do You Have An Advance [...] Date Of Your Most Recent Tobacco Screening? 09/09/2024 Information not available 09/09/2024 Do You Use Your Seat Belt Or Car Seat Routinely? Yes Information not available 12/05/2023 Do You Have Smoke And Carbon Monoxide Detectors In Your Home? Yes Information not available 12/05/2023 Do You Feel Stressed (tense, Restless, Nervous, Or Anxious, Or Unable To Sleep At Night)? [id number] Information not available 12/05/2023 Do You Use [...] disorder [email or web address] Not available 2023 10:51:36 Brother Hypercholest erolemia [email or web address] Not available 2023 10:51:49 Medical History Condition Response Coronary Artery Disease Y Other N Atrial Fibrillation N High Blood Pressure N Depression N COPD N Blood Clots N Anxiety Disorder N Muscle, Joint, or Bone Problems N Acid Reflux (GERD) N Cancer N Stroke N High Cholesterol N Liver Disease N Headaches N Kidney or Bladder Problems N Thyroid Problems N GI Problems N Skin Problems N Anemia N Heart Attack (DC) N Diabetes N Seizures/Epilepsy N Asthma N Allergies N Hepatitis N Heart Failure N Osteoporosis N Immunizations Vaccine Type Date Status Note Provider Nam e and Address Organization Details Recorded Time COVID-19, mRNA, LNP-S, PF, 100 mcg/0.5mL dose or 50 mcg/0.25mL dose 10/26/2020 completed ROBIN Guardado [facility] 09/08/2024 10:58:03 COVID-19, mRNA, LNP-S, PF, 100 mcg/0.5mL dose or 50 mcg/0.25mL dose 11/23/2020 completed ROBIN Guardado [facility] 09/08/2024 10:58:03 Past Encounters Encounter ID Performer Location Encounter Start Date Encounter Closed Date Diagnosis/Indication Diagnosis SNOMED-CT Code Diagnosis ICD10 Code Diagnosis Note [id number] RADHA [facility] [address] [place] [address] 04/13/2020 13:20:08 04/19/2020 15:33:21 Viral screening 552202576 Z11.59 [id number] GRIS Mcdowell [facility] [place] [facility] [address] [place] [address] 12/05/2023 10:08:40 12/05/2023 12:56:15 Coronary atherosclerosis 800890045 I25.10 stable and asymptomat ic at this time. Following with Dr. Duarte at [place] [facility] . Next appt in 4 months. Hyperlipidemia 86545083 E78.5 now on atorvastat in 40mg daily. fasting lipids due Long-term drug therapy 058375296 Z79.899 Routine CBC and CMP ordered History of myocardial infarction 100372870 I25.2 Oct 10, 2023 date of event. History of placement of stent for coronary artery disease 721979948 Z95.5 x1 stent in the LAD Screening for malignant neoplasm of prostate 613629998 Z12.5 annual PSA due Thyroid di sorder screening 040985636 Z13.29 routine thyroid panel ordered Diabetes m ellitus screening 362185328 Z13.1 a1c screening due Adult heal th examination 194933858 Z00.01 well exam completed [id number] GRIS Mcdowell [facility] [address] [place] [address] 04/16/2024 08:54:32 04/16/2024 09:19:09 Postviral cough 655800959 B94.8 Start Singulair 10 mg daily for allergies and potential reactive airway component to the allergens. Also start a Medrol Dosepak. If the cough continues after this patient is to notify provider. [id number] GRIS Mcdowell [facility] [address] [place] [address] 09/09/2024 08:47:18 09/09/2024 10:08:20 Obesity 461090672 E66.9 Body mass index 30+ - obesity 914852877 Z68.30 Intermitte nt dysphagia 20333905 R13.19 Refer for upper GI series and start pantoprazo le 40 mg daily. We discussed possibilit y of an EGD scope pending upper GI results. GI source is likely the cause of his chest pain Coronary atherosclerosis 338028222 I25.[address] Duarte at [place] [facility] . Cath august 2024 at [facility]. History of myocardial infarction 081400897 I25.2 Oct 10, 2023 date of event. Health Concerns Section Related Observation LastModified by Organization Detai ls LastModified Time None Recorded Concern Status LastModified by Organization Details LastModified Time None Recorded Advance Directives Directive N: Payers Encounter Date Sequence Insurance Name Policy Number Policy Jones Covered Member ID Jones Member ID Guarantor Name 04/13/2020 1 *SELF PAY* Ch marcial Mendoza 12/05/2023 1 [facility] [id number] [place] [id number] Jeff Kelly 04/16/2024 1 [facility] [id number] Jeff Kelly [id number] [place] 09/09/2024 1 [facility] [id number] [place] Mendoza [id number] Jeff Kelly Notes Date Note Type Note Provider Name and Address Organization Details Recorded Time 0 text/html Pt requesting COVID-19 testing. Pt c/o headaches x 1 week. Pt reports being in contact with his son whom recently tested positive. Denies PMH. DARRYL Renee-NILESH Attn: Accounting,[address] [place], [address], [facility] 04/13/2020 14:06:43 4 text/html Coronary Artery Disease F/UReported bypatient.Notes:Onset of chest pains early August, became more frequent. Then Sep, he feeling lousy, chest pains and left arm pain. Went to urgent care then went to ER. He was having M.I. Then next morning completed cardiac stent, 1 stent in LAD ( maker). Placed on med regimen. Dr. Duarte is motor checker following him. Dr. Hernandez completed cath.HyperlipidemiaReported bypatient.Notes:pt is now on atorvastatin 40mg daily. GRIS Mcdowell Attn: Accounting,[address] [facility], [place], [address], [facility] 12/11/2023 22:50:43 4 text/html Coronary Artery Disease F/UReported bypatient.Notes:Onset of chest pains early August, became more frequent. Then Sep, he feeling lousy, chest pains and left arm pain. Went to urgent care then went to ER. He was having M.I. Then next morning completed cardiac stent, 1 stent in LAD ( maker). Placed on med regimen. Dr. Duarte is motor checker following him. Dr. Hernandez completed cath.CoughReported bypatient.Notes:Patient reports his cough after recent viral infection has not entirely resolved. It is dry and infrequent but just persistent. He had gone to the urgent care and was given a Z-Grover at the start of at all. GRIS Mcdowell Attn: Accounting,[address] [facility], [place], [address], [facility] 04/19/2024 23:27:41 5 text/html DysphagiaReported bypatient.Notes:has had a few issues of food getting stuck, even vomited some. This has been going on a long time. Center to left side of chest. Also lower mediastinum at points when the food sensation of getting stuck occurs. Patient has underlying coronary atherosclerosis but this has been cleared to be stable and not the source of any of his symptoms. He had a recent cardiac catheterization this month. GRIS Mcdowell Attn: Accounting,[address] [facility], [place], [address], [facility] 09/09/2024 14:03:35
--- OUTSIDE RECORDS SUMMARY | 2024-10-07 16:15 | XMS_ITS | Clinical Summary ---
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 Gender Identity Not on file Sexual Orientation Not on file Obstetrics History Last Filed Vital Signs Vital Sign Reading Time Taken Comments Blood Pressure 140/80 10/26/2022 12:00 AM CDT Pulse 67 10/26/2022 12:00 AM CDT Temperature 36.5 C (97.7 F) 10/26/2022 12:00 AM CDT Respiratory Rate 18 10/26/2022 12:00 AM CDT Oxygen Saturation 98% 10/26/2022 12:00 AM CDT Inhaled Oxygen Concentration - - Weight 90.9 kg (200 lb 8 oz) 10/13/2022 2:52 PM TAX ASSESSOR Height 180.3 cm (5' 11 ) 10/13/2022 2:52 PM TAX ASSESSOR Body Mass Index 27.96 10/13/2022 2:52 PM TAX ASSESSOR Plan of Treatment Health Maintenance Due Date [...] this topic Medical Devices Implanted Type Area Demolitionist Device Identifier Shelf Expiration Date Model / Serial / Lot [employer] Attune Cruciate Retain Cementless Knee Left 8 Component Femoral [id number] - Sna - [id number] Implanted:Qty: 1 on 10/12/2022 by Rai Stone MD at [facility] Other - see comments Left: Knee [employer] [id number] 07/11/2032 [id number] / NA / [id number] Description:Implant Pause Pe rformed [employer] Attune Fb Tib Base Sz 7 Por [id number] - Sna - [id number] Implanted:Qty: 1 on 10/12/2022 by Rai Stone MD at [facility] Other - see comments Left: Knee [employer] 07/11/2032 [id number] / NA / [id number] Description:Implant Pause Pe rformed [employer] Insert Tibial Knee Fixed Lm Posterior Stabilized Attune 10mm Size 8 Polyethylene [id number] - Sna - [id number] Implanted:Qty: 1 on 10/12/2022 by Rai Stone MD at [facility] Other - see comments Left: Knee [employer] [id number] 06/11/2029 [id number] / NA / [id number] Description:Implant Pause Pe rformed Scew Right: Knee Insurance [facility] CHOICE PLUS CIGNA OPEN ACCESS CIGNA CIGNA Care Teams Chemical Operator Relationship Specialty Start Date End Date Candice Kendrick PA PCP - General Physician Barrel Liner 03/13/22
--- OUTSIDE RECORDS SUMMARY | 2024-10-07 16:15 | XMS_ITS | Clinical Summary ---
Author Organization [facility] Address [address] [place] [address] Phone Care Team Providers Care Follow Up Manager Name Role Phone Unavailable Primary Care Provider Unavailabl e Allergies No known active allergies Medications aspirin (ECOTRIN EC) 81 mg Tablet, Delayed Release (E.C.) Take 81 mg by mouth daily. Active clopidogreL (PLAVIX) 75 mg Tablet Take 75 mg by mouth daily. Active atorvastatin (LIPITOR) 40 mg tablet Take 1 Tablet (40 mg) by mouth daily at bedtime. 30 Tablet 08/19/2024 Active Problems Problem Noted Date Diagnosed Date Chest pain 08/18/2024 CAD (coronary atherosclerotic disease) WEST (acute kidney injury) 08/18/2024 Unstable angina 08/18/2024 Encounters Date Type Department Care Team Description 09/22/2024 External Device Data [facility]STRACTION Provider, Abstract 09/15/2024 External Device Data [facility]STRACTION Provider, Abstract 09/15/2024 External Device Data [facility]CTION Provider, Abstract 09/03/2024 External Device Data [facility] Provider, Abstract 09/02/2024 External Device Data [facility] Provider, Abstract 09/01/2024 External Device Data [facility]CTION Provider, Abstract 08/25/2024 External Device Data [facility] Provider, Abstract 08/25/2024 External Device Data [facility]STRACTION Provider, Abstract 08/18/2024 12:34 PM MECHANICAL SHOP LABORER - 08/18/2024 1:46 PM MECHANICAL SHOP LABORER Surgery [facility] Cardiac Pest Control Specialist [address] [place] [address] Marbin Poole MD Left heart cath 08/18/2024 3:57 AM MECHANICAL SHOP LABORER - 08/19/2024 11:03 AM MECHANICAL SHOP LABORER Hospital Encounter [facility] Heart & Vascular Recovery Intensive Care Unit [address] [place] [address] Darrius Pan MD Mustari, Akhi, MD Lele, Aditi, Chest pain Discharge Disposition: Home or Self Care 08/18/2024 External Device Data [facility] ABSTRACTION Provider, Abstract 08/18/2024 Prep for Surgery [facility] - [address] [place] [address] Ko Strange MD 08/18/2024 Travel from Last 3 Months Social History Tobacco Use Types Packs/Day Years Used Date Smoking Tobacco: Never Passive Smoke Exposure: Never Smokeless Tobacco: Never Tobacco Cessation:Counseling Given: No Feeling Safe Answer Date Recorded Are you in a relationship wi th someone who hurts you emotionally and/or physically? No 08/18/2024 Food Insecurity Answer Date Recorded Social/Environmental Concerns No concerns Transportation Needs Answer Date Record ed Social/Environmental Concerns No concerns Housing Stability Answer Date Recorded Social/Environmental Concerns No concerns Utility Needs Answer Date Recorded Social/Environmental Concerns No concerns Sex and Gender Information Value Date Recorded Sex Assigned at Not on file Legal Sex Male 9:29 PM MECHANICAL SHOP LABORER Gender Identity Not on file Sexual Orientation Not on file Last Filed Vital Signs Vital Sign Reading Time Taken Comments Blood Pressure 131/93 08/19/2024 7:45 AM MECHANICAL SHOP LABORER Pulse 74 08/19/2024 7:45 AM MECHANICAL SHOP LABORER Temperature 37.2 C (98.9 F) 08/19/2024 7:45 AM MECHANICAL SHOP LABORER Respiratory Rate 18 08/19/2024 7:45 AM MECHANICAL SHOP LABORER Oxygen Saturation 95% 08/19/2024 7:45 AM MECHANICAL SHOP LABORER Inhaled Oxygen Concentration - - Weight 95.2 kg (209 lb 14.1 oz) 025 12:28 AM MECHANICAL SHOP LABORER Height 180.3 cm (5' 11 ) 08/19/2024 12: 28 AM MECHANICAL SHOP LABORER Body Mass Index 29.27 08/19/2024 12:28 AM MECHANICAL SHOP LABORER Plan of Treatment Health Maintenance Due Date Last Done Comments Pre-Diabetes and Diabetes Screening 1970 DTAP/TDAP/TD VACCINES (1 - Tdap) 1988 HEPATITIS B VACCINES (1 of 3 - 19+ 3-dose series) 10/11 COLORECTAL SCREENING 2014 Colorectal Cancer Screening 2014 FIT-DNA Q 3 years 2014 FIT/FOBT Q 1 year 2014 Flex Sig/CT Colonography Q 5 years 2014 ZOSTER VACCINE (1 of 2) 11/01/2019 INFLUENZA VACCINE (#1) 2024 Preventative Visit- Commercial 08/12/2024 12/05/2023 Procedures Procedure Name Priority Date/Time Associated Diagnosis Comments TELEMETRY REPORT 09/01/2024 10:3 9 AM MECHANICAL SHOP LABORER TELEMETRY REPORT 08/22/2024 9:25 AM MECHANICAL SHOP LABORER BASIC METABOLIC PANEL Routine 08/19/2024 3:50 AM MECHANICAL SHOP LABORER CBC WITH DIFFERENTIAL Routine 08/19/2024 3:50 AM MECHANICAL SHOP LABORER LEFT VENTRICULOGRAM Stat 08/18/2024 1 :44 PM MECHANICAL SHOP LABORER Chest pain, unspecified type LEFT HEART CATH Stat 08/18/2024 1:44 PM MECHANICAL SHOP LABORER Chest pain, unspecified type EKG 12-LEAD Stat 08/18/2024 10:58 AM MECHANICAL SHOP LABORER LIPID RFLX Routine 08/18/2024 4:35 AM MECHANICAL SHOP LABORER LIPID PANEL Stat 08/18/2024 4:35 AM MECHANICAL SHOP LABORER C-REACTIVE PROTEIN Stat 08/18/2024 4: 35 AM MECHANICAL SHOP LABORER TROPONIN 6 HR, 5TH GEN Timed Study 5 4:35 AM MECHANICAL SHOP LABORER TROPONIN 2 HR, 5TH GEN Timed Study 5 1:43 AM MECHANICAL SHOP LABORER XR CHEST PA AND LATERAL 2 VW Stat 08/17/2024 10:00 PM MECHANICAL SHOP LABORER EXTRA TUBE (BLUE) Stat 08/17/2024 9:5 6 PM MECHANICAL SHOP LABORER EXTRA TUBE Stat 08/17/2024 9:56 PM MECHANICAL SHOP LABORER COMPREHENSIVE METABOLIC PANEL Stat 08/17/2024 9:56 PM MECHANICAL SHOP LABORER CBC WITH DIFFERENTIAL Stat 08/17/2024 9:56 PM MECHANICAL SHOP LABORER TROPONIN BASELINE, 5TH GEN Stat 08/17/2024 9:56 PM MECHANICAL SHOP LABORER EKG 12-LEAD Stat 08/17/2024 9:53 PM MECHANICAL SHOP LABORER from Last 3 Months Results * TELEMETRY REPORT (09/01/2024 10:39 AM MECHANICAL SHOP LABORER) Only the most recent of2 resultswithin the time period is included. us Provider Scanning ECG ORDERABLES Final Result * CBC WITH DIFFERENTIAL (08/19/2024 3:50 AM MECHANICAL SHOP LABORER) Only the most recent of2 resultswithin the time period is included. WBC 7.4 4.0 - 9.8 K/uL 08/19/2024 4:09 AM MECHANICAL SHOP LABORER [facility] RBC 5.14 4.50 - 5.40 M/uL 08/19/2024 4:09 AM [facility] HEMOGLOBIN 14.9 13.6 - 16.5 g/dL 08/19/2024 4:09 AM [facility] HEMATOCRIT 44.2 40.0 - 48.0 % 08/19/2024 4:09 AM [facility] MCV 86.0 82.0 - 99.0 fL 08/19/2024 4:09 AM MECHANICAL SHOP LABORER [facility] MCH 29.0 27.2 - 32.6 pg 08/19/2024 4:09 AM [facility] MCHC 33.7 31.5 - 35.5 g/dL 08/19/2024 4:09 AM [facility] [employer] [facility] RDW 12.3 11.5 - 14.5 % 08/19/2024 4:09 AM [facility] RDW-STDEV 38.9 37.1 - 48.7 fL 08/19/2024 4:09 AM MECHANICAL SHOP LABORER [facility] LABOR[facility]ORY SERVICES [facility] PLATELETS 281 140 - 350 K/uL 08/19/2024 4:09 AM MECHANICAL SHOP LABORER [facility] LABOR[facility]ORY SERVICES [facility] MPV 10.3 9.3 - 12.4 fL 08/19/2024 4:09 AM MECHANICAL SHOP LABORER [facility]ORY SERVICES [facility] NEUTROPHILS 66 % 08/19/2024 4:09 AM MECHANICAL SHOP LABORER [facility] LAB[facility]ORY SERVICES [facility] LYMPHOCYTES 21 % 08/19/2024 4:09 AM MECHANICAL SHOP LABORER [facility] SERVICES [facility] MONOCYTES 9 % 08/19/2024 4:09 AM MECHANICAL SHOP LABORER [facility]ORY SERVICES [facility] EOSINOPHILS 4 % 08/19/2024 4:09 AM MECHANICAL SHOP LABORER [facility] LABOR[facility]ORY SERVICES [facility] BASOPHILS 1 % 08/19/2024 4:09 AM MECHANICAL SHOP LABORER [facility] SERVICES [facility] IMMATURE GRANULOCYTES 0 % 08/19/2024 4:09 AM MECHANICAL SHOP LABORER [facility]ORY SERVICES [facility] NEUTROPHIL ABSOLUTE 4.88 1.90 - 7.00 K/uL 08/19/2024 4:09 AM MECHANICAL SHOP LABORER [facility] LAB[facility]ORY SERVICES [facility] LYMPHOCYTE ABSOLUTE 1.54 0.70 - 4.50 K/uL 08/19/2024 4:09 AM MECHANICAL SHOP LABORER [facility] LAB[facility]ORY SERVICES [facility] MONOCYTE ABSOLUTE 0.63 0.10 - 1.30 K/uL 08/19/2024 4:09 AM MECHANICAL SHOP LABORER [facility]ORY SERVICES [facility] EOSINOPHIL ABSOLUTE 0.26 0.00 - 0.70 K/uL 08/19/2024 4:09 AM MECHANICAL SHOP LABORER [facility] SERVICES [facility] BASOPHILS ABSOLUTE 0.04 0.00 - 0.20 K/uL 08/19/2024 4:09 AM MECHANICAL SHOP LABORER [facility]ORY SERVICES [facility] IMMATURE GRANULOCYTES ABSOLUTE 0.02 0.00 - 0.03 K/uL 08/19/2024 4:09 AM MECHANICAL SHOP LABORER [facility] LABOR[facility]ORY SERVICES [facility] Blood Venipuncture / Unknown 08/19/2024 3:50 AM MECHANICAL SHOP LABORER 08/19/2024 3:59 AM MECHANICAL SHOP LABORER us Melanie Nuñez NP HEMATOLOGY ORDERABLES Final R esult [facility] CLIA# [id number] [place] [address] * (ABNORMAL) BASIC METABOLIC PANEL (08/19/2024 3:50 AM MECHANICAL SHOP LABORER) SODIUM 138 136 - 145 mmol/L 08/19/2024 4:32 AM [facility] POTASSIUM 4.1 3.4 - 5.1 mmol/L 08/19/2024 4:32 AM [facility] CHLORIDE 107 98 - 107 mmol/L 08/19/2024 4:32 AM [facility] CO2 18(L) 22 - 29 mmol/L 08/19/2024 4:32 AM [facility] CALCIUM 9.1 8.6 - 10.4 mg/dL 08/19/2024 4:32 AM [facility] [facility] BUN 16 6 - 20 mg/dL 08/19/2024 4:32 AM [facility] CREATININE 1.15 0.67 - 1.17 mg/dL 08/19/2024 4:32 AM [facility] GLUCOSE 96 74 - 99 mg/dL 08/19/2024 4:32 AM [facility] GFR >60 >=60 mL/min/1.7 3 sq meter 08/19/2024 4:32 AM [facility] Comment:eGFR calculated with 2020 CKD-EPI equation. Vegetarian diet, extremely high or low muscle mass, and may affect results. Cystatin C with Glomerular Filtration Rate is a suitable alternative for these patients. ANION GAP 13 8 - 16 mmol/L 08/19/2024 4:32 AM [facility] Blood Venipuncture / Unknown 08/19/2024 3:50 AM MECHANICAL SHOP LABORER 08/19/2024 3:59 AM MECHANICAL SHOP LABORER us Melanie Nuñez NP CHEMISTRY ORDERABLES Final Re sult [facility] CLIA# [id number] [place] [address] * LEFT HEART CATH, LEFT VENTRICULOGRAM (08/18/2024 1:44 PM MECHANICAL SHOP LABORER) 08/18/2024 12:2 7 PM MECHANICAL SHOP LABORER Narrative [facility]ASC[facility] - [id number] - 08/18/2024 2:20 PM MECHANICAL SHOP LABORER [facility] Heart & Vascular Post [facility] Note History: 53-year-old gentleman who October 2023 sustained NSTEMI requiring emergent proximal LAD stent. At the time small diagonal jailed with diminished flow. Short interval chest pain and then did well post intervention. Now presents to emergency room with crescendo chest pressure reproducible with minimal activity. Given above diagnostic cardiac catheterization recommended Procedure: Left Heart Catheterization: LV gram: Coronary study: TR band Procedure description: Prior to arrival to the Pest Control Specialist had discussed the risk, benefits and alternatives, written informed consent was obtained. Once consent signed the patient was brought to the cardiac catheterization lab in a fasting state. The patient was prepped and draped in normal sterile fashion for right radial approach. Right groin was prepped and draped as well for potential need alternative access. IV sedation was administered per Pest Control Specialist protocol. 1% Xylocaine was used for local anesthetic. With modified Seldinger technique, a 6 Yakut slender radial arterial hemostasis sheath was inserted into the right radial artery without difficulty. The sheath was aspirated and flushed and a precocktail of heparin, verapamil and nitroglycerin was administered. The case J-wire was then inserted and with [id number] technique JR4 5 Yakut diagnostic catheter advanced. The catheter was advanced across the aortic valve. The catheter was aspirated and flushed. LV pressure measurements were obtained and hemodynamics recorded. Left ventricular angiography was performed in the 30 BAKER projection using hand injection of non-ionic contrast. The catheter was flushed and pullback pressure across the aortic valve with potential gradient measured. Then proceeded with selective coronary angiography. For this utilized a 5 Yakut JR4 and JL 3.5 diagnostic catheter. The diagnostic right catheter engaged the nondominant right without difficulty. Challenging with distal takeoff of the right subclavian into the aortic arch required cath manipulation eventually was able to engage the left main with orthogonal views obtained. When complete, the catheter was removed utilizing the standard J catheter with [id number]-apz-[id number] technique. The sheath was removed and a TR band was applied. There was excellent hemostasis and no hematoma. The patient tolerated the procedure well and there were no complications. The patient was transported to cath recovery in stable condition. Having suffered no ill effects of the procedure Access: Radial artery Coronary angiography: (Left dominant) Left main-normal .... Left anterior descending-large vessel proximal stent widely patent there is a small proximal diagonal cannot appreciate a clear ostial stenosis. But this is a very small caliber vessel. Patent with JUAN-3 flow. High up in the mid LAD there is focal moderate myocardial bridging in the LAD still large vessel is then terminates in for apically. No progressive distal disease.... Circumflex artery-large dominant vessel giving off large marginal and wrapping around the AV groove giving off distal marginals and terminating the small left PDA. Normal-appearing angiographically.... Right coronary artery -small nondominant normal Left ventriculogram- Normal LV function with estimate LVEF 70% range Complications: None Conclusion LV gram ... Normal LV function with estimate LVEF upwards of 70% range 2. Hemodynamics ... Normal left heart hemodynamics 3. Coronary angiography left dominant patent stent ... Focal moderate myocardial bridging mid LAD a) LM - normal b) LAD - proximal stent widely patent. First diagonal patent with JUAN-3 flow. ... Focal short segment moderate myocardial bridging mid LAD c) CIRC - large dominant vessel normal-appearing angiographically d) RCA - small nondominant vessel Thank you, Marbin Poole MD [facility] Heart [facility] Vascular us Ko Strange MD [facility] CATH ORDERABLE S Final Result [facility] - [address] [place] [address] CLIA# [id number] [address] [place] [address] * EKG 12-LEAD (08/18/2024 10:58 AM MECHANICAL SHOP LABORER) Only the most recent of2 resultswithin the time period is included. 08/18/2024 10:5 8 AM MECHANICAL SHOP LABORER Narrative INTERFACE SYSTEM - 08/18/2024 11:38 [place] [address] Test Date: 2024-08-18 Pat Name: MAUREEN MENDOZA Department: Room: [address] [place] [address] Gender: Male Senior Front End Engineer: : 1970 Requested By: DARRIUS PAN Order Number: [id number] Reading MD: Yrn Ray Measurements Intervals [place] Rate: 58 P: 46 DE: 134 QRS: 8 QRSD: 92 T: 115 QT: 400 QTc: 392 Interpretive Statements Sinus bradycardia Lateral infarct, age undetermined Abnormal ECG Compared to ECG 08/17/2024 21:53:51 No significant changes Electronically Signed On 08-18-2024 11:38:21 MECHANICAL SHOP LABORER by Yrn Ray Procedure Note Yrn Ray MD - 08/18/2024 [place] [address] Test Date: 2024-08-18 Pat Name: MAUREEN MENDOZA Department: 92 Room: [address] [place] [address] Gender: Male Senior Front End Engineer: : 1970 Requested By: DARRIUS PAN Order Number: [id number] Reading MD: Yrn Ray Measurements Intervals [place] Rate: 58 P: 46 DE: 134 QRS: 8 QRSD: 92 T: 115 QT: 400 QTc: 392 Interpretive Statements Sinus bradycardia Lateral infarct, age undetermined Abnormal ECG Compared to ECG 08/17/2024 21:53:51 No significant changes Electronically Signed On 08-18-2024 11:38:21 MECHANICAL SHOP LABORER by Yrn Ray us Marbin Poole MD ECG ORDERABLES Final Res ult INTERFACE SYSTEM Refer to clinic/hospital department * TROPONIN 6 HR, 5TH GEN (08/18/2024 4:35 AM MECHANICAL SHOP LABORER) TROPONIN T, 6 HR 5TH GEN 9 <=15 ng/L 08/18/2024 5:05 AM MECHANICAL SHOP LABORER [facility] LABORATORY SERVICES - [facility] DELTA 6HR TROPONIN T -1 See Interp. 08/18/2024 5:05 AM [facility] Blood Venipuncture / Unknown 08/18/2024 4:35 AM MECHANICAL SHOP LABORER 08/18/2024 4:37 AM [facility] - 08/18/2024 5:05 AM MECHANICAL SHOP LABORER Troponin Detectable but normal range. Delta indeterminate. Delay in collection of timed specimen beyond recommended collection interval. Results must be interpreted in clinical context. Darrius Pan MD CHEMISTRY ORDERABLES Final Resul t [facility] CLIA# [id number] [place] [address] * (ABNORMAL) LIPID RFLX (08/18/2024 4:35 AM MECHANICAL SHOP LABORER) CHOLESTEROL 190 <200 mg/dL 08/19/2024 12:22 AM [facility] TRIGLYCERIDE 158(H) <150 mg/dL 08/19/2024 12:22 AM [facility] HDL 46 40 - 59 mg/dL 08/19/2024 12:22 AM [facility] LDL CALCULATED 112(H) <100 mg/dL 08/19/2024 12:22 AM [facility] NON-HDL CHOLESTEROL 144(H) <130 mg/dL 08/19/2024 12:22 AM [facility] Blood Venipuncture / Unknown 08/18/2024 4:35 AM MECHANICAL SHOP LABORER 08/18/2024 4:37 AM [facility] - 08/19/2024 12:22 AM MECHANICAL SHOP LABORER TOTAL CHOLESTEROL mg/dL Desirable <200 Borderline high 200-239 High >=240 TRIGLYCERIDES mg/dL Normal <150 Borderline high 150-199 High 200-499 Very high >=500 HDL CHOLESTEROL mg/dL Low <40 Normal 40-59 Desirable >=60 NON HDL CHOLESTEROL mg/dL Optimal <130 Near Optimal 130-159 Borderline High 160-189 Very High >=190 CALCULATED LDL mg/dL LDL <70, OPTIMAL if have Atherosclerotic cardiovascular disease (ASCVD) or intermediate or higher (>7.5%) 10 year risk of ASCVD including most adults with diabetes. LDL <100, Optimal in adult patients with low (<7.5%) 10 year ASCVD risk LDL 100-160, Suboptimal LDL >160, High LDL >190, Very high ATPIII Guidelines Reference Ranges for Lipid Panels (NCEP/AMA) . Melanie Nuñez PANTOGRAPH WATCHER CHEMISTRY ORDERABLES Final Re sult Performing Organization Address City/[facility]/ZIP Co de Phone Number [facility] CLIA# [id number] [place] [address] * C-REACTIVE PROTEIN (08/18/2024 4:35 AM MECHANICAL SHOP LABORER) Pathologist [facility] CRP <3.0 <5.0 mg/L 08/18/2024 9:42 AM [facility] [facility] Blood Venipuncture / Unknown 08/18/2024 4:35 AM MECHANICAL SHOP LABORER 08/18/2024 4:37 AM MECHANICAL SHOP LABORER Melanie Nuñez PANTOGRAPH WATCHER CHEMISTRY ORDERABLES Final Re sult Performing Organization Address [facility] Co de Phone Number [facility] [id number] [place] [address] * (ABNORMAL) LIPID PANEL (08/18/2024 4:35 AM MECHANICAL SHOP LABORER) CHOLESTEROL 190 <200 mg/dL 08/18/2024 10:26 AM [facility] [facility] TRIGLYCERIDE 158(H) <150 mg/dL 08/18/2024 10:26 AM [facility] [employer] [facility] HDL 46 40 - 59 mg/dL 08/18/2024 10:26 AM [facility] [employer] [facility] LDL CALCULATED 112(H) <100 mg/dL 08/18/2024 10:26 AM [facility] [employer] [facility] NON-HDL CHOLESTEROL 144(H) <130 mg/dL 08/18/2024 10:26 AM [facility] Blood Venipuncture / Unknown 08/18/2024 4:35 AM MECHANICAL SHOP LABORER 08/18/2024 4:37 AM [facility] - 08/18/2024 10:26 AM MECHANICAL SHOP LABORER TOTAL CHOLESTEROL mg/dL Desirable <200 Borderline high 200-239 High >=240 TRIGLYCERIDES mg/dL Normal <150 Borderline high 150-199 High 200-499 Very high >=500 HDL CHOLESTEROL mg/dL Low <40 Normal 40-59 Desirable >=60 NON HDL CHOLESTEROL mg/dL Optimal <130 Near Optimal 130-159 Borderline High 160-189 Very High >=190 CALCULATED LDL mg/dL LDL <70, OPTIMAL if have Atherosclerotic cardiovascular disease (ASCVD) or intermediate or higher (>7.5%) 10 year risk of ASCVD including most adults with diabetes. LDL <100, Optimal in adult patients with low (<7.5%) 10 year ASCVD risk LDL 100-160, Suboptimal LDL >160, High LDL >190, Very high ATPIII Guidelines Reference Ranges for Lipid Panels (NCEP/AMA) . Arabella Norton APRN CHEMISTRY ORDERABLES Fin al Result [facility]# [id number] [place] [address] * TROPONIN 2 HR, 5TH GEN (08/18/2024 1:43 AM MECHANICAL SHOP LABORER) TROPONIN T, 2 HR 5TH GEN 10 <=15 ng/L 08/18/2024 2:28 AM [facility] [place] 2[facility] TROPONIN T 0 See Interp. 08/18/2024 2:28 AM [facility] Blood Venipuncture / Unknown 08/18/2024 1:43 AM MECHANICAL SHOP LABORER 08/18/2024 1:55 AM [facility] - 08/18/2024 2:28 AM MECHANICAL SHOP LABORER Troponin Detectable but normal range. Delta not changing. Delay in collection of timed specimen beyond recommended collection interval. Results must be interpreted in clinical context. Darrius Pan MD CHEMISTRY ORDERABLES Final Resul t Performing Organization Address City/[facility]/ZIP Co de Phone Number [facility]# [id number] [place] [address] * XR CHEST PA AND LATERAL 2 VW (08/17/2024 10:00 PM MECHANICAL SHOP LABORER) Anatomical Region Laterality Modality Chest Computed Radiogr aphy 08/17/2024 10:0 1 PM MECHANICAL SHOP LABORER Impressions 08/17/2024 10:10 PM MECHANICAL SHOP LABORER IMPRESSION: Negative DICTATION LOCATION: Location [address] [place] [address] Narrative 08/17/2024 10:10 PM MECHANICAL SHOP LABORER CHEST TWO VIEWS DATE: 08/17/2024 10:00 PM HISTORY: Chest pain FINDINGS: Heart size is normal and the lungs are clear and no pneumothorax or pleural effusion is seen. Procedure Note Ozzie Khoury MD - 08/17/2024 CHEST TWO VIEWS DATE: 08/17/2024 10:00 PM HISTORY: Chest pain FINDINGS: Heart size is normal and the lungs are clear and no pneumothorax or pleural effusion is seen. IMPRESSION: Negative DICTATION LOCATION: Location [address] [place] [address] Darrius Pan MD DIAGNOSTIC IMAGING ORDERABLES Fi nal Result * EXTRA TUBE (BLUE) (08/17/2024 9:56 PM MECHANICAL SHOP LABORER) Blood Venipuncture / Unknown 08/17/2024 9:56 PM MECHANICAL SHOP LABORER 08/17/2024 10:15 PM MECHANICAL SHOP LABORER Darrius Pan MD HEMATOLOGY ORDERABLES Final Resu lt [facility] [employer] [facility]# [id number] [place] [address] * TROPONIN BASELINE, 5TH GEN (08/17/2024 9:56 PM MECHANICAL SHOP LABORER) TROPONIN T, BASELINE 5TH GEN 10 <=15 ng/L 08/17/2024 11:29 PM MECHANICAL SHOP LABORER [facility] [facility] Blood Venipuncture / Unknown 08/17/2024 9:56 PM MECHANICAL SHOP LABORER 08/17/2024 10:20 PM MECHANICAL SHOP LABORER Narrative [facility] - 08/17/2024 11:29 PM MECHANICAL SHOP LABORER Troponin Detectable but normal range. Darrius Pan MD CHEMISTRY ORDERABLES Final Resul t [facility] CLIA# [id number] [place] [address] * (ABNORMAL) COMPREHENSIVE METABOLIC PANEL (08/17/2024 9:56 PM MECHANICAL SHOP LABORER) SODIUM 137 136 - 145 mmol/L 08/17/2024 11:35 PM [facility] POTASSIUM 4.0 3.4 - 5.1 mmol/L 08/17/2024 11:35 PM [facility] CHLORIDE 107 98 - 107 mmol/L 08/17/2024 11:35 PM [facility] CO2 16(L) 22 - 29 mmol/L 08/17/2024 11:35 PM [facility] CALCIUM 9.1 8.6 - 10.4 mg/dL 08/17/2024 11:35 PM [facility] BUN 20 6 - 20 mg/dL 08/17/2024 11:35 PM [facility] CREATININE 1.56(H) 0.67 - 1.17 mg/dL 08/17/2024 11:35 PM [facility] GLUCOSE 105(H) 74 - 99 mg/dL 08/17/2024 11:35 PM [facility] TOTAL PROTEIN 6.7 6.3 - 8.7 g/dL 08/17/2024 11:35 PM [facility] ALBUMIN 4.1 3.5 - 5.2 g/dL 08/17/2024 11:35 PM [facility] BILIRUBIN TOTAL 0.4 0.3 - 1.2 mg/dL 08/17/2024 11:35 PM [facility] ALKALINE PHOSPHATASE 76 40 - 150 U/L 08/17/2024 11:35 PM [facility] AST 26 0 - 41 U/L 08/17/2024 11:35 PM [facility] ALT 18 0 - 41 U/L 08/17/2024 11:35 PM [facility] GFR 52(L) >=60 mL/min/1.7 3 sq meter 08/17/2024 11:35 PM [facility] Comment:eGFR calculated with 2020 CKD-EPI equation. Vegetarian diet, extremely high or low muscle mass, and may affect results. Cystatin C with Glomerular Filtration Rate is a suitable alternative for these patients. ANION GAP 14 8 - 16 mmol/L 08/17/2024 11:35 PM [facility] Blood Venipuncture / Unknown 08/17/2024 9:56 PM MECHANICAL SHOP LABORER 08/17/2024 10:20 PM MECHANICAL SHOP LABORER us Darrius Pan MD CHEMISTRY ORDERABLES Final Resul t [facility] CLIA# [id number] [place] [address] from Last 3 Months Insurance [facility]LY [facility] OPEN ACCESS O Advance Directives For more information, please contact: [phone] * Full Code (Latest Code Status on File) Date Activated Date Inactivated Comments 08/18/2024 9:20 AM 08/19/2024 1:13 PM
--- OUTSIDE RECORDS SUMMARY | 2024-10-07 16:15 | XMS_ITS | Clinical Summary ---
Author Organization [facility] Address [address] [place] [address] Care Team Providers Care Chief Mechanical Engineer Name Role Phone Unavailable Primary Care Provider Unavailabl e Source Comments [facility],non-owned Affiliates and Associated Physician Practices is amultiple site organization consisting of ambulatory clinics and hospital sitesin [place], [place], [place] and [place]. This disclosure is being madepursuant to the Care Everywhere program and may not contain all information available regarding this patient. Last updated 18.[facility] Allergies No known active allergies Medications * [...] Comments Blood Pressure 129/90 09/27/2016 12:38 PM RADIO OPERATOR Pulse 89 09/27/2016 4:22 PM RADIO OPERATOR Temperature 36.6 C (97.8 F) 09/27/2016 12:38 PM RADIO OPERATOR Respiratory Rate 16 09/27/2016 4:22 PM RADIO OPERATOR Oxygen Saturation 100% 09/27/2016 4:22 PM RADIO OPERATOR Inhaled Oxygen Concentration - - Weight 81.6 kg (180 lb) 09/27/2016 12:38 PM RADIO OPERATOR Height 180.3 cm (5' 11 ) 09/27/2016 12:38 PM RADIO OPERATOR Body Mass Index 25.1 09/27/2016 12:38 PM RADIO OPERATOR Plan of Treatment Health Maintenance Due Date [...] of 3 - 19+ 3-dose series) 1988 PNEUMOCOCCAL VACCINE 50+ (1 of 1 - PCV) 11/01/2019 ZOSTER VACCINE (1 of 2) 11/01/2019 COVID-19 VACCINE (1 - 2023-2 5 season) 2024 INFLUENZA VACCINE (#1) 2024 DEPRESSION SCREENING 08/12/2024 HIB VACCINE Aged Out No longer eligi ble based on patient's age to complete this topic HPV VACCINE Aged Out No longer eligi ble based on patient's age to complete this topic MENINGOCOCCAL (Group B) VACCINE Aged Out No longer eligible based on patient's age to complete this topic MENINGOCOCCAL VACCINE Aged Out No brenda nydia eligible based on patient's age to complete this topic Guarantor Name Account Type Relation to Patient Date of Phone Billing Address [id number] Workers Comp Employer [address] [place] [address] eJff Mendoza Personal/Family Self 1970 [address] [place] [address]
--- OUTSIDE RECORDS SUMMARY | 2024-10-07 16:15 | XMS_ITS | Referral Summary ---
Author Organization [facility] Address [address] [place] [address] Care Team Providers Care Isotope Technologist Name Role Phone Unavailable Primary Care Provider Unavailabl e Source Comments [facility],non-owned Affiliates and Associated Physician Practices is amultiple site organization consisting of ambulatory clinics and hospital sitesin [place], [place], [place] and [place]. This disclosure is being madepursuant to the Care Everywhere program and may not contain all information available regarding this patient. Last updated 18.[facility] Allergies No known active allergies Medications * [...] Comments Blood Pressure 129/90 09/27/2016 12:38 PM MAIL DELIVERER Pulse 89 09/27/2016 4:22 PM MAIL DELIVERER Temperature 36.6 C (97.8 F) 09/27/2016 12:38 PM MAIL DELIVERER Respiratory Rate 16 09/27/2016 4:22 PM MAIL DELIVERER Oxygen Saturation 100% 09/27/2016 4:22 PM MAIL DELIVERER Inhaled Oxygen Concentration - - Weight 81.6 kg (180 lb) 09/27/2016 12:38 PM MAIL DELIVERER Height 180.3 cm (5' 11 ) 09/27/2016 12:38 PM MAIL DELIVERER Body Mass Index 25.1 09/27/2016 12:38 PM MAIL DELIVERER Plan of Treatment Not on file Guarantor Name Account Type Relation to Patient Date of Phone Billing Address [id number] Workers Comp Employer [address] [place] [address] Jeff Mendoza Personal/Family Self 1970 [address] [place] [address]
--- OUTSIDE RECORDS SUMMARY | 2024-10-07 16:15 | XMS_ITS | Referral Summary ---
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 Gender Identity Not on file Sexual Orientation [...] (200 lb 8 oz) 10/13/2022 2:52 PM BARBER OR BEAUTY SHOP MANAGER Height 180.3 cm (5' 11 ) 10/13/2022 2:52 PM BARBER OR BEAUTY SHOP MANAGER Body Mass Index 27.96 10/13/2022 2:52 PM BARBER OR BEAUTY SHOP MANAGER Plan of Treatment Not on file Medical Devices Implanted Type Area Academic Affairs Dean Device Identifier Shelf Expiration Date Model / Serial / Lot [employer] Attune Cruciate Retain Cementless Knee Left 8 Component Femoral [id number] - Sna - [id number] Implanted:Qty: 1 on 10/12/2022 by Rai Stone MD at [facility] Other - see comments Left: Knee [employer] [id number] 07/11/2032 [id number] / NA / [id number] Description:Implant Pause Pe rformed [employer] Attune Fb Tib Base Sz 7 Por [id number] - Sna - [id number] Implanted:Qty: 1 on 10/12/2022 by Rai Stone MD at [facility] Other - see comments Left: Knee [employer] 07/11/2032 [id number] / NA / [id number] Description:Implant Pause Pe rformed [employer] Insert Tibial Knee Fixed Lm Posterior Stabilized Attune 10mm Size 8 Polyethylene [id number] - Sna - [id number] Implanted:Qty: 1 on 10/12/2022 by Rai Stone MD at [facility] Other - see comments Left: Knee [employer] [id number] 06/11/2029 [id number] / NA / [id number] Description:Implant Pause Pe rformed Scew Right: Knee Insurance [facility] [address] CIGNA OPEN ACCESS CIGNA CIGNA Care Teams Chemist Intern Relationship Specialty Start Date End Date Candice Kendrick PA PCP - General Physician Molder Apprentice 03/13/22
--- OUTSIDE RECORDS SUMMARY | 2024-10-07 16:15 | XMS_ITS | Continuity of Care Document ---
Author Organization [facility] Address [address] [place] [address] Phone Care Team Providers Care Gas Torch Brazier Name Role Phone Rai Taylor MD Unavailable Unavailable Allergies, Adverse Reactions, Alerts Substance Reaction Status Criticality No Known Allergies Resolved No Inform ation Procedures Procedure Date Office/outpatient visit,[facility], Payoff 2016 Supplemental Report Depo Medrol 80 MG inj Asp/Injection, Major Joint W/ Ultrasound Office/outpatient visit,[facility], Payoff 2016 Disability Form MRI lower extrm joint, w/o contrast X-ray exam knee, 4+ views Office consultation, moderate-high Advance Directives Directive Yes / No Effective Date File Name No Information Encounters Encounter Description Practice Location Reason(s) For Visit Diagnoses Date Provider Providers Copied on Encounter Office/outpat ient visit,[facility], Payoff [facility], [address] [place] [address], [id number], [place] tel:[phone] [facility] left knee pain (chief complaint) Unilateral primary osteoarthriti s, left knee 7 Claudia Atwood. [address] [place] [address], [place] [address], [place], [place], [id number] , [place]. tel: [phone] Office/outpat ient visit,est, Payoff [facility], [address] [place] [address], [id number], [place] tel:[phone] [facility] left knee pain (chief complaint) Unilateral primary osteoarthriti s, left knee Oct-0 7 Claudia Atwood. [address], [address], [place], [place], [id number] , [place]. [phone] [facility], [address], [place], [id number], [place] tel:[phone] [facility] No Information 7 Claudia Atwood. [address], [address], [place], [place], [id number] , [place]. tel:[phone] [facility], [address], [id number], [place] tel:[phone] [facility] Pain in left knee Feb-[address] [facility]. [address], [address], [place], [place], [id number] , [place]. [phone] Referring Provider: Rai Estrada, [address], [place], [address] . tel:[phone] Office consultation, moderate-high [facility], [address], [place], [place], [id number], [place] tel:[phone] [facility] left knee pain (chief complaint) Pain in left knee Feb-2 [address] [facility] [address], [place], [place], [id number] , [place]. tel:[phone] Family History Family Member Type Diagnosis Age At Onset Problem (finding) Family history of hyper tension Problem (finding) Family history of Diabe padmaja mellitus Problem (finding) Family history of Cance r, unknown Payers Payer name Insurance type Covered libertarian ID Authoriza tion(s) No Information Social History [...] at work. He is on Worker's Comp. Jeff states that the symptoms began as the [...] activities, movement and sleeping in any position. [place] states that the symptoms are relieved by [...]
--- OUTSIDE RECORDS SUMMARY | 2024-10-07 16:15 | XMS_ITS | Patient Health Summary ---
Author Organization [facility] [employer] Address [address] [place] [address] Care Team Providers Care Peer Financial Counselor Name Role Phone Unavailable Primary Care Provider Unavailabl e Note from [facility] [employer] [facility],non-owned Affiliates and Associated Physician Practices is amultiple site organization consisting of ambulatory clinics and hospital sitesin [place], [place], [place] and [place]. This disclosure is being madepursuant to the Care Everywhere program and may not contain all information available regarding this patient. Last updated 18.[facility] [employer] Allergies No known active allergies Medications * [...] Comments Blood Pressure 129/90 09/27/2016 12:38 PM BAND AND CUFF CUTTER Pulse 89 09/27/2016 4:22 PM BAND AND CUFF CUTTER Temperature 36.6 C (97.8 F) 09/27/2016 12:38 PM BAND AND CUFF CUTTER Respiratory Rate 16 09/27/2016 4:22 PM BAND AND CUFF CUTTER Oxygen Saturation 100% 09/27/2016 4:22 PM BAND AND CUFF CUTTER Inhaled Oxygen Concentration - - Weight 81.6 kg (180 lb) 09/27/2016 12:38 PM BAND AND CUFF CUTTER Height 180.3 cm (5' 11 ) 09/27/2016 12:38 PM BAND AND CUFF CUTTER Body Mass Index 25.1 09/27/2016 12:38 PM BAND AND CUFF CUTTER Procedures * XR KNEE LEFT 4VW OR MORE(Performed 09/27/2016) Performed for Fall from other slipping, tripping, or stumbling * XR HIP RIGHT 2VW OR MORE(Performed 09/27/2016) Performed for Fall from other slipping, tripping, or stumbling Results * XR KNEE 4+ VW LEFT (09/27/2016 3:30 PM BAND AND CUFF CUTTER) Anatomical Region Laterality Modality Lower Extremity Radiographic Isi ging 09/27/2016 3:34 PM BAND AND CUFF CUTTER Narrative 09/27/2016 3:37 PM BAND AND CUFF CUTTER 2 views right hip 4 views left [...] HIP 2+ VW RIGHT (09/27/2016 3:29 PM BAND AND CUFF CUTTER) Anatomical Region Laterality Modality Pelvis, Lower Extremity Radiogra phic Imaging 09/27/2016 3:34 PM BAND AND CUFF CUTTER Narrative 09/27/2016 3:37 PM BAND AND CUFF CUTTER 2 views right hip 4 views left [...]
== END 2024-10-07 14:13 | disposition home or self-care (01) ==
LOC: ANHIMG 14:13
PROVIDERS: PCP Physician Assistant; Visit Provider Physician Assistant
DX: R13.19 Other dysphagia (principal)
CPT/HCPCS: 74246

== ENCOUNTER 2024-10-12 15:21 | Outpatient (CLI) | payer OTHER, SELFPAY | END 2024-10-12 15:22 | disposition home or self-care (01) | PROVIDERS: PCP Physician Assistant; Visit Provider Physician Assistant | DX: R07.9 Chest pain, unspecified (principal) | CPT/HCPCS: 71275; Q9967 ==